=== PATIENT | female | born 1945 | race Caucasian/White ===

== ENCOUNTER 2016-04-20 19:06 | Observation (INO) ==
[2016-04-20] MEDS ORDERED: methylPREDNISolone 125 MG/2 ML VIAL IVP ONE (19:19)
[2016-04-20] MEDS ORDERED: 0.9 % Sodium Chloride 1,000 ML IVC ONE (19:19)
[2016-04-20] MEDS ORDERED: Ipratropium/Albuterol Neb 3 ML IH ONE (19:19)
--- NOTE | 2016-04-20 19:34 | Emergency Department Note ---
Disposition Clinical Impression: Acute exacerbation of chronic obstructive airways disease, Hypoxia, Dyspnea Disposition: Admitted As Inpatient Condition: Fair Referrals: William Abdul MD [Primary Care Provider] - Forms: ED Satisfaction Letter Time of Disposition: 20:46 SOB HPI - General Chief Complaint: ED Shortness of Breath/Dyspnea Stated Complaint: cough, SANCHEZ, fatigue Time Seen by Provider: 04/20/16 19:13 Source: patient, family, EMS Mode of arrival: EMS Limitations: no limitations Nursing Notes Reviewed: Yes Vital Signs Reviewed: Yes - History of Present Illness Pt Subjective Complaint: shortness of breath Onset (ago): day(s) (Several days) Context: other (Started having some cough that is productive of yellow sputum and felt worsening shortness of breath that is limiting her activities of daily living.) Severity: severe (Can walk 15 feet without having to stop and sit down.) Consistency/Duration: constant, gradually worsening Improves with: nothing Worsens with: exertion Known history of: COPD, congestive heart failure, diabetes, recurrent pneumonia Associated symptoms: Reports: cough, wheezing, sputum production, other ( Complained of chills and sweats). Denies: fever Treatment prior to arrival: oxygen (She used her home oxygen), bronchodilator ( Was given one aerosol on route by squad) Cough present: Yes Cough Description: Productive Cough Frequency: Intermittent Sputum production: Yes Sputum Amount: Moderate Sputum Color: Yellow - Related Data Home oxygen amount: 2 liters Home Medications Medication Instructions Recorded Confirmed Ergocalciferol (VITAMIN D2) 50,000 unit PO SA 10/15/15 04/20/16 [Vitamin D2 (50,000 UNIT)] Oxycodone HCl/Acetaminophen 1 tab PO Q6H PRN 10/15/15 04/20/16 [Percocet 10-325 mg Tablet] Oxygen 2 - 2.5 l NS AD 10/15/15 04/20/16 Sitagliptin Phosphate [Januvia] 50 mg PO DAILY 10/15/15 04/20/16 Insulin Glargine [Lantus] 45 unit SQ BID 11/04/15 04/20/16 Metoprolol Tartrate [Metoprolol 50 mg PO BID 11/04/15 04/20/16 Tartrate] Lisinopril [Zestril] 5 mg PO DAILY 04/20/16 04/20/16 Allergies Allergy/AdvReac Type Severity Reaction Status Date / Time No Known Allergies Allergy Verified 10/15/15 16:13 All systems ED: reviewed and negative except as stated. Constitutional: Reports: chills. Denies: fever ENT ED: Reports: congestion. Denies: ear pain, throat pain Cardiovascular: Reports: dyspnea on exertion. Denies: chest pain, palpitations Respiratory: Reports: cough, dyspnea, wheezes Gastrointestinal: Denies: abdominal pain, nausea, vomiting Musculoskeletal: Denies: back pain Integumentary: Denies: rash Endocrine: Reports: fatigue Past Medical History - Past Medical History Attestation: Yes The following information was validated with the patient. Source: patient, old records reviewed, obtained from family, nursing notes reviewed Medical history: Reports: arthritis, CHF, COPD, diabetes, GERD, hyperlipidemia, hypertension, osteoporosis, renal disease, other Surgical history: Reports: other Psychiatric history: Reports: anxiety DIRECTOR [employer] [facility] [facility] history: Reports: no [employer] history - Social History Smoking Status: Current every day smoker Smokeless Tobacco Status: No Alcohol use: Reports: none Drug use: Reports: none Physical Exam - General Limitations: no limitations General appearance: alert - Head Head exam: atraumatic, normocephalic - Eye Eye exam: Present: normal appearance, PERRL, EOMI - ENT ENT exam: normal exam, normal oropharynx, mucous membranes dry, normal external ear exam - Neck Neck exam: Present: normal inspection, full ROM. Absent: meningismus - Chest Chest inspection: Present: normal inspection, symmetric chest wall rise. Absent : tenderness - Respiratory Respiratory exam: Present: wheezes (Diffuse bilaterally). Absent: respiratory distress - Cardiovascular Cardiovascular exam: Present: regular rate, normal rhythm, normal heart sounds - Abdominal Exam Abdominal exam: Present: soft, Non-Tender - Extremities Exam Extremities exam: Present: full ROM, pedal edema (Mild, chronic) - Neurological Exam Neurological exam: Present: alert, oriented X3 - Psychiatric Psychiatric exam: Present: normal affect, normal mood - Skin Skin exam: Present: warm, dry. Absent: rash Course Course Narrative: Patient presents with shortness of breath that is limiting her ability to function at home. She is coughing with production of thick yellow sputum. She is wheezing all over the lungs on auscultation. Given her complaint of chills and sweats, it sounds more like an infectious issue. I ordered breathing treatments for her. We will look at the chest x-ray to assess for pneumonia as well as other issues like CHF. It seems most likely this patient will need to be admitted to the hospital. Final disposition will be based on diagnostic results and reevaluation. - Reevaluation(s) Reevaluation #1: Lab workup is unremarkable except for low potassium, which was supplemented, and elevated blood glucose, which is consistent with her diabetes. Chest x-ray was clear. There is no indication of congestive heart failure. We do not see pneumonia on the chest x-ray. However the patient is coughing up thick yellow sputum. She has got diffuse wheezing all over. She is required no oxygen than she normally uses at home in order to keep her sats up above 90. I think this is bronchitis aggravating COPD and causing an oxygen requirement. She needs to be admitted to the hospital because her symptoms are severe enough that she cannot walk 10 feet without having to stop to sit down and take a breath. I will contact the hospitalist and arrange admission. Time: 20:44 - Consultations Consultation #1: , hospitalist - I discussed the case with the hospitalist and he has accepted the patient for admission. Time: 20:44 Vital Signs Temperature 98.8 F 04/20/16 19:11 Pulse Rate 93 04/20/16 19:11 Respiratory Rate 18 04/20/16 19:11 Blood Pressure 193/109 04/20/16 19:11 O2 Sat by Pulse Oximetry 93 L 04/20/16 19:11 Temperature 98.8 F 04/20/16 19:11 Pulse Rate 120 04/20/16 20:35 Respiratory Rate 20 04/20/16 20:35 Blood Pressure 141/94 04/20/16 20:35 O2 Sat by Pulse Oximetry 91 L 04/20/16 20:35 Oxygen Delivery Oxygen Delivery Nasal Cannula Shortness of Breath/Dyspnea - Medical Records Medical records reviewed: Yes I reviewed the patient's medical records. - Lab Data Lab results reviewed: Yes I reviewed the patient's lab results. Result diagrams: 04/20/16 19:30 04/20/16 19:30 Lab Results 04/20/16 04/20/16 04/20/16 Range/Units 19:30 19:30 19:30 WBC 5.5 (4.3-11.1) K/mcL RBC 4.61 (3.82-4.97) M/mcL Hgb 13.2 (11.5-15.4) g/dL Hct 40.9 (35.3-44.9) % MCV 88.7 (83.0-100.0) fL MCH 28.6 (28.0-33.3) pg MCHC 32.3 (31.6-35.5) g/dL RDW 14.5 (11.5-14.5) % Plt Count 184 (140-400) K/mcL MPV 9.6 (9.4-12.4) fL Immature Gran % 0.9 (0-4) % Seg Neutrophils % 53.7 % Lymphocytes % 30.0 % Monocytes % 14.8 % Eosinophils % 0.2 % Basophils % 0.4 % Neutrophils # 2.9 (1.6-8.9) K/mcL Lymphocytes # 1.6 (0.6-4.6) K/mcL Monocytes # 0.8 (0.0-1.3) K/mcL Eosinophils # 0.0 (0.0-0.6) K/mcL Basophils # 0.0 (0.0-0.2) K/mcL Sodium 139 (136-145) mEq/L Potassium 2.7 L (3.5-4.5) mEq/L Chloride 88 L (98-109) mEq/L Carbon Dioxide 42 H* (19-29) mEq/L BUN 9 (7-20) mg/dL Creatinine 0.97 (0.57-1.11) mg/dL Est GFR ( Amer) > 60 (> 60) Est GFR (Non-Af Amer) 56 L (> 60) BUN/Creatinine Ratio 9 (6-26) Glucose 319 H (70-99) mg/dL Calculated Osmolality 299 (280-300) Lactic Acid 1.4 (0.5-2.2) mmol/L Calcium 8.8 (8.6-10.8) mg/dL Troponin I (0-0.03) ng/mL B-Natriuretic Peptide (0-100) pg/mL 04/20/16 04/20/16 Range/Units 19:30 19:30 WBC (4.3-11.1) K/mcL RBC (3.82-4.97) M/mcL Hgb (11.5-15.4) g/dL Hct (35.3-44.9) % MCV (83.0-100.0) fL MCH (28.0-33.3) pg MCHC (31.6-35.5) g/dL RDW (11.5-14.5) % Plt Count (140-400) K/mcL MPV (9.4-12.4) fL Immature Gran % (0-4) % Seg Neutrophils % % Lymphocytes % % Monocytes % % Eosinophils % % Basophils % % Neutrophils # (1.6-8.9) K/mcL Lymphocytes # (0.6-4.6) K/mcL Monocytes # (0.0-1.3) K/mcL Eosinophils # (0.0-0.6) K/mcL Basophils # (0.0-0.2) K/mcL Sodium (136-145) mEq/L Potassium (3.5-4.5) mEq/L Chloride (98-109) mEq/L Carbon Dioxide (19-29) mEq/L BUN (7-20) mg/dL Creatinine (0.57-1.11) mg/dL Est GFR ( Amer) (> 60) Est GFR (Non-Af Amer) (> 60) BUN/Creatinine Ratio (6-26) Glucose (70-99) mg/dL Calculated Osmolality (280-300) Lactic Acid (0.5-2.2) mmol/L Calcium (8.6-10.8) mg/dL Troponin I 0.01 (0-0.03) ng/mL B-Natriuretic Peptide 69 (0-100) pg/mL - Radiology Data Radiology results reviewed: Yes I reviewed the patient's radiology results. - EKG Data EKG attestation: Yes I reviewed and interpreted this EKG. EKG shows normal: Reports: sinus rhythm, axis, intervals, ST-T waves Rate: Reports: normal Voltage: Reports: decreased voltage throughout Interpretation: Reports: no acute changes
[2016-04-20 19:41] LABS: Basophils % 0.4 %; Eosinophils % 0.2 %; Hematocrit 40.9 % (35.3-44.9); Hemoglobin 13.2 g/dL (11.5-15.4); Immature Granulocytes % 0.9 % (0-4); Lymphocytes # 1.6 K/mcL (0.6-4.6); Mean Corpuscular HGB Conc 32.3 g/dL (31.6-35.5); Mean Corpuscular Hemoglobin 28.6 pg (28.0-33.3); Mean Corpuscular Volume 88.7 fL (83.0-100.0); Mean Platelet Volume 9.6 fL (9.4-12.4); Monocytes # 0.8 K/mcL (0.0-1.3); Monocytes % 14.8 %; Neutrophils # 2.9 K/mcL (1.6-8.9); Platelet Count 184 K/mcL (140-400); Red Blood Count 4.61 M/mcL (3.82-4.97); Red Cell Distribution Width 14.5 % (11.5-14.5); Segmented Neutrophils % 53.7 %
[2016-04-20 19:54] LABS: BUN/Creatinine Ratio 9 (6-26); Blood Urea Nitrogen 9 mg/dL (7-20); Calcium 8.8 mg/dL (8.6-10.8); Chloride 88 mEq/L (98-109); Glucose 319 mg/dL (70-99); Osmolality,Calculated 299 (280-300); Potassium 2.7 mEq/L (3.5-4.5); Sodium 139 mEq/L (136-145); eGFR For African Americans > 60 (> 60); eGFR For Non-African Americans 56 (> 60)
[2016-04-20 19:56] LABS: Carbon Dioxide 42 mEq/L (19-29)
[2016-04-20] MEDS ORDERED: Acetaminophen 325 MG TABLET PO PRN (22:18)
[2016-04-20] MEDS ORDERED: Albuterol 2.5 MG/3 ML NEBULIZER IH PRN (22:18)
[2016-04-20] MEDS ORDERED: Ondansetron 4 MG/2 ML VIAL IVP PRN (22:18)
[2016-04-20] MEDS ORDERED: Naloxone 0.4 MG/ML INJ IVP PRN (22:18)
[2016-04-20] MEDS ORDERED: *HR* OxyCODONE/APAP 10/325 TABLET PO PRN (22:21)
[2016-04-20] MEDS ORDERED: *HR* Dextrose 50 % in Water (Syg) 50 ML SYRINGE IVP PRN (22:22)
[2016-04-20] MEDS ORDERED: Dextrose Gel 15 GM PO PRN ×2 (22:22)
[2016-04-20] MEDS ORDERED: D5% in Water 1,000 ML IV PRN (22:22)
--- NOTE | 2016-04-20 22:27 | Internal Med History&Physical ---
Date of Encounter: 04/20/16 Time of Encounter: 21:20 Internal Medicine - H&P: HPI Chief complaint: SOB, FEELS SICK, COUGHING Admitted From: Emergency Dept Plans for Post Hospital Care: Home History of present illness: Ms. Ramsey is a 71 year old female WITH MEDICAL HISTORY SIGNIFICANT FOR COPD ( oxygen-dependent), presents with a couple of days history of a productive cough , lethargy, loss of appetite, progressive shortness of breath. She has felt so weak. Her grandson reports the patient has has much more wheezing, refusing her meals the past 2-3 days. She reports chest pain, at rest. She she has had no documented she, she has had bouts of diaphoresis. She reports nausea, but has not vomitted. No change in bowel habit. No rash, no change in chronic leg fulless, no PND or orthopnea, no hemoptysis. no sick contact, no recent travel. She continue to smoke. She is up-to-date with influenza and pneumococcal vaccination. She was admitted with respiratory failure in May 2015, requiring intubation and ventilator-support in the ICU. sHE RECEIEVED MULTIPLE ROUNDS of Duoneb in the ED, now requiring 3L of oxygen to keep SPO2>92%. Medical history: Reports: arthritis, CHF, COPD, DM2 (insulin-dependent), GERD, hyperlipidemia, hypertension, osteoporosis Surgical history: Reports: Right shoulder surgery Psychiatric history: Reports: anxiety EDITORIAL ASSISTANT history: Reports: no EDITORIAL ASSISTANT history Smoking Status: Current every day smoker, 0.5ppd Alcohol use: Reports: none Drug use: Reports: none Family History: father: HTN, CAD, COPD, MOTHER: COPD, HTN, daughter: COPD ROS: A 10-point ROS was performed. Positives and relevant negatives are detailed , system-symptom not mentioned assumed negative unless otherwise stated. See HPI. Vital Signs Temperature 98.8 F 04/20/16 19:11 Pulse Rate 93 04/20/16 19:11 Respiratory Rate 18 04/20/16 19:11 Blood Pressure 193/109 04/20/16 19:11 O2 Sat by Pulse Oximetry 93 L 04/20/16 19:11 Temperature 98.8 F 04/20/16 19:11 Pulse Rate 120 04/20/16 20:35 Respiratory Rate 20 04/20/16 20:35 Blood Pressure 141/94 04/20/16 20:35 O2 Sat by Pulse Oximetry 91 L 04/20/16 20:35 Not in distress, ill but not toxic looking. lethargic++. Morbidly obese. She is able to speak in complete sentences Not pale, anicteric, afebrile, cyanotic lips. Moist mucosa. HEENT: No JVD, no cervical lymphadenopathy, tracchea is central. Chest : Very diminished, scattered expiratory wheezing. Bibasilar fine crackles. chest pain reproduced by cough, deep breathing and palpation. Heart: RRR, HS1/2, no m/r/g. Abdomen: soft, non-tender, no guarding, no rebound. : No flank tenderness, no CVA tenderness, no suprapubic tenderness. LOAN COUNSELOR: aaox 3. no gross focal neurological deficits Skin:No active skin lesion. Extremities: Non-pitting pedal edema, chronic stasis dermatitis, normal pedal pulses, no calf tenderness. Lab Results 04/20/16 04/20/16 04/20/16 Range/Units 19:30 19:30 19:30 WBC 5.5 (4.3-11.1) K/mcL RBC 4.61 (3.82-4.97) M/mcL Hgb 13.2 (11.5-15.4) g/dL Hct 40.9 (35.3-44.9) % MCV 88.7 (83.0-100.0) fL MCH 28.6 (28.0-33.3) pg MCHC 32.3 (31.6-35.5) g/dL RDW 14.5 (11.5-14.5) % Plt Count 184 (140-400) K/mcL MPV 9.6 (9.4-12.4) fL Immature Gran % 0.9 (0-4) % Seg Neutrophils % 53.7 % Lymphocytes % 30.0 % Monocytes % 14.8 % Eosinophils % 0.2 % Basophils % 0.4 % Neutrophils # 2.9 (1.6-8.9) K/mcL Lymphocytes # 1.6 (0.6-4.6) K/mcL Monocytes # 0.8 (0.0-1.3) K/mcL Eosinophils # 0.0 (0.0-0.6) K/mcL Basophils # 0.0 (0.0-0.2) K/mcL Sodium 139 (136-145) mEq/L Potassium 2.7 L (3.5-4.5) mEq/L Chloride 88 L (98-109) mEq/L Carbon Dioxide 42 H* (19-29) mEq/L BUN 9 (7-20) mg/dL Creatinine 0.97 (0.57-1.11) mg/dL Est GFR ( Amer) > 60 (> 60) Est GFR (Non-Af Amer) 56 L (> 60) BUN/Creatinine Ratio 9 (6-26) Glucose 319 H (70-99) mg/dL Calculated Osmolality 299 (280-300) Lactic Acid 1.4 (0.5-2.2) mmol/L Calcium 8.8 (8.6-10.8) mg/dL Troponin I (0-0.03) ng/mL B-Natriuretic Peptide (0-100) pg/mL 04/20/16 04/20/16 Range/Units 19:30 19:30 WBC (4.3-11.1) K/mcL RBC (3.82-4.97) M/mcL Hgb (11.5-15.4) g/dL Hct (35.3-44.9) % MCV (83.0-100.0) fL MCH (28.0-33.3) pg MCHC (31.6-35.5) g/dL RDW (11.5-14.5) % Plt Count (140-400) K/mcL MPV (9.4-12.4) fL Immature Gran % (0-4) % Seg Neutrophils % % Lymphocytes % % Monocytes % % Eosinophils % % Basophils % % Neutrophils # (1.6-8.9) K/mcL Lymphocytes # (0.6-4.6) K/mcL Monocytes # (0.0-1.3) K/mcL Eosinophils # (0.0-0.6) K/mcL Basophils # (0.0-0.2) K/mcL Sodium (136-145) mEq/L Potassium (3.5-4.5) mEq/L Chloride (98-109) mEq/L Carbon Dioxide (19-29) mEq/L BUN (7-20) mg/dL Creatinine (0.57-1.11) mg/dL Est GFR ( Amer) (> 60) Est GFR (Non-Af Amer) (> 60) BUN/Creatinine Ratio (6-26) Glucose (70-99) mg/dL Calculated Osmolality (280-300) Lactic Acid (0.5-2.2) mmol/L Calcium (8.6-10.8) mg/dL Troponin I 0.01 (0-0.03) ng/mL B-Natriuretic Peptide 69 (0-100) pg/mL EKG: NSR, normal axis, normal intervals, no ST-T anomalies CXR: bibasilar atelectasis, no infiltrates, back-ground COPD. IMP COPD exacerbation Viral upper respiratory tract infection. evaluate for influenza. Chronic morbidities COPD HTN Diastolic CHF HLD GERD Osteoporosis Morbid obesity PLAN Admit to observation Rapid influenza/strep group A Solumedrol 40mg IVP Q12H Duonebs QID Albuterol nebs Q4H PRN Levaquin 500mg po QD Continue other medications of chronic morbidities Lovenox for DVT prophylaxis Protonix 40mg po QD FOR gi PROPHYLAXIS I discussed my assessment with the patient, her grandson/daughter at bedside, they verbalized understanding and are agreeable to admission. She is admitted due to high risk from progressive SOB, lethargy, and high risk for acute on chronic respiratory failure. Past Med Surg Social Fam HX - Past Medical History Medical history: arthritis, CHF, COPD, diabetes, GERD, hyperlipidemia, hypertension, osteoporosis, renal disease, other Psychiatric history: anxiety - Past Surgical History Surgical History: other - Social History Smoking Status: Current every day smoker Smokeless Tobacco Status: No Alcohol use: none Drug use: none - Family History Mother Hx Family Cardiac Disorders: Yes (heart attack, HTN) Hx Family Endocrine Disorder: Yes (diabetes) Internal Medicine - H&P: Meds Ergocalciferol (VITAMIN D2) [Vitamin D2 (50,000 UNIT)] 50,000 unit PO SA [History] Oxycodone HCl/Acetaminophen [Percocet 10-325 mg Tablet] 1 tab PO Q6H PRN [History] Oxygen 2 - 2.5 l NS AD 10/15/15 [History] Sitagliptin Phosphate [Januvia] 50 mg PO DAILY 10/15/15 [History] Insulin Glargine [Lantus] 45 unit SQ BID 11/04/15 [History] Metoprolol Tartrate [Metoprolol Tartrate] 50 mg PO BID 11/04/15 [History] Lisinopril [Zestril] 5 mg PO DAILY 04/20/16 [History] Allergies No Known Allergies Allergy (Verified 10/15/15 16:13) All Systems PM: A 10-system review of systems was performed and is negative for pertinent findings except as documented above in the HPI. - Constitutional Vitals: Temp Pulse Resp BP Pulse Ox 98.8 F 120 20 125/68 91 L 04/20/16 19:11 04/20/16 20:35 04/20/16 21:33 04/20/16 21:33 04/20/16 20:35 Internal Med - H&P Results - Labs CBC & Chem 7: 04/20/16 19:30 04/20/16 19:30
[2016-04-20] MEDS ORDERED: NON-FORMULARY MEDICATION 1 EACH EACH (Insulin Glargine [Lantus] 45 UNIT) SQ SCH (22:30)
[2016-04-20] MEDS: Ipratropium/Albuterol Neb 3 ML IH SCH (23:08)
[2016-04-21] MEDS: Insulin DETEMIR 100 UNIT/ML X5UNITS SQ SCH ×2 (01:06→08:41)
[2016-04-21] MEDS: Ipratropium/Albuterol Neb 3 ML IH SCH ×2 (05:13→11:39)
[2016-04-21] MEDS ORDERED: MethylPREDNISolone 40 MG/ML VIAL IVP SCH (06:00)
[2016-04-21] MEDS ORDERED: *HR* Enoxaparin 40 MG/0.4 ML SYRINGE SQ SCH (06:00)
[2016-04-21] MEDS: Insulin LISPRO 300 UNITS/3 ML VIAL SQ SCH ×2 (08:40→11:57)
[2016-04-21] MEDS ORDERED: JANUVIA 50 MG PO SCH (09:00)
[2016-04-21] MEDS ORDERED: levoFLOXacin 500 MG TABLET PO SCH (09:00)
[2016-04-21] MEDS ORDERED: Nystatin Cream 15 GM TUBE TP SCH (09:00)
[2016-04-21] MEDS ORDERED: Potassium Chloride 40 MEQ, Lidocaine 1% 2 ML in D5% in Water 500 ML IVPB SCH (09:45)
[2016-04-21] MEDS ORDERED: Dextrose Gel 15 GM PO PRN ×2 (09:46)
[2016-04-21] MEDS ORDERED: *HR* Dextrose 50 % in Water (Syg) 50 ML SYRINGE IVP PRN (09:46)
[2016-04-21] MEDS ORDERED: D5% in Water 1,000 ML IV PRN (09:46)
[2016-04-21] MEDS ORDERED: Insulin LISPRO 300 UNITS/3 ML VIAL SQ SCH ×3 (11:30→21:00)
[2016-04-21 11:48] VITALS: BP 155/80
--- NOTE | 2016-04-21 12:01 | Electrocardiograph Report ---
[place] [address] Test Date: 2016-04-20 Pat Name: Elysia Ramsey Department: 104 Room: 3A43 Gender: F Director Airport: : 1945 Requested By: Willy Young Order Number: [id number] Reading MD: Myra Bruce Measurements Intervals [place] Rate: 94 P: 68 MS: 182 QRS: 25 QRSD: 94 T: 46 QT: 293 QTc: 345 Interpretive Statements SINUS RHYTHM LOW QRS VOLTAGE IN PRECORDIAL LEADS Electronically Signed On 04-21-2016 11:59:54 EST by Myra Bruce
--- NOTE | 2016-04-21 12:13 | Electrocardiograph Report ---
[address] [place] [address] Test Date: 2016-04-21 Pat Name: Elysia Ramsey Department: 115 Room: 3A43 Gender: F Manager Visual: : 1945 Requested By: Maame Argueta Order Number: [id number] Reading MD: Myra Bruce Measurements Intervals [place] Rate: 107 P: 70 MD: 187 QRS: 41 QRSD: 91 T: 51 QT: 337 QTc: 400 Interpretive Statements SINUS TACHYCARDIA POSSIBLE ANTERIOR MYOCARDIAL INFARCTION, OF INDETERMINATE AGE Electronically Signed On 04-21-2016 12:12:22 EST by Myra Bruce
--- NOTE | 2016-04-21 14:05 | Discharge Summary ---
Date of Encounter: 04/21/16 Time of Encounter: 14:01 - Discharge Diagnosis (1) Flu Priority: Primary Status: Acute (2) Acute exacerbation of chronic obstructive airways disease Priority: Primary Status: Acute (3) UTI (urinary tract infection), uncomplicated Priority: Primary Status: Acute - Discharge Medications Prescriptions: Levofloxacin [Levaquin] 500 mg PO DAILY #4 tablet Oseltamivir [Tamiflu] 75 mg PO BID 4 Days Potassium Chloride Elixir [Potassium Chloride] 40 meq PO DAILY 3 Days PredniSONE 10 mg PO DAILY #21 tablet Home Medications: Ergocalciferol (VITAMIN D2) [Vitamin D2 (50,000 UNIT)] 50,000 unit PO SA [History] Oxycodone HCl/Acetaminophen [Percocet 10-325 mg Tablet] 1 tab PO Q6H PRN [History] Oxygen 2 - 2.5 l NS AD 10/15/15 [History] Sitagliptin Phosphate [Januvia] 50 mg PO DAILY 10/15/15 [History] Insulin Glargine [Lantus] 45 unit SQ BID 11/04/15 [History] Metoprolol Tartrate 50 mg PO BID 11/04/15 [History] Lisinopril [Zestril] 5 mg PO DAILY 04/20/16 [History] Levofloxacin [Levaquin] 500 mg PO DAILY #4 tablet 04/21/16 [Rx] Oseltamivir [Tamiflu] 75 mg PO BID 4 Days 04/21/16 [Rx] Potassium Chloride Elixir [Potassium Chloride] 40 meq PO DAILY 3 Days 04/21/16 [ Rx] PredniSONE 10 mg PO DAILY #21 tablet 04/21/16 [Rx] Allergies/Adverse Reactions: Allergies No Known Allergies Allergy (Verified 10/15/15 16:13) Procedures/tests Complete & Pending: Procedures Performed prior 72 hours Category Date Time Status ECG 12 lead ECG [ECG] Routine Y 04/21/16 05:01 Completed Date of admission: 04/20/16 21:02 Primary care physician: William Abdul MD Consults: 04/20/16 22:56 Consult to Nutrition [CONS] Stat Comment: Consulting Provider: NUTRITION Reason for Dietary Consult: MST Score 04/21/16 11:54 Consult to Python Web Developer [CONS] Routine Reason for SW Consult: discharge needs Discharging clinician: Maame Recio date of discharge: 04/21/16 - Patient Status Disposition: Home, Self-Care Condition: Fair Functional capacity at discharge: independent ambulation Overall status at discharge: patient is back to baseline - Discharge Instructions Instructions: Influenza (DC), Chronic Obstructive Pulmonary Disease (DC), Dyspnea (GEN), Hypoxia (GEN) Follow Up With: William Abdul MD [Primary Care Provider] - 05/01/16 9:45 am - Diet and Activity Activity: resume usual activities as tolerated Diet: advance to your usual diet Interval History: Ms. Ramsey is a 71 year old female WITH MEDICAL HISTORY SIGNIFICANT FOR COPD ( oxygen-dependent), presents with a couple of days history of a productive cough , lethargy, loss of appetite, progressive shortness of breath. She has felt so weak. Her grandson reports the patient has has much more wheezing, refusing her meals the past 2-3 days. She reports chest pain, at rest. She she has had no documented she, she has had bouts of diaphoresis. She reports nausea, but has not vomitted. No change in bowel habit. No rash, no change in chronic leg fulless, no PND or orthopnea, no hemoptysis. no sick contact, no recent travel. She continue to smoke. She is up-to-date with influenza and pneumococcal vaccination. She was admitted with respiratory failure in May 2015, requiring intubation and ventilator-support in the ICU. sHE RECEIEVED MULTIPLE ROUNDS of Duoneb in the ED, now requiring 3L of oxygen to keep SPO2>92%. work up at ED showed influenza positive, and hypokalemia. cxr showed no signs of pneumonia. she was started on tamiflu and was given IV potassium she was seen today, she reports that she feels better and ready to go home she did not want to wait for repeat chem. she is bieng dc today in stable condition. Hospital course: Ms. Ramsey is a 71 year old female Time spent discussing smoking cessation with patient: more than 10 minutes - Time Spent with Patient Total time spent providing and/or coordinating discharge services: Greater than 30 minutes - Constitutional Vitals: Temp Pulse Resp BP Pulse Ox 98.5 F 75 18 155/80 97 04/21/16 11:33 04/21/16 11:33 04/21/16 11:33 04/21/16 11:33 04/21/16 11:33 General appearance: Present: A&O X 3, morbidly obese Exam: Not in distress, Morbidly obese. She is able to speak in complete sentences Not pale, anicteric, afebrile, cyanotic lips. Moist mucosa. HEENT: No JVD, no cervical lymphadenopathy, tracchea is central. Chest : b/l decreased breath sounds, no wheezing. Heart: RRR, HS1/2, no m/r/g. Abdomen: soft, non-tender, no guarding, no rebound. : No flank tenderness, no CVA tenderness, no suprapubic tenderness. SOLUTION STRATEGIST: aaox 3. no gross focal neurological deficits Skin:No active skin lesion. Extremities: Non-pitting pedal edema, chronic stasis dermatitis, normal pedal pulses, no calf tenderness.
== END 2016-04-21 14:30 | disposition home or self-care (01) ==
LOC: 3ANU 19:06 → EMEROO 19:06 → 3ANU 22:19
PROVIDERS: ADMIT Internal Medicine Endocrinology, Diabetes & Metabolism; ATTEND Internal Medicine Endocrinology, Diabetes & Metabolism

== ENCOUNTER 2018-06-05 13:11 | Inpatient (IN) ==
[2018-06-05] MEDS ORDERED: *HR* Dextrose 50 % in Water (Syg) 50 ML SYRINGE ONE ×2 (13:37→15:23)
--- NOTE | 2018-06-05 13:45 | Emergency Department Note ---
Disposition Clinical Impression: Hypoglycemia, Hyponatremia Altered mental status Qualifiers: Altered mental status type: unspecified Qualified Code(s): R41.82 - Altered mental status, unspecified Disposition: Admitted As Inpatient Time of Disposition: 01:30 Altered Mental Status HPI - General Chief Complaint: ED Altered Mental Status Stated Complaint: weakness Time Seen by Provider: 06/05/18 13:40 Source: EMS Mode of arrival: EMS Limitations: no limitations, altered mental status Nursing Notes Reviewed: Yes Vital Signs Reviewed: Yes - History of Present Illness HPI Narrative: Patient 73-year-old female presenting to [facility] ED via EMS for unknown history of lethargy/altered mental status. Per nursing report patient was brought in by EMS after calling his received for lethargy. Patient was found to be hypoglycemic at 26 in the field and was given an amp of D50. Nursing staff reports the patient was alert and oriented upon presentation to the ED but then again decompensated with altered mental status and fingerstick glucose at 56. A second amp of D50 was ordered at that time. Upon initial evaluation patient is alert to person only, she is unsure of her past medical history cellulitis she is a diabetic but is unsure of what medication she takes. Patient states she does not know why she is at the hospital only stating that she "feels very bad." Patient appears with warm, clammy skin, scattered rhonchi to lung auscultation states she is having abdominal pain with nausea and diffuse tenderness to palpation. Labs and chest x-ray ordered we will reassess. MD complaint: altered mental status Onset (ago): unknown Pain Severity: unable Consistency of Symptoms: waxing and waning Context: diabetes Associated symptoms: Reports: nausea/vomiting Treatments prior to arrival: glucose, IV fluid, oxygen - Related Data Home Medications Medication Instructions Recorded Confirmed Citalopram Hydrobromide 20 mg PO DAILY 06/05/18 06/05/18 [Citalopram HBr] Dulaglutide [Trulicity] 0.75 mg SQ SA 06/05/18 06/05/18 Ergocalciferol (VITAMIN D2) 50,000 unit PO FR 06/05/18 06/05/18 [Vitamin D2] Insulin Glargine,Hum.rec.anlog 62 unit SQ DAILY 06/05/18 06/05/18 [Lantus Solostar] Metoprolol Tartrate 50 mg PO DAILY 06/05/18 06/05/18 OxyCODONE/APAP 10/325 [Percocet 1 tab PO Q6H PRN 06/05/18 06/05/18 10/325 MG] Potassium Chloride [K-Tab ER] 10 meq PO DAILY 06/05/18 06/05/18 RX: Albuterol Sulfate [Albuterol 2 puff IH Q6H PRN 06/05/18 06/05/18 Inhaler] RX: Donepezil [Aricept] 5 mg PO HS 06/05/18 06/05/18 RX: Lisinopril [Zestril] 5 mg PO DAILY 06/05/18 06/05/18 Sitagliptin Phosphate [Januvia] 50 mg PO DAILY 06/05/18 06/05/18 Tiotropium [Spiriva] 18 mcg IH DAILY 06/05/18 06/05/18 levoFLOXacin [Levofloxacin] 500 mg PO DAILY 06/05/18 06/05/18 Allergies Allergy/AdvReac Type Severity Reaction Status Date / Time No Known Allergies Allergy Verified 06/05/18 16:19 Review of Systems: As Per HPI Limitations: ROS unobtainable due to patients medical condition Past Medical History - Past Medical History Source: old records reviewed, nursing notes reviewed Medical history: Reports: arthritis, CHF, COPD, diabetes, GERD, hyperlipidemia, hypertension, osteoporosis, renal disease, other Surgical history: Reports: other Psychiatric history: Reports: anxiety 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 Absent: scleral icterus, conjunctival injection - Neck Neck exam: Present: normal inspection, trachea midline. Absent: meningismus, thyromegaly - Chest Chest inspection: Present: normal inspection, symmetric chest wall rise - Respiratory Respiratory exam: Present: other (Scattered rhonchi diffusely). Absent: wheezes , stridor, accessory muscle use, prolonged expiratory phase - Cardiovascular Cardiovascular exam: Present: regular rate, normal rhythm, normal heart sounds, +S1, +S2. Absent: systolic murmur, diastolic murmur, JVD, +S3, +S4 - Abdominal Exam Abdominal exam: Present: soft, tenderness, normal bowel sounds. Absent: distent ion, guarding, rebound, rigidity, organomegaly Abdominal tenderness: Present: diffuse - Skin Skin exam: Present: warm, intact, normal color, diaphoresis, pallor. Absent: cyanosis, erythema, mottled Course Course Narrative: CBC, BMP, hepatic panel, lipase, insulin, C-peptide Chest x-ray - Reevaluation(s) Reevaluation #1: Patient's daughter since patient lives at home alone has past medical history of diabetes on insulin as well as an oral hypoglycemic medication. Daughter states that it would not be possible for patient to have taken too much of her home medication. Past medical history of dementia Patient is visibly improved after D50 administration Patient still unsure of why she came to hospital. Chest x-ray shows right lower quadrant opacity which is stated to be likely atelectasis, however with recent history of what cough as well as sputum production we will treat empirically for pneumonia. Time: 14:46 Vital Signs Temperature 98.9 F 06/05/18 13:15 Pulse Rate 60 06/05/18 13:15 Respiratory Rate 18 06/05/18 13:15 Blood Pressure 121/62 06/05/18 13:15 O2 Sat by Pulse Oximetry 90 06/05/18 13:15 Temperature 97.5 F L 06/06/18 00:25 Pulse Rate 71 06/06/18 00:25 Respiratory Rate 19 06/06/18 00:25 Blood Pressure 119/90 06/06/18 00:25 O2 Sat by Pulse Oximetry 98 06/06/18 00:25 Oxygen Delivery Oxygen Delivery Room Air Altered Mental Status - MDM Narrative Medical decision making narrative: Patient required third dose of D50 due to hypoglycemia She is currently back to baseline and tolerating by mouth intake Potassium replacement due to hypokalemia Empiric treatment with azithromycin and ceftriaxone for likely pneumonia given clinical symptoms along with imaging results Patient admitted to hospitalist medicine service for further evaluation and management. Dr. Philippe is accepting - Lab Data Lab results reviewed: Yes I reviewed the patient's lab results. Result diagrams: 06/05/18 13:53 06/05/18 13:53 Lab Results 06/05/18 06/05/18 06/05/18 Range/Units 13:34 13:53 13:53 WBC 11.4 H (4.3-11.1) K/mcL RBC 4.29 (3.82-4.97) M/mcL Hgb 12.7 (11.5-15.4) g/dL Hct 40.7 (35.3-44.9) % MCV 94.9 (83.0-100.0) fL MCH 29.6 (28.0-33.3) pg MCHC 31.2 L (31.6-35.5) g/dL RDW 15.2 H (11.5-14.5) % Plt Count 191 (140-400) K/mcL MPV 10.1 (9.4-12.4) fL Immature Gran % 0.7 (0-4) % Seg Neutrophils % 80.3 % Lymphocytes % 10.5 % Monocytes % 7.9 % Eosinophils % 0.5 % Basophils % 0.1 % Neutrophils # 9.1 H (1.6-8.9) K/mcL Lymphocytes # 1.2 (0.6-4.6) K/mcL Monocytes # 0.9 (0.0-1.3) K/mcL Eosinophils # 0.1 (0.0-0.6) K/mcL Basophils # 0.0 (0.0-0.2) K/mcL Sodium 140 (136-145) mEq/L Potassium 2.5 L* (3.5-5.1) mEq/L Chloride 97 L (98-107) mEq/L Carbon Dioxide 36 H (23-29) mEq/L BUN 12 (8-23) mg/dL Creatinine 0.94 (0.60-1.20) mg/dL Est GFR ( Amer) > 60 (> 60) Est GFR (Non-Af Amer) 58 L (> 60) BUN/Creatinine Ratio 13 (6-26) Glucose 113 H (70-105) mg/dL POC Glucose 56 L (70-99) mg/dL Calculated Osmolality 291 (280-300) Calcium 8.5 L (8.6-10.3) mg/dL Total Bilirubin 0.5 (0.3-1.0) mg/dL Direct Bilirubin 0.1 (0.0-0.2) mg/dL Indirect Bilirubin 0.4 (0.0-1.2) mg/dL AST 8 L (13-39) Units/L ALT 4 L (7-52) Units/L Alkaline Phosphatase 79 (34-104) Units/L Serum Total Protein 5.4 L (6.4-8.9) g/dL Albumin 2.7 L (3.5-5.7) g/dL Globulin 2.7 (2.4-3.5) g/dL Albumin/Globulin Ratio 1.0 L (1.1-2.2) Lipase 6 L (11-82) Units/L 06/05/18 06/05/18 06/05/18 Range/Units 15:19 15:20 17:18 WBC (4.3-11.1) K/mcL RBC (3.82-4.97) M/mcL Hgb (11.5-15.4) g/dL Hct (35.3-44.9) % MCV (83.0-100.0) fL MCH (28.0-33.3) pg MCHC (31.6-35.5) g/dL RDW (11.5-14.5) % Plt Count (140-400) K/mcL MPV (9.4-12.4) fL Immature Gran % (0-4) % Seg Neutrophils % % Lymphocytes % % Monocytes % % Eosinophils % % Basophils % % Neutrophils # (1.6-8.9) K/mcL Lymphocytes # (0.6-4.6) K/mcL Monocytes # (0.0-1.3) K/mcL Eosinophils # (0.0-0.6) K/mcL Basophils # (0.0-0.2) K/mcL Sodium (136-145) mEq/L Potassium (3.5-5.1) mEq/L Chloride (98-107) mEq/L Carbon Dioxide (23-29) mEq/L BUN (8-23) mg/dL Creatinine (0.60-1.20) mg/dL Est GFR ( Amer) (> 60) Est GFR (Non-Af Amer) (> 60) BUN/Creatinine Ratio (6-26) Glucose (70-105) mg/dL POC Glucose 45 L* 48 L* 94 (70-99) mg/dL Calculated Osmolality (280-300) Calcium (8.6-10.3) mg/dL Total Bilirubin (0.3-1.0) mg/dL Direct Bilirubin (0.0-0.2) mg/dL Indirect Bilirubin (0.0-1.2) mg/dL AST (13-39) Units/L ALT (7-52) Units/L Alkaline Phosphatase (34-104) Units/L Serum Total Protein (6.4-8.9) g/dL Albumin (3.5-5.7) g/dL Globulin (2.4-3.5) g/dL Albumin/Globulin Ratio (1.1-2.2) Lipase (11-82) Units/L - Radiology Data Radiology results reviewed: Yes I reviewed the patient's radiology results. Chest X-Ray 06/05/18 13:40 IMPRESSION: Mild right basilar opacity, likely atelectasis. No convincing evidence of pneumonia. D/ / 06/05/2018 14:32:08 Kevin Dinh MD / nika Interpreting Provider: Kevin Dinh MD - EKG Data EKG attestation: Yes I reviewed and interpreted this EKG. EKG results narrative: Patient EKG shows sinus rhythm with a ventricular rate of 62 bpm, VT interval of 180 ms, QR anabaptist of 103 ms, QT/QTc interval 421/4-8 ms respectively. There are no significant ST segment elevations, depressions, pathologic Q waves, abnormal T-wave inversions, or any other signs of acute ischemic change. This EKG performed today is generally consistent with prior EKG performed on 12/05/2017. TPA Checklist - LKW: 3-4.5 hrs Add. Warnings/Precautions Patient/family understanding: The patient/family members have been counseled and understood the risk, benefit, and alternatives of treatment. Attestation Statement - Attestation Attestation: I, Willy Nielsen, examined this patient and my medical decision-making was reviewed with the ELEMENT BURNER/PA/Advanced Practice Nurse/Resident Physician. I agree with the documented findings, disposition and treatment plan as described except to the extent set forth below. 73-year-old female presents emergency Department with concerns of weakness and lethargy. EMS arrived on scene to find patient had a basic blood sugar of 26. She was given an amp of D50 and she is now awake alert when she arrived to the emergency department. She soon dropped again down to hypoglycemic levels and had return of symptoms. Patient has a history of dementia so is a poor histo jacky regarding her case and presentation, family is present which who helps with the information for this note. Patient improved after additional dextrose in the emergency department. She was then given by mouth intake which she tolerated well and then improved. Patient administers all of her own medications, she takes multiple medications for diabetes. Chest x-ray shows a possible pneumonia. She started antibiotics emergency department and will be admitted to the hospitalist for further care and evaluation.
[2018-06-05 14:30] LABS: Basophils % 0.1 %; Eosinophils # 0.1 K/mcL (0.0-0.6); Eosinophils % 0.5 %; Hematocrit 40.7 % (35.3-44.9); Hemoglobin 12.7 g/dL (11.5-15.4); Immature Granulocytes % 0.7 % (0-4); Lymphocytes # 1.2 K/mcL (0.6-4.6); Lymphocytes % 10.5 %; Mean Corpuscular HGB Conc 31.2 g/dL (31.6-35.5); Mean Corpuscular Hemoglobin 29.6 pg (28.0-33.3); Mean Corpuscular Volume 94.9 fL (83.0-100.0); Mean Platelet Volume 10.1 fL (9.4-12.4); Monocytes # 0.9 K/mcL (0.0-1.3); Monocytes % 7.9 %; Neutrophils # 9.1 K/mcL (1.6-8.9); Platelet Count 191 K/mcL (140-400); Red Blood Count 4.29 M/mcL (3.82-4.97); Red Cell Distribution Width 15.2 % (11.5-14.5); Segmented Neutrophils % 80.3 %
[2018-06-05 15:18] LABS: Alanine Aminotransferase 4 Units/L (7-52); Albumin 2.7 g/dL (3.5-5.7); Alkaline Phosphatase 79 Units/L (34-104); Aspartate Amino Transferase 8 Units/L (13-39); BUN/Creatinine Ratio 13 (6-26); Bilirubin,Direct 0.1 mg/dL (0.0-0.2); Bilirubin,Indirect 0.4 mg/dL (0.0-1.2); Bilirubin,Total 0.5 mg/dL (0.3-1.0); Blood Urea Nitrogen 12 mg/dL (8-23); Calcium 8.5 mg/dL (8.6-10.3); Carbon Dioxide 36 mEq/L (23-29); Chloride 97 mEq/L (98-107); Globulin 2.7 g/dL (2.4-3.5); Glucose 113 mg/dL (70-105); Lipase 6 Units/L (11-82); Osmolality,Calculated 291 (280-300); Potassium 2.5 mEq/L (3.5-5.1); Sodium 140 mEq/L (136-145); Total Protein 5.4 g/dL (6.4-8.9); eGFR For Non-African Americans 58 (> 60)
[2018-06-05] MEDS ORDERED: 0.9 % Sodium Chloride 1,000 ML IVC ONE (15:22)
[2018-06-05] MEDS ORDERED: *HR* Dextrose 50 % in Water (Syg) 50 ML SYRINGE IVP ONE (15:22)
[2018-06-05] MEDS ORDERED: Azithromycin 500 MG in D5% in Water 250 ML IVPB STA (15:23)
[2018-06-05] MEDS ORDERED: cefTRIAXone 1,000 MG in 0.9 % Sodium Chloride Mini Bag 100 ML IVPB ONE (15:23)
[2018-06-05] MEDS ORDERED: Acetaminophen 325 MG TABLET PO PRN (16:43)
[2018-06-05] MEDS ORDERED: Naloxone 0.4 MG/ML INJ IVP PRN (16:43)
[2018-06-05] MEDS ORDERED: Potassium Chloride 40 MEQ, Lidocaine 1% 2 ML in D5% in Water 500 ML IVPB ONE (16:47)
[2018-06-05] MEDS ORDERED: D5% in Water 1,000 ML IVC PRN (16:49)
[2018-06-05] MEDS ORDERED: Dextrose Gel 15 GM/37.5 ML TUBE PO PRN ×2 (16:49)
[2018-06-05] MEDS ORDERED: *HR* Dextrose 50 % in Water (Syg) 50 ML SYRINGE IVP PRN (16:49)
[2018-06-05] MEDS ORDERED: *HR* OxyCODONE/APAP 10/325 TABLET PO PRN (16:54)
--- NOTE | 2018-06-05 17:02 | Internal Med History&Physical ---
Date of Encounter: 06/05/18 Time of Encounter: 16:00 Internal Medicine - H&P: HPI Chief complaint: Altered mental status Admitted From: Home Plans for Post Hospital Care: Home History of present illness: Ms. Ramsey is a 73 year old female sent to ER by EMS for altered mental status. Past medical history is significant for dementia, diabetes, CHF, COPD, hypertension. Patient is demented, history obtained from patient's granddaughter Zoya at the bedside and ER documentation. Patient has diabetes on insulin. Patient has dementia but lives alone. This morning, patient's daughter was with her and patient is fine. However, patient's daughter went to the grocery store and came back 45 minutes later and was found patient is nonresponsive, altered mental status, cannot recognize her daughter. EMS was called, patient was found sugar low to 26, D50 was given and the patient was sent to emergency room. In the ER, glucose low to 53, another D50 was given. Patient was found hypoglycemia again in the emergency room and had the third D50. Patient's mental status back to her baseline. When I saw her in the ER, patient is pleasant, denies any pain, nausea, vomiting, abdominal pain, diarrhea, or urination symptoms. Patient has no fever. Per patient's granddaughter, patient has cold for about 3-4 weeks, an d saw doctor yesterday and was prescribed antibiotics. Patient has mild cough. Patient was admitted for further management. Past Med Surg Social Fam HX - Past Medical History Medical history: arthritis, CHF, COPD, diabetes, GERD, hyperlipidemia, hypertension, osteoporosis, renal disease, other Additional medical history: narcolepsy, IBS Psychiatric history: anxiety - Past Surgical History Surgical History: other Additional surgical history: right total shoulder replacement 2009 - Social History Smoking Status: Current every day smoker Smokeless Tobacco Status: No Alcohol use: none Drug use: none - Family History Mother Adopted: No Family Member Ethnicity: Non- Living Status: Hx Family Cardiac Disorders: Yes (heart attack, HTN) Hx Family Respiratory Disorders: Yes Hx Family Cancer: No Hx Family GI Disorders: No Hx Family Endocrine Disorder: Yes (diabetes) Hx Family Neuromuscular Disorders: No Hx Family Neurologic Disorders: No Hx Family HEENT Disorders: No Hx Family Autoimmune Disorders: No Internal Medicine - H&P: Meds Albuterol Sulfate [Albuterol Inhaler] 2 puff IH Q6H PRN 06/05/18 [History] Citalopram Hydrobromide [Citalopram HBr] 20 mg PO DAILY 06/05/18 [History] Donepezil [Aricept] 5 mg PO HS 06/05/18 [History] Dulaglutide [Trulicity] 0.75 mg SQ SA 06/05/18 [History] Ergocalciferol (VITAMIN D2) [Vitamin D2] 50,000 unit PO FR 06/05/18 [History] Insulin Glargine,Hum.rec.anlog [Lantus Solostar] 62 unit SQ DAILY 06/05/18 [History] Lisinopril [Zestril] 5 mg PO DAILY 06/05/18 [History] Metoprolol Tartrate 50 mg PO DAILY 06/05/18 [History] OxyCODONE/APAP 10/325 [Percocet 10/325 MG] 1 tab PO Q6H PRN 06/05/18 [History] Potassium Chloride [K-Tab ER] 10 meq PO DAILY 06/05/18 [History] Sitagliptin Phosphate [Januvia] 50 mg PO DAILY 06/05/18 [History] Tiotropium [Spiriva] 18 mcg IH DAILY 06/05/18 [History] levoFLOXacin [Levofloxacin] 500 mg PO DAILY 06/05/18 [History] Allergy/AdvReac Type Severity Reaction Status Date / Time No Known Allergies Allergy Verified 06/05/18 16:19 All Systems PM: A 10-system review of systems was performed and is negative for pertinent findings except as documented above in the HPI. - Constitutional Vitals: Temp Pulse Resp BP Pulse Ox 98.9 F 60 18 121/62 90 06/05/18 13:15 06/05/18 13:15 06/05/18 13:15 06/05/18 13:15 06/05/18 13:15 Exam: Pt is AAO x 1, demented, pleasant, in NAD HEENT: NC/AT, PERRL Neck: Supple, no JVD, no LAD Lungs: Coarse breath sounds bilaterally, scattered rhonchi on right lung base. Heart: S1S2, RRR Abd: Soft, nontender, BS present Ext: ROM wnl, mild bilateral pedal edema Neuro: No focal deficit Internal Med - H&P Results - Labs CBC & Chem 7: 06/05/18 13:53 06/05/18 13:53 Labs: Short CBC 06/05/18 Range/Units 13:53 WBC 11.4 H (4.3-11.1) K/mcL Hgb 12.7 (11.5-15.4) g/dL Hct 40.7 (35.3-44.9) % Plt Count 191 (140-400) K/mcL Neutrophils # 9.1 H (1.6-8.9) K/mcL BMP 06/05/18 13:53 Sodium 140 Potassium 2.5 L* Chloride 97 L Carbon Dioxide 36 H BUN 12 Creatinine 0.94 Glucose 113 H Calcium 8.5 L Liver Function 06/05/18 Range/Units 13:53 Total Bilirubin 0.5 (0.3-1.0) mg/dL Direct Bilirubin 0.1 (0.0-0.2) mg/dL AST 8 L (13-39) Units/L ALT 4 L (7-52) Units/L Alkaline Phosphatase 79 (34-104) Units/L Albumin 2.7 L (3.5-5.7) g/dL - Impressions ITS Impressions Chest X-Ray 06/05/18 13:40 IMPRESSION: Mild right basilar opacity, likely atelectasis. No convincing evidence of pneumonia. D/ / 06/05/2018 14:32:08 Kevin Dinh MD / nika Interpreting Provider: Kevin Dinh MD - Assessment and Plan (1) Hypoglycemia Current Visit: Yes Status: Acute Assessment and plan: Patient present with altered mental status with hypoglycemia low to 26, mental status back to baseline after D50. Consider hypoglycemia. Patient is on insulin and patient is sick recently, hypoglycemia likely caused by insulin overdose. - Place patient on hypoglycemia protocol - Check glucose every 4 hours - Hold insulin overnight - Place patient on D5 iv at 75 ml/hr - Closely monitor patient with telemetry and pulse oximetry (2) Acute metabolic encephalopathy Current Visit: Yes Status: Acute Assessment and plan: Likely due to hypoglycemia. Patient also has signs of pneumonia. Mental status has improved to baseline now. (3) Hypokalemia Current Visit: Yes Status: Acute Assessment and plan: Potassium 2.5. Likely due to insulin overdose. 40 mEq potassium chloride given by ER. Will give another 40 mEq po plus [address] patient on continuous cardiac monitoring. (4) Dementia Current Visit: Yes Status: Acute Assessment and plan: Patient is only oriented to place. Continue home medications. Qualifiers: Dementia type: Alzheimer's disease Alzheimer's disease onset: early-onset Dementia behavioral disturbance: without behavioral disturbance Qualified Code(s): G30.0 - Alzheimer's disease with early onset; F02.80 - Dementia in other diseases classified elsewhere without behavioral disturbance (5) Hypertension Current Visit: Yes Status: Acute Assessment and plan: Continue home medication metoprolol and lisinopril Qualifiers: Hypertension type: essential hypertension Qualified Code(s): I10 - Essential (primary) hypertension (6) DVT prophylaxis Current Visit: No Status: Acute Assessment and plan: Heparin SC (7) Morbid obesity Current Visit: No Status: Acute Assessment and plan: Need lifestyle modification as outpatient (8) Diabetes Current Visit: No Status: Acute Assessment and plan: Patient has hypoglycemia at this point. Will closely monitor glucose level and consider restart insulin when hypoglycemia resolved. 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 Continue home medications Qualifiers: COPD type: chronic bronchitis Chronic bronchitis type: mucopurulent Qualified Code(s): J41.1 - Mucopurulent chronic bronchitis (10) Pneumonia Current Visit: No Status: Acute Assessment and plan: Patient has a cough. Has mild leukocytosis. Chest x-ray suspect pneumonia. - We will place patient on azithromycin and Rocephin - Respiratory viral panel - Legionella and Strep Pneumo Ags. Qualifiers: Pneumonia type: due to unspecified organism Laterality: bilateral Lung location: unspecified part of lung Qualified Code(s): J18.9 - Pneumonia, unspecified organism (11) Tobacco abuse Current Visit: Yes Status: Acute Assessment and plan: Patient is a current smoker. Smoking cessation education. Will place nicotine patch if needed. - Time Spent With Patient Total time spent is greater than 50% in coordination of care (as documented) at patient's floor/unit and/or counseling patient: 40 minutes Greater than 35 minutes
[2018-06-05 21:14] LABS: Adenovirus Not Detected (Not Detect); Bordetella Pertussis Not Detected (Not Detect); Chlamydophila pneumoniae Not Detected (Not Detect); Coronavirus 229E Not Detected (Not Detect); Coronavirus HKU1 Not Detected (Not Detect); Coronavirus NL63 Not Detected (Not Detect); Coronavirus OC43 Not Detected (Not Detect); Human Metapneumovirus Not Detected (Not Detect); Human Rhinovirus/Enterovirus Not Detected (Not Detect); Influenza A Subtype 2009 H1 Not Detected (Not Detect); Influenza A Untypeable Not Detected (Not Detect); Influenza B Not Detected (Not Detect); Mycoplasma pneumoniae Not Detected (Not Detect); Parainfluenza Virus 1 Not Detected (Not Detect); Parainfluenza Virus 2 Not Detected (Not Detect); Parainfluenza Virus 3 Not Detected (Not Detect); Parainfluenza Virus 4 Not Detected (Not Detect); Respiratory Syncytial Virus Not Detected (Not Detect)
[2018-06-05] MEDS: *HR* Heparin 5,000 UNIT/ML VIAL SQ SCH (21:14)
[2018-06-05] MEDS: D5% in Water 1,000 ML IVC SCH (21:14)
[2018-06-06 06:26] LABS: Basophils % 0.3 %; Eosinophils # 0.1 K/mcL (0.0-0.6); Eosinophils % 0.6 %; Hematocrit 42.7 % (35.3-44.9); Hemoglobin 12.9 g/dL (11.5-15.4); Immature Granulocytes % 0.4 % (0-4); Lymphocytes # 1.6 K/mcL (0.6-4.6); Lymphocytes % 15.7 %; Mean Corpuscular HGB Conc 30.2 g/dL (31.6-35.5); Mean Corpuscular Hemoglobin 29.2 pg (28.0-33.3); Mean Corpuscular Volume 96.6 fL (83.0-100.0); Mean Platelet Volume 10.2 fL (9.4-12.4); Monocytes # 0.7 K/mcL (0.0-1.3); Monocytes % 7.3 %; Neutrophils # 7.5 K/mcL (1.6-8.9); Platelet Count 197 K/mcL (140-400); Red Blood Count 4.42 M/mcL (3.82-4.97); Red Cell Distribution Width 15.1 % (11.5-14.5); Segmented Neutrophils % 75.7 %
[2018-06-06] MEDS: *HR* Heparin 5,000 UNIT/ML VIAL SQ SCH ×2 (06:38→21:25)
[2018-06-06 06:57] LABS: BUN/Creatinine Ratio 11 (6-26); Blood Urea Nitrogen 10 mg/dL (8-23); Calcium 8.5 mg/dL (8.6-10.3); Carbon Dioxide 39 mEq/L (23-29); Chloride 98 mEq/L (98-107); Glucose 69 mg/dL (70-105); Magnesium 1.6 mg/dL (1.6-2.6); Osmolality,Calculated 285 (280-300); Potassium 3.2 mEq/L (3.5-5.1); Sodium 139 mEq/L (136-145); eGFR For Non-African Americans > 60 (> 60)
[2018-06-06] MEDS: Tiotropium 18 MCG inhalation IH SCH (09:55)
--- NOTE | 2018-06-06 13:15 | Internal Med Progress Note ---
Hospitalist Progress Note - Encounter Date of Encounter: 06/06/18 Time of Encounter: 09:00 - Subjective Interval History: Patient has mild cough. Improved. Mental status stable. No fever. Pleasant. - Exam Vitals: Temp Pulse Resp BP Pulse Ox 97.9 F 72 20 103/54 96 06/06/18 11:05 06/06/18 11:05 06/06/18 11:05 06/06/18 11:05 06/06/18 11:05 Exam: Pt is AAO x 1, demented, pleasant, in NAD HEENT: NC/AT, PERRL Neck: Supple, no JVD, no LAD Lungs: Coarse breath sounds bilaterally, scattered rhonchi on right lung base. Heart: S1S2, RRR Abd: Soft, nontender, BS present Ext: ROM wnl, mild bilateral pedal edema Neuro: No focal deficit - Assessment and Plan (1) Hypoglycemia Current Visit: Yes Status: Acute Assessment and Plan: Patient present with altered mental status with hypoglycemia low to 26, mental status back to baseline after D50. Consider hypoglycemia. Patient is on insulin and patient is sick recently, hypoglycemia likely caused by insulin overdose. - Place patient on hypoglycemia protocol - Check glucose every 4 hours - Hold insulin now - Place patient on D5 iv at 75 ml/hr - Closely monitor patient with telemetry and pulse oximetry - Glu level remains at lower side but no significant hypoglycemia. (2) Acute metabolic encephalopathy Current Visit: Yes Status: Acute Assessment and Plan: Likely due to hypoglycemia. Patient also has signs of pneumonia. Mental status has improved to baseline now. (3) Hypokalemia Current Visit: Yes Status: Acute Assessment and Plan: Potassium 3.2 today. Mg 1.6. Give another 40 mEq by mouth potassium. (4) Dementia Current Visit: Yes Status: Acute Assessment and Plan: Patient is only oriented to place. Continue home medications. PTOT evaluation (5) Hypertension Current Visit: Yes Status: Acute Assessment and Plan: Continue home medication metoprolol and lisinopril (6) DVT prophylaxis Current Visit: No Status: Acute Assessment and Plan: Heparin SC (7) Morbid obesity Current Visit: No Status: Acute Assessment and Plan: Need lifestyle modification as outpatient (8) Diabetes Current Visit: No Status: Acute Assessment and Plan: Patient has hypoglycemia at this point. Will closely monitor glucose level and consider restart insulin when hypoglycemia resolved. (9) COPD (chronic obstructive pulmonary disease) Current Visit: No Status: Chronic Assessment and Plan: No wheezing. Continue home medications (10) Pneumonia Current Visit: No Status: Acute Assessment and Plan: Patient has cough. Has mild leukocytosis. Chest x-ray suspect pneumonia. - We will place patient on azithromycin and Rocephin - Respiratory viral panel negative - Legionella and Strep Pneumo Ags pending. (11) Tobacco abuse Current Visit: Yes Status: Acute Assessment and Plan: Patient is a current smoker. Smoking cessation education. Will place nicotine patch if needed. - Time Spent with Patient Total time spent is greater than 50% in coordination of care (as documented) at patient's floor/unit and/or counseling patient: 30 minutes 25 - 35 minutes Plan of Care Discussed with: nurse Internal Medicine: Result - Labs CBC & Chem 7: 06/06/18 05:40 06/06/18 05:40 Labs: Short CBC 06/05/18 06/06/18 Range/Units 13:53 05:40 WBC 11.4 H 9.9 (4.3-11.1) K/mcL Hgb 12.7 12.9 (11.5-15.4) g/dL Hct 40.7 42.7 (35.3-44.9) % Plt Count 191 197 (140-400) K/mcL Neutrophils # 9.1 H 7.5 (1.6-8.9) K/mcL BMP 06/05/18 06/06/18 13:53 05:40 Sodium 140 139 Potassium 2.5 L* 3.2 L D Chloride 97 L 98 Carbon Dioxide 36 H 39 H BUN 12 10 Creatinine 0.94 0.89 Glucose 113 H 69 L Calcium 8.5 L 8.5 L Liver Function 06/05/18 Range/Units 13:53 Total Bilirubin 0.5 (0.3-1.0) mg/dL Direct Bilirubin 0.1 (0.0-0.2) mg/dL AST 8 L (13-39) Units/L ALT 4 L (7-52) Units/L Alkaline Phosphatase 79 (34-104) Units/L Albumin 2.7 L (3.5-5.7) g/dL - Impressions Impressions Chest X-Ray 06/05/18 13:40 IMPRESSION: Mild right basilar opacity, likely atelectasis. No convincing evidence of pneumonia. D/ / 06/05/2018 14:32:08 Kevin Dinh MD / nika Interpreting Provider: Kevin Dinh MD Consult Discharge Plan - Plan Referrals: NONE,PCP [Primary Care Provider] - (4) Dementia Qualifiers: Dementia type: Alzheimer's disease Alzheimer's disease onset: early-onset Dementia behavioral disturbance: without behavioral disturbance Qualified Code(s): G30.0 - Alzheimer's disease with early onset; F02.80 - Dementia in other diseases classified elsewhere without behavioral disturbance (5) Hypertension Qualifiers: Hypertension type: essential hypertension Qualified Code(s): I10 - Essential (primary) hypertension (8) Diabetes Qualifiers: Diabetes mellitus type: type 2 Diabetes mellitus emt intermediate insulin use: with retirement use Diabetes mellitus complication status: without complication Qualified Code(s): E11.9 - Type 2 diabetes mellitus without complications; Z79.4 - [facility] (current) use of insulin (9) COPD (chronic obstructive pulmonary disease) Qualifiers: COPD type: chronic bronchitis Chronic bronchitis type: mucopurulent Qualified Code(s): J41.1 - Mucopurulent chronic bronchitis (10) Pneumonia Qualifiers: Pneumonia type: due to unspecified organism Laterality: bilateral Lung location: unspecified part of lung Qualified Code(s): J18.9 - Pneumonia, unspecified organism
[2018-06-06] MEDS ORDERED: cefTRIAXone 1,000 MG in 0.9 % Sodium Chloride Mini Bag 100 ML IVPB ONE (16:50)
[2018-06-06] MEDS: D5% in Water 1,000 ML IVC SCH (18:48)
[2018-06-06] MEDS: Azithromycin 250 MG TABLET PO SCH (18:49)
[2018-06-07] MEDS: *HR* Heparin 5,000 UNIT/ML VIAL SQ SCH ×2 (05:34→16:32)
[2018-06-07 06:36] LABS: Basophils % 0.3 %; Eosinophils # 0.1 K/mcL (0.0-0.6); Immature Granulocytes % 0.3 % (0-4); Lymphocytes # 2.8 K/mcL (0.6-4.6); Lymphocytes % 40.1 %; Mean Corpuscular HGB Conc 30.8 g/dL (31.6-35.5); Mean Corpuscular Hemoglobin 29.7 pg (28.0-33.3); Mean Corpuscular Volume 96.5 fL (83.0-100.0); Mean Platelet Volume 10.3 fL (9.4-12.4); Monocytes # 0.6 K/mcL (0.0-1.3); Monocytes % 8.9 %; Neutrophils # 3.5 K/mcL (1.6-8.9); Platelet Count 179 K/mcL (140-400); Red Blood Count 4.04 M/mcL (3.82-4.97); Red Cell Distribution Width 15.4 % (11.5-14.5); Segmented Neutrophils % 49.4 %
[2018-06-07 06:55] LABS: Calcium 8.4 mg/dL (8.6-10.3); Potassium 3.6 mEq/L (3.5-5.1)
[2018-06-07] MEDS: Tiotropium 18 MCG inhalation IH SCH (07:23)
[2018-06-07] MEDS: cefTRIAXone 1,000 MG in Water for inj. (sterile) 20 ML 10 ML IVP SCH (10:20)
[2018-06-07] MEDS: Insulin LISPRO 300 UNITS/3 ML VIAL SQ SCH ×2 (12:58→16:28)
--- NOTE | 2018-06-07 15:33 | Internal Med Progress Note ---
Hospitalist Progress Note - Encounter Date of Encounter: 06/07/18 Time of Encounter: 09:00 - Subjective Interval History: Patient still has mild cough with whitish sputum. No fever. Pleasant. No further hypoglycemia episode. - Exam Vitals: Temp Pulse Resp BP Pulse Ox 98.1 F 59 16 95/47 96 06/07/18 11:42 06/07/18 11:42 06/07/18 11:42 06/07/18 11:42 06/07/18 11:42 Exam: Pt is AAO x 1, demented, pleasant, in NAD HEENT: NC/AT, PERRL Neck: Supple, no JVD, no LAD Lungs: Coarse breath sounds bilaterally, scattered rhonchi on b/L. Heart: S1S2, RRR Abd: Soft, nontender, BS present Ext: ROM wnl, mild bilateral pedal edema Neuro: No focal deficit - Assessment and Plan (1) Hypoglycemia Current Visit: Yes Status: Acute Assessment and Plan: Patient present with altered mental status with hypoglycemia low to 26, mental status back to baseline after D50. Consider hypoglycemia. Patient is on insulin and patient is sick recently, hypoglycemia likely caused by insulin overdose. - Place patient on hypoglycemia protocol - Hypoglycemia has improved. Continue monitor glucose before meals at bedtime - Place patient on low-dose sliding scale insulin with meals only - Continue diabetic diet - Closely monitor patient with telemetry and pulse oximetry (2) Acute metabolic encephalopathy Current Visit: Yes Status: Acute Assessment and Plan: Likely due to hypoglycemia. Patient also has signs of pneumonia. Mental status has improved to baseline now. (3) Hypokalemia Current Visit: Yes Status: Acute Assessment and Plan: Potassium 3.6 today. Continue close monitoring (4) Dementia Current Visit: Yes Status: Acute Assessment and Plan: Patient is only oriented to place. Continue home medications. PTOT evaluation recommend ECF discharge (5) Hypertension Current Visit: Yes Status: Acute Assessment and Plan: Continue home medication metoprolol and lisinopril (6) DVT prophylaxis Current Visit: No Status: Acute Assessment and Plan: Heparin SC (7) Morbid obesity Current Visit: No Status: Acute Assessment and Plan: Need lifestyle modification as outpatient (8) Diabetes Current Visit: No Status: Acute Assessment and Plan: Patient has hypoglycemia at this point. Will closely monitor glucose level and restart insulin sliding scale at a low dose with meals only (9) COPD (chronic obstructive pulmonary disease) Current Visit: No Status: Chronic Assessment and Plan: No wheezing. Continue home medications (10) Pneumonia Current Visit: No Status: Acute Assessment and Plan: Patient has cough. Has mild leukocytosis. Chest x-ray suspect pneumonia. - We will place patient on azithromycin and Rocephin - Respiratory viral panel negative - Cough syrup. - WBC trended down to normal now (11) Tobacco abuse Current Visit: Yes Status: Acute Assessment and Plan: Patient is a current smoker. Smoking cessation education. Will place nicotine patch if needed. - Time Spent with Patient Total time spent is greater than 50% in coordination of care (as documented) at patient's floor/unit and/or counseling patient: 30 minutes 25 - 35 minutes Plan of Care Discussed with: patient Internal Medicine: Result - Labs CBC & Chem 7: 06/07/18 06:14 06/07/18 06:14 Labs: Short CBC 06/07/18 Range/Units 06:14 WBC 7.1 (4.3-11.1) K/mcL Hgb 12.0 (11.5-15.4) g/dL Hct 39.0 (35.3-44.9) % Plt Count 179 (140-400) K/mcL Neutrophils # 3.5 (1.6-8.9) K/mcL BMP 06/07/18 06:14 Sodium 138 Potassium 3.6 Chloride 98 Carbon Dioxide 36 H BUN 9 Creatinine 1.16 Glucose 115 H Calcium 8.4 L Consult Discharge Plan - Plan Referrals: NONE,PCP [Primary Care Provider] - (4) Dementia Qualifiers: Dementia type: Alzheimer's disease Alzheimer's disease onset: early-onset Dementia behavioral disturbance: without behavioral disturbance Qualified Code(s): G30.0 - Alzheimer's disease with early onset; F02.80 - Dementia in other diseases classified elsewhere without behavioral disturbance (5) Hypertension Qualifiers: Hypertension type: essential hypertension Qualified Code(s): I10 - Essential (primary) hypertension (8) Diabetes Qualifiers: Diabetes mellitus type: type 2 Diabetes mellitus skilled nursing insulin use: with longwall foreman use Diabetes mellitus complication status: without complication Qualified Code(s): E11.9 - Type 2 diabetes mellitus without complications; 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
[2018-06-07] MEDS: Azithromycin 250 MG TABLET PO SCH (16:27)
[2018-06-07] MEDS: GuaiFENesin Liq 200 MG/10 ML UDC PO SCH (16:27)
[2018-06-08] MEDS: GuaiFENesin Liq 200 MG/10 ML UDC PO SCH ×5 (00:23→23:48)
[2018-06-08] MEDS: *HR* Heparin 5,000 UNIT/ML VIAL SQ SCH ×2 (05:52→17:35)
[2018-06-08 06:35] LABS: Basophils % 0.1 %; Eosinophils # 0.1 K/mcL (0.0-0.6); Eosinophils % 1.2 %; Hematocrit 37.9 % (35.3-44.9); Hemoglobin 11.9 g/dL (11.5-15.4); Immature Granulocytes % 0.3 % (0-4); Lymphocytes # 2.1 K/mcL (0.6-4.6); Mean Corpuscular HGB Conc 31.4 g/dL (31.6-35.5); Mean Corpuscular Hemoglobin 29.8 pg (28.0-33.3); Mean Corpuscular Volume 94.8 fL (83.0-100.0); Monocytes # 0.6 K/mcL (0.0-1.3); Monocytes % 8.7 %; Neutrophils # 4.1 K/mcL (1.6-8.9); Platelet Count 162 K/mcL (140-400); Red Cell Distribution Width 15.3 % (11.5-14.5); Segmented Neutrophils % 59.7 %
[2018-06-08 06:56] LABS: Calcium 8.6 mg/dL (8.6-10.3); Potassium 3.5 mEq/L (3.5-5.1)
[2018-06-08] MEDS: Insulin LISPRO 300 UNITS/3 ML VIAL SQ SCH ×3 (08:04→16:34)
[2018-06-08] MEDS: cefTRIAXone 1,000 MG in Water for inj. (sterile) 20 ML 10 ML IVP SCH (09:43)
[2018-06-08] MEDS: Tiotropium 18 MCG inhalation IH SCH (10:48)
--- NOTE | 2018-06-08 12:02 | Internal Med Progress Note ---
Hospitalist Progress Note - Encounter Date of Encounter: 06/08/18 Time of Encounter: 09:00 - Subjective Interval History: Patient is awake alert. Still demented, oriented 1. No fever. Mild cough. - Exam Vitals: Temp Pulse Resp BP Pulse Ox 98.2 F 96 14 144/85 96 06/08/18 07:27 06/08/18 07:27 06/08/18 10:48 06/08/18 07:27 06/08/18 10:48 Exam: Pt is AAO x 1, demented, pleasant, in NAD HEENT: NC/AT, PERRL Neck: Supple, no JVD, no LAD Lungs: Coarse breath sounds bilaterally, no wheezing or rhonchi Heart: S1S2, RRR Abd: Soft, nontender, BS present Ext: ROM wnl, mild bilateral pedal edema Neuro: No focal deficit - Assessment and Plan (1) Hypoglycemia Current Visit: Yes Status: Acute Assessment and Plan: Patient present with altered mental status with hypoglycemia low to 26, mental status back to baseline after D50. Consider hypoglycemia. Patient is on insulin and patient is sick recently, hypoglycemia likely caused by insulin overdose. - Place patient on hypoglycemia protocol - Hypoglycemia has improved. Continue monitor glucose before meals at bedtime - Place patient on low-dose sliding scale insulin with meals only - Continue diabetic diet (2) Acute metabolic encephalopathy Current Visit: Yes Status: Acute Assessment and Plan: Likely due to hypoglycemia. Patient also has signs of pneumonia. Mental status has improved to baseline now. (3) Hypokalemia Current Visit: Yes Status: Acute Assessment and Plan: Resolved. Potassium 3.5 today. Continue close monitoring (4) Dementia Current Visit: Yes Status: Acute Assessment and Plan: Patient is only oriented to place. Continue home medications. PTOT evaluation recommend ECF discharge (5) Hypertension Current Visit: Yes Status: Acute Assessment and Plan: Continue home medication metoprolol, hold lisinopril b/o worsening renal function. (6) DVT prophylaxis Current Visit: No Status: Acute Assessment and Plan: Heparin SC (7) Morbid obesity Current Visit: No Status: Acute Assessment and Plan: Need lifestyle modification as outpatient (8) Diabetes Current Visit: No Status: Acute Assessment and Plan: Patient has hypoglycemia at this point. Will closely monitor glucose level and restart insulin sliding scale at a low dose with meals only (9) COPD (chronic obstructive pulmonary disease) Current Visit: No Status: Chronic Assessment and Plan: No wheezing. Continue home medications (10) Pneumonia Current Visit: No Status: Acute Assessment and Plan: Patient has cough. Has mild leukocytosis. Chest x-ray suspect pneumonia. - We will place patient on azithromycin and Rocephin - Respiratory viral panel negative - Cough syrup. - WBC trended down to normal now (11) Tobacco abuse Current Visit: Yes Status: Acute Assessment and Plan: Patient is a current smoker. Smoking cessation education. Will place nicotine patch if needed. (12) Mzpab-gi-ziqqwki kidney injury Current Visit: No Status: Resolved Assessment and Plan: Patient has slightly worsening renal function. Patient has good by mouth intake. We will continue closely monitor renal function. Hold lisinopril at this point. Avoid nephrotoxic medications. Encourage by mouth hydration. - Time Spent with Patient Total time spent is greater than 50% in coordination of care (as documented) at patient's floor/unit and/or counseling patient: 30 minutes 25 - 35 minutes Plan of Care Discussed with: nurse Internal Medicine: Result - Labs CBC & Chem 7: 06/08/18 06:23 06/08/18 06:23 Labs: Short CBC 06/08/18 Range/Units 06:23 WBC 6.9 (4.3-11.1) K/mcL Hgb 11.9 (11.5-15.4) g/dL Hct 37.9 (35.3-44.9) % Plt Count 162 (140-400) K/mcL Neutrophils # 4.1 (1.6-8.9) K/mcL BMP 06/08/18 06:23 Sodium 139 Potassium 3.5 Chloride 98 Carbon Dioxide 38 H BUN 10 Creatinine 1.32 H Glucose 111 H Calcium 8.6 Consult Discharge Plan - Plan Referrals: NONE,PCP [Primary Care Provider] - (4) Dementia Qualifiers: Dementia type: Alzheimer's disease Alzheimer's disease onset: early-onset Dementia behavioral disturbance: without behavioral disturbance Qualified Code(s): G30.0 - Alzheimer's disease with early onset; F02.80 - Dementia in other diseases classified elsewhere without behavioral disturbance (5) Hypertension Qualifiers: Hypertension type: essential hypertension Qualified Code(s): I10 - Essential (primary) hypertension (8) Diabetes Qualifiers: Diabetes mellitus type: type 2 Diabetes mellitus terminal carman insulin use: with detention use Diabetes mellitus complication status: without complication Qualified Code(s): E11.9 - Type 2 diabetes mellitus without complications; Z79.4 - [facility] (current) use of insulin (9) COPD (chronic obstructive pulmonary disease) Qualifiers: COPD type: chronic bronchitis Chronic bronchitis type: mucopurulent Qualified Code(s): J41.1 - Mucopurulent chronic bronchitis (10) Pneumonia Qualifiers: Pneumonia type: due to unspecified organism Laterality: bilateral Lung location: unspecified part of lung Qualified Code(s): J18.9 - Pneumonia, unspecified organism (12) [id number] kidney injury Qualifiers: Acute renal failure type: with other specified pathological lesion Chronic kidney disease stage: stage 2 (mild) Qualified Code(s): N17.8 - Other acute kidney failure; N18.2 - Chronic kidney disease, stage 2 (mild)
[2018-06-08] MEDS: Azithromycin 250 MG TABLET PO SCH (16:33)
[2018-06-08] MEDS: D5% in Water 1,000 ML IVC SCH (18:59)
[2018-06-09] MEDS ORDERED: Loperamide 1 MG/5 ML UDC PO PRN (00:21)
[2018-06-09 01:17] LABS: Basophils % 0.2 %; Eosinophils # 0.1 K/mcL (0.0-0.6); Eosinophils % 1.4 %; Hematocrit 38.2 % (35.3-44.9); Hemoglobin 11.9 g/dL (11.5-15.4); Immature Granulocytes % 0.6 % (0-4); Lymphocytes # 1.9 K/mcL (0.6-4.6); Mean Corpuscular HGB Conc 31.2 g/dL (31.6-35.5); Mean Corpuscular Hemoglobin 29.3 pg (28.0-33.3); Mean Corpuscular Volume 94.1 fL (83.0-100.0); Mean Platelet Volume 10.7 fL (9.4-12.4); Monocytes # 0.5 K/mcL (0.0-1.3); Monocytes % 8.2 %; Neutrophils # 3.9 K/mcL (1.6-8.9); Platelet Count 167 K/mcL (140-400); Red Blood Count 4.06 M/mcL (3.82-4.97); Segmented Neutrophils % 60.6 %
[2018-06-09 01:34] LABS: BUN/Creatinine Ratio 8 (6-26); Blood Urea Nitrogen 9 mg/dL (8-23); Calcium 8.8 mg/dL (8.6-10.3); Carbon Dioxide 34 mEq/L (23-29); Chloride 99 mEq/L (98-107); Glucose 105 mg/dL (70-105); Osmolality,Calculated 287 (280-300); Potassium 3.4 mEq/L (3.5-5.1); Sodium 139 mEq/L (136-145); eGFR For Non-African Americans 51 (> 60)
[2018-06-09] MEDS: *HR* Heparin 5,000 UNIT/ML VIAL SQ SCH ×2 (05:09→17:29)
[2018-06-09] MEDS: GuaiFENesin Liq 200 MG/10 ML UDC PO SCH ×3 (05:09→17:28)
[2018-06-09] MEDS: cefTRIAXone 1,000 MG in Water for inj. (sterile) 20 ML 10 ML IVP SCH (08:02)
[2018-06-09] MEDS: Insulin LISPRO 300 UNITS/3 ML VIAL SQ SCH ×3 (08:03→17:30)
[2018-06-09] MEDS: Tiotropium 18 MCG inhalation IH SCH (10:51)
--- NOTE | 2018-06-09 12:05 | Internal Med Progress Note ---
Hospitalist Progress Note - Encounter Date of Encounter: 06/09/18 Time of Encounter: 09:00 - Subjective Interval History: Patient is in no acute distress. Mild cough. No fever, no shortness of breath. Pleasant although demented. Vital signs stable - Exam Vitals: Temp Pulse Resp BP Pulse Ox 97.9 F 70 16 165/75 92 06/09/18 07:59 06/09/18 07:59 06/09/18 10:52 06/09/18 07:59 06/09/18 10:52 Exam: Pt is AAO x 1, demented, pleasant, in NAD HEENT: NC/AT, PERRL Neck: Supple, no JVD, no LAD Lungs: CTA bilaterally Heart: S1S2, RRR Abd: Soft, nontender, BS present Ext: ROM wnl, mild bilateral pedal edema Neuro: No focal deficit - Assessment and Plan (1) Hypoglycemia Current Visit: Yes Status: Acute Assessment and Plan: Patient present with altered mental status with hypoglycemia low to 26, mental status back to baseline after D50. Consider hypoglycemia. Patient is on insulin and patient is sick recently, hypoglycemia likely caused by insulin ov erdose. - Place patient on hypoglycemia protocol - Hypoglycemia has improved. Continue monitor glucose before meals at bedtime - Place patient on low-dose sliding scale insulin with meals only - Continue diabetic diet, patient has good appetite and good intake (2) Acute metabolic encephalopathy Current Visit: Yes Status: Acute Assessment and Plan: Likely due to hypoglycemia. Patient also has signs of pneumonia. Mental status has improved to baseline now. (3) Hypokalemia Current Visit: Yes Status: Acute Assessment and Plan: Improved. Potassium 3.4 today. Will give another 40 mEq KCl. Continue close monitoring (4) Dementia Current Visit: Yes Status: Acute Assessment and Plan: Patient is only oriented to place. Continue home medications. PTOT evaluation recommend ECF discharge, social work is working on it. (5) Hypertension Current Visit: Yes Status: Acute Assessment and Plan: Continue home medication metoprolol, hold lisinopril b/o worsening renal function. (6) DVT prophylaxis Current Visit: No Status: Acute Assessment and Plan: Heparin SC (7) Morbid obesity Current Visit: No Status: Acute Assessment and Plan: Need lifestyle modification as outpatient (8) Diabetes Current Visit: No Status: Acute Assessment and Plan: Patient has hypoglycemia on admission. Will closely monitor glucose level and restart insulin sliding scale at a low dose with meals only - Glucose is well controlled at this point (9) COPD (chronic obstructive pulmonary disease) Current Visit: No Status: Chronic Assessment and Plan: No wheezing. Continue home medications (10) Pneumonia Current Visit: No Status: Acute Assessment and Plan: Patient has cough. Has mild leukocytosis on admission, resolved now. Chest x- ray suspect pneumonia. - We will place patient on azithromycin and Rocephin, antibiotic day 5 today, can switch to by mouth to finish a 7 day course on discharge. - Respiratory viral panel negative - Cough syrup. - WBC trended down to normal now (11) Tobacco abuse Current Visit: Yes Status: Acute Assessment and Plan: Patient is a current smoker. Smoking cessation education. Will place nicotine patch if needed. (12) Hxhmg-oy-idouxwb kidney injury Current Visit: No Status: Resolved Assessment and Plan: Patient has slightly worsening renal function yesterday. Patient has good by mouth intake. - Renal function improved to normal now. (13) Pressure ulcer Current Visit: Yes Status: Acute Assessment and Plan: buttocks and upper posterior thighs ulcer presented on admission. Wound care consult on case. - Continue turn patient every 2 hours per protocol, continue wound care - Time Spent with Patient Total time spent is greater than 50% in coordination of care (as documented) at patient's floor/unit and/or counseling patient: 30 minutes 25 - 35 minutes Plan of Care Discussed with: nurse Internal Medicine: Result - Labs CBC & Chem 7: 06/09/18 00:45 06/09/18 00:45 Labs: Short CBC 06/09/18 Range/Units 00:45 WBC 6.4 (4.3-11.1) K/mcL Hgb 11.9 (11.5-15.4) g/dL Hct 38.2 (35.3-44.9) % Plt Count 167 (140-400) K/mcL Neutrophils # 3.9 (1.6-8.9) K/mcL BMP 06/09/18 00:45 Sodium 139 Potassium 3.4 L Chloride 99 Carbon Dioxide 34 H BUN 9 Creatinine 1.06 Glucose 105 Calcium 8.8 - Impressions Impressions Chest X-Ray 06/05/18 13:40 IMPRESSION: Mild right basilar opacity, likely atelectasis. No convincing evidence of pneumonia. D/ / 06/05/2018 14:32:08 Kevin Dinh MD / nika Interpreting Provider: Kevin Dinh MD Consult Discharge Plan - Plan Referrals: NONE,PCP [Primary Care Provider] - (4) Dementia Qualifiers: Dementia type: Alzheimer's disease Alzheimer's disease onset: early-onset Dementia behavioral disturbance: without behavioral disturbance Qualified Code(s): G30.0 - Alzheimer's disease with early onset; F02.80 - Dementia in other diseases classified elsewhere without behavioral disturbance (5) Hypertension Qualifiers: Hypertension type: essential hypertension Qualified Code(s): I10 - Essential (primary) hypertension (8) Diabetes Qualifiers: Diabetes mellitus type: type 2 Diabetes mellitus 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 block 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 insulin use: with detention use Diabetes mellitus complication status: without complication Qualified Code(s): E11.9 - Type 2 diabetes mellitus without complications; 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 (9) COPD (chronic obstructive pulmonary disease) Qualifiers: COPD type: chronic bronchitis Chronic bronchitis type: mucopurulent Qu alified Code(s): J41.1 - Mucopurulent chronic bronchitis (10) Pneumonia Qualifiers: Pneumonia type: due to unspecified organism Laterality: bilateral Lung location: unspecified part of lung Qualified Code(s): J18.9 - Pneumonia, unspecified organism (12) Yazqw-kv-lssurfd kidney injury Qualifiers: Acute renal failure type: with other specified pathological lesion Chronic kidney disease stage: stage 2 (mild) Qualified Code(s): N17.8 - Other acute kidney failure; N18.2 - Chronic kidney disease, stage 2 (mild) (13) Pressure ulcer Qualifiers: Pressure injury location: buttock Pressure injury stage: stage 2 Laterality: unspecified laterality Qualified Code(s): L89.302 - Pressure ulcer of unspecified buttock, stage 2
[2018-06-09] MEDS: Azithromycin 250 MG TABLET PO SCH (17:29)
[2018-06-10] MEDS: GuaiFENesin Liq 200 MG/10 ML UDC PO SCH ×5 (01:35→23:52)
[2018-06-10 06:05] LABS: Basophils % 0.4 %; Eosinophils # 0.1 K/mcL (0.0-0.6); Eosinophils % 1.9 %; Hematocrit 37.5 % (35.3-44.9); Hemoglobin 11.8 g/dL (11.5-15.4); Immature Granulocytes % 0.4 % (0-4); Lymphocytes # 2.5 K/mcL (0.6-4.6); Mean Corpuscular HGB Conc 31.5 g/dL (31.6-35.5); Mean Corpuscular Hemoglobin 29.4 pg (28.0-33.3); Mean Corpuscular Volume 93.3 fL (83.0-100.0); Monocytes # 0.5 K/mcL (0.0-1.3); Monocytes % 8.8 %; Neutrophils # 2.6 K/mcL (1.6-8.9); Platelet Count 154 K/mcL (140-400); Red Blood Count 4.02 M/mcL (3.82-4.97); Red Cell Distribution Width 15.2 % (11.5-14.5); Segmented Neutrophils % 44.5 %
[2018-06-10] MEDS: *HR* Heparin 5,000 UNIT/ML VIAL SQ SCH ×2 (06:20→17:19)
[2018-06-10 06:26] LABS: BUN/Creatinine Ratio 8 (6-26); Blood Urea Nitrogen 8 mg/dL (8-23); Calcium 8.7 mg/dL (8.6-10.3); Carbon Dioxide 34 mEq/L (23-29); Chloride 99 mEq/L (98-107); Glucose 106 mg/dL (70-105); Osmolality,Calculated 287 (280-300); Potassium 3.6 mEq/L (3.5-5.1); Sodium 139 mEq/L (136-145); eGFR For Non-African Americans 54 (> 60)
[2018-06-10] MEDS: Insulin LISPRO 300 UNITS/3 ML VIAL SQ SCH ×3 (07:44→16:51)
[2018-06-10] MEDS: Lactobacillus 1 EACH CAP.SPRINK PO SCH (08:59)
[2018-06-10] MEDS: cefTRIAXone 1,000 MG in Water for inj. (sterile) 20 ML 10 ML IVP SCH (08:59)
[2018-06-10] MEDS: Tiotropium 18 MCG inhalation IH SCH (09:00)
--- NOTE | 2018-06-10 15:30 | Internal Med Progress Note ---
Hospitalist Progress Note - Encounter Date of Encounter: 06/10/18 Time of Encounter: 09:00 - Subjective Interval History: Patient has mild cough. No shortness of breath. No fever. Still weak need several people to help for standup or move chair. Glucose level stable. - Exam Vitals: Temp Pulse Resp BP Pulse Ox 97.9 F 64 17 145/73 97 06/10/18 12:01 06/10/18 12:01 06/10/18 12:01 06/10/18 12:01 06/10/18 12:01 Exam: Pt is AAO x 1, demented, pleasant, in NAD, morbid obesity HEENT: NC/AT, PERRL Neck: Supple, no JVD, no LAD Lungs: CTA bilaterally Heart: S1S2, RRR Abd: Soft, nontender, BS present Ext: ROM wnl, mild bilateral pedal edema Neuro: No focal deficit - Assessment and Plan (1) Hypoglycemia Current Visit: Yes Status: Acute Assessment and Plan: Patient present with altered mental status with hypoglycemia low to 26, mental status back to baseline after D50. Consider hypoglycemia. Patient is on insulin and patient is sick recently, hypoglycemia likely caused by insulin overdose. - Place patient on hypoglycemia protocol - Hypoglycemia has improved. Continue monitor glucose before meals at bedtime - Place patient on low-dose sliding scale insulin with meals only - Continue diabetic diet, patient has good appetite and good intake (2) Acute metabolic encephalopathy Current Visit: Yes Status: Acute Assessment and Plan: Likely due to hypoglycemia. Patient also has signs of pneumonia. Mental status has improved to baseline now. (3) Hypokalemia Current Visit: Yes Status: Acute Assessment and Plan: Improved. Potassium 3.6 today. Continue close monitoring (4) Dementia Current Visit: Yes Status: Acute Assessment and Plan: Patient is only oriented to place. Continue home medications. PTOT evaluation recommend ECF discharge, social work is working on it. (5) Hypertension Current Visit: Yes Status: Acute Assessment and Plan: Continue home medication metoprolol, hold lisinopril b/o worsening renal function. (6) DVT prophylaxis Current Visit: No Status: Acute Assessment and Plan: Heparin SC (7) Morbid obesity Current Visit: No Status: Acute Assessment and Plan: Need lifestyle modification as outpatient (8) Diabetes Current Visit: No Status: Acute Assessment and Plan: Patient has hypoglycemia on admission. Will closely monitor glucose level and restart insulin sliding scale at a low dose with meals only - Glucose is well controlled at this point (9) COPD (chronic obstructive pulmonary disease) Current Visit: No Status: Chronic Assessment and Plan: No wheezing. Continue home medications (10) Pneumonia Current Visit: No Status: Acute Assessment and Plan: Patient has cough. Has mild leukocytosis on admission, resolved now. Chest x- ray suspect pneumonia. - We will place patient on azithromycin and Rocephin, antibiotic day 6 today, can switch to by mouth to finish a 7 day course on discharge. - Respiratory viral panel negative - Cough syrup. - WBC trended down to normal now (11) Tobacco abuse Current Visit: Yes Status: Acute Assessment and Plan: Patient is a current smoker. Smoking cessation education. Will place nicotine patch if needed. (12) Pressure ulcer Current Visit: Yes Status: Acute Assessment and Plan: buttocks and upper posterior thighs ulcer presented on admission. Wound care consult on case. - Continue turn patient every 2 hours per protocol, continue wound care - Time Spent with Patient Total time spent is greater than 50% in coordination of care (as documented) at patient's floor/unit and/or counseling patient: 30 minutes 25 - 35 minutes Plan of Care Discussed with: nurse Internal Medicine: Result - Labs CBC & Chem 7: 06/10/18 05:25 06/10/18 05:25 Labs: Short CBC 06/10/18 Range/Units 05:25 WBC 5.7 (4.3-11.1) K/mcL Hgb 11.8 (11.5-15.4) g/dL Hct 37.5 (35.3-44.9) % Plt Count 154 (140-400) K/mcL Neutrophils # 2.6 (1.6-8.9) K/mcL BMP 06/10/18 05:25 Sodium 139 Potassium 3.6 Chloride 99 Carbon Dioxide 34 H BUN 8 Creatinine 1.01 Glucose 106 H Calcium 8.7 Consult Discharge Plan - Plan Referrals: NONE,PCP [Primary Care Provider] - (4) Dementia Qualifiers: Dementia type: Alzheimer's disease Alzheimer's disease onset: early-onset Dementia behavioral disturbance: without behavioral disturbance Qualified Code(s): G30.0 - Alzheimer's disease with early onset; F02.80 - Dementia in other diseases classified elsewhere without behavioral disturbance (5) Hypertension Qualifiers: Hypertension type: essential hypertension Qualified Code(s): I10 - Essential (primary) hypertension (8) Diabetes Qualifiers: Diabetes mellitus type: type 2 Diabetes mellitus intermediate card tender insulin use: with intermediate card tender use Diabetes mellitus complication status: without complication Qualified Code(s): E11.9 - Type 2 diabetes mellitus without complications; Z79.4 - intermediate card tender (current) use of insulin (9) COPD (chronic obstructive pulmonary disease) Qualifiers: COPD type: chronic bronchitis Chronic bronchitis type: mucopurulent Qualified Code(s): J41.1 - Mucopurulent chronic bronchitis (10) Pneumonia Qualifiers: Pneumonia type: due to unspecified organism Laterality: bilateral Lung location: unspecified part of lung Qualified Code(s): J18.9 - Pneumonia, unspecified organism (12) Pressure ulcer Qualifiers: Pressure injury location: buttock Pressure injury stage: stage 2 Laterality: unspecified laterality Qualified Code(s): L89.302 - Pressure ulcer of unspecified buttock, stage 2
[2018-06-10] MEDS: Azithromycin 250 MG TABLET PO SCH (17:19)
[2018-06-11] MEDS: GuaiFENesin Liq 200 MG/10 ML UDC PO SCH ×3 (05:41→18:21)
[2018-06-11] MEDS: *HR* Heparin 5,000 UNIT/ML VIAL SQ SCH ×2 (05:41→18:21)
[2018-06-11 05:48] LABS: Basophils % 0.4 %; Eosinophils # 0.1 K/mcL (0.0-0.6); Eosinophils % 1.8 %; Hematocrit 38.2 % (35.3-44.9); Hemoglobin 11.8 g/dL (11.5-15.4); Immature Granulocytes % 0.4 % (0-4); Lymphocytes # 2.1 K/mcL (0.6-4.6); Lymphocytes % 36.8 %; Mean Corpuscular HGB Conc 30.9 g/dL (31.6-35.5); Mean Corpuscular Hemoglobin 29.5 pg (28.0-33.3); Mean Corpuscular Volume 95.5 fL (83.0-100.0); Mean Platelet Volume 11.4 fL (9.4-12.4); Monocytes # 0.5 K/mcL (0.0-1.3); Monocytes % 9.6 %; Neutrophils # 2.9 K/mcL (1.6-8.9); Platelet Count 160 K/mcL (140-400)
[2018-06-11 06:02] LABS: BUN/Creatinine Ratio 7 (6-26); Blood Urea Nitrogen 7 mg/dL (8-23); Calcium 8.6 mg/dL (8.6-10.3); Carbon Dioxide 35 mEq/L (23-29); Chloride 101 mEq/L (98-107); Glucose 149 mg/dL (70-105); Osmolality,Calculated 295 (280-300); Potassium 3.5 mEq/L (3.5-5.1); Sodium 142 mEq/L (136-145); eGFR For Non-African Americans 54 (> 60)
[2018-06-11] MEDS: Tiotropium 18 MCG inhalation IH SCH (07:39)
[2018-06-11] MEDS: cefTRIAXone 1,000 MG in Water for inj. (sterile) 20 ML 10 ML IVP SCH (09:19)
[2018-06-11] MEDS: Lactobacillus 1 EACH CAP.SPRINK PO SCH (09:21)
[2018-06-11] MEDS: Insulin LISPRO 300 UNITS/3 ML VIAL SQ SCH ×3 (09:21→17:12)
--- NOTE | 2018-06-11 15:11 | Internal Med Progress Note ---
Hospitalist Progress Note - Encounter Date of Encounter: 06/11/18 Time of Encounter: 09:00 - Subjective Interval History: Patient has no acute respiratory distress. Denies cough, fever, shortness of breath. Still need many people to help for physical therapy. Waiting for rehabilitation discharge. - Exam Vitals: Temp Pulse Resp BP Pulse Ox 97.3 F L 67 16 126/55 94 06/11/18 11:11 06/11/18 11:11 06/11/18 07:39 06/11/18 11:11 06/11/18 11:11 Exam: Pt is AAO x 1, demented, pleasant, in NAD, morbid obesity HEENT: NC/AT, PERRL Neck: Supple, no JVD, no LAD Lungs: CTA bilaterally Heart: S1S2, RRR Abd: Soft, nontender, BS present Ext: ROM wnl, mild bilateral pedal edema Neuro: No focal deficit - Assessment and Plan (1) Hypoglycemia Current Visit: Yes Status: Acute Assessment and Plan: Patient present with altered mental status with hypoglycemia low to 26, mental status back to baseline after D50. Consider hypoglycemia. Patient is on insulin and patient is sick recently, hypoglycemia likely caused by insulin overdose. - Place patient on hypoglycemia protocol - Hypoglycemia has improved. Continue monitor glucose before meals at bedtime - Place patient on low-dose sliding scale insulin with meals only - Continue diabetic diet, patient has good appetite and good intake (2) Acute metabolic encephalopathy Current Visit: Yes Status: Acute Assessment and Plan: Likely due to hypoglycemia. Patient also has signs of pneumonia. Mental status has improved to baseline now. (3) Hypokalemia Current Visit: Yes Status: Acute Assessment and Plan: Improved. Potassium 3.5 today. Continue close monitoring (4) Dementia Current Visit: Yes Status: Acute Assessment and Plan: Patient is only oriented to place. Continue home medications. PTOT evaluation recommend ECF discharge, social work is working on it. (5) Hypertension Current Visit: Yes Status: Acute Assessment and Plan: Continue home medication metoprolol, hold lisinopril b/o worsening renal function. BP is stable now on metoprolol only. (6) DVT prophylaxis Current Visit: No Status: Acute Assessment and Plan: Heparin SC (7) Morbid obesity Current Visit: No Status: Acute Assessment and Plan: Need lifestyle modification as outpatient (8) Diabetes Current Visit: No Status: Acute Assessment and Plan: Patient has hypoglycemia on admission. Will closely monitor glucose level and restart insulin sliding scale at a low dose with meals only - Glucose is well controlled at this point (9) COPD (chronic obstructive pulmonary disease) Current Visit: No Status: Chronic Assessment and Plan: No wheezing. Continue home medications (10) Pneumonia Current Visit: No Status: Acute Assessment and Plan: Patient has cough. Has mild leukocytosis on admission, resolved now. Chest x- ray suspect pneumonia. - We will place patient on azithromycin and Rocephin, antibiotic day 7 today, will DC antibiotic after today's dose. - Respiratory viral panel negative - Cough syrup. - WBC trended down to normal now (11) Tobacco abuse Current Visit: Yes Status: Acute Assessment and Plan: Patient is a current smoker. Smoking cessation education. Will place nicotine patch if needed. (12) Pressure ulcer Current Visit: Yes Status: Acute Assessment and Plan: buttocks and upper posterior thighs ulcer presented on admission. Wound care consult on case. - Continue turn patient every 2 hours per protocol, continue wound care - Time Spent with Patient Total time spent is greater than 50% in coordination of care (as documented) at patient's floor/unit and/or counseling patient: 30 minutes 25 - 35 minutes Plan of Care Discussed with: patient Internal Medicine: Result - Labs CBC & Chem 7: 06/11/18 03:00 06/11/18 03:00 Labs: Short CBC 06/11/18 Range/Units 03:00 WBC 5.6 (4.3-11.1) K/mcL Hgb 11.8 (11.5-15.4) g/dL Hct 38.2 (35.3-44.9) % Plt Count 160 (140-400) K/mcL Neutrophils # 2.9 (1.6-8.9) K/mcL BMP 06/11/18 03:00 Sodium 142 Potassium 3.5 Chloride 101 Carbon Dioxide 35 H BUN 7 L Creatinine 1.01 Glucose 149 H Calcium 8.6 Consult Discharge Plan - Plan Referrals: NONE,PCP [Primary Care Provider] - (4) Dementia Qualifiers: Dementia type: Alzheimer's disease Alzheimer's disease onset: early-onset Dementia behavioral disturbance: without behavioral disturbance Qualified Code(s): G30.0 - Alzheimer's disease with early onset; F02.80 - Dementia in other diseases classified elsewhere without behavioral disturbance (5) Hypertension Qualifiers: Hypertension type: essential hypertension Qualified Code(s): I10 - Essential (primary) hypertension (8) Diabetes Qualifiers: Diabetes mellitus type: type 2 Diabetes mellitus intermediate designer insulin use: with intermediate designer use Diabetes mellitus complication status: without complication Qualified Code(s): E11.9 - Type 2 diabetes mellitus without complications; Z79.4 - intermediate designer (current) use of insulin (9) COPD (chronic obstructive pulmonary disease) Qualifiers: COPD type: chronic bronchitis Chronic bronchitis type: mucopurulent Qualified Code(s): J41.1 - Mucopurulent chronic bronchitis (10) Pneumonia Qualifiers: Pneumonia type: due to unspecified organism Laterality: bilateral Lung location: unspecified part of lung Qualified Code(s): J18.9 - Pneumonia, unspecified organism (12) Pressure ulcer Qualifiers: Pressure injury location: buttock Pressure injury stage: stage 2 Laterality: unspecified laterality Qualified Code(s): L89.302 - Pressure ulcer of unspecified buttock, stage 2
[2018-06-12] MEDS: GuaiFENesin Liq 200 MG/10 ML UDC PO SCH ×3 (00:21→14:15)
[2018-06-12] MEDS: *HR* Heparin 5,000 UNIT/ML VIAL SQ SCH (05:01)
[2018-06-12 07:26] VITALS: BP 152/91
[2018-06-12] MEDS: Tiotropium 18 MCG inhalation IH SCH (07:33)
[2018-06-12 07:52] LABS: Basophils % 0.4 %; Eosinophils # 0.1 K/mcL (0.0-0.6); Eosinophils % 2.6 %; Hematocrit 39.3 % (35.3-44.9); Hemoglobin 12.2 g/dL (11.5-15.4); Immature Granulocytes % 0.2 % (0-4); Lymphocytes # 2.1 K/mcL (0.6-4.6); Lymphocytes % 39.7 %; Mean Corpuscular Hemoglobin 29.6 pg (28.0-33.3); Mean Corpuscular Volume 95.4 fL (83.0-100.0); Mean Platelet Volume 10.8 fL (9.4-12.4); Monocytes # 0.5 K/mcL (0.0-1.3); Monocytes % 10.2 %; Neutrophils # 2.5 K/mcL (1.6-8.9); Platelet Count 176 K/mcL (140-400); Red Blood Count 4.12 M/mcL (3.82-4.97); Red Cell Distribution Width 15.1 % (11.5-14.5); Segmented Neutrophils % 46.9 %
[2018-06-12] MEDS: Insulin LISPRO 300 UNITS/3 ML VIAL SQ SCH ×2 (08:04→14:15)
[2018-06-12] MEDS: Lactobacillus 1 EACH CAP.SPRINK PO SCH (08:05)
[2018-06-12 08:24] LABS: BUN/Creatinine Ratio 7 (6-26); Blood Urea Nitrogen 7 mg/dL (8-23); Calcium 8.6 mg/dL (8.6-10.3); Carbon Dioxide 37 mEq/L (23-29); Chloride 101 mEq/L (98-107); Glucose 117 mg/dL (70-105); Osmolality,Calculated 293 (280-300); Potassium 3.3 mEq/L (3.5-5.1); Sodium 142 mEq/L (136-145); eGFR For Non-African Americans 54 (> 60)
--- NOTE | 2018-06-12 10:54 | Discharge Summary ---
- NOTES TO OUTPATIENT PROVIDER Notes to Outpatient Provider: 1. Patient presented to ER for hypoglycemia. Her insulin is changed to low-dose sliding scale at meal time only now. Her long- acting insulin is discontinued. Please closely monitor glucose level and adjust medication as needed. Date of Encounter: 06/12/18 Time of Encounter: 09:00 - Discharge Diagnosis (1) Hypoglycemia Priority: Primary Status: Acute (2) Acute metabolic encephalopathy Priority: Primary Status: Acute (3) Hypokalemia Priority: Primary Status: Acute (4) Dementia Priority: Secondary Status: Acute Qualifiers: Dementia type: Alzheimer's disease Alzheimer's disease onset: early-onset Dementia behavioral disturbance: without behavioral disturbance Qualified Code(s): G30.0 - Alzheimer's disease with early onset; F02.80 - Dementia in other diseases classified elsewhere without behavioral disturbance (5) Hypertension Priority: Secondary Status: Acute Qualifiers: Hypertension type: essential hypertension Qualified Code(s): I10 - Essential (primary) hypertension (6) DVT prophylaxis Priority: Secondary Status: Acute (7) Morbid obesity Priority: Secondary Status: Acute (8) Diabetes Priority: Secondary Status: Acute Qualifiers: Diabetes mellitus type: type 2 Diabetes mellitus intermediate accountant insulin use: wi th penitent[facility] use Diabetes mellitus complication status: without complication Qualified Code(s): E11.9 - Type 2 diabetes mellitus without complications; Z79.4 - extermination inspector (current) use of insulin (9) COPD (chronic obstructive pulmonary disease) Priority: Secondary Status: Chronic Qualifiers: COPD type: chronic bronchitis Chronic bronchitis type: mucopurulent Qualified Code(s): J41.1 - Mucopurulent chronic bronchitis (10) Pneumonia Priority: Primary Status: Acute Qualifiers: Pneumonia type: due to unspecified organism Laterality: bilateral Lung location: unspecified part of lung Qualified Code(s): J18.9 - Pneumonia, unspecified organism (11) Tobacco abuse Priority: Secondary Status: Acute (12) Pressure ulcer Priority: Secondary Status: Acute Qualifiers: Pressure injury location: buttock Pressure injury stage: stage 2 Laterality: unspecified laterality Qualified Code(s): L89.302 - Pressure ulcer of unspecified buttock, stage 2 Hospital course: Ms. Ramsey is a 73 year old female sent to ER for altered mental status. Patient was a found hypoglycemia with glucose level at 26. Patient was given D50 and her mental status back to baseline. Patient was also found pneumonia and was treated as community-acquired pneumonia with azithromycin and Rocephin. Patient has finished a 7 day treatment course. WBC getting down to normal. No fever. No cough. Lungs are clear. Patient uses 2 L nasal cannula oxygen, which is at her baseline. Patient has dementia, morbid obesity, limited capacity of activity. PTOT recommend ECF discharge. Patient was accepted by ECF today. Will DC patient to ECF. I have seen and examined the patient today. Patient is awake alert, denies cough or shortness of breath. Pleasant. Vitals are stable. SPO2 97% on 2 L nasal cannula oxygen. Patient will DC to ECF today. - Time Spent with Patient Total time spent providing and/or coordinating discharge services: - Discharge Medications Prescriptions: New Insulin LISPRO [HumaLOG] See Protocol SQ TIDAC vial Lactobacillus [Culturelle] 2 each PO DAILY cap.sprink Continue Albuterol Sulfate [Albuterol Inhaler] 2 puff IH Q6H PRN PRN Reason: Shortness Of Breath Citalopram Hydrobromide [Citalopram HBr] 20 mg PO DAILY Donepezil [Aricept] 5 mg PO HS Dulaglutide [Trulicity] 0.75 mg SQ SA Ergocalciferol (VITAMIN D2) [Vitamin D2] 50,000 unit PO FR Lisinopril [Zestril] 5 mg PO DAILY Metoprolol Tartrate 50 mg PO DAILY Sitagliptin Phosphate [Januvia] 50 mg PO DAILY Tiotropium [Spiriva] 18 mcg IH DAILY Potassium Chloride [K-Tab ER] 10 meq PO DAILY OxyCODONE/APAP 10/325 [Percocet 10/325 MG] 1 tab PO Q6H PRN 2 Days #8 tablet PRN Reason: Pain Discontinued Insulin Glargine,Hum.rec.anlog [Lantus Solostar] 62 unit SQ DAILY levoFLOXacin [Levofloxacin] 500 mg PO DAILY Home Medications: Albuterol Sulfate [Albuterol Inhaler] 2 puff IH Q6H PRN 06/05/18 [History] Citalopram Hydrobromide [Citalopram HBr] 20 mg PO DAILY 06/05/18 [History] Donepezil [Aricept] 5 mg PO HS 06/05/18 [History] Dulaglutide [Trulicity] 0.75 mg SQ SA 06/05/18 [History] Ergocalciferol (VITAMIN D2) [Vitamin D2] 50,000 unit PO FR 06/05/18 [History] Lisinopril [Zestril] 5 mg PO DAILY 06/05/18 [History] Metoprolol Tartrate 50 mg PO DAILY 06/05/18 [History] Potassium Chloride [K-Tab ER] 10 meq PO DAILY 06/05/18 [History] Sitagliptin Phosphate [Januvia] 50 mg PO DAILY 06/05/18 [History] Tiotropium [Spiriva] 18 mcg IH DAILY 06/05/18 [History] Insulin LISPRO [HumaLOG] See Protocol SQ TIDAC vial 06/12/18 [Rx] Lactobacillus [Culturelle] 2 each PO DAILY cap.sprink 06/12/18 [Rx] OxyCODONE/APAP 10/325 [Percocet 10/325 MG] 1 tab PO Q6H PRN 2 Days #8 tablet 06/12/18 [Rx] Allergies/Adverse Reactions: Allergy/AdvReac Type Severity Reaction Status Date / Time No Known Allergies Allergy Verified 06/05/18 16:19 Date of admission: 06/09/18 14:35 Primary care physician: PCP NONE Consults: 06/06/18 10:09 Consult to Occupational Therapy [CONS] Routine Comment: Evaluate, develop and implement POC Reason for Consult: weakness Does patient have active BEDREST order?: No Is patient medically & hemodynamically stable?: Yes Consult to Physical Therapy [CONS] Routine Comment: Evaluate, develop and implement POC Reason for Consult: Weakness Does patient have active BEDREST order?: No Is patient medically & hemodynamically stable?: Yes 06/06/18 14:48 Consult to Wound Care [CONS] Routine Reason for Consult: deep tissue injuries to buttocks and posterior thighs Time Notified: 14:51 Call Completed: No Discharging clinician: Jennifer Rogers Anticipated date of discharge: 06/12/18 - Constitutional Vitals: Temp Pulse Resp BP Pulse Ox 97.8 F 78 16 152/91 97 06/12/18 07:19 06/12/18 07:19 06/12/18 07:33 06/12/18 07:19 04/24/19 08:07 Exam: Pt is AAO x 1, demented, pleasant, in NAD, morbid obesity HEENT: NC/AT, PERRL Neck: Supple, no JVD, no LAD Lungs: CTA bilaterally Heart: S1S2, RRR Abd: Soft, nontender, BS present Ext: ROM wnl, mild bilateral pedal edema Neuro: No focal deficit - Patient Status Disposition: Transfer SNF Condition: Fair Functional capacity at discharge: uses cane/walker Overall status at discharge: patient is progressing back to baseline - Discharge Instructions Follow Up With: NONE,PCP [Primary Care Provider] - - Diet and Activity Activity: as per physical therapy Diet: diabetic diet
--- NOTE | 2018-06-12 11:10 | Physician Discharge Referral ---
ExtendedCare Referral Info Transfer To: F Provider in Charge after Transfer: PCP, Other - Diagnosis (1) Hypoglycemia Status: Acute (2) Acute metabolic encephalopathy Status: Acute (3) Hypokalemia Status: Acute (4) Dementia Status: Acute (5) Hypertension Status: Acute (6) DVT prophylaxis Status: Acute (7) Morbid obesity Status: Acute (8) Diabetes Status: Acute (9) COPD (chronic obstructive pulmonary disease) Status: Chronic (10) Pneumonia Status: Acute (11) Tobacco abuse Status: Acute (12) Pressure ulcer Status: Acute - Transfer Medications Prescriptions: OxyCODONE/APAP 10/325 [Percocet 10/325 MG] 1 tab PO Q6H PRN 2 Days #8 tablet PRN Reason: Pain Home Medications: Albuterol Sulfate [Albuterol Inhaler] 2 puff IH Q6H PRN 06/05/18 [History] Citalopram Hydrobromide [Citalopram HBr] 20 mg PO DAILY 06/05/18 [History] Donepezil [Aricept] 5 mg PO HS 06/05/18 [History] Dulaglutide [Trulicity] 0.75 mg SQ SA 06/05/18 [History] Ergocalciferol (VITAMIN D2) [Vitamin D2] 50,000 unit PO FR 06/05/18 [History] Lisinopril [Zestril] 5 mg PO DAILY 06/05/18 [History] Metoprolol Tartrate 50 mg PO DAILY 06/05/18 [History] Potassium Chloride [K-Tab ER] 10 meq PO DAILY 06/05/18 [History] Sitagliptin Phosphate [Januvia] 50 mg PO DAILY 06/05/18 [History] Tiotropium [Spiriva] 18 mcg IH DAILY 06/05/18 [History] Insulin LISPRO [HumaLOG] See Protocol SQ TIDAC vial 06/12/18 [Rx] Lactobacillus [Culturelle] 2 each PO DAILY cap.sprink 06/12/18 [Rx] OxyCODONE/APAP 10/325 [Percocet 10/325 MG] 1 tab PO Q6H PRN 2 Days #8 tablet 06/12/18 [Rx] Allergies/Adverse Reactions: Allergy/AdvReac Type Severity Reaction Status Date / Time No Known Allergies Allergy Verified 06/05/18 16:19 - Respiratory Orders Oxygen / L per min (2-3) Smoking Cessation: Smoking cessation has been advised. For more information, call the [place] Tobacco Quit Line at 9-640-BOAP-NOW. - Advance Directives Code Status: Full Code - Rehabiliation Orders Rehab Orders: Evaluation for Physical Therapy, Evaluation for Occupational Therapy - Diet Orders No Concentrated Sweets CERTIFICATION: I certify that the transfer of the above named patient to an Extended Care Facility is necessary for the continuing treatment of the diagnosis listed. The above information is true and accurate reflection of patient's current condition. Confidential - Redisclosure prohibited without a patient's written consent.
--- NOTE | 2018-06-13 19:03 | Electrocardiograph Report ---
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
== END 2018-06-12 16:21 | DRG 637 ==
LOC: EMEROOARM 13:11 → 2NENU 13:11
PROVIDERS: ADMIT Internal Medicine; ATTEND Internal Medicine

== ENCOUNTER 2018-06-16 23:20 | Observation (INO) ==
--- NOTE | 2018-06-16 23:46 | Emergency Department Note ---
Disposition Clinical Impression: Low oxygen saturation Pulmonary edema Qualifiers: Chronicity: acute Qualified Code(s): J81.0 - Acute pulmonary edema Disposition: Admitted As Inpatient Condition: Fair General Adult HPI - General Stated complaint: diabetic issues Time Seen by Provider: 06/16/18 23:32 Nursing Notes Reviewed: Yes Vital Signs Reviewed: Yes - History of Present Illness HPI Narrative: 73-year-old female with history of Alzheimer's, COPD, diabetes who presents emergency department due to low blood sugar. Apparently the patients glucose typically runs in the 300s but recently has been in the 100s. She was actually recently discharged from an [facility] rehabilitation for pneumonia and was taken home by her daughter 2 days ago. Since then the daughter notes that she has been increasingly more short of breath and her glucose has been labile. She has had increase in swelling in her legs as well. She is currently on Lasix and per the daughter has a history of CHF which has not been evaluated for proximally 2 years. Patient denies any chest pain, nausea, vomiting, diarrhea, dysuria, hematuria, back pain. - Related Data Home Medications Medication Instructions Recorded Confirmed Albuterol Sulfate [Albuterol 2 puff IH Q6H PRN 06/05/18 06/17/18 Inhaler] Citalopram Hydrobromide 20 mg PO DAILY 06/05/18 06/17/18 [Citalopram HBr] Donepezil [Aricept] 5 mg PO HS 06/05/18 06/17/18 Dulaglutide [Trulicity] 0.75 mg SQ SA 06/05/18 06/17/18 Ergocalciferol (VITAMIN D2) 50,000 unit PO FR 06/05/18 06/17/18 [Vitamin D2] Lisinopril [Zestril] 5 mg PO DAILY 06/05/18 06/17/18 Metoprolol Tartrate 50 mg PO BID 06/05/18 06/17/18 Potassium Chloride [K-Tab ER] 10 meq PO DAILY 06/05/18 06/17/18 Sitagliptin Phosphate [Januvia] 50 mg PO DAILY 06/05/18 06/17/18 Tiotropium [Spiriva] 1 puff IH DAILY 06/05/18 06/17/18 Insulin Glargine,Hum.rec.anlog 45 units SQ BID 06/17/18 06/17/18 [Lantus Solostar] OxyCODONE/APAP 10/325 [Percocet 1 tab PO Q6H PRN 06/17/18 06/17/18 10/325 MG] Previous Rx's Medication Instructions Recorded Insulin LISPRO [HumaLOG] See Protocol SQ TIDAC vial 06/12/18 Allergies Allergy/AdvReac Type Severity Reaction Status Date / Time No Known Allergies Allergy Verified 06/16/18 23:50 Review of Systems: ROS per history of present illness, all other systems reviewed and negative or normal. All systems ED: reviewed and negative except as stated. 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 No apparent distress. Follow commands. Appears stated age. Neck: No JVD. Trachea midline. Neck supple. Eyes: PERRL. No scleral icterus. HENT: Normocephalic and atraumatic. Moist mucus membranes. Cardiovascular: Regular rate and rhythm. Normal S1 and S2. No murmurs appreciated. Extremities well perfused with 2+ distal pulses bilaterally. 1+ edema bilaterally Pulmonary: Coarse breath sounds diffusely. Not in respiratory distress. Speaks in full sentences. Abdomen: Soft, nondistended, and tontender. No bruits or masses. No guarding. Neuro: Alert and oriented x2, unsure of month or year. No slurred speech. No focal deficits noted. Skin: No rashes noted on visualized skin. Musculoskeletal: No bony abnormalities visualized. Moves all extremities. Psych: Normal mood. Pleasant. Makes appropriate eye contact. Course Vital Signs Temperature 98.6 F 06/16/18 23:52 Pulse Rate 69 06/16/18 23:52 Respiratory Rate 17 06/16/18 23:52 Blood Pressure 189/77 06/16/18 23:52 O2 Sat by Pulse Oximetry 99 06/16/18 23:52 Temperature 98.6 F 06/16/18 23:52 Pulse Rate 69 06/17/18 01:36 Respiratory Rate 17 06/17/18 01:36 Blood Pressure 159/62 06/17/18 01:36 O2 Sat by Pulse Oximetry 99 06/17/18 01:36 Oxygen Delivery Oxygen Delivery Nasal Cannula Medical Decision Making - [facility] Narrative Medical decision making narrative: 73-year-old female who presents the emergency department for evaluation for hypoglycemia. The patient upon arrival has glucose in the 100s. She does have hypoxia, now requiring 3 L via nasal cannula. She is not on baseline oxygen at home. Otherwise her vital signs are stable, afebrile and normotensive. We did obtain CBC, BMP, troponin, EKG, chest x-ray and urinalysis. The patient does have coarse and wet lung sounds on auscultation. She does have peripheral edema which patients daughter states is above her baseline. She has no significant leukocytosis, or electrolyte abnormality. Chest x-ray shows evidence of pulmonary vascular congestion. Given her signs and symptoms of CHF she was given 20 mg IV Lasix. At this point do not believe she has recurrence of her pneumonia therefore did not place her on IV antibiotics. Discussed case with on-call hospitalist Dr. Morrison who agrees with plan for admission and accepts the patient to the inpatient service. BNP added per request. Patient agrees with and understands course of treatment plan including plan for admission. All questions answered. - Medical Records Medical records reviewed: Yes I reviewed the patient's medical records. - Lab Data Lab results reviewed: Yes I reviewed the patient's lab results. Result diagrams: 06/17/18 00:09 06/17/18 01:08 Lab Results 06/17/18 06/17/18 06/17/18 Range/Units 00:09 00:09 01:08 WBC 8.6 D (4.3-11.1) K/mcL RBC 4.50 (3.82-4.97) M/mcL Hgb 13.1 (11.5-15.4) g/dL Hct 42.4 (35.3-44.9) % MCV 94.2 (83.0-100.0) fL MCH 29.1 (28.0-33.3) pg MCHC 30.9 L (31.6-35.5) g/dL RDW 15.4 H (11.5-14.5) % Plt Count 211 (140-400) K/mcL MPV 10.9 (9.4-12.4) fL Immature Gran % 0.3 (0-4) % Seg Neutrophils % 62.3 % Lymphocytes % 27.6 % Monocytes % 8.3 % Eosinophils % 1.3 % Basophils % 0.2 % Neutrophils # 5.4 (1.6-8.9) K/mcL Lymphocytes # 2.4 (0.6-4.6) K/mcL Monocytes # 0.7 (0.0-1.3) K/mcL Eosinophils # 0.1 (0.0-0.6) K/mcL Basophils # 0.0 (0.0-0.2) K/mcL Sodium 141 (136-145) mEq/L Potassium 3.5 (3.5-5.1) mEq/L Chloride 102 (98-107) mEq/L Carbon Dioxide 34 H (23-29) mEq/L BUN 11 (8-23) mg/dL Creatinine 1.01 (0.60-1.20) mg/dL Est GFR ( Amer) > 60 (> 60) Est GFR (Non-Af Amer) 54 L (> 60) BUN/Creatinine Ratio 11 (6-26) Glucose 110 H (70-105) mg/dL Calculated Osmolality 292 (280-300) Calcium 9.2 (8.6-10.3) mg/dL Magnesium 1.7 (1.6-2.6) mg/dL Troponin I < 0.03 (< 0.04) ng/mL Specimen Rejected Hemolyzed - Radiology Data Radiology results reviewed: Yes I reviewed the patient's radiology results. Chest X-Ray 06/16/18 23:42 IMPRESSION: 1. Opacity in the right costophrenic angle is indeterminate but could be related to overlying soft tissue fold. Repeat exam is recommended to see if this finding region resolves with different positioning. 2. Mild pulmonary vascular congestion. D/ / Mandeep Gregory MD / Mandeep Gregory MD Interpreting Provider: Mandeep Gregory MD - EKG Data EKG #1 EKG attestation: Yes I reviewed and interpreted this EKG. EKG results narrative: Normal sinus rhythm rate of 77. Normal axis. Normal intervals. No ischemic changes. Attestation Statement - Attestation Attestation: I have seen this patient with the resident physician, I have personally evalua amrquis this patient. I had reviewed the chart and document dictation by the resident physician and aM in agreement with the information documented by the resident physician. Please see documentation by the resident physician for complete chart including past medical history, family medical history, review of systems, current history and physical and laboratory and imaging studies. I was present for all procedures, provided direct supervision for all procedures, was present for the entirety of all procedures and provided direct guidance during the procedures. Please see documentation by the resident physician for any procedures performed.
[2018-06-17 00:26] LABS: Basophils % 0.2 %; Eosinophils # 0.1 K/mcL (0.0-0.6); Eosinophils % 1.3 %; Hematocrit 42.4 % (35.3-44.9); Hemoglobin 13.1 g/dL (11.5-15.4); Immature Granulocytes % 0.3 % (0-4); Lymphocytes # 2.4 K/mcL (0.6-4.6); Lymphocytes % 27.6 %; Mean Corpuscular HGB Conc 30.9 g/dL (31.6-35.5); Mean Corpuscular Hemoglobin 29.1 pg (28.0-33.3); Mean Corpuscular Volume 94.2 fL (83.0-100.0); Mean Platelet Volume 10.9 fL (9.4-12.4); Monocytes # 0.7 K/mcL (0.0-1.3); Monocytes % 8.3 %; Neutrophils # 5.4 K/mcL (1.6-8.9); Platelet Count 211 K/mcL (140-400); Red Cell Distribution Width 15.4 % (11.5-14.5); Segmented Neutrophils % 62.3 %
--- NOTE | 2018-06-17 01:11 | Emergency Department Note ---
Disposition Clinical Impression: Pulmonary edema, Low oxygen saturation Disposition: Admitted As Inpatient Condition: Fair Referrals: NONE,PCP [Primary Care Provider] - General Adult HPI - General Chief complaint: ED General Medical Stated complaint: diabetic issues Time Seen by Provider: 06/16/18 23:32 Source: patient, EMS Limitations: no limitations - History of Present Illness Pain Scale: 0 - Related Data Home Medications Medication Instructions Recorded Confirmed Albuterol Sulfate [Albuterol 2 puff IH Q6H PRN 06/05/18 06/05/18 Inhaler] Citalopram Hydrobromide 20 mg PO DAILY 06/05/18 06/05/18 [Citalopram HBr] Donepezil [Aricept] 5 mg PO HS 06/05/18 06/05/18 Dulaglutide [Trulicity] 0.75 mg SQ SA 06/05/18 06/05/18 Ergocalciferol (VITAMIN D2) 50,000 unit PO FR 06/05/18 06/05/18 [Vitamin D2] Lisinopril [Zestril] 5 mg PO DAILY 06/05/18 06/05/18 Metoprolol Tartrate 50 mg PO DAILY 06/05/18 06/05/18 Potassium Chloride [K-Tab ER] 10 meq PO DAILY 06/05/18 06/05/18 Sitagliptin Phosphate [Januvia] 50 mg PO DAILY 06/05/18 06/05/18 Tiotropium [Spiriva] 18 mcg IH DAILY 06/05/18 06/05/18 Previous Rx's Medication Instructions Recorded Insulin LISPRO [HumaLOG] See Protocol SQ TIDAC vial 06/12/18 Lactobacillus [Culturelle] 2 each PO DAILY cap.sprink 06/12/18 Allergies Allergy/AdvReac Type Severity Reaction Status Date / Time No Known Allergies Allergy Verified 06/16/18 23:50 Past Medical History - Past Medical History Medical history: Reports: arthritis, CHF, COPD, dementia, diabetes, GERD, hyperlipidemia, hypertension, osteoporosis, renal disease, other Surgical history: Reports: other Psychiatric history: Reports: anxiety 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 - Social History Smoking Status: Current every day smoker Smokeless Tobacco Status: No Alcohol use: Reports: none Drug use: Reports: none Physical Exam - General Limitations: no limitations General appearance: alert Course Vital Signs Temperature 98.6 F 06/16/18 23:52 Pulse Rate 69 06/16/18 23:52 Respiratory Rate 17 06/16/18 23:52 Blood Pressure 189/77 06/16/18 23:52 O2 Sat by Pulse Oximetry 99 06/16/18 23:52 Temperature 98.6 F 06/16/18 23:52 Pulse Rate 69 06/17/18 00:44 Respiratory Rate 17 06/17/18 00:44 Blood Pressure 169/66 06/17/18 00:44 O2 Sat by Pulse Oximetry 100 06/17/18 00:44 Oxygen Delivery Oxygen Delivery Room Air Medical Decision Making - Lab Data Result diagrams: 06/17/18 00:09 Lab Results 06/17/18 06/17/18 Range/Units 00:09 00:09 WBC 8.6 D (4.3-11.1) K/mcL RBC 4.50 (3.82-4.97) M/mcL Hgb 13.1 (11.5-15.4) g/dL Hct 42.4 (35.3-44.9) % MCV 94.2 (83.0-100.0) fL MCH 29.1 (28.0-33.3) pg MCHC 30.9 L (31.6-35.5) g/dL RDW 15.4 H (11.5-14.5) % Plt Count 211 (140-400) K/mcL MPV 10.9 (9.4-12.4) fL Immature Gran % 0.3 (0-4) % Seg Neutrophils % 62.3 % Lymphocytes % 27.6 % Monocytes % 8.3 % Eosinophils % 1.3 % Basophils % 0.2 % Neutrophils # 5.4 (1.6-8.9) K/mcL Lymphocytes # 2.4 (0.6-4.6) K/mcL Monocytes # 0.7 (0.0-1.3) K/mcL Eosinophils # 0.1 (0.0-0.6) K/mcL Basophils # 0.0 (0.0-0.2) K/mcL Specimen Rejected Hemolyzed Attestation Statement - Attestation Attestation: I have seen this patient with the resident physician, I have personally evaluated this patient. I had reviewed the chart and document dictation by the resident physician and aM in agreement with the information documented by the resident physician. Please see documentation by the resident physician for complete chart including past medical history, family medical history, review of systems, current history and physical and laboratory and imaging studies. I was present for all procedures, provided direct supervision for all procedures, was present for the entirety of all procedures and provided direct guidance during the procedures. Please see documentation by the resident physician for any procedures performed. Patient presented to the emergency department with chief complaint of generalized weakness concerns for low blood sugar, possible shortness of breath. Patient was recently admitted to the hospital for concerns of pneumonia apparently admitted to a rehabilitation and then checked out of the rehabilitation by her daughter with worsening symptoms tonight of reported low blood sugar, however her blood sugar was in the 90s when the paramedics got there but the family reported that her blood sugars usually in the 300s and that they are pretty sure she gets symptomatic from this. Patient does endorse that she felt just generally weak. Patient had diffuse coarse breath sounds with some crackles in her lungs. Oxygen saturation was 80% on room air placed on 3 L with improvement. Blood sugar was 125, she had no evidence of altered mental status. Workup revealed evidence on chest x-ray of some mild pulmonary edema, last echo cardiogram was 3 years ago with a normal ejection fraction at that time. Basic laboratory studies were ordered. Patient will require admission to the hospital for further evaluation and management of new pulmonary edema with mild decreased oxygen level. We will review all laboratory studies as well. EKG was a sinus rhythm, no evidence of acute ischemia or acute change from prior EKG as interpreted by myself.
[2018-06-17 01:39] LABS: BUN/Creatinine Ratio 11 (6-26); Blood Urea Nitrogen 11 mg/dL (8-23); Calcium 9.2 mg/dL (8.6-10.3); Carbon Dioxide 34 mEq/L (23-29); Chloride 102 mEq/L (98-107); Glucose 110 mg/dL (70-105); Magnesium 1.7 mg/dL (1.6-2.6); Osmolality,Calculated 292 (280-300); Potassium 3.5 mEq/L (3.5-5.1); Sodium 141 mEq/L (136-145); eGFR For Non-African Americans 54 (> 60)
[2018-06-17 01:40] LABS: Troponin I < 0.03 ng/mL (< 0.04)
[2018-06-17] MEDS ORDERED: Furosemide 20 MG/2 ML VIAL IVP ONE (01:51)
[2018-06-17] MEDS ORDERED: *HR* Dextrose 50 % in Water (Syg) 50 ML SYRINGE IVP PRN (03:07)
[2018-06-17] MEDS ORDERED: Dextrose Gel 15 GM/37.5 ML TUBE PO PRN ×2 (03:07)
[2018-06-17] MEDS ORDERED: Acetaminophen 325 MG TABLET PO PRN (03:22)
--- NOTE | 2018-06-17 03:48 | Internal Med History&Physical ---
Date of Encounter: 06/17/18 Time of Encounter: 03:47 Internal Medicine - H&P: HPI Chief complaint: sob Admitted From: Home Plans for Post Hospital Care: Home History of present illness: Elysia Ramsey is an 73 year old morbidly woman with dementia, hypertension, diabetes and active smoker with chronic respiratory failure in the setting of COPD and obesity hypoventilation syndrome with cor pulmonale who was brought to the emergency department reportedly for low blood sugar in the 100s however this was within normal limits. It was noted that she was short of breath coupled with increasing leg swelling. As per the daughter she has a history of CHF but has not been evaluated in about 2 years for this. There were no other symptoms reported such as chest pain, nausea, abdominal pain, fever, chills. X=ray showed pulmonary vascular congestion. Lab work was grossly within normal limits. She was given 20mg furosemide and is admitted for observation. Vitals: Reviewed General: Elderly woman, NAD Skin: Warm, dry HEENT: Moist mucous membranes. No conjunctivae pallor. Neck: Short and thick. Chest: Diminished thoracic expansion. Reduced breath sounds. Clear to auscultation. Heart: Normal S1 & S2; rhythmic. No rubs or murmurs. Abdomen: Distended, soft and non-tender to palpation. No peritoneal reaction. Extremities: No clubbing, cyanosis. 3+ pitting edema. No calf tenderness. Normal distal pulses. Neurological: Awake, alert and oriented to person, place and time. No focal deficits. Psych: Affect appropriate. Assessment/Plan 1. Acute on chronic respiratory failure: Secondary to pulmonary edema possibly in the setting of heart failure and non-adherence to therapy as the patient tells me she does not take any medications at home. Will check a BNP and obtain a screening echo in the morning. Continue with furosemide 40mg IVP BID for now. Monitor on telemetry. 2. Diabetes: A1C 6.6% and glycemic values are within adequacy. Will place on sliding scale. 3. Hypertension: Uncontrolled. Will resume lisinopril and metoprolol. 4. COPD: Remains an active smoker which is unfortunate and 5 minutes were spent counseling her on this habit with resources provided. Will continue daily tiotropium and prn nebulizer therapy. Past Med Surg Social Fam HX - Past Medical History Medical history: arthritis, CHF, COPD, dementia, diabetes, GERD, hyperlipidemia, hypertension, osteoporosis, renal disease, other Additional medical history: narcolepsy, IBS Psychiatric history: anxiety - Past Surgical History Surgical History: other Additional surgical history: right total shoulder replacement 2009 - Social History Smoking Status: Current every day smoker Smokeless Tobacco Status: No Alcohol use: none Drug use: none - Family History Mother Adopted: No Family Member Ethnicity: Non- Living Status: Hx Family Cardiac Disorders: Yes (heart attack, HTN) Hx Family Respiratory Disorders: Yes Hx Family Cancer: No Hx Family GI Disorders: No Hx Family Endocrine Disorder: Yes (diabetes) Hx Family Neuromuscular Disorders: No Hx Family Neurologic Disorders: No Hx Family HEENT Disorders: No Hx Family Autoimmune Disorders: No Internal Medicine - H&P: Meds Albuterol Sulfate [Albuterol Inhaler] 2 puff IH Q6H PRN 06/05/18 [History] Citalopram Hydrobromide [Citalopram HBr] 20 mg PO DAILY 06/05/18 [History] Donepezil [Aricept] 5 mg PO HS 06/05/18 [History] Dulaglutide [Trulicity] 0.75 mg SQ SA 06/05/18 [History] Ergocalciferol (VITAMIN D2) [Vitamin D2] 50,000 unit PO FR 06/05/18 [History] Lisinopril [Zestril] 5 mg PO DAILY 06/05/18 [History] Metoprolol Tartrate 50 mg PO DAILY 06/05/18 [History] Potassium Chloride [K-Tab ER] 10 meq PO DAILY 06/05/18 [History] Sitagliptin Phosphate [Januvia] 50 mg PO DAILY 06/05/18 [History] Tiotropium [Spiriva] 18 mcg IH DAILY 06/05/18 [History] Insulin LISPRO [HumaLOG] See Protocol SQ TIDAC vial 06/12/18 [Rx] Lactobacillus [Culturelle] 2 each PO DAILY cap.sprink 06/12/18 [Rx] Allergy/AdvReac Type Severity Reaction Status Date / Time No Known Allergies Allergy Verified 06/16/18 23:50 All Systems PM: A 10-system review of systems was performed and is negative for pertinent findings except as documented above in the HPI. - Constitutional Vitals: Temp Pulse Resp BP Pulse Ox 98.6 F 75 20 158/70 96 06/16/18 23:52 04/29/19 03:33 06/17/18 03:33 06/17/18 03:33 06/17/18 03:33 Exam: . Internal Med - H&P Results - Labs CBC & Chem 7: 06/17/18 00:09 06/17/18 01:08 Labs: Short CBC 06/17/18 Range/Units 00:09 WBC 8.6 D (4.3-11.1) K/mcL Hgb 13.1 (11.5-15.4) g/dL Hct 42.4 (35.3-44.9) % Plt Count 211 (140-400) K/mcL Neutrophils # 5.4 (1.6-8.9) K/mcL BMP 06/17/18 01:08 Sodium 141 Potassium 3.5 Chloride 102 Carbon Dioxide 34 H BUN 11 Creatinine 1.01 Glucose 110 H Calcium 9.2 Cardiac Enzymes 06/17/18 Range/Units 01:08 Troponin I < 0.03 (< 0.04) ng/mL - Impressions ITS Impressions Chest X-Ray 06/16/18 23:42 IMPRESSION: 1. Opacity in the right costophrenic angle is indeterminate but could be related to overlying soft tissue fold. Repeat exam is recommended to see if this finding region resolves with different positioning. 2. Mild pulmonary vascular congestion. D/ / Mandeep Gregory MD / Mandeep Gregory MD Interpreting Provider: Mandeep Gregory MD - Time Spent With Patient Total time spent is greater than 50% in coordination of care (as documented) at patient's floor/unit and/or counseling patient: Greater than 35 minutes
[2018-06-17] MEDS ORDERED: Ipratropium/Albuterol Neb 3 ML IH PRN (04:00)
[2018-06-17] MEDS: *HR* Heparin 5,000 UNIT/ML VIAL SQ SCH ×3 (05:39→20:53)
[2018-06-17 05:45] LABS: Bilirubin,Urine Negative (Negative); Blood,Urine Negative (Negative); Clarity,Urine Clear (Clear); Color,Urine Yellow (Yellow); Glucose,Urine (UA) Normal (Normal); Ketones,Urine Negative (Negative); Leukocyte Esterase,Urine Negative (Negative); Nitrite,Urine Negative (Negative); Protein,Urine Negative (Neg-Trace); Specific Gravity,Urine 1.011 (1.010-1.025); Urobilinogen,Urine Normal (Normal)
[2018-06-17] MEDS: Insulin LISPRO 300 UNITS/3 ML VIAL SQ SCH ×3 (08:34→17:00)
[2018-06-17] MEDS: Furosemide 40 MG/4 ML VIAL IVP SCH ×2 (08:36→20:53)
--- NOTE | 2018-06-17 08:40 | Internal Med Progress Note ---
<Mihir Awan - Last Filed: 06/17/18 11:48> Hospitalist Progress Note - Encounter Date of Encounter: 06/17/18 Time of Encounter: 08:37 - Subjective Interval History: Elysia Ramsey is an 73 year old morbidly woman with dementia, hypertension, diabetes and active smoker with chronic respiratory failure in the setting of C OPD and obesity hypoventilation syndrome with cor pulmonale who was brought to the emergency department reportedly for low blood sugar in the 100s however this was within normal limits. It was noted that she was short of breath coupled with increasing leg swelling. As per the daughter she has a history of CHF but has not been evaluated in about 2 years for this. There were no other symptoms reported such as chest pain, nausea, abdominal pain, fever, chills. X=ray showed pulmonary vascular congestion. Lab work was grossly within normal limits. She was given 20mg furosemide and is admitted for observation. Today, patient has not received her BP medications and BP > 190/70. She denies any headaches, blurry vision, chest pain. Does admit to SOB, which occurs often at home. She uses 3L O2 at home. She admits that the only medication she takes at home is for diabetes, no BP meds. Denies any abdominal pain, recent f/c/n/v. SOB at home occurs at rest. - Exam Vitals: Temp Pulse Resp BP Pulse Ox 97.6 F 83 18 198/73 93 06/17/18 08:26 06/17/18 08:26 06/17/18 08:26 06/17/18 08:26 06/17/18 08:26 Exam: Vitals: Reviewed General: Elderly woman, NAD Skin: Warm, dry HEENT: Moist mucous membranes. No conjunctivae pallor. Neck: Short and thick. Chest: Diminished thoracic expansion. Reduced breath sounds. Clear to auscultation. Heart: Normal S1 & S2; rhythmic. No rubs or murmurs. Abdomen: Distended, soft and non-tender to palpation. No peritoneal reaction. Extremities: No clubbing, cyanosis. 3+ pitting edema. No calf tenderness. Normal distal pulses. Neurological: Awake, alert and oriented to person, place and time. No focal deficits. Psych: Affect appropriate. - Assessment and Plan (1) Acute respiratory failure Current Visit: Yes Status: Acute Assessment and Plan: acute respiratory failure without hypoxia. Patient is on 3L home oxygen. History of COPD and active smoker. respiratory failure in the setting of fluid overload. Last echo was 3 years ago and unremarkable. EKG without acute changes, BNP and troponins unremarkable CBC, BMP, mg, UA all unremarkable VSS on 2L NC. Patient is on 3L at home Will obtain repeat echocardiogram to rule out CHF exacerbation Continue with lasix 40mg IVD BID Strict I/Os, daily weights Continue with Duoneb and Spiriva, BP control DDx includes PE, DVT. Patient +erythema and swelling, warmth at left calf. Pending LE ultrasound (2) Venous insufficiency of both lower extremities Current Visit: No Status: Chronic Assessment and Plan: cardiac markers, BNP unremarkable. No recent trauma or surgery, no prior DVT, no genetic blood disorder CXR without signs of PE or free air. We will obtain LE ultrasound to rule out DVT PT/INR in the morning. Elevate extremity Continue with IV lasix. (3) DM (diabetes mellitus), type 2 Current Visit: No Status: Acute Assessment and Plan: A1c 6.6 Continue SSI risk strat (4) COPD (chronic obstructive pulmonary disease) Current Visit: No Status: Chronic Assessment and Plan: Chronic and appears stable. Continue with RT/bronchodilators and O2 as needed with goal SPO2 > 90% Advised on smoking cessation (5) Morbid obesity with BMI of 50.0-59.9, adult Current Visit: No Status: Chronic Assessment and Plan: Advised lifestyle modifications including diet changes, exercise. (6) CKD (chronic kidney disease) stage 3, GFR 30-59 ml/min Current Visit: No Status: Chronic (7) Pleural effusion Current Visit: No Status: Acute Assessment and Plan: Continue lasix. Treat as above. (8) Tobacco use Current Visit: No Status: Acute Assessment and Plan: Advised smoking cessation. Risks reviewed. Will consider nicotine patches. (9) Hypertension Current Visit: No Status: Chronic Assessment and Plan: Pending home medication verification. Patient had episode of hypertension this AM that stabilized after administration of home meds. Continue with currently management. DVT Prophylaxis: SuqQ hep - Time Spent with Patient Total time spent is greater than 50% in coordination of care (as documented) at patient's floor/unit and/or counseling patient: Greater than 35 minutes Plan of Care Discussed with: patient Internal Medicine: Result - Labs CBC & Chem 7: 04/29/19 00:09 06/17/18 01:08 Labs: Short CBC 06/17/18 Range/Units 00:09 WBC 8.6 D (4.3-11.1) K/mcL Hgb 13.1 (11.5-15.4) g/dL Hct 42.4 (35.3-44.9) % Plt Count 211 (140-400) K/mcL Neutrophils # 5.4 (1.6-8.9) K/mcL BMP 06/17/18 01:08 Sodium 141 Potassium 3.5 Chloride 102 Carbon Dioxide 34 H BUN 11 Creatinine 1.01 Glucose 110 H Calcium 9.2 Cardiac Enzymes 06/17/18 Range/Units 01:08 Troponin I < 0.03 (< 0.04) ng/mL Urine 06/17/18 Range/Units 05:00 Urine Color Yellow (Yellow) Urine Clarity Clear (Clear) Urine pH 6.0 (5.0-8.0) pH Units Ur Specific [place] 1.011 (1.010-1.025) Urine Protein Negative (Neg-Trace) mg/dL Urine Glucose (UA) Normal (Normal) mg/dL - Impressions Impressions Chest X-Ray 06/16/18 23:42 IMPRESSION: 1. Opacity in the right costophrenic angle is indeterminate but could be related to overlying soft tissue fold. Repeat exam is recommended to see if this finding region resolves with different positioning. 2. Mild pulmonary vascular congestion. D/ / Mandeep Gregory MD / Mandeep Gregory MD Interpreting Provider: Mandeep Gregory MD Consult Discharge Plan - Plan Referrals: NONE,PCP [Primary Care Provider] - <Zia Peña - Last Filed: 06/17/18 14:43> Hospitalist Progress Note - Encounter Date of Encounter: 06/17/18 - Exam Vitals: Temp Pulse Resp BP Pulse Ox 97.6 F 83 18 123/57 93 06/17/18 08:26 06/17/18 08:26 06/17/18 08:26 06/17/18 10:00 04/29/19 08:26 - Time Spent with Patient Total time spent is greater than 50% in coordination of care (as documented) at patient's floor/unit and/or counseling patient: Internal Medicine: Result - Labs CBC & Chem 7: 06/17/18 00:09 06/17/18 01:08 Labs: Short CBC 06/17/18 Range/Units 00:09 WBC 8.6 D (4.3-11.1) K/mcL Hgb 13.1 (11.5-15.4) g/dL Hct 42.4 (35.3-44.9) % Plt Count 211 (140-400) K/mcL Neutrophils # 5.4 (1.6-8.9) K/mcL BMP 06/17/18 01:08 Sodium 141 Potassium 3.5 Chloride 102 Carbon Dioxide 34 H BUN 11 Creatinine 1.01 Glucose 110 H Calcium 9.2 Cardiac Enzymes 06/17/18 Range/Units 01:08 Troponin I < 0.03 (< 0.04) ng/mL Urine 06/17/18 Range/Units 05:00 Urine Color Yellow (Yellow) Urine Clarity Clear (Clear) Urine pH 6.0 (5.0-8.0) pH Units Ur Specific [place] 1.011 (1.010-1.025) Urine Protein Negative (Neg-Trace) mg/dL Urine Glucose (UA) Normal (Normal) mg/dL - Impressions Impressions Chest X-Ray 06/16/18 23:42 IMPRESSION: 1. Opacity in the right costophrenic angle is indeterminate but could be related to overlying soft tissue fold. Repeat exam is recommended to see if this finding region resolves with different positioning. 2. Mild pulmonary vascular congestion. D/ / Mandeep Gregory MD / Mandeep Gregory MD Interpreting Provider: Mandeep Gregory MD - Attending Attestation I examined this patient and my medical decision-making was reviewed with the Resident Physician Dr. Awan. I agree with the documented findings, disposition and treatment plan as described except to the extent set forth below. Ms. Ramsey is an 73 year old morbidly woman with dementia, hypertension, diabetes and active smoker with chronic respiratory failure in the setting of COPD and obesity, hypoventilation syndrome with cor pulmonale, and diastolic CHF pt was brought to the emergency department reportedly for low blood sugar in the 100s and shortnrss of breath as well as worsening swelling in the b/l legs. She denied any CP. Her CXR showed pulmonary vascular congestion. She was admitted in the hospital and started her on IV diuresis with Lasix. Patient states he is feeling better today. She would like to go home. Gen: A, A< O x3 Chest: Diminished BS B/l, no crackles, no rales Heart; S1S2+ RRR No murmurs Ext: 2+ pedal edema, no calf tenderness a/p 1. Acute diastolic CHF exacerbation cont IV Lasix will f/u on 2 D Echo 2. ?/ hypoglycemia 3. 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
[2018-06-17] MEDS: Tiotropium 18 MCG inhalation IH SCH (10:35)
[2018-06-17] MEDS ORDERED: Perflutren Lipid Microsphere 1.3 ML in 0.9 % Sodium Chloride 8.7 ML IVP ONE (11:08)
[2018-06-17] MEDS ORDERED: Insulin LISPRO 300 UNITS/3 ML VIAL SQ SCH (21:00)
[2018-06-17] MEDS ORDERED: *HR* OxyCODONE/APAP 10/325 TABLET PO PRN (21:17)
[2018-06-18] MEDS: *HR* Heparin 5,000 UNIT/ML VIAL SQ SCH ×2 (05:12→14:25)
[2018-06-18 05:29] LABS: INR 1.1; Prothrombin Time 12.4 Seconds (9.4-12.1)
[2018-06-18 05:40] LABS: Chol/HDL Ratio 3.3 (0-4.9)
[2018-06-18 07:41] VITALS: BP 141/64
[2018-06-18] MEDS: Insulin LISPRO 300 UNITS/3 ML VIAL SQ SCH ×2 (08:10→11:53)
[2018-06-18] MEDS: Tiotropium 18 MCG inhalation IH SCH (08:22)
--- NOTE | 2018-06-18 09:28 | Discharge Summary ---
<Mihir Awan - Last Filed: 06/18/18 14:22> - NOTES TO OUTPATIENT PROVIDER Notes to Outpatient Provider: Patient now on 2L O2 and on lasix 40mg BID Date of Encounter: 06/18/18 Time of Encounter: 09:30 - Discharge Diagnosis (1) Acute respiratory failure Priority: Primary Status: Acute (2) DM (diabetes mellitus), type 2 Priority: Secondary Status: Acute Qualifiers: Diabetes mellitus [facility] insulin use: with [facility] use Diabetes mellitus complication status: with neurologic complications Diabetes mellitus complication detail: with unspecified neuropathy Qualified Code(s): E11.40 - Type 2 diabetes mellitus with diabetic neuropathy, unspecified; Z79.4 - terminal clerk (current) use of insulin (3) COPD (chronic obstructive pulmonary disease) Priority: Secondary Status: Chronic Qualifiers: COPD type: chronic bronchitis Chronic bronchitis type: mucopurulent Qualified Code(s): J41.1 - Mucopurulent chronic bronchitis (4) Morbid obesity with BMI of 50.0-59.9, adult Priority: Secondary Status: Chronic (5) CKD (chronic kidney disease) stage 3, GFR 30-59 ml/min Priority: Secondary Status: Chronic (6) Pleural effusion Priority: Secondary Status: Acute (7) Tobacco use Priority: Secondary Status: Acute (8) Hypertension Priority: Secondary Status: Chronic Qualifiers: Hypertension type: essential hypertension Qualified Code(s): I10 - Essential (primary) hypertension Hospital course: Ms. Ramsey is an 73 year old woman with dementia, hypertension, diabetes and active smoker with chronic respiratory failure in the setting of COPD and obesity, hypoventilation syndrome with cor pulmonale, and diastolic CHF who was brought to the emergency department reportedly for low blood sugar in the 100s and shortness of breath as well as worsening swelling in the b/l legs. She denied any CP. Her CXR showed pulmonary vascular congestion. She was admitted in the hospital for COPD exacerbation and started her on IV diuresis with Lasix. Echo demonstrated mild left ventricular diastolic dysfunction. Her symptoms have improved and she is returning to her baseline. She did have left lower extremity swelling and warmth. Unilateral lower extremity venous duplex exam completed. Negative DVT/SVT on vessels visualized on left LE. For her CHF exacerbation, patient is to continue home lasix and follow up with PCP. For her diabetes, her A1c 6.6, glucose levels controlled while at hospital. She denied any headaches, blurry vision, numbness and tingling. Kidney function has also been at her baseline. She is to resume her home insulin regimen and follow up with PCP. Patient expresses understanding. Discharge discussed with: patient, family - Time Spent with Patient Total time spent providing and/or coordinating discharge services: Time spent: Greater than 30 minutes - Discharge Medications Prescriptions: New Furosemide [Lasix] 20 mg PO BID #60 tablet Continued Citalopram Hydrobromide [Citalopram HBr] 20 mg PO DAILY Donepezil [Aricept] 5 mg PO DAILY Dulaglutide [Trulicity] 0.75 mg SQ QWEEK Ergocalciferol (VITAMIN D2) [Vitamin D2] 50,000 unit PO FR Lisinopril [Zestril] 5 mg PO DAILY Metoprolol Tartrate 50 mg PO QAM Sitagliptin Phosphate [Januvia] 50 mg PO DAILY Tiotropium [Spiriva] 18 mcg IH DAILY PRN PRN Reason: Shortness Of Breath Potassium Chloride [K-Tab ER] 10 meq PO DAILY Insulin LISPRO [HumaLOG] See Protocol SQ TIDAC vial OxyCODONE/APAP 10/325 [Percocet 10/325 MG] 1 tab PO Q6H PRN PRN Reason: Pain Insulin Glargine,Hum.rec.anlog [Lantus Solostar] 62 units SQ QAM No Action Albuterol Sulfate [Albuterol Inhaler] 2 puff IH Q6H PRN PRN Reason: Shortness Of Breath Memantine HCl 5 mg PO DAILY Budesonide/Formoterol 160/4.5 [Symbicort 160/4.5] 2 puff IH BID Home Medications: Citalopram Hydrobromide [Citalopram HBr] 20 mg PO DAILY 06/05/18 [History] Donepezil [Aricept] 5 mg PO DAILY 06/05/18 [History] Dulaglutide [Trulicity] 0.75 mg SQ QWEEK 06/05/18 [History] Ergocalciferol (VITAMIN D2) [Vitamin D2] 50,000 unit PO FR 06/05/18 [History] Lisinopril [Zestril] 5 mg PO DAILY 06/05/18 [History] Metoprolol Tartrate 50 mg PO QAM 06/05/18 [History] Potassium Chloride [K-Tab ER] 10 meq PO DAILY 06/05/18 [History] Sitagliptin Phosphate [Januvia] 50 mg PO DAILY 06/05/18 [History] Tiotropium [Spiriva] 18 mcg IH DAILY PRN 06/05/18 [History] Insulin LISPRO [HumaLOG] See Protocol SQ TIDAC vial 06/12/18 [Rx] Insulin Glargine,Hum.rec.anlog [Lantus Solostar] 62 units SQ QAM 06/17/18 [History] OxyCODONE/APAP 10/325 [Percocet 10/325 MG] 1 tab PO Q6H PRN 06/17/18 [History] Albuterol Sulfate [Albuterol Inhaler] 2 puff IH Q6H PRN 06/18/18 [History] Budesonide/Formoterol 160/4.5 [Symbicort 160/4.5] 2 puff IH BID 06/18/18 [History] Furosemide [Lasix] 20 mg PO BID #60 tablet 06/18/18 [Rx] Memantine HCl 5 mg PO DAILY 06/18/18 [History] Allergies/Adverse Reactions: Allergy/AdvReac Type Severity Reaction Status Date / Time No Known Allergies Allergy Verified 06/18/18 11:25 Date of admission: 06/17/18 02:56 Primary care physician: PCP NONE Consults: 06/17/18 08:26 Consult to Occupational Therapy [CONS] Routine Comment: Evaluate, develop and implement POC Reason for Consult: weakness Does patient have active BEDREST order?: No Is patient medically & hemodynamically stable?: Yes Consult to Physical Therapy [CONS] Routine Comment: Evaluate, develop and implement POC Reason for Consult: weakness Does patient have active BEDREST order?: No Is patient medically & hemodynamically stable?: Yes 06/17/18 08:29 Consult to Nurse Navigator [CONS] Routine Comment: CHF 06/17/18 15:38 Consult to Second Chef [CONS] Routine Reason for SW Consult: D/C PLANNING Discharging clinician: Mihir Awan Anticipated date of discharge: 06/18/18 - Constitutional Vitals: Temp Pulse Resp BP Pulse Ox 97.9 F 61 16 141/64 96 06/18/18 07:34 06/18/18 07:34 06/18/18 08:22 06/18/18 08:22 06/18/18 08:22 General appearance: Present: A&O X 3 Exam: Vitals: Reviewed General: Elderly woman, NAD Skin: Warm, dry HEENT: Moist mucous membranes. No conjunctivae pallor. Neck: Short and thick. Chest: Diminished thoracic expansion. Reduced breath sounds. Clear to auscultation. Heart: Normal S1 & S2; rhythmic. No rubs or murmurs. Abdomen: Distended, soft and non-tender to palpation. No peritoneal reaction. Extremities: No clubbing, cyanosis. 2+ pitting edema. No calf tenderness. Normal distal pulses. Neurological: Awake, alert and oriented to person, place and time. No focal deficits. Psych: Affect appropriate. - Patient Status Disposition: Home, Self-Care Condition: Fair Functional capacity at discharge: independent ambulation Overall status at discharge: patient is progressing back to baseline - Discharge Instructions Follow Up With: NONE,PCP [Primary Care Provider] - Additional Instructions: Continue with your home lasix and follow up with your PCP. Return to ED if symptoms worsen. - Diet and Activity Activity: resume usual activities as tolerated Diet: advance to your usual diet <Zia Peña - Last Filed: 06/18/18 15:56> Date of Encounter: 06/18/18 Hospital course: Ms. Ramsey is a 73 year old female - Time Spent with Patient Total time spent providing and/or coordinating discharge services: Date of admission: 06/17/18 02:56 Primary care physician: PCP NONE Consults: 06/17/18 08:26 Consult to Occupational Therapy [CONS] Routine Comment: Evaluate, develop and implement POC Reason for Consult: weakness Does patient have active BEDREST order?: No Is patient medically & hemodynamically stable?: Yes Consult to Physical Therapy [CONS] Routine Comment: Evaluate, develop and implement POC Reason for Consult: weakness Does patient have active BEDREST order?: No Is patient medically & hemodynamically stable?: Yes 06/17/18 08:29 Consult to Nurse Navigator [CONS] Routine Comment: CHF 06/17/18 15:38 Consult to Second Chef [CONS] Routine Reason for SW Consult: D/C PLANNING - Constitutional Vitals: Temp Pulse Resp BP Pulse Ox 97.9 F 61 16 141/64 96 06/18/18 07:34 06/18/18 07:34 06/18/18 08:22 06/18/18 08:22 06/18/18 08:22 - Attending Attestation I examined this patient and my medical decision-making was reviewed with the Resident Physician Dr. Awan. I agree with the documented findings, disposition and treatment plan as described except to the extent set forth below. Ms. Ramsey is an 73 year old morbidly woman with dementia, hypertension, diabetes and active smoker with chronic respiratory failure in the setting of COPD and obesity, hypoventilation syndrome with cor pulmonale, and diastolic CHF pt was brought to the emergency department reportedly for low blood sugar in the 100s and shortnrss of breath as well as worsening swelling in the b/l legs. She denied any CP. Her CXR showed pulmonary vascular congestion. She was admitted in the hospital and started her on IV diuresis with Lasix. Patient states she is feeling much better today. No events over night. She would like to go home. Gen: A, A, O x3.. Pleasantly demented Chest: Diminished BS B/l, no crackles, no rales Heart; S1S2+ RRR No murmurs Ext: 2+ pedal edema, no calf tenderness a/p 1. Acute diastolic CHF exacerbation switched to PO Lasix will f/u on 2 D Echo 2. ?? hypoglycemia 3. DM2 HbA1C - 6.6 low grade ISS 4. Physical deconditioning Talked to pt's daughter about short rehab at [facility]. Will d/c her to ECF in stable condition today
[2018-06-18] MEDS: Furosemide 40 MG/4 ML VIAL IVP SCH (09:53)
[2018-06-18] MEDS ORDERED: Furosemide 40 MG TABLET PO SCH (10:00)
--- NOTE | 2018-06-18 15:21 | Physician Discharge Referral ---
ExtendedCare Referral Info Transfer To: [facility] Institutional Level of Care: Skilled - Diagnosis (1) Acute respiratory failure Priority: Primary Status: Acute (2) DM (diabetes mellitus), type 2 Priority: Secondary Status: Acute (3) COPD (chronic obstructive pulmonary disease) Priority: Secondary Status: Chronic (4) Morbid obesity with BMI of 50.0-59.9, adult Priority: Secondary Status: Chronic (5) CKD (chronic kidney disease) stage 3, GFR 30-59 ml/min Priority: Secondary Status: Chronic (6) Pleural effusion Priority: Secondary Status: Acute (7) Tobacco use Priority: Secondary Status: Acute (8) Hypertension Priority: Secondary Status: Chronic Prognosis: Fair Aware of Diagnosis: Patient Aware of Prognosis: Patient - Transfer Medications Prescriptions: Furosemide [Lasix] 20 mg PO BID #60 tablet Home Medications: Citalopram Hydrobromide [Citalopram HBr] 20 mg PO DAILY 06/05/18 [History] Donepezil [Aricept] 5 mg PO DAILY 06/05/18 [History] Dulaglutide [Trulicity] 0.75 mg SQ QWEEK 06/05/18 [History] Ergocalciferol (VITAMIN D2) [Vitamin D2] 50,000 unit PO FR 06/05/18 [History] Lisinopril [Zestril] 5 mg PO DAILY 06/05/18 [History] Metoprolol Tartrate 50 mg PO QAM 06/05/18 [History] Potassium Chloride [K-Tab ER] 10 meq PO DAILY 06/05/18 [History] Sitagliptin Phosphate [Januvia] 50 mg PO DAILY 06/05/18 [History] Tiotropium [Spiriva] 18 mcg IH DAILY PRN 06/05/18 [History] Insulin LISPRO [HumaLOG] See Protocol SQ TIDAC vial 06/12/18 [Rx] Insulin Glargine,Hum.rec.anlog [Lantus Solostar] 62 units SQ QAM 06/17/18 [History] OxyCODONE/APAP 10/325 [Percocet 10/325 MG] 1 tab PO Q6H PRN 06/17/18 [History] Albuterol Sulfate [Albuterol Inhaler] 2 puff IH Q6H PRN 06/18/18 [History] Budesonide/Formoterol 160/4.5 [Symbicort 160/4.5] 2 puff IH BID 06/18/18 [History] Furosemide [Lasix] 20 mg PO BID #60 tablet 06/18/18 [Rx] Memantine HCl 5 mg PO DAILY 06/18/18 [History] Allergies/Adverse Reactions: Allergy/AdvReac Type Severity Reaction Status Date / Time No Known Allergies Allergy Verified 06/18/18 11:25 - Respiratory Orders Smoking Cessation: Smoking cessation has been advised. For more information, call the [place] Tobacco Quit Line at 8-740-JTUONOW. CERTIFICATION: I certify that the transfer of the above named patient to an Extended Care Facility is necessary for the continuing treatment of the diagnosis listed. The above information is true and accurate reflection of patient's current condition. Confidential - Redisclosure prohibited without a patient's written consent.
--- NOTE | 2018-06-18 15:21 | Electrocardiograph Report ---
[place] [id number] Test Date: 2018-06-16 Pat Name: Elysia Ramsey Department: EXAM1 Room: 3B23 Gender: F Supervisor Histology: : 1945 Requested By: Meka Bender Order Number: [id number] Reading MD: Mick Krishnan Measurements Intervals [place] Rate: 77 P: 78 [place]: 181 QRS: 55 QRSD: 95 T: 63 QT: 414 QTc: 469 Interpretive Statements Sinus rhythm Electronically Signed On 06-18-2018 15:19:18 EDT by Mick Krishnan
== END 2018-06-18 18:47 | disposition home or self-care (01) ==
LOC: EMEROOARM 23:20 → 3BNU 23:20
PROVIDERS: ADMIT Internal Medicine; ATTEND Internal Medicine

== ENCOUNTER 2018-06-23 23:04 | Observation (INO) ==
--- NOTE | 2018-06-23 23:20 | Emergency Department Note ---
Disposition Clinical Impression: THOMPSON (acute kidney injury) Disposition: Still a Patient Condition: Good Referrals: William Abdul MD [Primary Care Provider] - Forms: ED Satisfaction Letter General Adult HPI - General Chief complaint: ED Shortness of Breath/Dyspnea Stated complaint: SANCHEZ Time Seen by Provider: 06/23/18 23:20 Source: patient, EMS Limitations: no limitations Nursing Notes Reviewed: Yes Vital Signs Reviewed: Yes - History of Present Illness HPI Narrative: 73 year old female presents emergency Department with concern from her family that she may be developing pneumonia. She was in her from the nursing facility that she was staying. Patient was reported to ambulate and have oxygen saturations 70%. Patient on oxygen via nasal cannula at baseline. Patient denies any shortness of breath, cough, fever, nausea, vomiting, abdominal pain, dysuria, urinary , urgency, increasing lower extremity edema. Patient denying chest pain at this time. Pain Scale: 0 - Related Data Home Medications Medication Instructions Recorded Confirmed Citalopram Hydrobromide 20 mg PO DAILY 06/05/18 06/18/18 [Citalopram HBr] Donepezil [Aricept] 5 mg PO DAILY 06/05/18 06/18/18 Dulaglutide [Trulicity] 0.75 mg SQ QWEEK 06/05/18 06/18/18 Ergocalciferol (VITAMIN D2) 50,000 unit PO FR 06/05/18 06/18/18 [Vitamin D2] Lisinopril [Zestril] 5 mg PO DAILY 06/05/18 06/18/18 Metoprolol Tartrate 50 mg PO QAM 06/05/18 06/18/18 Potassium Chloride [K-Tab ER] 10 meq PO DAILY 06/05/18 06/18/18 Sitagliptin Phosphate [Januvia] 50 mg PO DAILY 06/05/18 06/18/18 Tiotropium [Spiriva] 18 mcg IH DAILY PRN 06/05/18 06/18/18 Insulin Glargine,Hum.rec.anlog 62 units SQ QAM 06/17/18 06/18/18 [Lantus Solostar] OxyCODONE/APAP 10/325 [Percocet 1 tab PO Q6H PRN 06/17/18 06/18/18 10/325 MG] Albuterol Sulfate [Albuterol 2 puff IH Q6H PRN 06/18/18 06/18/18 Inhaler] Budesonide/Formoterol 160/4.5 2 puff IH BID 06/18/18 06/18/18 [Symbicort 160/4.5] Memantine HCl 5 mg PO DAILY 06/18/18 06/18/18 Previous Rx's Medication Instructions Recorded Insulin LISPRO [HumaLOG] See Protocol SQ TIDAC vial 06/12/18 Furosemide [Lasix] 20 mg PO BID #60 tablet 06/18/18 Allergies Allergy/AdvReac Type Severity Reaction Status Date / Time No Known Allergies Allergy Verified 06/18/18 11:25 All systems ED: reviewed and negative except as stated. Review of Systems: As Per HPI Constitutional: Denies: fever Cardiovascular: Denies: chest pain Respiratory: Denies: cough, dyspnea Gastrointestinal: Denies: abdominal pain, nausea, vomiting Genitourinary: Denies: urgency, dysuria, frequency Past Medical History - Past Medical History Medical history: Reports: arthritis, CHF, COPD, dementia, diabetes, GERD, hyperlipidemia, hypertension, osteoporosis, renal disease, other Surgical history: Reports: other Psychiatric history: Reports: anxiety CERAMIC CAPACITOR PROCESSOR history: Reports: no CERAMIC CAPACITOR PROCESSOR history - Social History Smoking Status: Current every day smoker Smokeless Tobacco Status: No Alcohol use: Reports: none Drug use: Reports: none Physical Exam - General Limitations: no limitations General appearance: alert - Head Head exam: normocephalic - Eye Eye exam: Present: EOMI - ENT ENT exam: mucous membranes moist - Neck Neck exam: Present: trachea midline - Chest Chest inspection: Present: symmetric chest wall rise - Respiratory Respiratory exam: Present: normal lung sounds bilaterally. Absent: respiratory distress, accessory muscle use - Cardiovascular Cardiovascular exam: Present: regular rate, normal rhythm, normal heart sounds - Abdominal Exam Abdominal exam: Present: soft, Non-Tender. Absent: distention, guarding, rebound, rigidity - Extremities Exam Extremities exam: Present: pedal edema (1+ bilaterally) - Back Exam Back exam: Present: full ROM - Neurological Exam Neurological exam: Present: alert, oriented X3 - Psychiatric Psychiatric exam: Present: normal affect, normal mood Course Vital Signs Temperature 98.5 F 06/23/18 23:18 Pulse Rate 76 06/23/18 23:18 Respiratory Rate 20 06/23/18 23:18 Blood Pressure 134/59 06/23/18 23:18 O2 Sat by Pulse Oximetry 97 06/23/18 23:18 Temperature 98.5 F 06/23/18 23:18 Pulse Rate 77 06/23/18 23:54 Respiratory Rate 18 06/24/18 01:03 Blood Pressure 134/57 06/23/18 23:54 O2 Sat by Pulse Oximetry 96 06/24/18 01:03 Oxygen Delivery Oxygen Delivery Nasal Cannula Medical Decision Making - [facility] Narrative Medical decision making narrative: 73-year-old female presents emergency department with concern for hypoxia upon ambulation a concern for family that she may have pneumonia. Patient hemodynamically stable and not in any acute distress. On oxygen at baseline nasal cannula. Asymptomatic at this time. ECG does not reveal any ischemic ST changes. Patient has acute kidney injury. Patient managed for possible COPD exacerbation with steroids and albuterol. No antimicrobials given at this time as is no evidence of pneumonia on chest x-ray. We have placed a Maxwell catheter as patient is incontinent with wounds Chest X-Ray 06/23/18 23:24 IMPRESSION: No acute cardiopulmonary disease. D/ / Maria Antonia Tovar MD / Maria Antonia Tovar MD Interpreting Provider: Maria Antonia Tovar MD . Urinalysis pending at time of sign out and of shift waiting for admission to hospitalist. Patient stable not in any distress at that time. - Lab Data Result diagrams: 06/23/18 23:48 06/23/18 23:48 Lab Results 06/23/18 06/23/18 06/23/18 Range/Units 23:48 23:48 23:48 WBC 6.9 (4.3-11.1) K/mcL RBC 4.40 (3.82-4.97) M/mcL Hgb 13.0 (11.5-15.4) g/dL Hct 41.9 (35.3-44.9) % MCV 95.2 (83.0-100.0) fL MCH 29.5 (28.0-33.3) pg MCHC 31.0 L (31.6-35.5) g/dL RDW 15.3 H (11.5-14.5) % Plt Count 207 (140-400) K/mcL MPV 10.9 (9.4-12.4) fL Immature Gran % 0.1 (0-4) % Seg Neutrophils % 49.0 % Lymphocytes % 38.2 % Monocytes % 10.8 % Eosinophils % 1.6 % Basophils % 0.3 % Neutrophils # 3.4 (1.6-8.9) K/mcL Lymphocytes # 2.7 (0.6-4.6) K/mcL Monocytes # 0.8 (0.0-1.3) K/mcL Eosinophils # 0.1 (0.0-0.6) K/mcL Basophils # 0.0 (0.0-0.2) K/mcL Sodium 138 (136-145) mEq/L Potassium 4.0 (3.5-5.1) mEq/L Chloride 94 L (98-107) mEq/L Carbon Dioxide 39 H (23-29) mEq/L BUN 24 H (8-23) mg/dL Creatinine 2.16 H (0.60-1.20) mg/dL Est GFR ( Amer) 27 L (> 60) Est GFR (Non-Af Amer) 22 L (> 60) BUN/Creatinine Ratio 11 (6-26) Glucose 117 H (70-105) mg/dL Calculated Osmolality 291 (280-300) Lactic Acid 0.9 (0.5-2.2) mmol/L Calcium 9.0 (8.6-10.3) mg/dL Troponin I < 0.03 (< 0.04) ng/mL B-Natriuretic Peptide (Less than 100) pg/mL 06/23/18 Range/Units 23:48 WBC (4.3-11.1) K/mcL RBC (3.82-4.97) M/mcL Hgb (11.5-15.4) g/dL Hct (35.3-44.9) % MCV (83.0-100.0) fL MCH (28.0-33.3) pg MCHC (31.6-35.5) g/dL RDW (11.5-14.5) % Plt Count (140-400) K/mcL MPV (9.4-12.4) fL Immature Gran % (0-4) % Seg Neutrophils % % Lymphocytes % % Monocytes % % Eosinophils % % Basophils % % Neutrophils # (1.6-8.9) K/mcL Lymphocytes # (0.6-4.6) K/mcL Monocytes # (0.0-1.3) K/mcL Eosinophils # (0.0-0.6) K/mcL Basophils # (0.0-0.2) K/mcL Sodium (136-145) mEq/L Potassium (3.5-5.1) mEq/L Chloride (98-107) mEq/L Carbon Dioxide (23-29) mEq/L BUN (8-23) mg/dL Creatinine (0.60-1.20) mg/dL Est GFR ( Amer) (> 60) Est GFR (Non-Af Amer) (> 60) BUN/Creatinine Ratio (6-26) Glucose (70-105) mg/dL Calculated Osmolality (280-300) Lactic Acid (0.5-2.2) mmol/L Calcium (8.6-10.3) mg/dL Troponin I (< 0.04) ng/mL B-Natriuretic Peptide 29 (Less than 100) pg/mL - EKG Data EKG #1 EKG attestation: Yes I reviewed and interpreted this EKG. EKG results narrative: 23:31 Heart rate 68 bpm, [place] interval 169 ms, QRS duration 86 months seconds, QT 389 ms, normal axis. Sinus rhythm with no ischemic ST changes. Compared to send obtained on June 16, 2018.
[2018-06-24 00:19] LABS: Basophils % 0.3 %; Eosinophils # 0.1 K/mcL (0.0-0.6); Eosinophils % 1.6 %; Hematocrit 41.9 % (35.3-44.9); Immature Granulocytes % 0.1 % (0-4); Lymphocytes # 2.7 K/mcL (0.6-4.6); Lymphocytes % 38.2 %; Mean Corpuscular Hemoglobin 29.5 pg (28.0-33.3); Mean Corpuscular Volume 95.2 fL (83.0-100.0); Mean Platelet Volume 10.9 fL (9.4-12.4); Monocytes # 0.8 K/mcL (0.0-1.3); Monocytes % 10.8 %; Neutrophils # 3.4 K/mcL (1.6-8.9); Platelet Count 207 K/mcL (140-400); Red Cell Distribution Width 15.3 % (11.5-14.5)
[2018-06-24 00:22] LABS: BUN/Creatinine Ratio 11 (6-26); Blood Urea Nitrogen 24 mg/dL (8-23); Carbon Dioxide 39 mEq/L (23-29); Chloride 94 mEq/L (98-107); Glucose 117 mg/dL (70-105); Osmolality,Calculated 291 (280-300); Sodium 138 mEq/L (136-145); eGFR For Non-African Americans 22 (> 60)
[2018-06-24 00:24] LABS: Troponin I < 0.03 ng/mL (< 0.04)
[2018-06-24] MEDS ORDERED: 0.9 % Sodium Chloride 1,000 ML IVC ONE (00:28)
[2018-06-24] MEDS ORDERED: predniSONE 20 MG TABLET PO ONE (00:30)
[2018-06-24] MEDS ORDERED: Ipratropium/Albuterol Neb 3 ML IH ONE (00:31)
--- NOTE | 2018-06-24 00:50 | Emergency Department Note ---
Disposition Clinical Impression: THOMPSON (acute kidney injury), COPD with exacerbation Disposition: Admitted As Inpatient Condition: Good Referrals: William Abdul MD [Primary Care Provider] - Forms: ED Satisfaction Letter Time of Disposition: 01:14 General Adult HPI - General Chief complaint: ED Shortness of Breath/Dyspnea Stated complaint: SANCHEZ Time Seen by Provider: 06/23/18 23:20 Source: patient, EMS Limitations: no limitations - History of Present Illness Pain Scale: 0 - Related Data Home Medications Medication Instructions Recorded Confirmed Citalopram Hydrobromide 20 mg PO DAILY 06/05/18 06/18/18 [Citalopram HBr] Donepezil [Aricept] 5 mg PO DAILY 06/05/18 06/18/18 Dulaglutide [Trulicity] 0.75 mg SQ QWEEK 06/05/18 06/18/18 Ergocalciferol (VITAMIN D2) 50,000 unit PO FR 06/05/18 06/18/18 [Vitamin D2] Lisinopril [Zestril] 5 mg PO DAILY 06/05/18 06/18/18 Metoprolol Tartrate 50 mg PO QAM 06/05/18 06/18/18 Potassium Chloride [K-Tab ER] 10 meq PO DAILY 06/05/18 06/18/18 Sitagliptin Phosphate [Januvia] 50 mg PO DAILY 06/05/18 06/18/18 Tiotropium [Spiriva] 18 mcg IH DAILY PRN 06/05/18 06/18/18 Insulin Glargine,Hum.rec.anlog 62 units SQ QAM 06/17/18 06/18/18 [Lantus Solostar] OxyCODONE/APAP 10/325 [Percocet 1 tab PO Q6H PRN 06/17/18 06/18/18 10/325 MG] Albuterol Sulfate [Albuterol 2 puff IH Q6H PRN 06/18/18 06/18/18 Inhaler] Budesonide/Formoterol 160/4.5 2 puff IH BID 06/18/18 06/18/18 [Symbicort 160/4.5] Memantine HCl 5 mg PO DAILY 06/18/18 06/18/18 Previous Rx's Medication Instructions Recorded Insulin LISPRO [HumaLOG] See Protocol SQ TIDAC vial 06/12/18 Furosemide [Lasix] 20 mg PO BID #60 tablet 06/18/18 Allergies Allergy/AdvReac Type Severity Reaction Status Date / Time No Known Allergies Allergy Verified 06/18/18 11:25 Constitutional: Denies: fever Cardiovascular: Denies: chest pain Respiratory: Denies: cough, dyspnea Gastrointestinal: Denies: abdominal pain, nausea, vomiting Genitourinary: Denies: urgency, dysuria, frequency Past Medical History - Past Medical History Medical history: Reports: arthritis, CHF, COPD, dementia, diabetes, GERD, hyperlipidemia, hypertension, osteoporosis, renal disease, other Surgical history: Reports: other Psychiatric history: Reports: anxiety PATIENT ACCOUNT LIAISON history: Reports: no PATIENT ACCOUNT LIAISON history - Social History Smoking Status: Current every day smoker Smokeless Tobacco Status: No Alcohol use: Reports: none Drug use: Reports: none Physical Exam - General Limitations: no limitations General appearance: alert Course Vital Signs Temperature 98.5 F 06/23/18 23:18 Pulse Rate 76 06/23/18 23:18 Respiratory Rate 20 06/23/18 23:18 Blood Pressure 134/59 06/23/18 23:18 O2 Sat by Pulse Oximetry 97 06/23/18 23:18 Temperature 98.5 F 06/23/18 23:18 Pulse Rate 77 06/23/18 23:54 Respiratory Rate 22 06/23/18 23:54 Blood Pressure 134/57 06/23/18 23:54 O2 Sat by Pulse Oximetry 99 06/23/18 23:54 Oxygen Delivery Oxygen Delivery Nasal Cannula Medical Decision Making - Lab Data Result diagrams: 06/23/18 23:48 06/23/18 23:48 Lab Results 06/23/18 06/23/18 06/23/18 Range/Units 23:48 23:48 23:48 WBC 6.9 (4.3-11.1) K/mcL RBC 4.40 (3.82-4.97) M/mcL Hgb 13.0 (11.5-15.4) g/dL Hct 41.9 (35.3-44.9) % MCV 95.2 (83.0-100.0) fL MCH 29.5 (28.0-33.3) pg MCHC 31.0 L (31.6-35.5) g/dL RDW 15.3 H (11.5-14.5) % Plt Count 207 (140-400) K/mcL MPV 10.9 (9.4-12.4) fL Immature Gran % 0.1 (0-4) % Seg Neutrophils % 49.0 % Lymphocytes % 38.2 % Monocytes % 10.8 % Eosinophils % 1.6 % Basophils % 0.3 % Neutrophils # 3.4 (1.6-8.9) K/mcL Lymphocytes # 2.7 (0.6-4.6) K/mcL Monocytes # 0.8 (0.0-1.3) K/mcL Eosinophils # 0.1 (0.0-0.6) K/mcL Basophils # 0.0 (0.0-0.2) K/mcL Sodium 138 (136-145) mEq/L Potassium 4.0 (3.5-5.1) mEq/L Chloride 94 L (98-107) mEq/L Carbon Dioxide 39 H (23-29) mEq/L BUN 24 H (8-23) mg/dL Creatinine 2.16 H (0.60-1.20) mg/dL Est GFR ( Amer) 27 L (> 60) Est GFR (Non-Af Amer) 22 L (> 60) BUN/Creatinine Ratio 11 (6-26) Glucose 117 H (70-105) mg/dL Calculated Osmolality 291 (280-300) Lactic Acid 0.9 (0.5-2.2) mmol/L Calcium 9.0 (8.6-10.3) mg/dL Troponin I < 0.03 (< 0.04) ng/mL B-Natriuretic Peptide (Less than 100) pg/mL 06/23/18 Range/Units 23:48 WBC (4.3-11.1) K/mcL RBC (3.82-4.97) M/mcL Hgb (11.5-15.4) g/dL Hct (35.3-44.9) % MCV (83.0-100.0) fL MCH (28.0-33.3) pg MCHC (31.6-35.5) g/dL RDW (11.5-14.5) % Plt Count (140-400) K/mcL MPV (9.4-12.4) fL Immature Gran % (0-4) % Seg Neutrophils % % Lymphocytes % % Monocytes % % Eosinophils % % Basophils % % Neutrophils # (1.6-8.9) K/mcL Lymphocytes # (0.6-4.6) K/mcL Monocytes # (0.0-1.3) K/mcL Eosinophils # (0.0-0.6) K/mcL Basophils # (0.0-0.2) K/mcL Sodium (136-145) mEq/L Potassium (3.5-5.1) mEq/L Chloride (98-107) mEq/L Carbon Dioxide (23-29) mEq/L BUN (8-23) mg/dL Creatinine (0.60-1.20) mg/dL Est GFR ( Amer) (> 60) Est GFR (Non-Af Amer) (> 60) BUN/Creatinine Ratio (6-26) Glucose (70-105) mg/dL Calculated Osmolality (280-300) Lactic Acid (0.5-2.2) mmol/L Calcium (8.6-10.3) mg/dL Troponin I (< 0.04) ng/mL B-Natriuretic Peptide 29 (Less than 100) pg/mL Attestation Statement - Attestation Attestation: I examined this patient and my medical decision-making was reviewed with the Resident Physician. I agree with the documented findings, disposition and treatment plan as described except to the extent set forth below. Patient presents to the ED with concern for pneumonia. Sent from [facility]. Family requested transport. Patient has been coughing. Productive, the patient does not know what color. Patient was hypoxic with ambulation at [facility]. Patient is in no distress satting well here. Lungs diminished but clear. Plan. Cardiac workup with chest x-ray. No pneumonia. Patient does have an acute kidney injury. She is treated for COPD exacerbation. Still awaiting the hospitalist call back. Signed out to shift boss pending admission. Chest X-Ray 06/23/18 23:24 IMPRESSION: No acute cardiopulmonary disease. D/ / Maria Antonia Tovar MD / Maria Antonia Tovar MD Interpreting Provider: Maria Antonia Tovar MD
[2018-06-24] MEDS ORDERED: Lidocaine Viscous Oral Soln 15 ML SOLUTION MM STA (01:02)
[2018-06-24 02:07] LABS: Bilirubin,Urine Negative (Negative); Blood,Urine Large (Negative); Color,Urine Yellow (Yellow); Glucose,Urine (UA) Normal (Normal); Ketones,Urine Negative (Negative); Nitrite,Urine Negative (Negative); PH,Urine 5.5 pH Units (5.0-8.0); Protein,Urine Negative (Neg-Trace); Specific Gravity,Urine 1.011 (1.010-1.025); Urobilinogen,Urine Normal (Normal)
[2018-06-24 02:08] LABS: Leukocyte Esterase,Urine Negative (Negative)
[2018-06-24 02:09] LABS: Hyaline Casts,Urine None Seen per lpf (None-Few); Squamous Epithelial Cell,Urine Many per lpf (None-Few); WBC,Urine 0-3 per hpf (0-3)
[2018-06-24 02:12] LABS: Clarity,Urine Slightly Hazy (Clear)
[2018-06-24 02:21] LABS: Bacteria,Urine Moderate per hpf (None-Few)
--- NOTE | 2018-06-24 09:44 | Electrocardiograph Report ---
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
[2018-06-24] MEDS ORDERED: Albuterol 2.5 MG/3 ML NEBULIZER IH PRN (09:57)
[2018-06-24] MEDS ORDERED: Acetaminophen 325 MG TABLET PO PRN (09:58)
[2018-06-24] MEDS ORDERED: Ringers Solution, Lactated 1,000 ML IVC SCH (10:00)
--- NOTE | 2018-06-24 11:17 | Internal Med History&Physical ---
Date of Encounter: 06/24/18 Time of Encounter: 09:45 Internal Medicine - H&P: HPI Chief complaint: Shortness of breath, nausea ,diarrhea Admitted From: Emergency Dept Plans for Post Hospital Care: Home History of present illness: Ms. Ramsey is a 73 year old female patient with a history of COPD, dementia, hypertension, diabetes presented to the ER with complaints of shortness of breath. She resides at the nursing facility. She was apparently noted to have low oxygen saturations at 70%. She was therefore brought to the ER. She presently does not recollect any of this but does note that she was short of breath and also had some nausea and diarrhea. She denies any fevers or chills. No chest pain. No abdominal pain. She had just been discharged from the hospital one week back after being hospitalized for COPD, acute respiratory failure. She was also started on Lasix at that time due to suspected CHF exa cerbation. Patient had been discharged home on 20 mg of Lasix twice daily. Patient has noted increased cough with whitish sputum. She does have chronic cough with clear sputum. Past Med Surg Social Fam HX - Past Medical History Source: old records reviewed Medical history: arthritis, CHF, COPD, dementia, diabetes, GERD, hyperlipidemia, hypertension, osteoporosis, renal disease, other Additional medical history: narcolepsy, IBS Psychiatric history: anxiety - Past Surgical History Surgical History: other Additional surgical history: right total shoulder replacement 2009 - Social History Smoking Status: Current every day smoker Smokeless Tobacco Status: No Alcohol use: none Drug use: none - Family History Mother Adopted: No Family Member Ethnicity: Non- Living Status: Hx Family Cardiac Disorders: Yes (heart attack, HTN) Hx Family Respiratory Disorders: Yes Hx Family Cancer: No Hx Family GI Disorders: No Hx Family Endocrine Disorder: Yes (diabetes) Hx Family Neuromuscular Disorders: No Hx Family Neurologic Disorders: No Hx Family HEENT Disorders: No Hx Family Autoimmune Disorders: No Internal Medicine - H&P: Meds Citalopram Hydrobromide [Citalopram HBr] 20 mg PO DAILY 06/05/18 [History] Donepezil [Aricept] 5 mg PO DAILY 06/05/18 [History] Dulaglutide [Trulicity] 0.75 mg SQ QWEEK 06/05/18 [History] Ergocalciferol (VITAMIN D2) [Vitamin D2] 50,000 unit PO FR 06/05/18 [History] Lisinopril [Zestril] 5 mg PO DAILY 06/05/18 [History] Metoprolol Tartrate 50 mg PO QAM 06/05/18 [History] Potassium Chloride [K-Tab ER] 10 meq PO DAILY 06/05/18 [History] Sitagliptin Phosphate [Januvia] 50 mg PO DAILY 06/05/18 [History] Tiotropium [Spiriva] 18 mcg IH DAILY PRN 06/05/18 [History] Insulin LISPRO [HumaLOG] See Protocol SQ TIDAC vial 06/12/18 [Rx] Insulin Glargine,Hum.rec.anlog [Lantus Solostar] 62 units SQ QAM 06/17/18 [History] OxyCODONE/APAP 10/325 [Percocet 10/325 MG] 1 tab PO Q6H PRN 06/17/18 [History] Albuterol Sulfate [Albuterol Inhaler] 2 puff IH Q6H PRN 06/18/18 [History] Budesonide/Formoterol 160/4.5 [Symbicort 160/4.5] 2 puff IH BID 06/18/18 [History] Furosemide [Lasix] 20 mg PO BID #60 tablet 06/18/18 [Rx] Memantine HCl 5 mg PO DAILY 06/18/18 [History] Acetaminophen [Non-Aspirin] 650 mg PO Q6HR PRN 06/24/18 [History] Ondansetron HCl [Zofran] 4 mg PO Q8HR PRN 06/24/18 [History] Allergy/AdvReac Type Severity Reaction Status Date / Time No Known Allergies Allergy Verified 06/18/18 11:25 All Systems PM: A 10-system review of systems was performed and is negative for pertinent findings except as documented above in the HPI. - Constitutional Constitutional: lethargy, malaise, no chills, no fever(s), no night sweats - EENT Eyes: no change in vision, no discharge, no pain, no photophobia Ears: no ear discharge, no ear pain, no tinnitus Nose, mouth and throat: no dysphagia, no nasal discharge, no neck pain, no sore throat - Cardiovascular Cardiovascular ROS IM: no chest pain, no diaphoresis, no dyspnea, no lightheadedness, no palpitations, no syncope - Respiratory Respiratory: cough, dyspnea, excessive phlegm production, change in phlegm color, no wheezing - Gastrointestinal Gastrointestinal: diarrhea, nausea, no abdominal pain, no hematemesis, no hematochezia, no melena, no vomiting - Genitourinary Genitourinary: no change in urinary stream, no dysuria, no flank pain, no hematuria - Musculoskeletal Musculoskeletal ROS IM: no numbness, no tingling - Integumentary Integumentary IM: no rash, no unusual bruising - Neurological Neurological ROS: no confusion, no convulsions, no focal weakness, no numbness, no tingling, no tremor(s) - Hematologic/Lymphatic Hematologic/Lymphatic: no easy bruising - Constitutional Vitals: Temp Pulse Resp BP Pulse Ox 98.5 F 94 16 126/73 93 06/24/18 07:41 06/24/18 07:41 06/24/18 07:41 06/24/18 07:41 06/24/18 07:41 General appearance: Present: cooperative, A&O X 3, pleasant, answers questions appropriately Exam: General: Patient is alert, mild distress, morbidly obese, oriented x 3 Head: atraumatic, normocephalic, ENT: Mucous membranes moist Eye: normal appearance, PERRL, no scleral icterus, no conjunctival injection Neck: normal inspection, trachea midline, full ROM, no carotid bruits Chest: normal inspection, symmetric chest rise Respiratory: Mild bilateral end expiratory wheezing, decreased breath sounds at both bases Cardiovascular: Regular rate and rhythm. s1 and s2 normal No clicks, rubs, gallops, or murmurs. Bilateral lower extremity edema/lymphedema Abdomen: Abdomen is soft, nontender. Bowel sounds are present Musculoskeletal: Spontaneously moving all extremities Skin: warm, dry, intact. Neuro: Alert oriented x 3 normal cranial nerves, no focal deficits Psych: Patient's affect is normal Internal Med - H&P Results - Labs CBC & Chem 7: 06/23/18 23:48 06/23/18 23:48 Labs: Short CBC 06/23/18 Range/Units 23:48 WBC 6.9 (4.3-11.1) K/mcL Hgb 13.0 (11.5-15.4) g/dL Hct 41.9 (35.3-44.9) % Plt Count 207 (140-400) K/mcL Neutrophils # 3.4 (1.6-8.9) K/mcL BMP 06/23/18 23:48 Sodium 138 Potassium 4.0 Chloride 94 L Carbon Dioxide 39 H BUN 24 H Creatinine 2.16 H Glucose 117 H Calcium 9.0 Cardiac Enzymes 06/23/18 Range/Units 23:48 Troponin I < 0.03 (< 0.04) ng/mL Urine 06/24/18 Range/Units 02:01 Urine Color Yellow (Yellow) Urine Clarity Slightly Hazy (Clear) Urine pH 5.5 (5.0-8.0) pH Units Ur Specific [place] 1.011 (1.010-1.025) Urine Protein Negative (Neg-Trace) mg/dL Urine Glucose (UA) Normal (Normal) mg/dL - Impressions ITS Impressions Chest X-Ray 06/23/18 23:24 IMPRESSION: No acute cardiopulmonary disease. D/ / Maria Antonia Tovar MD / Maria Antonia Tovar MD Interpreting Provider: Maria Antonia Tovar MD - Assessment and Plan (1) Acute on chronic respiratory failure with hypoxemia Current Visit: Yes Status: Acute Assessment and plan: Reported oxygen sats of 70% per ED record. Continue O2 supplementation. Patient is on 3 L nasal cannula. Treat underlying COPD. Continue prednisone, bronchodilators. Will also place patient on azithromycin. (2) Acute exacerbation of chronic obstructive airways disease Current Visit: Yes Status: Acute Assessment and plan: Acute worsening of COPD. Recently discharged from the hospital for same symptoms. Likely chronic end-stage COPD. Continue O2 supplementation. Bronchodilators, steroids and azithromycin. (3) Morbid obesity with BMI of 60.0-69.9, adult Current Visit: Yes Status: Acute (4) Acute worsening of stage 3 chronic kidney disease Current Visit: Yes Status: Acute Assessment and plan: Creatinine 2.16 today. GFR 22. Likely due to recent Lasix use. Will hold Lasix. Gentle IV hydration. Recheck renal function in morning. Monitor input and output. (5) DM (diabetes mellitus), type 2 Current Visit: Yes Status: Chronic Assessment and plan: Will place patient on diabetic diet. Check blood sugars closely. Expect rise in glucose levels with steroid use. 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
[2018-06-24] MEDS: Ipratropium/Albuterol Neb 3 ML IH SCH ×4 (11:28→23:41)
[2018-06-24] MEDS ORDERED: D5% in Water 1,000 ML IVC PRN (12:00)
[2018-06-24] MEDS ORDERED: *HR* Dextrose 50 % in Water (Syg) 50 ML SYRINGE IVP PRN (12:00)
[2018-06-24] MEDS ORDERED: Dextrose Gel 15 GM/37.5 ML TUBE PO PRN ×2 (12:00)
[2018-06-24] MEDS ORDERED: Ondansetron ODT 4 MG TAB.RAPDIS PO PRN (12:01)
[2018-06-24] MEDS: *HR* OxyCODONE/APAP 10/325 TABLET PO PRN (13:55)
[2018-06-24] MEDS ORDERED: Azithromycin 500 MG in D5% in Water 250 ML IVPB SCH (14:00)
[2018-06-24] MEDS: Insulin LISPRO 300 UNITS/3 ML VIAL SQ SCH ×2 (17:39→21:24)
[2018-06-24] MEDS ORDERED: *HR* Heparin 5,000 UNIT/ML VIAL SQ SCH (18:00)
[2018-06-24] MEDS: Budesonide/Formoterol 160/4.5 1 PUFF INH IH SCH (20:32)
[2018-06-25] MEDS: Ipratropium/Albuterol Neb 3 ML IH SCH ×6 (04:02→23:43)
[2018-06-25] MEDS: *HR* Heparin 5,000 UNIT/ML VIAL SQ SCH ×3 (05:14→21:25)
[2018-06-25 06:21] LABS: Basophils % 0.4 %; Eosinophils % 0.1 %; Hematocrit 41.3 % (35.3-44.9); Hemoglobin 12.5 g/dL (11.5-15.4); Immature Granulocytes % 0.3 % (0-4); Lymphocytes # 2.2 K/mcL (0.6-4.6); Lymphocytes % 29.1 %; Mean Corpuscular HGB Conc 30.3 g/dL (31.6-35.5); Mean Corpuscular Hemoglobin 29.3 pg (28.0-33.3); Mean Corpuscular Volume 96.7 fL (83.0-100.0); Mean Platelet Volume 10.8 fL (9.4-12.4); Monocytes # 0.6 K/mcL (0.0-1.3); Monocytes % 8.2 %; Neutrophils # 4.7 K/mcL (1.6-8.9); Platelet Count 187 K/mcL (140-400); Red Blood Count 4.27 M/mcL (3.82-4.97); Red Cell Distribution Width 15.6 % (11.5-14.5); Segmented Neutrophils % 61.9 %
[2018-06-25 06:41] LABS: Calcium 9.2 mg/dL (8.6-10.3); Potassium 3.7 mEq/L (3.5-5.1)
[2018-06-25] MEDS: Budesonide/Formoterol 160/4.5 1 PUFF INH IH SCH ×2 (07:48→19:43)
[2018-06-25] MEDS: *HR* OxyCODONE/APAP 10/325 TABLET PO PRN (08:32)
[2018-06-25] MEDS: predniSONE 20 MG TABLET PO SCH (08:32)
[2018-06-25] MEDS: Insulin LISPRO 300 UNITS/3 ML VIAL SQ SCH ×4 (08:33→21:25)
[2018-06-25] MEDS: Azithromycin 250 MG TABLET PO SCH (15:13)
--- NOTE | 2018-06-25 17:22 | Internal Med Progress Note ---
<Goldy Barrett - Last Filed: 06/25/18 18:02> Hospitalist Progress Note - Encounter Date of Encounter: 06/25/18 Time of Encounter: 09:00 - Exam Vitals: Temp Pulse Resp BP Pulse Ox 98.2 F 84 18 124/68 97 06/25/18 15:59 06/25/18 15:59 06/25/18 16:08 06/25/18 15:59 06/25/18 16:08 - Assessment and Plan (1) Acute on chronic respiratory failure with hypoxemia Current Visit: Yes Status: Acute (2) Acute exacerbation of chronic obstructive airways disease Current Visit: Yes Status: Acute (3) Morbid obesity with BMI of 60.0-69.9, adult Current Visit: Yes Status: Acute (4) Acute worsening of stage 3 chronic kidney disease Current Visit: Yes Status: Acute (5) DM (diabetes mellitus), type 2 Current Visit: Yes Status: Chronic (6) Hypertension Current Visit: Yes Status: Chronic - Time Spent with Patient Total time spent is greater than 50% in coordination of care (as documented) at patient's floor/unit and/or counseling patient: Internal Medicine: Result - Labs CBC & Chem 7: 06/25/18 05:51 06/25/18 05:51 Labs: Short CBC 06/25/18 Range/Units 05:51 WBC 7.5 (4.3-11.1) K/mcL Hgb 12.5 (11.5-15.4) g/dL Hct 41.3 (35.3-44.9) % Plt Count 187 (140-400) K/mcL Neutrophils # 4.7 (1.6-8.9) K/mcL BMP 06/25/18 05:51 Sodium 142 Potassium 3.7 Chloride 97 L Carbon Dioxide 38 H BUN 26 H Creatinine 1.81 H Glucose 192 H Calcium 9.2 Consult Discharge Plan - Plan Referrals: William Abdul MD [Primary Care Provider] - (Appointment has been requested.) - Attending Attestation I saw evaluated and examined this patient and my medical decision-making was reviewed with the Resident Physician, Maggi Goff. I agree with the documented findings, disposition and treatment plan as described except to any changes set forth below. We independently had [id number] contact with the patient. Patient feels much better today. She denies any chest pain or palpitations. Shortness of breath has improved. She states that she is well enough to go home today. Denies any fevers or chills. No nausea or vomiting. Tolerating diet. General: Patient is alert, no acute distress, oriented x 3 ENT: Mucous membranes moist Respiratory: Decreased breath sounds at both bases Cardiovascular: Regular rate and rhythm. s1 and s2 normal No clicks, rubs, gallops, or murmurs. Trace pedal edema Abdomen: Abdomen is soft, nontender. Bowel sounds are present Musculoskeletal: Spontaneously moving all extremities Skin: warm, dry, intact. Neuro: Alert oriented x 3 normal cranial nerves, no focal deficits Acute on chronic respiratory failure with hypoxemia: Improving. Patient currently on her baseline 3 L O2 supplementation. Unclear if patient has home oxygen. If not, she will need qualification prior to discharge. Acute exacerbation of COPD: Improving. Continue bronchodilators, steroids and complete 5 day course of azithromycin. Acute worsening of stage III chronic kidney disease: Creatinine improving. Continue to hold Lasix. Stop IV hydration given her history of pedal edema. Diabetes mellitus type 2: Monitor blood sugars. Elevated this morning. We will add long-acting insulin. Essential hypertension: Blood pressure is well controlled at this time. DVT prophylaxis with subcutaneous heparin <Maggi Monroy - Last Filed: 06/25/18 22:38> Hospitalist Progress Note - Encounter Date of Encounter: 06/25/18 - Subjective Interval History: Patient seen and examined. She feels like her breathing is improved. Still has a mild non productive cough. Denies chest pain. Eager to go home this morning. No overnight events. - Exam Vitals: Temp Pulse Resp BP Pulse Ox 98.2 F 84 18 124/68 97 06/25/18 15:59 06/25/18 15:59 06/25/18 16:08 06/25/18 15:59 06/25/18 16:08 Exam: General: vital signs noted, no acute distress, non-toxic appearance, AAO x3 Head: normocephalic, atraumatic Eyes: EOMI, PERRL, sclera anicteric ENT: moist mucous membranes Neck: supple, trachea midline Cardio: RRR; no murmurs, gallops, rubs; + S1/S2; 1+ edema Chest: symmetric chest rise Pulm: CTAB, no wheezes/rhonchi/rales, no respiratory distress, Abd: soft, nontender, nondistended, normal bowel sounds, no rebound/rigidity/guarding Neuro: no focal deficits, speech deficit, facial droop, pronator drift; moves all extremities spontaneously; mentating well Ext: 1+ edema in legs. MSK: no visible deformities, no joint swelling Psych: normal mood and affect, cooperative, answers questions appropriately, doesnt appear anxious or agitated Skin: warm, dry, intact; no rash, vesicles, mottling, pallor - Assessment and Plan (1) Acute on chronic respiratory failure with hypoxemia Current Visit: Yes Status: Acute Assessment and Plan: - Secondary to COPD exacerbation - Home O2 of 2.5L, currently requiring 3 L - Clinically reports improvement - No WBC elevation, afebrile. - CXR in ED with no acute process Plan - Continue prednisone 40 mg - Continue bronchodilators, azithromycin - Day 2 of treatment - Continue home O2 (2) COPD with exacerbation Current Visit: Yes Status: Acute Assessment and Plan: as above (3) Acute on chronic kidney failure Current Visit: Yes Status: Acute Assessment and Plan: - BUN/Cr of 24/2.16 on presentation. - Cr improved to 1.81 today - Baseline of around 1.0, stage III - Etiology possibly due to recent lasix use in the setting of recent CHF exacerbation - Will hold lasix, received gentle fluids yesterday - Will monitor fluid status and trend labs. - renally dose. (4) DM (diabetes mellitus), type 2 Current Visit: Yes Status: Chronic Assessment and Plan: - Mildly elevated today, ranging from 150-250 - Possibly due to steroid use - On SSI, home basal insulin, ADA diet - Continue to monitor and adjust if necessary (5) Morbid obesity with BMI of 50.0-59.9, adult Current Visit: No Status: Chronic (6) Hypertension Current Visit: Yes Status: Chronic Assessment and Plan: well controlled (7) Tobacco abuse Current Visit: Yes Status: Chronic Assessment and Plan: advised cessation DVT Prophylaxis: heparin - Time Spent with Patient Total time spent is greater than 50% in coordination of care (as documented) at patient's floor/unit and/or counseling patient: Internal Medicine: Result - Labs CBC & Chem 7: 06/25/18 05:51 06/25/18 05:51 Labs: Short CBC 06/25/18 Range/Units 05:51 WBC 7.5 (4.3-11.1) K/mcL Hgb 12.5 (11.5-15.4) g/dL Hct 41.3 (35.3-44.9) % Plt Count 187 (140-400) K/mcL Neutrophils # 4.7 (1.6-8.9) K/mcL BMP 06/25/18 05:51 Sodium 142 Potassium 3.7 Chloride 97 L Carbon Dioxide 38 H BUN 26 H Creatinine 1.81 H Glucose 192 H Calcium 9.2 <Goldy Barrett - Last Filed: 06/25/18 18:02> (5) DM (diabetes mellitus), type 2 Qualifiers: Diabetes mellitus chcf insulin use: with extermination supervisor use Diabetes mellitus complication status: with neurologic complications Diabetes mellitus complication detail: with unspecified neuropathy Qualified Code(s): E11.40 - Type 2 diabetes mellitus with diabetic neuropathy, unspecified; Z79.4 - extermination inspector (current) use of insulin (6) Hypertension Qualifiers: Hypertension type: essential hypertension Qualified Code(s): I10 - Essential (primary) hypertension <Maggi Monroy - Last Filed: 06/25/18 22:38> (3) Acute on chronic kidney failure Qualifiers: Acute renal failure type: unspecified Chronic kidney disease stage: stage 3 (moderate) Qualified Code(s): N17.9 - Acute kidney failure, unspecified; N18.3 - Chronic kidney disease, stage 3 (moderate) (4) DM (diabetes mellitus), type 2 Qualifiers: Diabetes mellitus chcf insulin use: with chcf use Diabetes mellitus complication status: with neurologic complications Diabetes mellitus complication detail: with unspecified neuropathy Qualified Code(s): E11.40 - Type 2 diabetes mellitus with diabetic neuropathy, unspecified; Z79.4 - extermination inspector (current) use of insulin (6) Hypertension Qualifiers: Hypertension type: essential hypertension Qualified Code(s): I10 - Essential (primary) hypertension
[2018-06-25] MEDS ORDERED: Insulin DETEMIR 100 UNIT/ML X5UNITS SQ SCH (21:00)
[2018-06-26] MEDS: *HR* OxyCODONE/APAP 10/325 TABLET PO PRN (03:47)
[2018-06-26] MEDS: Ipratropium/Albuterol Neb 3 ML IH SCH ×4 (03:53→15:37)
[2018-06-26 04:25] LABS: Calcium 9.9 mg/dL (8.6-10.3); Potassium 4.4 mEq/L (3.5-5.1)
[2018-06-26] MEDS: *HR* Heparin 5,000 UNIT/ML VIAL SQ SCH ×2 (05:40→12:49)
[2018-06-26] MEDS: Budesonide/Formoterol 160/4.5 1 PUFF INH IH SCH (07:17)
[2018-06-26] MEDS: predniSONE 20 MG TABLET PO SCH (07:43)
[2018-06-26] MEDS: Insulin LISPRO 300 UNITS/3 ML VIAL SQ SCH ×2 (07:44→12:49)
[2018-06-26 08:13] VITALS: BP 160/70
[2018-06-26] MEDS: Azithromycin 250 MG TABLET PO SCH (12:49)
--- NOTE | 2018-06-26 15:23 | Discharge Summary ---
<Mateusz Valerio - Last Filed: 06/26/18 17:39> Date of Encounter: 06/26/18 - Discharge Diagnosis (1) Acute worsening of stage 3 chronic kidney disease Priority: Secondary Status: Chronic (2) DM (diabetes mellitus), type 2 Priority: Secondary Status: Chronic Qualifiers: Diabetes mellitus long term care phlebotomist insulin use: with mcfp use Diabetes mellitus complication status: with neurologic complications Diabetes mellitus complication detail: with polyneuropathy Qualified Code(s): E11.42 - Type 2 diabetes mellitus with diabetic polyneuropathy; Z79.4 - FDC (current) use of insulin (3) Acute exacerbation of chronic obstructive airways disease Priority: Secondary Status: Acute (4) Hypertension Priority: Secondary Status: Chronic Qualifiers: Hypertension type: essential hypertension Qualified Code(s): I10 - Essential (primary) hypertension (5) Acute on chronic respiratory failure with hypoxemia Priority: Primary Status: Acute (6) Morbid obesity with BMI of 60.0-69.9, adult Priority: Secondary Status: Chronic (7) Tobacco use Priority: Secondary Status: Chronic Hospital course: Ms. Ramsey is a 73 year old female - Time Spent with Patient Total time spent providing and/or coordinating discharge services: 37min - Discharge Medications Prescriptions: New predniSONE [PredniSONE] 40 mg PO DAILY 3 Days #6 tablet Azithromycin [Zithromax] 500 mg PO Q24H 2 Days #2 tablet Continued Citalopram Hydrobromide [Citalopram HBr] 20 mg PO DAILY Donepezil [Aricept] 5 mg PO DAILY Dulaglutide [Trulicity] 0.75 mg SQ TH Ergocalciferol (VITAMIN D2) [Vitamin D2] 50,000 unit PO FR Lisinopril [Zestril] 5 mg PO DAILY Metoprolol Tartrate 50 mg PO QAM Sitagliptin Phosphate [Januvia] 50 mg PO DAILY Tiotropium [Spiriva] 1 puff IH DAILY PRN PRN Reason: Shortness Of Breath Potassium Chloride [K-Tab ER] 10 meq PO DAILY Insulin LISPRO [HumaLOG] See Protocol SQ TIDAC vial OxyCODONE/APAP 10/325 [Percocet 10/325 MG] 1 tab PO Q6H PRN PRN Reason: Pain Insulin Glargine,Hum.rec.anlog [Lantus Solostar] 62 units SQ QAM Furosemide [Lasix] 20 mg PO BID #60 tablet Acetaminophen [Non-Aspirin] 650 mg PO Q4HR PRN PRN Reason: PAIN/FEVER Ondansetron HCl [Zofran] 4 mg PO Q8HR PRN PRN Reason: Nausea Home Medications: Citalopram Hydrobromide [Citalopram HBr] 20 mg PO DAILY 06/05/18 [History] Donepezil [Aricept] 5 mg PO DAILY 06/05/18 [History] Dulaglutide [Trulicity] 0.75 mg SQ TH 06/05/18 [History] Ergocalciferol (VITAMIN D2) [Vitamin D2] 50,000 unit PO FR 06/05/18 [History] Lisinopril [Zestril] 5 mg PO DAILY 06/05/18 [History] Metoprolol Tartrate 50 mg PO QAM 06/05/18 [History] Potassium Chloride [K-Tab ER] 10 meq PO DAILY 06/05/18 [History] Sitagliptin Phosphate [Januvia] 50 mg PO DAILY 06/05/18 [History] Tiotropium [Spiriva] 1 puff IH DAILY PRN 06/05/18 [History] Insulin LISPRO [HumaLOG] See Protocol SQ TIDAC vial 06/12/18 [Rx] Insulin Glargine,Hum.rec.anlog [Lantus Solostar] 62 units SQ QAM 06/17/18 [History] OxyCODONE/APAP 10/325 [Percocet 10/325 MG] 1 tab PO Q6H PRN 06/17/18 [History] Furosemide [Lasix] 20 mg PO BID #60 tablet 06/18/18 [Rx] Acetaminophen [Non-Aspirin] 650 mg PO Q4HR PRN 06/24/18 [History] Ondansetron HCl [Zofran] 4 mg PO Q8HR PRN 06/24/18 [History] Azithromycin [Zithromax] 500 mg PO Q24H 2 Days #2 tablet 06/26/18 [Rx] predniSONE [PredniSONE] 40 mg PO DAILY 3 Days #6 tablet 06/26/18 [Rx] Allergies/Adverse Reactions: Allergy/AdvReac Type Severity Reaction Status Date / Time No Known Allergies Allergy Verified 06/18/18 11:25 Date of admission: 06/24/18 02:06 Primary care physician: William Abdul MD Consults: 06/24/18 04:49 Consult to Forest Management Professor [CONS] Routine Reason for SW Consult: Patient currently at [facility] for rehab 06/24/18 08:15 Consult to Nurse Navigator [CONS] Routine Comment: COPD, CHF - Constitutional Vitals: Temp Pulse Resp BP Pulse Ox 97.7 F 90 18 160/70 86 06/26/18 08:11 06/26/18 08:11 06/26/18 15:39 06/26/18 08:11 06/26/18 15:39 - Patient Status Disposition: Home, Self-Care Condition: Good - Discharge Instructions Follow Up With: William Abdul MD [Primary Care Provider] - 07/02/18 1:15 pm () - Attending Attestation I examined this patient and my medical decision-making was reviewed with the Resident Physician on 06/26/18. I agree with the documented findings, disposition and treatment plan as described except to the extent set forth below. Ms Ramsey has been admitted for acute on chronic resp failure due to COPD exac. She is now at baseline. She is afebrile and it has been recommended to go to SNF. Her daughter is going to take her home at this time. She has bipap at home. Exam Alert Comfortable Mucus membranes dry Heart not tachy No wheeze now Abd soft Some edema Plan D/C home today Pt very high risk for readmission but at this point is medically at baseline. Daughter does not want her to go to SNF. Will have [facility]. <Maggi Monroy - Last Filed: 06/27/18 00:22> Date of Encounter: 06/26/18 Time of Encounter: 09:45 - Discharge Diagnosis (1) Acute on chronic respiratory failure with hypoxemia Priority: Primary Status: Acute (2) COPD with exacerbation Priority: Secondary Status: Resolved (3) Acute on chronic kidney failure Status: Resolved Qualifiers: Acute renal failure type: unspecified Chronic kidney disease stage: stage 3 (moderate) Qualified Code(s): N17.9 - Acute kidney failure, unspecified; N18.3 - Chronic kidney disease, stage 3 (moderate) (4) DM (diabetes mellitus), type 2 Priority: Secondary Status: Chronic Qualifiers: Diabetes mellitus long term care phlebotomist insulin use: with long term care phlebotomist use Diabetes mellitus complication status: with neurologic complications Diabetes mellitus complication detail: with polyneuropathy Qualified Code(s): E11.42 - Type 2 diabetes mellitus with diabetic polyneuropathy; Z79.4 - FDC (current) use of insulin (5) Morbid obesity with BMI of 50.0-59.9, adult Priority: Secondary Status: Chronic (6) Hypertension Priority: Secondary Status: Chronic Qualifiers: Hypertension type: essential hypertension Qualified Code(s): I10 - Essential (primary) hypertension (7) Tobacco abuse Priority: Secondary Status: Chronic Hospital course: Ms. Ramsey is a 73 year old female who presented to the ED for shortness of breath. Nursing facility she resides in had noted SpO2 was in 70's and she was transferred to ED. Of note, she was discharged from the hospital about 1 week earlier and had been treated for acute respiratory failure due to COPD and was given lasix 20 mg daily for suspected CHF exacerbation. On arrival to ED, she was afebrile and vital signs were stable. CXR was negative for acute cardiopulmonary process. BNP was not elevated and troponin was WNL. She was diagnosed with an THOMPSON based on initial SCr 2.16, which was above her baseline. Over the course of her hospitalization her SCr trended down to 1.6. Bicarb level elevated around 40, thought to be result of CO2 retention in COPD. Her COPD exacerbation was treated with oral steroids and azithromycin. Patient has home oxygen as well as BiPAP. She was discharged with prednisone 40 mg to complete a total course of 5 days and also discharged with azithromycin to complete a total course of 5 days. Social work/case management working to set patient up with [facility] services for assistance at home. Discharge discussed with: patient, family, case management Time spent discussing smoking cessation with patient: 3 to 10 minutes - Time Spent with Patient Total time spent providing and/or coordinating discharge services: Time spent: Less than 30 minutes Date of admission: 06/24/18 02:06 Primary care physician: William Abdul MD Consults: 06/24/18 04:49 Consult to Forest Management Professor [CONS] Routine Reason for SW Consult: Patient currently at [facility] for rehab 06/24/18 08:15 Consult to Nurse Navigator [CONS] Routine Comment: COPD, CHF Discharging clinician: Maggi Monroy Anticipated date of discharge: 06/26/18 - Constitutional Vitals: Temp Pulse Resp BP Pulse Ox 97.7 F 90 18 160/70 96 06/26/18 08:11 06/26/18 08:11 06/26/18 11:03 06/26/18 08:11 06/26/18 11:03 Exam: General: vital signs noted, no acute distress, non-toxic appearance Head: normocephalic, atraumatic Eyes: EOMI, PERRL, sclera anicteric ENT: moist mucous membranes Neck: supple, trachea midline Cardio: RRR; no murmurs, gallops, rubs; + S1/S2; 1+ edema Chest: symmetric chest rise Pulm: CTAB, no wheezes/rhonchi/rales, no respiratory distress Abd: soft, nontender, nondistended, normal bowel sounds, obese Neuro: no focal deficits, CN II-XII grossly normal, moves all extremities spon taneously, answers questions appropriately, AAO x3 Ext: 1+ edema in legs. MSK: no visible deformities, no joint swelling Psych: normal mood and affect, cooperative, doesnt appear anxious or agitated Skin: warm, dry, intact - Patient Status Overall status at discharge: patient is progressing back to baseline - Diet and Activity Activity: increase activity as tolerated Diet: diabetic diet, low fat, low cholesterol, low salt diet
== END 2018-06-26 16:29 | disposition home or self-care (01) ==
LOC: 3BNU 23:04 → EMEROOARM 23:04 → SUATTDRO 06-24 02:06 → 3BNU 06-24 03:00
PROVIDERS: ADMIT Family Medicine; ATTEND Internal Medicine

== ENCOUNTER 2018-07-11 00:40 | Inpatient (IN) ==
[2018-07-11] MEDS ORDERED: 0.9 % Sodium Chloride 500 ML IVC ONE (00:49)
--- NOTE | 2018-07-11 01:09 | Emergency Department Note ---
Disposition Clinical Impression: Weakness COPD (chronic obstructive pulmonary disease) Qualifiers: COPD type: unspecified COPD Qualified Code(s): J44.9 - Chronic obstructive pulmonary disease, unspecified Disposition: Admitted As Inpatient Condition: Fair Time of Disposition: 03:26 General Adult HPI - General Chief complaint: ED Fall Stated complaint: weakness Time Seen by Provider: 07/11/18 00:48 Source: patient, EMS Mode of arrival: EMS Limitations: no limitations Nursing Notes Reviewed: Yes Vital Signs Reviewed: Yes - History of Present Illness HPI Narrative: 73 old female presents to the emergency department for weakness. She said she did fall. She is unsure how she fell says she has felt weak. Said she was walking in her living room with her walker and fell to the ground. Said she is unable to get up and so she called EMS. Says she was on ground for approximately one hour. She said she did not hit her head did not lose consciousness. She said that she is having some left knee pain that she always has knee pain bilaterally but seems to be worse after the fall she has been unable to bear weight since this occurred. EMS tried to get her up but they said they are unable to she was too weak. She is not a fevers cough congestion. She does have COPD is on oxygen 3 L at all times. Patient's I made chest pain and shortness of breath or headache or weakness. Says he is in no noticeable neurological deficits either. Patient was has no other complaints at this time Pain Scale: 7 - Related Data Home Medications Medication Instructions Recorded Confirmed Citalopram Hydrobromide 20 mg PO DAILY 06/05/18 06/24/18 [Citalopram HBr] Donepezil [Aricept] 5 mg PO DAILY 06/05/18 06/24/18 Dulaglutide [Trulicity] 0.75 mg SQ TH 06/05/18 06/24/18 Ergocalciferol (VITAMIN D2) 50,000 unit PO FR 06/05/18 06/24/18 [Vitamin D2] Lisinopril [Zestril] 5 mg PO DAILY 06/05/18 06/24/18 Metoprolol Tartrate 50 mg PO QAM 06/05/18 06/24/18 Potassium Chloride [K-Tab ER] 10 meq PO DAILY 06/05/18 06/24/18 Sitagliptin Phosphate [Januvia] 50 mg PO DAILY 06/05/18 06/24/18 Tiotropium [Spiriva] 1 puff IH DAILY PRN 06/05/18 06/24/18 Insulin Glargine,Hum.rec.anlog 62 units SQ QAM 06/17/18 06/24/18 [Lantus Solostar] OxyCODONE/APAP 10/325 [Percocet 1 tab PO Q6H PRN 06/17/18 06/24/18 10/325 MG] Acetaminophen [Non-Aspirin] 650 mg PO Q4HR PRN 06/24/18 06/24/18 Ondansetron HCl [Zofran] 4 mg PO Q8HR PRN 06/24/18 06/24/18 Previous Rx's Medication Instructions Recorded Insulin LISPRO [HumaLOG] See Protocol SQ TIDAC vial 06/12/18 Furosemide [Lasix] 20 mg PO BID #60 tablet 06/18/18 Allergies Allergy/AdvReac Type Severity Reaction Status Date / Time No Known Allergies Allergy Verified 06/18/18 11:25 All systems ED: reviewed and negative except as stated. Review of Systems: As Per [facility] Past Medical History - Past Medical History Attestation: Yes The following information was validated with the patient. Source: patient Medical history: Reports: arthritis, CHF, COPD, dementia, diabetes, GERD, hyperlipidemia, hypertension, osteoporosis, renal disease, other Surgical history: Reports: other Psychiatric history: Reports: anxiety FANCY PACKER history: Reports: no FANCY PACKER history - Social History Smoking Status: Current every day smoker Smokeless Tobacco Status: No Alcohol use: Reports: none Drug use: Reports: none Physical Exam - General Limitations: no limitations General appearance: alert, in no apparent distress - Head Head exam: atraumatic, normocephalic, normal inspection - Eye Eye exam: Present: normal appearance - ENT ENT exam: normal exam, normal oropharynx, mucous membranes moist - Neck Neck exam: Present: normal inspection, full ROM, trachea midline - Chest Chest inspection: Present: normal inspection, symmetric chest wall rise - Respiratory Respiratory exam: Present: normal lung sounds bilaterally, wheezes (Bilaterally at baseline). Absent: respiratory distress, stridor, accessory muscle use - Cardiovascular Cardiovascular exam: Present: regular rate, normal rhythm, normal heart sounds - Abdominal Exam Abdominal exam: Present: soft, Non-Tender, normal bowel sounds. Absent: tenderness, distention, guarding, rebound, rigidity - Extremities Exam Extremities exam: Present: normal inspection, full ROM. Absent: tenderness, pedal edema - Expanded Lower Extremity Exam Hip/Pelvis exam: Present: normal inspection, full ROM, pelvis stable. Absent: tenderness Knee exam: Present: normal inspection, full ROM. Absent: tenderness, swelling Lower leg exam: Present: normal inspection, full ROM Ankle exam: Present: normal inspection, full ROM Foot/toe exam: Present: normal inspection, full ROM Neurovascular/Tendon exam: Present: normal capillary refill. Absent: pulse deficit, motor deficit, sensory deficit, tendon deficit - Back Exam Back exam: Present: normal inspection, full ROM. Absent: tenderness, CVA tenderness (R), CVA tenderness (L) - Neurological Exam Neurological exam: Present: alert, oriented X3 - Skin Skin exam: Present: warm, dry, intact, normal color Course Course Narrative: We have basic labs including CBC BMP CK troponin as well as urinalysis EKG chest x-ray will see left knee x-ray. We will give patient 500 mL of IV fluid. Patient okay with this plan. Disposition pending results. Vital Signs Temperature 98.1 F 07/11/18 00:44 Pulse Rate 90 07/11/18 00:44 Respiratory Rate 20 07/11/18 00:44 Blood Pressure 91/62 07/11/18 00:44 O2 Sat by Pulse Oximetry 98 07/11/18 00:44 Temperature 98.1 F 07/11/18 00:44 Pulse Rate 79 07/11/18 03:20 Respiratory Rate 22 07/11/18 03:20 Blood Pressure 127/62 07/11/18 03:20 O2 Sat by Pulse Oximetry 97 07/11/18 03:20 Oxygen Delivery Oxygen Delivery Nasal Cannula Medical Decision Making - [facility] Narrative Medical decision making narrative: 73-year-old female presented to the emergency department with weakness. She had a leukocytosis with a left shift but there is no real signs of infection and resolve his been no fevers chest x-ray showed no pneumonia BMP had no findings troponin was normal EKG had no acute findings as well. Urinalysis that was done but via straight catheter also showed no infection. We did attempt to get the patient up and walk. When she got up with a walker she nearly fell backwards without help from us. She was unable to get out of bed on her own. Due to this I felt she was too weak and was unable to send her home. I spoke with the hosp italist Dr. George who agreed to admit the patient to their service. Patient is admitted in stable condition. Chest X-Ray 07/11/18 00:50 IMPRESSION: No acute cardiopulmonary disease. D/ / Judd Ramírez MD / Judd Ramírez MD Interpreting Provider: Judd Ramírez MD Knee X-Ray 07/11/18 00:50 IMPRESSION: The lucency in the patella is probably artifactual given the lack of joint effusion. No definite acute fracture. D/ / Brown Horvath MD / Brown Horvath MD Interpreting Provider: Brown Horvath MD - Medical Records Medical records reviewed: Yes I reviewed the patient's medical records. - Lab Data Lab results reviewed: Yes I reviewed the patient's lab results. Result diagrams: 07/11/18 01:07 07/11/18 01:07 Lab Results 07/11/18 07/11/18 07/11/18 Range/Units 01:07 01:07 01:08 WBC 14.3 H (4.3-11.1) K/mcL RBC 4.72 (3.82-4.97) M/mcL Hgb 14.1 (11.5-15.4) g/dL Hct 43.4 (35.3-44.9) % MCV 91.9 (83.0-100.0) fL MCH 29.9 (28.0-33.3) pg MCHC 32.5 (31.6-35.5) g/dL RDW 14.6 H (11.5-14.5) % Plt Count 218 (140-400) K/mcL MPV 11.0 (9.4-12.4) fL Immature Gran % 0.6 (0-4) % Seg Neutrophils % 78.8 % Lymphocytes % 13.9 % Monocytes % 5.9 % Eosinophils % 0.5 % Basophils % 0.3 % Neutrophils # 11.3 H (1.6-8.9) K/mcL Lymphocytes # 2.0 (0.6-4.6) K/mcL Monocytes # 0.8 (0.0-1.3) K/mcL Eosinophils # 0.1 (0.0-0.6) K/mcL Basophils # 0.0 (0.0-0.2) K/mcL Sodium 137 (136-145) mEq/L Potassium 3.7 (3.5-5.1) mEq/L Chloride 102 (98-107) mEq/L Carbon Dioxide 28 (23-29) mEq/L BUN 13 (8-23) mg/dL Creatinine 1.04 (0.60-1.20) mg/dL Est GFR ( Amer) > 60 (> 60) Est GFR (Non-Af Amer) 52 L (> 60) BUN/Creatinine Ratio 13 (6-26) Glucose 206 H (70-105) mg/dL Calculated Osmolality 290 (280-300) Calcium 9.3 (8.6-10.3) mg/dL Magnesium 1.5 L (1.6-2.6) mg/dL Creatine Kinase 26 L (30-223) Units/L Troponin I < 0.03 (< 0.04) ng/mL Urine Color Yellow (Yellow) Urine Clarity Clear (Clear) Urine pH 5.5 (5.0-8.0) pH Units Ur Specific [place] 1.011 (1.010-1.025) Urine Protein Trace (Neg-Trace) mg/dL Urine Glucose (UA) Normal (Normal) mg/dL Urine Ketones Negative (Negative) mg/dL Urine Blood Small H (Negative) Urine Nitrite Negative (Negative) Urine Bilirubin Negative (Negative) Urine Urobilinogen Normal (Normal) mg/dL Ur Leukocyte Esterase Negative (Negative) Urine Microscopic RBC 5-15 H (0-3) per hpf Urine Microscopic WBC 0-3 (0-3) per hpf Ur Squamous Epith Cells Many H (None-Few) per lpf Urine Bacteria None Seen (None-Few) per hpf Hyaline Casts Moderate H (None-Few) per lpf Ur Culture Indicated? NO (NO) - Radiology Data Radiology results reviewed: Yes I reviewed the patient's radiology results. - EKG Data EKG #1 EKG attestation: Yes I reviewed and interpreted this EKG. EKG results narrative: EKG done at 00 54 review myself and attending shows sinus rhythm at a rate of 87, RI interval 180, QRS 98, QTC 437. There is no acute ST changes no acute T- wave changes no other signs of ischemia. No signs of hypertrophy, heart strain, heart block. No WPW/Brugada/HOCM. No changes based on old EKG done 06/23/18
[2018-07-11 01:17] LABS: Basophils % 0.3 %; Eosinophils # 0.1 K/mcL (0.0-0.6); Eosinophils % 0.5 %; Hematocrit 43.4 % (35.3-44.9); Hemoglobin 14.1 g/dL (11.5-15.4); Immature Granulocytes % 0.6 % (0-4); Lymphocytes % 13.9 %; Mean Corpuscular HGB Conc 32.5 g/dL (31.6-35.5); Mean Corpuscular Hemoglobin 29.9 pg (28.0-33.3); Mean Corpuscular Volume 91.9 fL (83.0-100.0); Monocytes # 0.8 K/mcL (0.0-1.3); Monocytes % 5.9 %; Neutrophils # 11.3 K/mcL (1.6-8.9); Platelet Count 218 K/mcL (140-400); Red Blood Count 4.72 M/mcL (3.82-4.97); Red Cell Distribution Width 14.6 % (11.5-14.5); Segmented Neutrophils % 78.8 %
[2018-07-11 01:27] LABS: Bilirubin,Urine Negative (Negative); Blood,Urine Small (Negative); Clarity,Urine Clear (Clear); Color,Urine Yellow (Yellow); Glucose,Urine (UA) Normal (Normal); Ketones,Urine Negative (Negative); Leukocyte Esterase,Urine Negative (Negative); Nitrite,Urine Negative (Negative); PH,Urine 5.5 pH Units (5.0-8.0); Protein,Urine Trace mg/dL (Neg-Trace); Specific Gravity,Urine 1.011 (1.010-1.025); Urobilinogen,Urine Normal (Normal)
[2018-07-11 01:28] LABS: Bacteria,Urine None Seen per hpf (None-Few); Hyaline Casts,Urine Moderate per lpf (None-Few); Squamous Epithelial Cell,Urine Many per lpf (None-Few); WBC,Urine 0-3 per hpf (0-3)
[2018-07-11 01:43] LABS: BUN/Creatinine Ratio 13 (6-26); Blood Urea Nitrogen 13 mg/dL (8-23); Calcium 9.3 mg/dL (8.6-10.3); Carbon Dioxide 28 mEq/L (23-29); Chloride 102 mEq/L (98-107); Creatine Kinase 26 Units/L (30-223); Glucose 206 mg/dL (70-105); Magnesium 1.5 mg/dL (1.6-2.6); Osmolality,Calculated 290 (280-300); Potassium 3.7 mEq/L (3.5-5.1); Sodium 137 mEq/L (136-145); Troponin I < 0.03 ng/mL (< 0.04); eGFR For Non-African Americans 52 (> 60)
--- NOTE | 2018-07-11 02:05 | Emergency Department Note ---
Disposition Clinical Impression: Weakness COPD (chronic obstructive pulmonary disease) Qualifiers: COPD type: unspecified COPD Qualified Code(s): J44.9 - Chronic obstructive pulmonary disease, unspecified Disposition: Admitted As Inpatient Condition: Fair Time of Disposition: 03:26 General Adult HPI - General Chief complaint: ED Fall Stated complaint: weakness Time Seen by Provider: 07/11/18 00:48 Source: patient, EMS Mode of arrival: EMS Limitations: no limitations Nursing Notes Reviewed: Yes Vital Signs Reviewed: Yes - History of Present Illness Pain Scale: 7 - Related Data Home Medications Medication Instructions Recorded Confirmed Citalopram Hydrobromide 20 mg PO DAILY 06/05/18 06/24/18 [Citalopram HBr] Donepezil [Aricept] 5 mg PO DAILY 06/05/18 06/24/18 Dulaglutide [Trulicity] 0.75 mg SQ TH 06/05/18 06/24/18 Ergocalciferol (VITAMIN D2) 50,000 unit PO FR 06/05/18 06/24/18 [Vitamin D2] Lisinopril [Zestril] 5 mg PO DAILY 06/05/18 06/24/18 Metoprolol Tartrate 50 mg PO QAM 06/05/18 06/24/18 Potassium Chloride [K-Tab ER] 10 meq PO DAILY 06/05/18 06/24/18 Sitagliptin Phosphate [Januvia] 50 mg PO DAILY 06/05/18 06/24/18 Tiotropium [Spiriva] 1 puff IH DAILY PRN 06/05/18 06/24/18 Insulin Glargine,Hum.rec.anlog 62 units SQ QAM 06/17/18 06/24/18 [Lantus Solostar] OxyCODONE/APAP 10/325 [Percocet 1 tab PO Q6H PRN 06/17/18 06/24/18 10/325 MG] Acetaminophen [Non-Aspirin] 650 mg PO Q4HR PRN 06/24/18 06/24/18 Ondansetron HCl [Zofran] 4 mg PO Q8HR PRN 06/24/18 06/24/18 Previous Rx's Medication Instructions Recorded Insulin LISPRO [HumaLOG] See Protocol SQ TIDAC vial 06/12/18 Furosemide [Lasix] 20 mg PO BID #60 tablet 06/18/18 Allergies Allergy/AdvReac Type Severity Reaction Status Date / Time No Known Allergies Allergy Verified 06/18/18 11:25 Past Medical History - Past Medical History Medical history: Reports: arthritis, CHF, COPD, dementia, diabetes, GERD, hyperlipidemia, hypertension, osteoporosis, renal disease, other Surgical history: Reports: other Psychiatric history: Reports: anxiety ADULT EDUCATION MANAGER history: Reports: no ADULT EDUCATION MANAGER history - Social History Smoking Status: Current every day smoker Smokeless Tobacco Status: No Alcohol use: Reports: none Drug use: Reports: none Physical Exam - General Limitations: no limitations General appearance: alert, in no apparent distress Course Vital Signs Temperature 98.1 F 07/11/18 00:44 Pulse Rate 90 07/11/18 00:44 Respiratory Rate 20 07/11/18 00:44 Blood Pressure 91/62 07/11/18 00:44 O2 Sat by Pulse Oximetry 98 07/11/18 00:44 Temperature 98.1 F 07/11/18 00:44 Pulse Rate 79 07/11/18 03:20 Respiratory Rate 22 07/11/18 03:20 Blood Pressure 127/62 07/11/18 03:20 O2 Sat by Pulse Oximetry 97 07/11/18 03:20 Oxygen Delivery Oxygen Delivery Nasal Cannula Medical Decision Making - Medical Records Medical records reviewed: Yes I reviewed the patient's medical records. - Lab Data Lab results reviewed: Yes I reviewed the patient's lab results. Result diagrams: 07/11/18 01:07 07/11/18 01:07 Lab Results 07/11/18 07/11/18 07/11/18 Range/Units 01:07 01:07 01:08 WBC 14.3 H (4.3-11.1) K/mcL RBC 4.72 (3.82-4.97) M/mcL Hgb 14.1 (11.5-15.4) g/dL Hct 43.4 (35.3-44.9) % MCV 91.9 (83.0-100.0) fL MCH 29.9 (28.0-33.3) pg MCHC 32.5 (31.6-35.5) g/dL RDW 14.6 H (11.5-14.5) % Plt Count 218 (140-400) K/mcL MPV 11.0 (9.4-12.4) fL Immature Gran % 0.6 (0-4) % Seg Neutrophils % 78.8 % Lymphocytes % 13.9 % Monocytes % 5.9 % Eosinophils % 0.5 % Basophils % 0.3 % Neutrophils # 11.3 H (1.6-8.9) K/mcL Lymphocytes # 2.0 (0.6-4.6) K/mcL Monocytes # 0.8 (0.0-1.3) K/mcL Eosinophils # 0.1 (0.0-0.6) K/mcL Basophils # 0.0 (0.0-0.2) K/mcL Sodium 137 (136-145) mEq/L Potassium 3.7 (3.5-5.1) mEq/L Chloride 102 (98-107) mEq/L Carbon Dioxide 28 (23-29) mEq/L BUN 13 (8-23) mg/dL Creatinine 1.04 (0.60-1.20) mg/dL Est GFR ( Amer) > 60 (> 60) Est GFR (Non-Af Amer) 52 L (> 60) BUN/Creatinine Ratio 13 (6-26) Glucose 206 H (70-105) mg/dL Calculated Osmolality 290 (280-300) Calcium 9.3 (8.6-10.3) mg/dL Magnesium 1.5 L (1.6-2.6) mg/dL Creatine Kinase 26 L (30-223) Units/L Troponin I < 0.03 (< 0.04) ng/mL Urine Color Yellow (Yellow) Urine Clarity Clear (Clear) Urine pH 5.5 (5.0-8.0) pH Units Ur Specific [place] 1.011 (1.010-1.025) Urine Protein Trace (Neg-Trace) mg/dL Urine Glucose (UA) Normal (Normal) mg/dL Urine Ketones Negative (Negative) mg/dL Urine Blood Small H (Negative) Urine Nitrite Negative (Negative) Urine Bilirubin Negative (Negative) Urine Urobilinogen Normal (Normal) mg/dL Ur Leukocyte Esterase Negative (Negative) Urine Microscopic RBC 5-15 H (0-3) per hpf Urine Microscopic WBC 0-3 (0-3) per hpf Ur Squamous Epith Cells Many H (None-Few) per lpf Urine Bacteria None Seen (None-Few) per hpf Hyaline Casts Moderate H (None-Few) per lpf Ur Culture Indicated? NO (NO) - Radiology Data Radiology results reviewed: Yes I reviewed the patient's radiology results. Chest X-Ray 07/11/18 00:50 IMPRESSION: No acute cardiopulmonary disease. D/ / Judd Ramírez MD / Judd Ramírez MD Interpreting Provider: Judd Ramírez MD Knee X-Ray 07/11/18 00:50 IMPRESSION: The lucency in the patella is probably artifactual given the lack of joint effusion. No definite acute fracture. D/ / Brown Horvath MD / Brown Horvath MD Interpreting Provider: Brown Horvath MD - EKG Data EKG #1 EKG attestation: Yes I reviewed and interpreted this EKG. EKG results narrative: EKG shows a normal sinus rhythm with ventricular rate of 87. Possible old anterior infarct. No acute ST segment elevation or depression. No arrhythmia or ectopy. Attestation Statement - Attestation Attestation: I, Cosme Burgos MD, personally evaluated this patient and discussed their management with the resident physician. I reviewed the resident's note and agree with the documented findings, medical decision making, and plan of care. I reviewed the residents documentation and agree with the residents assessment and plan of care. I have personally had face to face time with the patient. I personally supervised and was present for the griffin/critical portions of the following procedures completed by the resident: EKG interpretation. 73-year-old female presents to the emergency department by EMS with a complaint of a fall at home secondary to generalized weakness. EMS reported that patient slid out of her chair into the floor and could not get up. Patient denies this and states that she was walking with her walker when she became weak and fell to the floor. She was unable to get up out of the floor and was on the floor for about one hour before she called EMS. She denies any injury from the fall. She did not hit her head. No loss of consciousness. She did not get dizzy or pass out. She denies any chest pain or palpitations. No shortness of breath. She complains of pain all over but primarily in both knees. This is not from the fall and she states that her knees hurt all the time but seemed to be worse than usual tonight. The pain is worse in the left knee. On examination patient is a well-developed obese elderly female in no acute distress. She is alert and oriented 3. There is no cyanosis or diaphoresis. Neck is supple and nontender. No midline cervical tenderness. Chest is nontender to palpation. Breath sounds are clear and equal bilaterally. Heart regular rate and rhythm. Abdomen soft and nontender with normal bowel sounds. Some mild tenderness to palpation of knees bilaterally. No gross focal neurological deficits. EKG shows a normal sinus rhythm with ventricular rate of 87. Possible old anterior infarct. No acute ST segment elevation or depression. No arrhythmia or ectopy. Labs reviewed. Chest x-ray negative. X-ray of the left knee shows no definite fracture. Patient requesting to go home. We will try to ambulate her in the emergency dep artment see if she is able to ambulate using a walker as she normally uses a walker at home. Patient was able to take a few steps with her walker once she was up however she was unable to get up from the stretcher to the walker without assistance and did nearly fall and staff reports that she would have fallen if they had not been there to hold onto her. She also then was unable to get back from standing onto the stretcher without assistance. As she lives at home alone we do not feel comfortable sending her home without assistance as she is really unable to get around and care for herself. Also if she did fall on the floor she would be unable to get up. The hospitalist, Dr. Pretty, was consulted and accepted admission of the patient.
[2018-07-11] MEDS ORDERED: Naloxone 0.4 MG/ML INJ IVP PRN (05:42)
--- NOTE | 2018-07-11 05:49 | Internal Med History&Physical ---
Date of Encounter: 07/11/18 Time of Encounter: 05:45 Internal Medicine - H&P: HPI Chief complaint: Weakness History of present illness: Ms. Ramsey is a 73 year old female with a past medical history of COPD, dementia, hypertension, diabetes presented to the ER with complaints of weakness after a mechanical fall at home. Per ED report, patient was at home ambulating with her walker when she became weak and collapsed to the floor. However, the history I obtained from the patient was somewhat different. Patient states that she was sitting at her table. She went to get up and reached for her walker when she fell. Patient states that once she falls and is on the floor she is unable to get herself up. Patient is a morbidly obese. Patient was on the floor for about an hour. She was eventually able to reach her phone and called EMS. She denies any injury or head trauma. Further denies any loss of consciousness. When asked the patient if she was feeling weaker than usual, she stated she was not. No reports of fever, chills, nausea, vomiting, chest pain, shortness of breath, abdominal pain or diarrhea. In the ED patient was about to be discharged, however, when they attempted to ambulate her with her walker she again nearly fell and was considered unsafe to go home. Patient currently lives at home alone. Reports that her daughter lives next door and is the one who takes care of her. On arrival vitals are stable. Laboratory workup for a neut rophilic leukocytosis of 14.3. Magnesium was mildly low at 1.5. Patient was recently admitted earlier in June for COPD exacerbation. At the time of discharged, patient was deemed high risk for readmission. Recommendation for short-term nursing facility was offered, however, patient's daughter refused and wanted to take her home. There is also documentation that case management was working to set up patient with passport services for assistance at home. However, patient denies any services involving home health aide. My assessment patient is otherwise stable. Patient appears to have underlying dementia and did not recall any of her medications stating that she does not take any medicat ions. Past Med Surg Social Fam HX - Past Medical History Medical history: arthritis, CHF, COPD, dementia, diabetes, GERD, hyperlipidemia, hypertension, osteoporosis, renal disease, other Additional medical history: narcolepsy, IBS Psychiatric history: anxiety - Past Surgical History Surgical History: other Additional surgical history: right total shoulder replacement 2010 - Social History Smoking Status: Current every day smoker Smokeless Tobacco Status: No Alcohol use: none Drug use: none - Family History Mother Adopted: No Family Member Ethnicity: Non- Living Status: Hx Family Cardiac Disorders: Yes (heart attack, HTN) Hx Family Respiratory Disorders: Yes Hx Family Cancer: No Hx Family GI Disorders: No Hx Family Endocrine Disorder: Yes (diabetes) Hx Family Neuromuscular Disorders: No Hx Family Neurologic Disorders: No Hx Family HEENT Disorders: No Hx Family Autoimmune Disorders: No Internal Medicine - H&P: Meds Citalopram Hydrobromide [Citalopram HBr] 20 mg PO DAILY 06/05/18 [History] Donepezil [Aricept] 5 mg PO DAILY 06/05/18 [History] Dulaglutide [Trulicity] 0.75 mg SQ TH 06/05/18 [History] Ergocalciferol (VITAMIN D2) [Vitamin D2] 50,000 unit PO FR 06/05/18 [History] Lisinopril [Zestril] 5 mg PO DAILY 06/05/18 [History] Metoprolol Tartrate 50 mg PO QAM 06/05/18 [History] Potassium Chloride [K-Tab ER] 10 meq PO DAILY 06/05/18 [History] Sitagliptin Phosphate [Januvia] 50 mg PO DAILY 06/05/18 [History] Tiotropium [Spiriva] 1 puff IH DAILY PRN 06/05/18 [History] Insulin LISPRO [HumaLOG] See Protocol SQ TIDAC vial 06/12/18 [Rx] Insulin Glargine,Hum.rec.anlog [Lantus Solostar] 62 units SQ QAM 06/17/18 [History] OxyCODONE/APAP 10/325 [Percocet 10/325 MG] 1 tab PO Q6H PRN 06/17/18 [History] Furosemide [Lasix] 20 mg PO BID #60 tablet 06/18/18 [Rx] Acetaminophen [Non-Aspirin] 650 mg PO Q4HR PRN 06/24/18 [History] Ondansetron HCl [Zofran] 4 mg PO Q8HR PRN 06/24/18 [History] Allergy/AdvReac Type Severity Reaction Status Date / Time No Known Allergies Allergy Verified 06/18/18 11:25 All Systems PM: A 10-system review of systems was performed and is negative for pertinent findings except as documented above in the HPI. - Constitutional Constitutional: no chills, no fever(s), no night sweats - EENT Eyes: no change in vision, no discharge, no pain, no photophobia Ears: no ear discharge, no ear pain, no tinnitus Nose, mouth and throat: no dysphagia, no nasal discharge, no neck pain, no sore throat - Cardiovascular Cardiovascular ROS IM: no chest pain, no diaphoresis, no dyspnea, no lightheadedness, no palpitations, no syncope - Respiratory Respiratory: no cough, no dyspnea, no wheezing, no excessive phlegm production - Gastrointestinal Gastrointestinal: no abdominal pain, no diarrhea, no hematemesis, no hematochezia, no melena, no nausea, no vomiting - Genitourinary Genitourinary: no change in urinary stream, no dysuria, no flank pain, no hematuria - Musculoskeletal Musculoskeletal ROS IM: no numbness, no tingling - Integumentary Integumentary IM: no rash, no unusual bruising - Neurological Neurological ROS: no confusion, no convulsions, no focal weakness, no numbness, no tingling, no tremor(s) - Hematologic/Lymphatic Hematologic/Lymphatic: no easy bruising - Constitutional Vitals: Temp Pulse Resp BP Pulse Ox 98.2 F 80 17 145/74 96 07/11/18 03:46 07/11/18 03:46 07/11/18 03:46 07/11/18 03:46 07/11/18 03:46 Exam: General: Alert and oriented times Skin:Normal color, no rash, no lesions. HEENT:EOM, pupils equal, round and reactive. Cardiovascular:Normal S1 & S2, no rubs, murmurs or gallops. No JVD. Pulse regular. Lungs:Normal breath sounds, no wheezes or crackles. Abdomen:Soft, non-tender, no rigidity. Extremities:No deformity, no edema or tenderness, no joint swelling or clubbing. Neurological:Normal cognition and motor skills. Pulses:Carotid and radial pulses normal +2. Rest of the physical exam is non contributory Internal Med - H&P Results - Labs CBC & Chem 7: 07/11/18 01:07 07/11/18 01:07 Labs: Short CBC 05/23/19 Range/Units 01:07 WBC 14.3 H (4.3-11.1) K/mcL Hgb 14.1 (11.5-15.4) g/dL Hct 43.4 (35.3-44.9) % Plt Count 218 (140-400) K/mcL Neutrophils # 11.3 H (1.6-8.9) K/mcL BMP 07/11/18 01:07 Sodium 137 Potassium 3.7 Chloride 102 Carbon Dioxide 28 BUN 13 Creatinine 1.04 Glucose 206 H Calcium 9.3 Cardiac Enzymes 07/11/18 Range/Units 01:07 Troponin I < 0.03 (< 0.04) ng/mL Urine 07/11/18 Range/Units 01:08 Urine Color Yellow (Yellow) Urine Clarity Clear (Clear) Urine pH 5.5 (5.0-8.0) pH Units Ur Specific [place] 1.011 (1.010-1.025) Urine Protein Trace (Neg-Trace) mg/dL Urine Glucose (UA) Normal (Normal) mg/dL - Impressions ITS Impressions Chest X-Ray 07/11/18 00:50 IMPRESSION: No acute cardiopulmonary disease. D/ / Judd Ramírez MD / Judd Ramírez MD Interpreting Provider: Judd Ramírez MD Knee X-Ray 07/11/18 00:50 IMPRESSION: The lucency in the patella is probably artifactual given the lack of joint effusion. No definite acute fracture. D/ / Brown Horvath MD / Brown Horvath MD Interpreting Provider: Brown Horvath MD - Assessment and Plan (1) Neutrophilic leukocytosis Current Visit: Yes Status: Acute Assessment and plan: Patient found to have a neutrophilic leukocytosis in the setting of mechanical fall after being on the floor for an hour. No clinical history to suggest an infection. Remainder of labs including UA unremarkable; chest x-ray also unremarkable. Suspect likely reactive in the setting of mechanical fall. Patient received fluids. We will reassess white count and monitor for any signs of emerging infection otherwise. (2) Weakness Current Visit: Yes Status: Acute Assessment and plan: Patient admitted for mechanical fall presumably due to weakness. However patient denies being weak. Patient was to be discharged but found to be unstable and nearly falling after ambulation with her walker in the ED. No evidence of any toxic, metabolic or infectious etiology. Suspect likely secondary to deconditioning and morbid obesity. Patient currently lives at home alone. During prior admission discussion of transferring patient to a fpc facility had taken place, however, patient refused. She denies any home health aide services. At this time I am unsure of what services are in place but the issue of placement may need to be readdressed. We will consult physical therapy and social work job titles. (3) Fall Current Visit: Yes Status: Acute Assessment and plan: Fall likely mechanical in the setting of reported weakness. No evidence of fracture. We will obtain PT consult. Patient does admit that when she is on the ground neither with the aid of her daughter can get her up and typically has to call the squad. Patient will likely need some sort of life alert device at the minimum. Qualifiers: Encounter type: initial encounter Qualified Code(s): W19.XXXA - Unspecified fall, initial encounter (4) COPD (chronic obstructive pulmonary disease) Current Visit: Yes Status: Chronic Assessment and plan: History of COPD. No evidence of acute exacerbation. Resume home inhalers. 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 Monitor. (7) Hypomagnesemia Current Visit: No Status: Acute Assessment and plan: Magnesium 1.5. We will replete. (8) DVT prophylaxis Current Visit: Yes Status: Acute Assessment and plan: Subcutaneous heparin - Summary of Assessment and Plan Summary of Assessment and Plan: Type 2 diabetes. Continue with sliding scale insulin and blood glucose checks. - Time Spent With Patient Total time spent is greater than 50% in coordination of care (as documented) at patient's floor/unit and/or counseling patient:
[2018-07-11] MEDS ORDERED: Dextrose Gel 15 GM/37.5 ML TUBE PO PRN ×2 (05:57)
[2018-07-11] MEDS ORDERED: *HR* Dextrose 50 % in Water (Syg) 50 ML SYRINGE IVP PRN (05:57)
[2018-07-11] MEDS ORDERED: D5% in Water 1,000 ML IVC PRN (05:57)
[2018-07-11] MEDS: Insulin LISPRO 300 UNITS/3 ML VIAL SQ SCH ×3 (08:34→16:34)
[2018-07-11] MEDS: *HR* Heparin 5,000 UNIT/ML VIAL SQ SCH ×3 (08:35→21:06)
--- NOTE | 2018-07-11 09:35 | Electrocardiograph Report ---
[place] [id number] Test Date: 2018-07-11 Pat Name: Elysia Ramsey Department: [id number] Room: 3A46 Gender: F Tax Services Intern: : 1945 Requested By: Suhas Underwood Order Number: [id number] Reading MD: Cata Lance Measurements Intervals [place] Rate: 87 P: 81 SC: 180 QRS: 55 QRSD: 98 T: 73 QT: 363 QTc: 437 Interpretive Statements Sinus rhythm Anterior infarct, old Artifact Electronically Signed On 07-11-2018 9:34:19 EDT by Cata Lance
[2018-07-11 10:06] LABS: Hematocrit 40.9 % (35.3-44.9); Hemoglobin 12.9 g/dL (11.5-15.4); Mean Corpuscular HGB Conc 31.5 g/dL (31.6-35.5); Mean Corpuscular Volume 95.1 fL (83.0-100.0); Mean Platelet Volume 10.9 fL (9.4-12.4); Platelet Count 202 K/mcL (140-400); Red Cell Distribution Width 14.8 % (11.5-14.5)
--- NOTE | 2018-07-11 12:33 | Internal Med Progress Note ---
Hospitalist Progress Note - Encounter Date of Encounter: 07/11/18 Time of Encounter: 10:30 - Subjective Interval History: H&P reviewed. Patient with history of COPD, dementia, morbid obesity, diabetes, CKD, was admitted after an episode of fall. Of note, she was recently hospitalized for COPD exacerbation, deconditioning, and was recommended to be transferred to [facility] which patient declined. Workup so far was largely negative except for mild leukocytosis which is also spontaneously improving without antibiotics. Patient today has no specific complaints including chest pain, cough, shortness of breath, generalized weakness, nausea/vomiting, or fever. - Exam Vitals: Temp Pulse Resp BP Pulse Ox 98.0 F 67 17 118/58 97 07/11/18 06:23 07/11/18 09:57 07/11/18 06:23 07/11/18 09:57 07/11/18 08:40 Exam: General: Alert and oriented to self and place, not in acute distress. Cardiovascular:Normal S1 & S2, No JVD. Pulse regular. Lungs: clear to auscultation, no wheezes/rales Abdomen:Soft, non-tender, no rigidity. Extremities:No deformity or swelling Neurological: Non-focal - Assessment and Plan (1) Fall Current Visit: Yes Status: Acute Assessment and Plan: Fall likely mechanical in the setting of recent hospitalization and deconditioning. No evidence of fracture. Check orthostatic vitals PT/OT, will discussed with SW for placement options (2) Neutrophilic leukocytosis Current Visit: Yes Status: Resolved Assessment and Plan: Patient found to have a neutrophilic leukocytosis in the setting of mechanical fall after being on the floor for an hour. No clinical history to suggest an infection. Remainder of labs including UA unremarkable; chest x-ray also unremarkable. Suspect likely reactive in the setting of mechanical fall. White blood cell count improving spontaneously, continue to monitor off antibiotics (3) Hypomagnesemia Current Visit: Yes Status: Resolved Assessment and Plan: Normalized after repletion (4) DM (diabetes mellitus), type 2 Current Visit: No Status: Chronic Assessment and Plan: low dose sliding scale (5) COPD (chronic obstructive pulmonary disease) Current Visit: Yes Status: Chronic Assessment and Plan: Not in exacerbation, resume home inhalers once reconciled PRN duoneb (6) CKD (chronic kidney disease) stage 3, GFR 30-59 ml/min Current Visit: No Status: Chronic Assessment and Plan: Creatinine at her baseline Avoid nephrotoxins (7) DVT prophylaxis Current Visit: Yes Status: Acute Assessment and Plan: Subcutaneous heparin - Time Spent with Patient Total time spent is greater than 50% in coordination of care (as documented) at patient's floor/unit and/or counseling patient: 25 - 35 minutes Plan of Care Discussed with: patient (Discussed with RN and during case management round regarding disposition plan) Internal Medicine: Result - Labs CBC & Chem 7: 07/11/18 09:25 07/11/18 01:07 Labs: Short CBC 07/11/18 07/11/18 Range/Units 01:07 09:25 WBC 14.3 H 11.2 H (4.3-11.1) K/mcL Hgb 14.1 12.9 (11.5-15.4) g/dL Hct 43.4 40.9 (35.3-44.9) % Plt Count 218 202 (140-400) K/mcL Neutrophils # 11.3 H (1.6-8.9) K/mcL BMP 07/11/18 01:07 Sodium 137 Potassium 3.7 Chloride 102 Carbon Dioxide 28 BUN 13 Creatinine 1.04 Glucose 206 H Calcium 9.3 Cardiac Enzymes 07/11/18 Range/Units 01:07 Troponin I < 0.03 (< 0.04) ng/mL Urine 07/11/18 Range/Units 01:08 Urine Color Yellow (Yellow) Urine Clarity Clear (Clear) Urine pH 5.5 (5.0-8.0) pH Units Ur Specific [place] 1.011 (1.010-1.025) Urine Protein Trace (Neg-Trace) mg/dL Urine Glucose (UA) Normal (Normal) mg/dL - Impressions Impressions Chest X-Ray 07/11/18 00:50 IMPRESSION: No acute cardiopulmonary disease. D/ / Judd Ramírez MD / Judd Ramírez MD Interpreting Provider: Judd Ramírez MD Knee X-Ray 07/11/18 00:50 IMPRESSION: The lucency in the patella is probably artifactual given the lack of joint effusion. No definite acute fracture. D/ / Brown Horvath MD / Brown Horvath MD Interpreting Provider: Brown Horvath MD Consult Discharge Plan - Plan Referrals: William Abdul MD [Primary Care Provider] - (1) Fall Qualifiers: Encounter type: initial encounter Qualified Code(s): W19.XXXA - Unspecified fall, initial encounter (4) DM (diabetes mellitus), type 2 Qualifiers: Diabetes mellitus chcf insulin use: with terminal operations manager use Diabetes mellitus complication status: with neurologic complications Diabetes mellitus complication detail: with polyneuropathy Qualified Code(s): E11.42 - Type 2 diabetes mellitus with diabetic polyneuropathy; Z79.4 - intermodal truck driver (current) use of insulin (5) COPD (chronic obstructive pulmonary disease) Qualifiers: COPD type: unspecified COPD Qualified Code(s): J44.9 - Chronic obstructive pulmonary disease, unspecified
[2018-07-11] MEDS ORDERED: Ipratropium/Albuterol Neb 3 ML IH PRN (12:35)
[2018-07-11] MEDS ORDERED: Acetaminophen 325 MG TABLET PO PRN (19:12)
[2018-07-12] MEDS: *HR* Heparin 5,000 UNIT/ML VIAL SQ SCH ×3 (05:04→20:28)
[2018-07-12] MEDS: Insulin LISPRO 300 UNITS/3 ML VIAL SQ SCH ×3 (08:20→17:33)
--- NOTE | 2018-07-12 17:12 | Internal Med Progress Note ---
Hospitalist Progress Note - Encounter Date of Encounter: 07/12/18 Time of Encounter: 15:00 - Subjective Interval History: No acute events overnight. Wants to be discharged home if possible and agreeable with her daughter. Denies any focal weakness/numbness, chest pain, shortness of breath, or worsening leg swelling. - Exam Vitals: Temp Pulse Resp BP Pulse Ox 97.4 F L 68 16 103/62 99 07/12/18 16:45 07/12/18 16:45 07/12/18 16:45 07/12/18 16:45 07/12/18 16:45 Exam: General: Alert and oriented to self and place, not in acute distress. Cardiovascular:Normal S1 & S2, No JVD. Pulse regular. Lungs: clear to auscultation, no wheezes/rales Abdomen:Soft, non-tender, no rigidity. Extremities:No deformity or swelling Neurological: Non-focal - Assessment and Plan (1) Fall Current Visit: Yes Status: Acute Assessment and Plan: Fall likely mechanical in the setting of recent hospitalization and deconditioning. No evidence of fracture. orthostatics -ve PT/OT rec for SNF as she requires 24/7 care and remains high risk for fall, currently working with SW and family members regarding placement (2) Neutrophilic leukocytosis Current Visit: Yes Status: Resolved Assessment and Plan: Patient found to have a neutrophilic leukocytosis in the setting of mechanical fall after being on the floor for an hour. No clinical history to suggest an infection. Remainder of labs including UA unremarkable; chest x-ray also unremarkable. Suspect likely reactive in the setting of mechanical fall. White blood cell count improving spontaneously, continue to monitor off antibiotics (3) Hypomagnesemia Current Visit: Yes Status: Resolved Assessment and Plan: Normalized after repletion (4) DM (diabetes mellitus), type 2 Current Visit: No Status: Chronic Assessment and Plan: low dose sliding scale (5) COPD (chronic obstructive pulmonary disease) Current Visit: Yes Status: Chronic Assessment and Plan: Not in exacerbation, PRN duoneb (6) CKD (chronic kidney disease) stage 3, GFR 30-59 ml/min Current Visit: No Status: Chronic Assessment and Plan: Creatinine at her baseline Avoid nephrotoxins (7) DVT prophylaxis Current Visit: Yes Status: Acute Assessment and Plan: Subcutaneous heparin - Time Spent with Patient Total time spent is greater than 50% in coordination of care (as documented) at patient's floor/unit and/or counseling patient: 25 - 35 minutes Plan of Care Discussed with: patient (discussed with RN and SW in great detail regarding safe disposition plan) Internal Medicine: Result - Labs CBC & Chem 7: 07/11/18 09:25 07/11/18 01:07 Consult Discharge Plan - Plan Referrals: William Abdul MD [Primary Care Provider] - (1) Fall Qualifiers: Encounter type: initial encounter Qualified Code(s): W19.XXXA - Unspecified fall, initial encounter (4) DM (diabetes mellitus), type 2 Qualifiers: Diabetes mellitus correction insulin use: with correction use Diabetes mellitus complication status: with neurologic complications Diabetes mellitus complication detail: with polyneuropathy Qualified Code(s): E11.42 - Type 2 diabetes mellitus with diabetic polyneuropathy; Z79.4 - beach expert (current) use of insulin (5) COPD (chronic obstructive pulmonary disease) Qualifiers: COPD type: unspecified COPD Qualified Code(s): J44.9 - Chronic obstructive pulmonary disease, unspecified
[2018-07-12] MEDS: *HR* OxyCODONE/APAP 10/325 TABLET PO PRN (20:28)
[2018-07-13] MEDS: *HR* Heparin 5,000 UNIT/ML VIAL SQ SCH ×3 (05:28→20:42)
[2018-07-13 07:31] LABS: Hematocrit 40.9 % (35.3-44.9); Hemoglobin 12.5 g/dL (11.5-15.4); Mean Corpuscular HGB Conc 30.6 g/dL (31.6-35.5); Mean Corpuscular Hemoglobin 29.6 pg (28.0-33.3); Mean Corpuscular Volume 96.7 fL (83.0-100.0); Mean Platelet Volume 10.4 fL (9.4-12.4); Platelet Count 185 K/mcL (140-400); Red Blood Count 4.23 M/mcL (3.82-4.97); Red Cell Distribution Width 15.1 % (11.5-14.5)
[2018-07-13 07:42] LABS: Calcium 9.1 mg/dL (8.6-10.3); Potassium 4.4 mEq/L (3.5-5.1)
[2018-07-13] MEDS: Insulin LISPRO 300 UNITS/3 ML VIAL SQ SCH ×3 (08:37→18:02)
--- NOTE | 2018-07-13 11:41 | Internal Med Progress Note ---
Hospitalist Progress Note - Encounter Date of Encounter: 07/13/18 Time of Encounter: 10:15 - Subjective Interval History: No acute events overnight. After discussing with social services analyst and patient's daughters, it was decided that she will need ECF placement which may eventually be long-term. Patient has no specific complaints today. - Exam Vitals: Temp Pulse Resp BP Pulse Ox 98.1 F 57 15 100/56 98 07/13/18 09:57 07/13/18 09:57 07/13/18 09:57 07/13/18 09:57 07/13/18 09:57 Exam: General: Alert and oriented to self and place, not in acute distress. Cardiovascular:Normal S1 & S2, No JVD. Pulse regular. Lungs: clear to auscultation, no wheezes/rales Abdomen:Soft, non-tender, no rigidity. Extremities:No deformity or swelling Neurological: Non-focal - Assessment and Plan (1) Fall Current Visit: Yes Status: Acute Assessment and Plan: Fall likely mechanical in the setting of recent hospitalization and deconditioning. No evidence of fracture. orthostatics -ve PT/OT rec for SNF as she requires 24/7 care and remains high risk for fall, waiting on ECF confirmation (2) Neutrophilic leukocytosis Current Visit: Yes Status: Resolved Assessment and Plan: Patient found to have a neutrophilic leukocytosis in the setting of mechanical fall after being on the floor for an hour. No clinical history to suggest an infection. Remainder of labs including UA unremarkable; chest x-ray also unremarkable. Suspect likely reactive in the setting of mechanical fall. White blood cell count normalized spontaneously, continue to monitor off antibiotics (3) Hypomagnesemia Current Visit: Yes Status: Resolved Assessment and Plan: Normalized after repletion (4) DM (diabetes mellitus), type 2 Current Visit: No Status: Chronic Assessment and Plan: low dose sliding scale (5) COPD (chronic obstructive pulmonary disease) Current Visit: Yes Status: Chronic Assessment and Plan: Not in exacerbation, PRN duoneb (6) CKD (chronic kidney disease) stage 3, GFR 30-59 ml/min Current Visit: No Status: Chronic Assessment and Plan: Creatinine at her baseline Avoid nephrotoxins (7) DVT prophylaxis Current Visit: Yes Status: Acute Assessment and Plan: Subcutaneous heparin - Time Spent with Patient Total time spent is greater than 50% in coordination of care (as documented) at patient's floor/unit and/or counseling patient: less than 15 minutes Plan of Care Discussed with: patient (Discussed with RN) Internal Medicine: Result - Labs CBC & Chem 7: 07/13/18 07:00 07/13/18 07:00 Labs: Short CBC 07/13/18 Range/Units 07:00 WBC 7.6 (4.3-11.1) K/mcL Hgb 12.5 (11.5-15.4) g/dL Hct 40.9 (35.3-44.9) % Plt Count 185 (140-400) K/mcL BMP 07/13/18 07:00 Sodium 140 Potassium 4.4 Chloride 105 Carbon Dioxide 31 H BUN 15 Creatinine 1.21 H Glucose 143 H Calcium 9.1 Consult Discharge Plan - Plan Referrals: William Abdul MD [Primary Care Provider] - (1) Fall Qualifiers: Encounter type: initial encounter Qualified Code(s): W19.XXXA - Unspecified fall, initial encounter (4) DM (diabetes mellitus), type 2 Qualifiers: Diabetes mellitus correction insulin use: with correction use Diabetes mellitus complication status: with neurologic complications Diabetes mellitus complication detail: with polyneuropathy Qualified Code(s): E11.42 - Type 2 diabetes mellitus with diabetic polyneuropathy; Z79.4 - intermediate card tender (current) use of insulin (5) COPD (chronic obstructive pulmonary disease) Qualifiers: COPD type: unspecified COPD Qualified Code(s): J44.9 - Chronic obstructive pulmonary disease, unspecified
[2018-07-13] MEDS: *HR* OxyCODONE/APAP 10/325 TABLET PO PRN (20:45)
[2018-07-14] MEDS: *HR* Heparin 5,000 UNIT/ML VIAL SQ SCH ×3 (05:36→21:07)
[2018-07-14] MEDS: Insulin LISPRO 300 UNITS/3 ML VIAL SQ SCH ×3 (08:00→17:15)
--- NOTE | 2018-07-14 14:08 | Internal Med Progress Note ---
Hospitalist Progress Note - Encounter Date of Encounter: 07/14/18 Time of Encounter: 12:00 - Subjective Interval History: No acute events overnight. Pt is upset that none of her daughters can take her home while waiting to be placed in group home. No focal complaints including chest pain, SOB, or abdominal pain - Exam Vitals: Temp Pulse Resp BP Pulse Ox 98.1 F 62 15 107/57 91 07/14/18 10:03 07/14/18 10:03 07/14/18 10:03 07/14/18 10:03 07/14/18 10:03 Exam: General: Alert and oriented to self and place, not in acute distress. Cardiovascular:Normal S1 & S2, No JVD. Pulse regular. Lungs: clear to auscultation, no wheezes/rales Abdomen:Soft, non-tender, no rigidity. Extremities:No deformity or swelling Neurological: Non-focal - Assessment and Plan (1) Fall Current Visit: Yes Status: Acute Assessment and Plan: Fall likely mechanical in the setting of recent hospitalization and deconditioning. No evidence of fracture. orthostatics -ve PT/OT rec for SNF as she requires 24/7 care and remains high risk for fall, waiting on ECF confirmation (2) Neutrophilic leukocytosis Current Visit: Yes Status: Resolved Assessment and Plan: Patient found to have a neutrophilic leukocytosis in the setting of mechanical fall after being on the floor for an hour. No clinical history to suggest an infection. Remainder of labs including UA unremarkable; chest x-ray also unremarkable. Suspect likely reactive in the setting of mechanical fall. White blood cell count normalized spontaneously, continue to monitor off antibiotics (3) Hypomagnesemia Current Visit: Yes Status: Resolved Assessment and Plan: Normalized after repletion (4) DM (diabetes mellitus), type 2 Current Visit: No Status: Chronic Assessment and Plan: low dose sliding scale (5) COPD (chronic obstructive pulmonary disease) Current Visit: Yes Status: Chronic Assessment and Plan: Not in exacerbation, PRN duoneb (6) CKD (chronic kidney disease) stage 3, GFR 30-59 ml/min Current Visit: No Status: Chronic Assessment and Plan: Creatinine at her baseline Avoid nephrotoxins (7) DVT prophylaxis Current Visit: Yes Status: Acute Assessment and Plan: Subcutaneous heparin - Time Spent with Patient Total time spent is greater than 50% in coordination of care (as documented) at patient's floor/unit and/or counseling patient: less than 15 minutes Plan of Care Discussed with: nurse Internal Medicine: Result - Labs CBC & Chem 7: 07/13/18 07:00 07/13/18 07:00 Consult Discharge Plan - Plan Referrals: William Abdul MD [Primary Care Provider] - (1) Fall Qualifiers: Encounter type: initial encounter Qualified Code(s): W19.XXXA - Unspecified fall, initial encounter (4) DM (diabetes mellitus), type 2 Qualifiers: Diabetes mellitus exterminator insulin use: with exterminator use Diabetes mellitus complication status: with neurologic complications Diabetes mellitus c omplication detail: with polyneuropathy Qualified Code(s): E11.42 - Type 2 diabetes mellitus with diabetic polyneuropathy; Z79.4 - intermediate manager (current) use of insulin (5) COPD (chronic obstructive pulmonary disease) Qualifiers: COPD type: unspecified COPD Qualified Code(s): J44.9 - Chronic obstructive pulmonary disease, unspecified
[2018-07-14] MEDS: *HR* OxyCODONE/APAP 10/325 TABLET PO PRN (21:07)
[2018-07-15] MEDS: *HR* OxyCODONE/APAP 10/325 TABLET PO PRN (04:58)
[2018-07-15] MEDS: *HR* Heparin 5,000 UNIT/ML VIAL SQ SCH ×3 (05:00→21:15)
[2018-07-15 05:01] LABS: Calcium 8.9 mg/dL (8.6-10.3); Potassium 4.4 mEq/L (3.5-5.1)
[2018-07-15] MEDS: Insulin LISPRO 300 UNITS/3 ML VIAL SQ SCH ×3 (07:54→17:07)
--- NOTE | 2018-07-15 10:48 | Internal Med Progress Note ---
Hospitalist Progress Note - Encounter Date of Encounter: 07/15/18 Time of Encounter: 09:15 - Subjective Interval History: No acute events overnight. COntinues to ask the provider when she can be released home. No chest pain or SOB - Exam Vitals: Temp Pulse Resp BP Pulse Ox 98.2 F 55 19 102/61 98 07/15/18 09:55 07/15/18 09:55 07/15/18 09:55 07/15/18 09:55 07/15/18 09:55 Exam: General: Alert and oriented to self and place, not in acute distress. Cardiovascular:Normal S1 & S2, No JVD. Pulse regular. Lungs: clear to auscultation, no wheezes/rales Abdomen:Soft, non-tender, no rigidity. Extremities:No deformity or swelling Neurological: Non-focal - Assessment and Plan (1) Fall Current Visit: Yes Status: Acute Assessment and Plan: Fall likely mechanical in the setting of recent hospitalization and deconditioning. No evidence of fracture. orthostatics -ve PT/OT rec for SNF as she requires 24/7 care and remains high risk for fall, waiting on ECF confirmation (2) Neutrophilic leukocytosis Current Visit: Yes Status: Resolved Assessment and Plan: Patient found to have a neutrophilic leukocytosis in the setting of mechanical fall after being on the floor for an hour. No clinical history to suggest an infection. Remainder of labs including UA unremarkable; chest x-ray also unremarkable. Suspect likely reactive in the setting of mechanical fall. White blood cell count normalized spontaneously, continue to monitor off antibiotics (3) DM (diabetes mellitus), type 2 Current Visit: No Status: Chronic Assessment and Plan: low dose sliding scale (4) Hypomagnesemia Current Visit: Yes Status: Resolved Assessment and Plan: Normalized after repletion (5) COPD (chronic obstructive pulmonary disease) Current Visit: Yes Status: Chronic Assessment and Plan: Not in exacerbation, PRN duoneb (6) CKD (chronic kidney disease) stage 3, GFR 30-59 ml/min Current Visit: No Status: Chronic Assessment and Plan: Creatinine at her baseline Avoid nephrotoxins (7) DVT prophylaxis Current Visit: Yes Status: Acute Assessment and Plan: Subcutaneous heparin - Time Spent with Patient Total time spent is greater than 50% in coordination of care (as documented) at patient's floor/unit and/or counseling patient: less than 15 minutes Plan of Care Discussed with: nurse Internal Medicine: Result - Labs CBC & Chem 7: 07/13/18 07:00 07/15/18 04:26 Labs: BMP 07/15/18 04:26 Sodium 136 Potassium 4.4 Chloride 105 Carbon Dioxide 29 BUN 15 Creatinine 1.13 Glucose 141 H Calcium 8.9 Consult Discharge Plan - Plan Referrals: William Abdul MD [Primary Care Provider] - (1) Fall Qualifiers: Encounter type: initial encounter Qualified Code(s): W19.XXXA - Unspecified fall, initial encounter (3) DM (diabetes mellitus), type 2 Qualifiers: Diabetes mellitus intermediate school teacher insulin use: with intermediate school teacher use Diabetes mellitus complication status: with neurologic complications Diabetes mellitus complication detail: with polyneuropathy Qualified Code(s): E11.42 - Type 2 diabetes mellitus with diabetic polyneuropathy; Z79.4 - long term care administrator (current) use of insulin (5) COPD (chronic obstructive pulmonary disease) Qualifiers: COPD type: unspecified COPD Qualified Code(s): J44.9 - Chronic obstructive pulmonary disease, unspecified
[2018-07-16] MEDS: *HR* Heparin 5,000 UNIT/ML VIAL SQ SCH ×2 (05:22→14:14)
[2018-07-16] MEDS: Insulin LISPRO 300 UNITS/3 ML VIAL SQ SCH ×2 (07:28→13:02)
--- NOTE | 2018-07-16 10:43 | Discharge Summary ---
- NOTES TO OUTPATIENT PROVIDER Notes to Outpatient Provider: Follow-up with PCP Date of Encounter: 07/16/18 Time of Encounter: 08:30 - Discharge Diagnosis (1) Fall Priority: Primary Status: Acute Qualifiers: Encounter type: initial encounter Qualified Code(s): W19.XXXA - Unspecified fall, initial encounter (2) Neutrophilic leukocytosis Priority: Secondary Status: Resolved (3) DM (diabetes mellitus), type 2 Priority: Secondary Status: Chronic Qualifiers: Diabetes mellitus fdc insulin use: with fdc use Diabetes mellitus complication status: with neurologic complications Diabetes mellitus complication detail: with polyneuropathy Qualified Code(s): E11.42 - Type 2 diabetes mellitus with diabetic polyneuropathy; Z79.4 - long term (current) use of insulin (4) Hypomagnesemia Priority: Secondary Status: Resolved (5) COPD (chronic obstructive pulmonary disease) Priority: Secondary Status: Chronic Qualifiers: COPD type: unspecified COPD Qualified Code(s): J44.9 - Chronic obstructive pulmonary disease, unspecified (6) CKD (chronic kidney disease) stage 3, GFR 30-59 ml/min Priority: Secondary Status: Chronic (7) DVT prophylaxis Priority: Secondary Status: Acute Hospital course: Ms. Ramsey is a 73 year old female with history of COPD, dementia, morbid obesity, diabetes, CKD, who was admitted after an episode of fall. Of note, she was recently hospitalized for COPD exacerbation, deconditioning, and was recommended to be transferred to ECF which patient declined. She was again deemed unsafe to return to the prior setting as she requires 24/7 care and remains high risk for fall. Therefore, she stayed in the hospital waiting on ECF confirmation which was completed on 07/16 and will be discharged in stable condition. No source of infection was identified, initial leukocytosis resolved without antibiotics. Discharge discussed with: patient, nurse, social work, case management - Time Spent with Patient Total time spent providing and/or coordinating discharge services: 33 mins - Discharge Medications Prescriptions: Continued Citalopram Hydrobromide [Citalopram HBr] 20 mg PO DAILY Donepezil [Aricept] 5 mg PO HS Dulaglutide [Trulicity] 0.75 mg SQ TH Ergocalciferol (VITAMIN D2) [Vitamin D2] 50,000 unit PO SA Lisinopril [Zestril] 5 mg PO DAILY Metoprolol Tartrate 50 mg PO QAM Sitagliptin Phosphate [Januvia] 50 mg PO DAILY Tiotropium [Spiriva] 1 puff IH DAILY PRN PRN Reason: Shortness Of Breath Potassium Chloride [K-Tab ER] 10 meq PO BID OxyCODONE/APAP 10/325 [Percocet 10/325 MG] 1 tab PO Q6H PRN PRN Reason: Pain Insulin Glargine,Hum.rec.anlog [Lantus Solostar] 62 units SQ QAM Acetaminophen [Non-Aspirin] 650 mg PO Q4HR PRN PRN Reason: PAIN/FEVER Furosemide [Lasix] 20 mg PO Q48H Albuterol Sulfate [Proair Hfa] 2 puff PO Q4H PRN PRN Reason: Shortness Of Breath Memantine HCl 5 mg PO DAILY Home Medications: Citalopram Hydrobromide [Citalopram HBr] 20 mg PO DAILY 06/05/18 [History] Donepezil [Aricept] 5 mg PO HS 06/05/18 [History] Dulaglutide [Trulicity] 0.75 mg SQ TH 06/05/18 [History] Ergocalciferol (VITAMIN D2) [Vitamin D2] 50,000 unit PO SA 06/05/18 [History] Lisinopril [Zestril] 5 mg PO DAILY 06/05/18 [History] Metoprolol Tartrate 50 mg PO QAM 06/05/18 [History] Potassium Chloride [K-Tab ER] 10 meq PO BID 06/05/18 [History] Sitagliptin Phosphate [Januvia] 50 mg PO DAILY 06/05/18 [History] Tiotropium [Spiriva] 1 puff IH DAILY PRN 06/05/18 [History] Insulin Glargine,Hum.rec.anlog [Lantus Solostar] 62 units SQ QAM 06/17/18 [History] OxyCODONE/APAP 10/325 [Percocet 10/325 MG] 1 tab PO Q6H PRN 06/17/18 [History] Acetaminophen [Non-Aspirin] 650 mg PO Q4HR PRN 06/24/18 [History] Albuterol Sulfate [Proair Hfa] 2 puff PO Q4H PRN 07/11/18 [History] Furosemide [Lasix] 20 mg PO Q48H 07/11/18 [History] Memantine HCl 5 mg PO DAILY 07/11/18 [History] Allergies/Adverse Reactions: Allergy/AdvReac Type Severity Reaction Status Date / Time No Known Allergies Allergy Verified 07/11/18 15:14 Date of admission: 07/12/18 17:09 Primary care physician: William Abdul MD Consults: 07/11/18 04:09 Consult to Ear Flap Binder [CONS] Routine Reason for SW Consult: Possible need for community services. 07/11/18 05:44 Consult to Physical Therapy [CONS] Routine Comment: Evaluate, develop and implement POC Reason for Consult: weakness resulting in fall. No evidence of underlying infectious etiology. Does patient have active BEDREST order?: Yes Is patient medically & hemodynamically stable?: Yes 07/11/18 09:28 Consult to Occupational Therapy [CONS] Routine Comment: Evaluate, develop and implement POC Reason for Consult: weakness, falls Does patient have active BEDREST order?: No Is patient medically & hemodynamically stable?: Yes Patient assessed for mobility or mobilized this visit?: No - Constitutional Vitals: Temp Pulse Resp BP Pulse Ox 98 F 64 18 150/68 95 07/16/18 07:03 07/16/18 07:03 07/16/18 07:03 07/16/18 07:03 07/16/18 08:17 Exam: General: Alert and oriented to self and place, not in acute distress. Cardiovascular:Normal S1 & S2, No JVD. Pulse regular. Lungs: clear to auscultation, no wheezes/rales Abdomen:Soft, non-tender, no rigidity. Extremities:No deformity or swelling Neurological: Non-focal - Patient Status Disposition: Transfer SNF Condition: Fair Overall status at discharge: patient is progressing back to baseline - Discharge Instructions Instructions: Fall Prevention (DC), Chronic Obstructive Pulmonary Disease (DC) Follow Up With: William Abdul MD [Primary Care Provider] - - Diet and Activity Activity: resume usual activities as tolerated Diet: diabetic diet
--- NOTE | 2018-07-16 10:46 | Physician Discharge Referral ---
ExtendedCare Referral Info Institutional Level of Care: Skilled - Diagnosis (1) Fall Priority: Primary Status: Acute (2) Neutrophilic leukocytosis Priority: Secondary Status: Resolved (3) DM (diabetes mellitus), type 2 Priority: Secondary Status: Chronic (4) Hypomagnesemia Priority: Secondary Status: Resolved (5) COPD (chronic obstructive pulmonary disease) Priority: Secondary Status: Chronic (6) CKD (chronic kidney disease) stage 3, GFR 30-59 ml/min Priority: Secondary Status: Chronic (7) DVT prophylaxis Priority: Secondary Status: Acute - Transfer Medications Home Medications: Citalopram Hydrobromide [Citalopram HBr] 20 mg PO DAILY 06/05/18 [History] Donepezil [Aricept] 5 mg PO HS 06/05/18 [History] Dulaglutide [Trulicity] 0.75 mg SQ TH 06/05/18 [History] Ergocalciferol (VITAMIN D2) [Vitamin D2] 50,000 unit PO SA 06/05/18 [History] Lisinopril [Zestril] 5 mg PO DAILY 06/05/18 [History] Metoprolol Tartrate 50 mg PO QAM 06/05/18 [History] Potassium Chloride [K-Tab ER] 10 meq PO BID 06/05/18 [History] Sitagliptin Phosphate [Januvia] 50 mg PO DAILY 06/05/18 [History] Tiotropium [Spiriva] 1 puff IH DAILY PRN 06/05/18 [History] Insulin Glargine,Hum.rec.anlog [Lantus Solostar] 62 units SQ QAM 06/17/18 [History] OxyCODONE/APAP 10/325 [Percocet 10/325 MG] 1 tab PO Q6H PRN 06/17/18 [History] Acetaminophen [Non-Aspirin] 650 mg PO Q4HR PRN 06/24/18 [History] Albuterol Sulfate [Proair Hfa] 2 puff PO Q4H PRN 07/11/18 [History] Furosemide [Lasix] 20 mg PO Q48H 07/11/18 [History] Memantine HCl 5 mg PO DAILY 07/11/18 [History] Allergies/Adverse Reactions: Allergy/AdvReac Type Severity Reaction Status Date / Time No Known Allergies Allergy Verified 07/11/18 15:14 - Respiratory Orders Oxygen / L per min (3L continuous) Smoking Cessation: Smoking cessation has been advised. For more information, call the [place] Tobacco Quit Line at 4-850-EOMT-NOW. - Rehabiliation Orders Rehab Orders: Evaluation for Physical Therapy, Evaluation for Occupational Therapy CERTIFICATION: I certify that the transfer of the above named patient to an Extended Care Facility is necessary for the continuing treatment of the diagnosis listed. The above information is true and accurate reflection of patient's current condition. Confidential - Redisclosure prohibited without a patient's written consent.
[2018-07-16 13:09] VITALS: BP 118/69
== END 2018-07-16 14:26 | DRG 948 ==
LOC: 3ANU 00:40 → EMEROOARM 00:40 → SUATTDRO 03:19 → 3ANU 03:55
PROVIDERS: ADMIT Internal Medicine; ATTEND Internal Medicine

== ENCOUNTER 2018-08-08 14:54 | Inpatient (IN) ==
[2018-08-08] MEDS ORDERED: *HR* OxyCODONE Immed Rel 5 MG TABLET PO ONE (16:11)
[2018-08-08] MEDS ORDERED: 0.9 % Sodium Chloride 1,000 ML IVC ONE (16:19)
[2018-08-08] MEDS ORDERED: *HR* FentaNYL (PF) 100 MCG/2 ML VIAL EP ONE (16:22)
[2018-08-08 16:23] LABS: Bilirubin,Urine Negative (Negative); Blood,Urine Negative (Negative); Clarity,Urine Clear (Clear); Color,Urine Yellow (Yellow); Glucose,Urine (UA) Normal (Normal); Ketones,Urine Negative (Negative); Leukocyte Esterase,Urine Negative (Negative); Nitrite,Urine Negative (Negative); Protein,Urine Negative (Neg-Trace); Specific Gravity,Urine 1.019 (1.010-1.025); Urobilinogen,Urine Normal (Normal)
--- NOTE | 2018-08-08 16:28 | Emergency Department Note ---
Disposition Clinical Impression: Abscess of sacrum, THOMPSON (acute kidney injury) Disposition: Admitted As Inpatient Condition: Fair Time of Disposition: 18:30 General Adult HPI - General Chief complaint: ED General Medical Stated complaint: Sore on butt Time Seen by Provider: 08/08/18 14:57 Source: patient, EMS Limitations: no limitations - History of Present Illness HPI Narrative: Ms. Ramsey is a 73-year-old female presented to the ED complaining of buttocks p ain she is unsure of how long it has been going on for she is a poor historian. Most of the history is obtained from her daughter at bedside. She reports that for the past 3 days she has just been feeling unwell complaining of bilateral buttock pain. She believes that she has a wound but has not had it evaluated. Her daughter reports that she is normally mobile and does not stay in bed all day. She is also had poor appetite for the past a few days. Daughter also reports frequent urination. Patient and daughter deny diarrhea, emesis, chest pain, shortness of breath, fever, chills. Pain Scale: 8 - Related Data Home Medications Medication Instructions Recorded Confirmed Citalopram Hydrobromide 20 mg PO DAILY 06/05/18 08/08/18 [Citalopram HBr] Donepezil [Aricept] 5 mg PO DAILY 06/05/18 08/08/18 Ergocalciferol (VITAMIN D2) 50,000 unit PO WE 06/05/18 08/08/18 [Vitamin D2] Lisinopril [Zestril] 5 mg PO DAILY 06/05/18 08/08/18 Metoprolol Tartrate 50 mg PO DAILY 06/05/18 08/08/18 Potassium Chloride [K-Tab ER] 10 meq PO DAILY 06/05/18 08/08/18 Sitagliptin Phosphate [Januvia] 50 mg PO DAILY 06/05/18 08/08/18 OxyCODONE/APAP 10/325 [Percocet 1 tab PO Q6H PRN 06/17/18 08/08/18 10/325 MG] Furosemide [Lasix] 20 mg PO Q48H 07/11/18 08/08/18 Memantine HCl 5 mg PO DAILY 07/11/18 08/08/18 Allergies Allergy/AdvReac Type Severity Reaction Status Date / Time No Known Allergies Allergy Verified 08/08/18 19:05 Review of Systems: Some of the history is obtained from her daughter at bedside Constitutional: Denies: fever, chills, weakness Eyes: Denies: eye pain, vision change ENT ED: Denies: ear pain, congestion, dysphagia Cardiovascular: Denies: chest pain, palpitations Respiratory: Denies: cough, dyspnea, wheezes Gastrointestinal: Reports: nausea. Denies: abdominal pain, vomiting Genitourinary: Reports: urgency, dysuria, frequency. Denies: hematuria Musculoskeletal: Denies: back pain Integumentary: Reports: other (Wound on sacrum) Neurological: Denies: headache, weakness, paresthesias Endocrine: Reports: fatigue Past Medical History - Past Medical History Medical history: Reports: arthritis, CHF, COPD, dementia, diabetes, GERD, hyperlipidemia, hypertension, osteoporosis, renal disease, other Surgical history: Reports: other Psychiatric history: Reports: anxiety COACH CLEANER history: Reports: no COACH CLEANER history - Social History Smoking Status: Current every day smoker Smokeless Tobacco Status: No Alcohol use: Reports: none Drug use: Reports: none Physical Exam - General Limitations: no limitations General appearance: alert, in no apparent distress - Head Head exam: atraumatic, normocephalic - Eye Eye exam: Present: normal appearance, EOMI. Absent: scleral icterus, conjunctival injection - ENT ENT exam: normal exam, normal oropharynx, mucous membranes dry - Neck Neck exam: Present: normal inspection, full ROM - Chest Chest inspection: Present: normal inspection, symmetric chest wall rise - Cardiovascular Cardiovascular exam: Present: regular rate, normal rhythm, +S1, +S2 - Abdominal Exam Abdominal exam: Present: soft, Non-Tender. Absent: guarding, rigidity - Extremities Exam Extremities exam: Present: normal inspection. Absent: calf tenderness - Back Exam Back exam: Present: normal inspection - Neurological Exam Neurological exam: Present: alert - Psychiatric Psychiatric exam: Present: agitated - Skin Skin exam: Present: warm, erythema, other (3 cm open sacral decubitus ulcer appears to be stage III). Absent: intact Course Vital Signs Temperature 98.7 F 08/08/18 14:59 Pulse Rate 101 08/08/18 14:59 Respiratory Rate 20 08/08/18 14:59 Blood Pressure 164/62 08/08/18 14:59 O2 Sat by Pulse Oximetry 100 08/08/18 14:59 Temperature 98.6 F 08/08/18 20:50 Pulse Rate 78 08/08/18 20:50 Respiratory Rate 17 08/08/18 20:50 Blood Pressure 142/79 08/08/18 20:50 O2 Sat by Pulse Oximetry 97 08/08/18 20:50 Oxygen Delivery Oxygen Delivery Nasal Cannula Medical Decision Making - MDM Narrative Medical decision making narrative: In the 73-year-old female presents to the ED by her family reporting that she has been complaining of sacral pain. There is a stage III decubitus ulcer. There reports the pain has been ongoing for the past 3 days. She is normally mobile but has been fatigued lately. CT of pelvis shows concern for abscess in the right gluteal area. Her blood cultures were not drawn. Lactic acid was within normal limits. Received IV vancomycin and Zosyn. She has been admitted inpatient for further management. - Medical Records Medical records reviewed: Yes I reviewed the patient's medical records. - Lab Data Lab results reviewed: Yes I reviewed the patient's lab results. Result diagrams: 08/08/18 16:16 08/08/18 16:16 Lab Results 08/08/18 08/08/18 08/08/18 Range/Units 16:06 16:16 16:16 WBC 8.4 (4.3-11.1) K/mcL RBC 3.97 (3.82-4.97) M/mcL Hgb 11.8 (11.5-15.4) g/dL Hct 36.6 (35.3-44.9) % MCV 92.2 (83.0-100.0) fL MCH 29.7 (28.0-33.3) pg MCHC 32.2 (31.6-35.5) g/dL RDW 14.6 H (11.5-14.5) % Plt Count 202 (140-400) K/mcL MPV 10.4 (9.4-12.4) fL Immature Gran % 0.5 (0-4) % Seg Neutrophils % 67.1 % Lymphocytes % 21.4 % Monocytes % 9.7 % Eosinophils % 1.1 % Basophils % 0.2 % Neutrophils # 5.6 (1.6-8.9) K/mcL Lymphocytes # 1.8 (0.6-4.6) K/mcL Monocytes # 0.8 (0.0-1.3) K/mcL Eosinophils # 0.1 (0.0-0.6) K/mcL Basophils # 0.0 (0.0-0.2) K/mcL VBG pH (7.32-7.42) pH Units VBG pCO2 (41-51) mmHg VBG pO2 (25-50) mmHg VBG HCO3 (21-27) mEq/L Sodium 134 L (136-145) mEq/L Potassium 4.2 (3.5-5.1) mEq/L Chloride 99 (98-107) mEq/L Carbon Dioxide 30 H (23-29) mEq/L BUN 25 H (8-23) mg/dL Creatinine 1.41 H (0.60-1.20) mg/dL Est GFR ( Amer) 44 L (> 60) Est GFR (Non-Af Amer) 36 L (> 60) BUN/Creatinine Ratio 18 (6-26) Glucose 148 H (70-105) mg/dL Calculated Osmolality 285 (280-300) Lactic Acid (0.5-2.2) mmol/L Calcium 9.5 (8.6-10.3) mg/dL Total Bilirubin 0.4 (0.3-1.0) mg/dL AST 10 L (13-39) Units/L ALT 7 (7-52) Units/L Alkaline Phosphatase 59 (34-104) Units/L Serum Total Protein 6.2 L (6.4-8.9) g/dL Albumin 3.3 L (3.5-5.7) g/dL Globulin 2.9 (2.4-3.5) g/dL Albumin/Globulin Ratio 1.1 (1.1-2.2) Urine Color Yellow (Yellow) Urine Clarity Clear (Clear) Urine pH 5.0 (5.0-8.0) pH Units Ur Specific [place] 1.019 (1.010-1.025) Urine Protein Negative (Neg-Trace) mg/dL Urine Glucose (UA) Normal (Normal) mg/dL Urine Ketones Negative (Negative) mg/dL Urine Blood Negative (Negative) Urine Nitrite Negative (Negative) Urine Bilirubin Negative (Negative) Urine Urobilinogen Normal (Normal) mg/dL Ur Leukocyte Esterase Negative (Negative) Ur Culture Indicated? NO (NO) 08/08/18 08/08/18 Range/Units 16:16 16:31 WBC (4.3-11.1) K/mcL RBC (3.82-4.97) M/mcL Hgb (11.5-15.4) g/dL Hct (35.3-44.9) % MCV (83.0-100.0) fL MCH (28.0-33.3) pg MCHC (31.6-35.5) g/dL RDW (11.5-14.5) % Plt Count (140-400) K/mcL MPV (9.4-12.4) fL Immature Gran % (0-4) % Seg Neutrophils % % Lymphocytes % % Monocytes % % Eosinophils % % Basophils % % Neutrophils # (1.6-8.9) K/mcL Lymphocytes # (0.6-4.6) K/mcL Monocytes # (0.0-1.3) K/mcL Eosinophils # (0.0-0.6) K/mcL Basophils # (0.0-0.2) K/mcL VBG pH 7.36 (7.32-7.42) pH Units VBG pCO2 50 (41-51) mmHg VBG pO2 115 H (25-50) mmHg VBG HCO3 28 H (21-27) mEq/L Sodium (136-145) mEq/L Potassium (3.5-5.1) mEq/L Chloride (98-107) mEq/L Carbon Dioxide (23-29) mEq/L BUN (8-23) mg/dL Creatinine (0.60-1.20) mg/dL Est GFR ( Amer) (> 60) Est GFR (Non-Af Amer) (> 60) BUN/Creatinine Ratio (6-26) Glucose (70-105) mg/dL Calculated Osmolality (280-300) Lactic Acid 0.9 (0.5-2.2) mmol/L Calcium (8.6-10.3) mg/dL Total Bilirubin (0.3-1.0) mg/dL AST (13-39) Units/L ALT (7-52) Units/L Alkaline Phosphatase (34-104) Units/L Serum Total Protein (6.4-8.9) g/dL Albumin (3.5-5.7) g/dL Globulin (2.4-3.5) g/dL Albumin/Globulin Ratio (1.1-2.2) Urine Color (Yellow) Urine Clarity (Clear) Urine pH (5.0-8.0) pH Units Ur Specific [place] (1.010-1.025) Urine Protein (Neg-Trace) mg/dL Urine Glucose (UA) (Normal) mg/dL Urine Ketones (Negative) mg/dL Urine Blood (Negative) Urine Nitrite (Negative) Urine Bilirubin (Negative) Urine Urobilinogen (Normal) mg/dL Ur Leukocyte Esterase (Negative) Ur Culture Indicated? (NO) - Radiology Data Radiology results reviewed: Yes I reviewed the patient's radiology results.
[2018-08-08] MEDS ORDERED: Isovue-370 500 ML BOTTLE IVP ONE (16:30)
[2018-08-08] MEDS ORDERED: *HR* FentaNYL (PF) 100 MCG/2 ML VIAL IVP ONE (16:31)
[2018-08-08 16:32] LABS: Basophils % 0.2 %; Eosinophils # 0.1 K/mcL (0.0-0.6); Eosinophils % 1.1 %; Hematocrit 36.6 % (35.3-44.9); Hemoglobin 11.8 g/dL (11.5-15.4); Immature Granulocytes % 0.5 % (0-4); Lymphocytes # 1.8 K/mcL (0.6-4.6); Lymphocytes % 21.4 %; Mean Corpuscular HGB Conc 32.2 g/dL (31.6-35.5); Mean Corpuscular Hemoglobin 29.7 pg (28.0-33.3); Mean Corpuscular Volume 92.2 fL (83.0-100.0); Mean Platelet Volume 10.4 fL (9.4-12.4); Monocytes # 0.8 K/mcL (0.0-1.3); Monocytes % 9.7 %; Neutrophils # 5.6 K/mcL (1.6-8.9); Platelet Count 202 K/mcL (140-400); Red Blood Count 3.97 M/mcL (3.82-4.97); Red Cell Distribution Width 14.6 % (11.5-14.5); Segmented Neutrophils % 67.1 %; White Blood Count 8.4 K/mcL (4.3-11.1)
[2018-08-08 16:36] LABS: VBG HCO3 28 mEq/L (21-27); VBG PCO2 50 mmHg (41-51); VBG PH 7.36 pH Units (7.32-7.42); VBG PO2 115 mmHg (25-50)
[2018-08-08 16:55] LABS: Albumin 3.3 g/dL (3.5-5.7); Albumin/Globulin Ratio 1.1 (1.1-2.2); Bilirubin,Total 0.4 mg/dL (0.3-1.0); Calcium 9.5 mg/dL (8.6-10.3); Globulin 2.9 g/dL (2.4-3.5); Potassium 4.2 mEq/L (3.5-5.1); Total Protein 6.2 g/dL (6.4-8.9)
[2018-08-08] MEDS ORDERED: Piperacillin/Tazobactam 3.375 GM in 0.9 % Sodium Chloride Mini Bag 100 ML IVPB ONE (17:00)
[2018-08-08] MEDS ORDERED: Vancomycin 1,750 MG in 0.9 % Sodium Chloride 250 ML IVPB SCH ×2 (17:00→19:00)
--- NOTE | 2018-08-08 17:50 | Internal Med History&Physical ---
Date of Encounter: 08/08/18 Time of Encounter: 18:22 Internal Medicine - H&P: HPI History of present illness: Ms. Ramsey is a 73 year old female with history of morbid obesity, CKD, HFpEF, COPD, dementia, DM, HTN presented to ED with daughters for malaise and fatigue for 3 days along with buttock pain. Daughter states that patient is usually mobile but recently has not been. She is having poor appetite and chills. No fevers, cough, sputum, dysuria, chest pain, shortness of breath. She was recently admitted to hospital for COPD exacerbation and another admission for a fall and deconditioning. In the ED a CT pelvis was done that showed fluid collection in medial left gluteal fold concerning for abscess, cellulitis on medial right gluteal fold. HR was 101 but no other SIRS criteria met. Urinalysis was negative. Blood cultures obtained and she was given 1 L IV fluids, Fentanyl, Vanc/Zosyn. Past Med Surg Social Fam HX - Past Medical History Medical history: arthritis, CHF, COPD, dementia, diabetes, GERD, hyperlipidemia, hypertension, osteoporosis, renal disease, other Additional medical history: narcolepsy, IBS Psychiatric history: anxiety - Past Surgical History Surgical History: other Additional surgical history: right total shoulder replacement 2009 - Social History Smoking Status: Current every day smoker Smokeless Tobacco Status: No Alcohol use: none Drug use: none - Family History Mother Adopted: No Family Member Ethnicity: Non- Living Status: Hx Family Cardiac Disorders: Yes (heart attack, HTN) Hx Family Respiratory Disorders: Yes Hx Family Cancer: No Hx Family GI Disorders: No Hx Family Endocrine Disorder: Yes (diabetes) Hx Family Neuromuscular Disorders: No Hx Family Neurologic Disorders: No Hx Family HEENT Disorders: No Hx Family Autoimmune Disorders: No Internal Medicine - H&P: Meds Citalopram Hydrobromide [Citalopram HBr] 20 mg PO DAILY 06/05/18 [History] Donepezil [Aricept] 5 mg PO HS 06/05/18 [History] Dulaglutide [Trulicity] 0.75 mg SQ TH 06/05/18 [History] Ergocalciferol (VITAMIN D2) [Vitamin D2] 50,000 unit PO QWEEK 06/05/18 [History] Lisinopril [Zestril] 5 mg PO DAILY 06/05/18 [History] Metoprolol Tartrate 50 mg PO BID 06/05/18 [History] Potassium Chloride [K-Tab ER] 20 meq PO DAILY 06/05/18 [History] Sitagliptin Phosphate [Januvia] 50 mg PO DAILY 06/05/18 [History] Tiotropium [Spiriva] 1 puff IH DAILY PRN 06/05/18 [History] Insulin Glargine,Hum.rec.anlog [Lantus Solostar] 45 units SQ BID 06/17/18 [History] OxyCODONE/APAP 10/325 [Percocet 10/325 MG] 1 tab PO Q6H PRN 06/17/18 [History] Acetaminophen [Non-Aspirin] 650 mg PO Q4HR PRN 06/24/18 [History] Albuterol Sulfate [Proair Hfa] 2 puff PO Q4H PRN 07/11/18 [History] Furosemide [Lasix] 20 mg PO Q48H 07/11/18 [History] Memantine HCl 5 mg PO DAILY 07/11/18 [History] Allergy/AdvReac Type Severity Reaction Status Date / Time No Known Allergies Allergy Verified 07/11/18 15:14 All Systems PM: A 10-system review of systems was performed and is negative for pertinent findings except as documented above in the HPI. - Constitutional Constitutional: chills, malaise, weakness, no excessive sweating, no fatigue - EENT Eyes: no change in vision Nose, mouth and throat: no dysphagia, no nasal discharge, no neck pain, no sore throat - Cardiovascular Cardiovascular ROS IM: no chest pain, no diaphoresis, no dyspnea, no lightheadedness, no palpitations, no syncope - Respiratory Respiratory: no cough, no dyspnea, no wheezing, no excessive phlegm production - Gastrointestinal Gastrointestinal: no abdominal pain, no diarrhea, no hematemesis, no hematochezia, no melena, no nausea, no vomiting - Genitourinary Genitourinary: no change in urinary stream, no dysuria, no flank pain, no hematuria - Musculoskeletal Musculoskeletal ROS IM: no numbness, no tingling - Integumentary Integumentary IM: no rash, no unusual bruising - Neurological Neurological ROS: no confusion, no convulsions, no focal weakness, no numbness, no tingling, no tremor(s) - Constitutional Vitals: Temp Pulse Resp BP Pulse Ox 98.7 F 84 16 128/92 97 08/08/18 14:59 08/08/18 17:28 08/08/18 17:28 08/08/18 17:28 08/08/18 17:28 General appearance: Present: A&O X 2, morbidly obese, no acute distress Exam: . - Head Head exam: Present: atraumatic, normocephalic - Eye Eye exam: Present: PERRL, conjuntiva pink, sclera anicteric Pupils: Present: PERRL - Neck Neck exam general surgery: Present: supple, trachea midline. Absent: lym phadenopathy - Respiratory Respiratory exam: Present: CTAB. Absent: accessory muscle use, rales, rhonchi, wheezes - Cardiovascular Cardiovascular exam: Present: RRR, +S1, +S2. Absent: diastolic murmur, gallop, rubs, systolic murmur - GI/Abdominal GI/Abdominal exam: Present: normal bowel sounds, soft, no peritoneal signs. Absent: distended, tenderness - Extremities Exam Extremities exam: Present: warm, radial pulses palpable and symmetrical. Absent: calf tenderness, cyanotic, pedal edema - Neurological Exam Neurological exam: Present: CN II-XII intact, oriented X3, no focal deficits. Absent: pronater drift, facial droop, speech deficit - Skin Skin exam: Present: dry, intact Additional comments: 2x3 cm ulceration on right buttock/sacral region with purulent drainage noted with surrounding erythema. Internal Med - H&P Results - Labs CBC & Chem 7: 08/08/18 16:16 08/08/18 16:16 Labs: Short CBC 08/08/18 Range/Units 16:16 WBC 8.4 (4.3-11.1) K/mcL Hgb 11.8 (11.5-15.4) g/dL Hct 36.6 (35.3-44.9) % Plt Count 202 (140-400) K/mcL Neutrophils # 5.6 (1.6-8.9) K/mcL BMP 08/08/18 16:16 Sodium 134 L Potassium 4.2 Chloride 99 Carbon Dioxide 30 H BUN 25 H Creatinine 1.41 H Glucose 148 H Calcium 9.5 Liver Function 08/08/18 Range/Units 16:16 Total Bilirubin 0.4 (0.3-1.0) mg/dL AST 10 L (13-39) Units/L ALT 7 (7-52) Units/L Alkaline Phosphatase 59 (34-104) Units/L Albumin 3.3 L (3.5-5.7) g/dL Urine 08/08/18 Range/Units 16:06 Urine Color Yellow (Yellow) Urine Clarity Clear (Clear) Urine pH 5.0 (5.0-8.0) pH Units Ur Specific [place] 1.019 (1.010-1.025) Urine Protein Negative (Neg-Trace) mg/dL Urine Glucose (UA) Normal (Normal) mg/dL - ABG Interpretation ABG results: 08/08/18 16:31 VBG pH 7.36 VBG pCO2 50 VBG pO2 115 H VBG HCO3 28 H - Impressions ITS Impressions Pelvis CT 08/08/18 16:30 IMPRESSION: 1. There is a fluid collection along the medial left gluteal fold, concerning for an abscess measuring 4.4 x 1.5 cm (series 5, image 148). 2. Cellulitis along the medial right gluteal fold (series 5, image 97). No abscess in this region. 3. No evidence of osteomyelitis. 4. Right ovarian cyst, unchanged dating back to 10/16/2015, favoring a benign etiology. Annual follow-up is recommended. 5. Atherosclerotic disease. 6. Colonic diverticulosis. D/ / 08/08/2018 17:36:36 Pritesh Salazar MD / [facility] [place] Interpreting Provider: Pritesh Salazar MD - Assessment and Plan (1) Abscess of sacrum Current Visit: Yes Status: Acute Assessment and plan: 1 SIRS criteria met for tachycardia. - Surgery consulted, recommendations appreciated - Continue Vanc/Zosyn - Follow-up wound cultures - Follow-up blood cultures - MRSA swab - NPO at midnight. (2) Acute on chronic kidney failure Current Visit: No Status: Resolved Assessment and plan: GFR stage III known history. Creatinine 1.4, baseline is around 1.2. Not far from baseline. She does have poor PO intake recently. Will recheck tomorrow. Qualifiers: Acute renal failure type: unspecified Chronic kidney disease stage: stage 3 (moderate) Qualified Code(s): N17.9 - Acute kidney failure, unspecified; N18.3 - Chronic kidney disease, stage 3 (moderate) (3) Pressure ulcer Current Visit: No Status: Acute Assessment and plan: See above. Qualifiers: Pressure injury location: buttock Pressure injury stage: stage 2 Laterality: unspecified laterality Qualified Code(s): L89.302 - Pressure ulcer of unspecified buttock, stage 2 (4) Weakness Current Visit: No Status: Acute Assessment and plan: PT/OT when patient more stable. (5) CKD (chronic kidney disease) stage 3, GFR 30-59 ml/min Current Visit: No Status: Chronic (6) COPD (chronic obstructive pulmonary disease) Current Visit: No Status: Chronic Assessment and plan: No acute exacerbation. Qualifiers: COPD type: unspecified COPD Qualified Code(s): J44.9 - Chronic obstructive pulmonary disease, unspecified (7) DM (diabetes mellitus), type 2 Current Visit: No Status: Chronic Assessment and plan: ISS. 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 Qualifiers: Dementia type: Alzheimer's disease Alzheimer's disease onset: early-onset Dementia behavioral disturbance: without behavioral disturbance Qualified Code(s): G30.0 - Alzheimer's disease with early onset; F02.80 - Dementia in other diseases classified elsewhere without behavioral disturbance (9) Hypertension Current Visit: No Status: Chronic Qualifiers: Hypertension type: essential hypertension Qualified Code(s): I10 - Essential (primary) hypertension (10) Morbid obesity with BMI of 50.0-59.9, adult Current Visit: No Status: Chronic (11) Venous insufficiency of both lower extremities Current Visit: No Status: Chronic (12) DVT prophylaxis Current Visit: No Status: Acute Assessment and plan: Heparin sq - Time Spent With Patient Total time spent is greater than 50% in coordination of care (as documented) at patient's floor/unit and/or counseling patient:
--- NOTE | 2018-08-08 18:03 | Emergency Department Note ---
Disposition Clinical Impression: Abscess of sacrum, THOMPSON (acute kidney injury) Disposition: Admitted As Inpatient Condition: Fair Referrals: William Abdul MD [Primary Care Provider] - Forms: ED Satisfaction Letter, Work/School Release Time of Disposition: 18:03 General Adult HPI - General Chief complaint: ED General Medical Stated complaint: Sore on butt Time Seen by Provider: 08/08/18 14:57 Source: patient, EMS Limitations: no limitations - History of Present Illness Pain Scale: 8 - Related Data Home Medications Medication Instructions Recorded Confirmed Citalopram Hydrobromide 20 mg PO DAILY 06/05/18 07/11/18 [Citalopram HBr] Donepezil [Aricept] 5 mg PO HS 06/05/18 07/11/18 Dulaglutide [Trulicity] 0.75 mg SQ TH 06/05/18 07/11/18 Ergocalciferol (VITAMIN D2) 50,000 unit PO QWEEK 06/05/18 07/11/18 [Vitamin D2] Lisinopril [Zestril] 5 mg PO DAILY 06/05/18 07/11/18 Metoprolol Tartrate 50 mg PO BID 06/05/18 07/11/18 Potassium Chloride [K-Tab ER] 20 meq PO DAILY 06/05/18 07/11/18 Sitagliptin Phosphate [Januvia] 50 mg PO DAILY 06/05/18 07/11/18 Tiotropium [Spiriva] 1 puff IH DAILY PRN 06/05/18 07/11/18 Insulin Glargine,Hum.rec.anlog 45 units SQ BID 06/17/18 07/11/18 [Lantus Solostar] OxyCODONE/APAP 10/325 [Percocet 1 tab PO Q6H PRN 06/17/18 08/08/18 10/325 MG] Acetaminophen [Non-Aspirin] 650 mg PO Q4HR PRN 06/24/18 07/11/18 Albuterol Sulfate [Proair Hfa] 2 puff PO Q4H PRN 07/11/18 08/08/18 Furosemide [Lasix] 20 mg PO Q48H 07/11/18 07/11/18 Memantine HCl 5 mg PO DAILY 07/11/18 07/11/18 Allergies Allergy/AdvReac Type Severity Reaction Status Date / Time No Known Allergies Allergy Verified 07/11/18 15:14 Constitutional: Denies: fever, chills, weakness Eyes: Denies: eye pain, vision change ENT ED: Denies: ear pain, congestion, dysphagia Cardiovascular: Denies: chest pain, palpitations Respiratory: Denies: cough, dyspnea, wheezes Gastrointestinal: Reports: nausea. Denies: abdominal pain, vomiting Genitourinary: Reports: urgency, dysuria, frequency. Denies: hematuria Musculoskeletal: Denies: back pain Integumentary: Reports: other (Wound on sacrum) Neurological: Denies: headache, weakness, paresthesias Endocrine: Reports: fatigue Past Medical History - Past Medical History Medical history: Reports: arthritis, CHF, COPD, dementia, diabetes, GERD, hyperlipidemia, hypertension, osteoporosis, renal disease, other Surgical history: Reports: other Psychiatric history: Reports: anxiety COMMUNITY OUTREACH ADVOCATE history: Reports: no COMMUNITY OUTREACH ADVOCATE history - Social History Smoking Status: Current every day smoker Smokeless Tobacco Status: No Alcohol use: Reports: none Drug use: Reports: none Physical Exam - General Limitations: no limitations General appearance: alert, in no apparent distress Course Vital Signs Temperature 98.7 F 08/08/18 14:59 Pulse Rate 101 08/08/18 14:59 Respiratory Rate 20 08/08/18 14:59 Blood Pressure 164/62 08/08/18 14:59 O2 Sat by Pulse Oximetry 100 08/08/18 14:59 Temperature 98.7 F 08/08/18 14:59 Pulse Rate 84 08/08/18 17:28 Respiratory Rate 16 08/08/18 17:28 Blood Pressure 128/92 08/08/18 17:28 O2 Sat by Pulse Oximetry 97 08/08/18 17:28 Oxygen Delivery Oxygen Delivery Nasal Cannula Medical Decision Making - Lab Data Result diagrams: 08/08/18 16:16 08/08/18 16:16 Lab Results 08/08/18 08/08/18 08/08/18 Range/Units 16:06 16:16 16:16 WBC 8.4 (4.3-11.1) K/mcL RBC 3.97 (3.82-4.97) M/mcL Hgb 11.8 (11.5-15.4) g/dL Hct 36.6 (35.3-44.9) % MCV 92.2 (83.0-100.0) fL MCH 29.7 (28.0-33.3) pg MCHC 32.2 (31.6-35.5) g/dL RDW 14.6 H (11.5-14.5) % Plt Count 202 (140-400) K/mcL MPV 10.4 (9.4-12.4) fL Immature Gran % 0.5 (0-4) % Seg Neutrophils % 67.1 % Lymphocytes % 21.4 % Monocytes % 9.7 % Eosinophils % 1.1 % Basophils % 0.2 % Neutrophils # 5.6 (1.6-8.9) K/mcL Lymphocytes # 1.8 (0.6-4.6) K/mcL Monocytes # 0.8 (0.0-1.3) K/mcL Eosinophils # 0.1 (0.0-0.6) K/mcL Basophils # 0.0 (0.0-0.2) K/mcL VBG pH (7.32-7.42) pH Units VBG pCO2 (41-51) mmHg VBG pO2 (25-50) mmHg VBG HCO3 (21-27) mEq/L Sodium 134 L (136-145) mEq/L Potassium 4.2 (3.5-5.1) mEq/L Chloride 99 (98-107) mEq/L Carbon Dioxide 30 H (23-29) mEq/L BUN 25 H (8-23) mg/dL Creatinine 1.41 H (0.60-1.20) mg/dL Est GFR ( Amer) 44 L (> 60) Est GFR (Non-Af Amer) 36 L (> 60) BUN/Creatinine Ratio 18 (6-26) Glucose 148 H (70-105) mg/dL Calculated Osmolality 285 (280-300) Lactic Acid (0.5-2.2) mmol/L Calcium 9.5 (8.6-10.3) mg/dL Total Bilirubin 0.4 (0.3-1.0) mg/dL AST 10 L (13-39) Units/L ALT 7 (7-52) Units/L Alkaline Phosphatase 59 (34-104) Units/L Serum Total Protein 6.2 L (6.4-8.9) g/dL Albumin 3.3 L (3.5-5.7) g/dL Globulin 2.9 (2.4-3.5) g/dL Albumin/Globulin Ratio 1.1 (1.1-2.2) Urine Color Yellow (Yellow) Urine Clarity Clear (Clear) Urine pH 5.0 (5.0-8.0) pH Units Ur Specific [place] 1.019 (1.010-1.025) Urine Protein Negative (Neg-Trace) mg/dL Urine Glucose (UA) Normal (Normal) mg/dL Urine Ketones Negative (Negative) mg/dL Urine Blood Negative (Negative) Urine Nitrite Negative (Negative) Urine Bilirubin Negative (Negative) Urine Urobilinogen Normal (Normal) mg/dL Ur Leukocyte Esterase Negative (Negative) Ur Culture Indicated? NO (NO) 08/08/18 08/08/18 Range/Units 16:16 16:31 WBC (4.3-11.1) K/mcL RBC (3.82-4.97) M/mcL Hgb (11.5-15.4) g/dL Hct (35.3-44.9) % MCV (83.0-100.0) fL MCH (28.0-33.3) pg MCHC (31.6-35.5) g/dL RDW (11.5-14.5) % Plt Count (140-400) K/mcL MPV (9.4-12.4) fL Immature Gran % (0-4) % Seg Neutrophils % % Lymphocytes % % Monocytes % % Eosinophils % % Basophils % % Neutrophils # (1.6-8.9) K/mcL Lymphocytes # (0.6-4.6) K/mcL Monocytes # (0.0-1.3) K/mcL Eosinophils # (0.0-0.6) K/mcL Basophils # (0.0-0.2) K/mcL VBG pH 7.36 (7.32-7.42) pH Units VBG pCO2 50 (41-51) mmHg VBG pO2 115 H (25-50) mmHg VBG HCO3 28 H (21-27) mEq/L Sodium (136-145) mEq/L Potassium (3.5-5.1) mEq/L Chloride (98-107) mEq/L Carbon Dioxide (23-29) mEq/L BUN (8-23) mg/dL Creatinine (0.60-1.20) mg/dL Est GFR ( Amer) (> 60) Est GFR (Non-Af Amer) (> 60) BUN/Creatinine Ratio (6-26) Glucose (70-105) mg/dL Calculated Osmolality (280-300) Lactic Acid 0.9 (0.5-2.2) mmol/L Calcium (8.6-10.3) mg/dL Total Bilirubin (0.3-1.0) mg/dL AST (13-39) Units/L ALT (7-52) Units/L Alkaline Phosphatase (34-104) Units/L Serum Total Protein (6.4-8.9) g/dL Albumin (3.5-5.7) g/dL Globulin (2.4-3.5) g/dL Albumin/Globulin Ratio (1.1-2.2) Urine Color (Yellow) Urine Clarity (Clear) Urine pH (5.0-8.0) pH Units Ur Specific [place] (1.010-1.025) Urine Protein (Neg-Trace) mg/dL Urine Glucose (UA) (Normal) mg/dL Urine Ketones (Negative) mg/dL Urine Blood (Negative) Urine Nitrite (Negative) Urine Bilirubin (Negative) Urine Urobilinogen (Normal) mg/dL Ur Leukocyte Esterase (Negative) Ur Culture Indicated? (NO) Attestation Statement - Attestation Attestation: I reviewed the residents documentation and agree with the residents assessment and plan of care. I have personally had face to face time with the patient. (Brief History, Brief Exam, and MDM) I personally supervised and was present for the griffin/critical portions of the following procedures completed by the resident: (add procedures performed here). 73 year old female presentsot the ED with family for new sacral decubitus ulcer formation that has been confitmed to be an abcsess. Surgery with Dr. Corrigan has been consulted and will see with admission to [facility] [place]. VAnc/zosyn ordered for therapy with IVf. NPO after midnight
[2018-08-08] MEDS ORDERED: Ondansetron 4 MG/2 ML VIAL IVP PRN (18:43)
[2018-08-08] MEDS ORDERED: Naloxone 0.4 MG/ML INJ IVP PRN (18:43)
[2018-08-08] MEDS ORDERED: 0.9 % Sodium Chloride 1,000 ML IVC SCH (18:45)
[2018-08-08] MEDS ORDERED: Ipratropium/Albuterol Neb 3 ML IH PRN (18:46)
[2018-08-08] MEDS ORDERED: *HR* Metoprolol 5 MG/5 ML VIAL IVP PRN (18:46)
[2018-08-08] MEDS ORDERED: *HR* Dextrose 50 % in Water (Syg) 50 ML SYRINGE IVP PRN (18:56)
[2018-08-08] MEDS ORDERED: Dextrose Gel 15 GM/37.5 ML TUBE PO PRN ×2 (18:56)
[2018-08-08] MEDS ORDERED: D5% in Water 1,000 ML IVC PRN (18:56)
[2018-08-08] MEDS ORDERED: Insulin LISPRO 300 UNITS/3 ML VIAL SQ SCH (21:00)
--- NOTE | 2018-08-08 21:43 | AcuteCare Surgery Consult Note ---
Date of Encounter: 08/08/18 Time of Encounter: 19:45 Assessment and Plan (1) Abscess of right buttock Current Visit: Yes Status: Acute Discussed diagnosis of right buttock abscess with pt. Discussed recommendation of incision, drainage and debridement in OR. Procedure, risks and benefit of incision and evacuation of abscess I&D&D are discussed. Possible complications include but are not limited to bleeding and infection. Pt understands and wishes to proceed obed. Surgery is scheduled. Continue home meds IV abx (2) CKD (chronic kidney disease) stage 3, GFR 30-59 ml/min Current Visit: No Status: Chronic Hydrate carefully (3) COPD (chronic obstructive pulmonary disease) Current Visit: No Status: Chronic Stable, home meds Qualifiers: COPD type: unspecified COPD Qualified Code(s): J44.9 - Chronic obstructive pulmonary disease, unspecified (4) DM (diabetes mellitus), type 2 Current Visit: No Status: Chronic Primary service to manage Qualifiers: Diabetes mellitus assistant terminal manager insulin use: with assistant terminal manager use Diabetes mellitus complication status: with neurologic complications Diabetes mellitus complication detail: with polyneuropathy Qualified Code(s): E11.42 - Type 2 diabetes mellitus with diabetic polyneuropathy; Z79.4 - terminal gauger (current) use of insulin (5) Hypertension Current Visit: No Status: Chronic Home meds, primary service to manage Qualifiers: Hypertension type: essential hypertension Qualified Code(s): I10 - Essential (primary) hypertension History of Present Illness Consult date: 08/08/18 Reason for consult: other (buttock pain) Requesting physician: Joanne Aragon History of present illness: This 73 y/o female presents complaining of pain in her "seat." She describes bu ttock/sacral pain. She denies problems or pain with BM. She reports this pain has progressively worsened over the last several days. She cannot see it and doesn't know what is there or if it is draining. Daughter reports her mother is sleeping and her condition is much changed from her normal activities. She is sleeping all the time. Pt denies fevers. Past Med Surg Social Fam HX - Past Medical History Medical history: arthritis, CHF, COPD, dementia, diabetes, GERD, hyperlipidemia, hypertension, osteoporosis, renal disease, other Additional medical history: narcolepsy, IBS Psychiatric history: anxiety - Past Surgical History Surgical History: other Additional surgical history: right total shoulder replacement 2009 - Social History Smoking Status: Current every day smoker Smokeless Tobacco Status: No Alcohol use: none Drug use: none - Family History Mother Adopted: No Family Member Ethnicity: Non- Living Status: Hx Family Cardiac Disorders: Yes (heart attack, HTN) Hx Family Respiratory Disorders: Yes Hx Family Cancer: No Hx Family GI Disorders: No Hx Family Endocrine Disorder: Yes (diabetes) Hx Family Neuromuscular Disorders: No Hx Family Neurologic Disorders: No Hx Family HEENT Disorders: No Hx Family Autoimmune Disorders: No Medications and Allergies Citalopram Hydrobromide [Citalopram HBr] 20 mg PO DAILY 06/05/18 [History] Donepezil [Aricept] 5 mg PO DAILY 06/05/18 [History] Ergocalciferol (VITAMIN D2) [Vitamin D2] 50,000 unit PO WE 06/05/18 [History] Lisinopril [Zestril] 5 mg PO DAILY 06/05/18 [History] Metoprolol Tartrate 50 mg PO DAILY 06/05/18 [History] Potassium Chloride [K-Tab ER] 10 meq PO DAILY 06/05/18 [History] Sitagliptin Phosphate [Januvia] 50 mg PO DAILY 06/05/18 [History] OxyCODONE/APAP 10/325 [Percocet 10/325 MG] 1 tab PO Q6H PRN 06/17/18 [History] Furosemide [Lasix] 20 mg PO Q48H 07/11/18 [History] Memantine HCl 5 mg PO DAILY 07/11/18 [History] Allergy/AdvReac Type Severity Reaction Status Date / Time No Known Allergies Allergy Verified 08/08/18 19:05 Review of Systems All systems PM: The remainder of the systems were reviewed and are negative - Constitutional daytime sleepiness, fatigue, lethargy, malaise, no anorexia, no chills, no excessive sweating, no fever(s), no night sweats - EENT Nose, mouth and throat: dry mouth, no dizziness, no dysphagia, no nasal congestion, no nasal discharge, no sinus pain, no sinus pressure, no sore throat - Cardiovascular no chest pain, no diaphoresis, no dyspnea, no edema - Respiratory no cough, no dyspnea, no wheezing - Gastrointestinal no abdominal pain, no constipation, no diarrhea, no nausea, no vomiting - Genitourinary Genitourinary: no dysuria, no flank pain, no urinary frequency - Musculoskeletal no back pain, no joint swelling, no limited range of motion, no neck pain - Integumentary wounds, no dry skin, no pruritus, no rash, no jaundice - Neurological weakness, no confusion, no dizziness, no focal weakness - Psychiatric no anxiety, no depression - Endocrine fatigue - Hematologic/Lymphatic no easy bleeding, no easy bruising General Surgery Exam Initial Vital Signs Temp Pulse Resp BP Pulse Ox 98.7 F 101 20 164/62 100 08/08/18 14:59 08/08/18 14:59 08/08/18 14:59 08/08/18 14:59 08/08/18 14:59 - General physical appearance well developed, well nourished, no distress. negative: jaundice - Eyes PERRL, normal ocular movement. negative: icteric - ENT no congestion, dry mucosa. negative: nasal discharge - Neck no masses, trachea midline, no lymphadectomy, no venous distension - Respiratory normal respiratory effort, clear to auscultation - Cardiovascular Cardiovascular exam: Present: RRR. Absent: murmurs, JVD - Abdomen Abdomen general surgery: Present: bowel sounds present, soft, non tender - Rectum Rectum: Present: other (open wound right buttock with purulent drainage) - Integumentary Integumentary general surgery: Present: warm and dry, other (open wound right buttock with purulent drainage) - Neurologic Present: CN 2-12 grossly intact - Musculoskeletal Present: normal posture - Psychiatric Psychiatric general surgery: Present: A&Ox3, appropriate, other (somnolent but, very easily aroused) Exam Initial Vital Signs Temp Pulse Resp BP Pulse Ox 98.7 F 101 20 164/62 100 08/08/18 14:59 08/08/18 14:59 08/08/18 14:59 08/08/18 14:59 08/08/18 14:59 Results - Labs 08/08/18 16:16 08/08/18 16:16 Abnormal lab results RDW 14.6 % (11.5-14.5) H 08/08/18 16:16 VBG pO2 115 mmHg (25-50) H 08/08/18 16:31 VBG HCO3 28 mEq/L (21-27) H 08/08/18 16:31 Sodium 134 mEq/L (136-145) L 08/08/18 16:16 Carbon Dioxide 30 mEq/L (23-29) H 08/08/18 16:16 BUN 25 mg/dL (8-23) H 08/08/18 16:16 1.41 mg/dL (0.60-1.20) H 08/08/18 16:16 Est GFR ( Amer) 44 (> 60) L 08/08/18 16:16 Est GFR (Non-Af Amer) 36 (> 60) L 08/08/18 16:16 Glucose 148 mg/dL (70-105) H 08/08/18 16:16 POC Glucose 108 mg/dL (70-99) H 08/08/18 20:48 AST 10 Units/L (13-39) L 08/08/18 16:16 6.2 g/dL (6.4-8.9) L 08/08/18 16:16 3.3 g/dL (3.5-5.7) L 08/08/18 16:16 Diabetes panel 08/08/18 Range/Units 16:16 Sodium 134 L (136-145) mEq/L Potassium 4.2 (3.5-5.1) mEq/L Chloride 99 (98-107) mEq/L Carbon Dioxide 30 H (23-29) mEq/L BUN 25 H (8-23) mg/dL Creatinine 1.41 H (0.60-1.20) mg/dL Glucose 148 H (70-105) mg/dL Calcium 9.5 (8.6-10.3) mg/dL AST 10 L (13-39) Units/L ALT 7 (7-52) Units/L Alkaline Phosphatase 59 (34-104) Units/L Albumin 3.3 L (3.5-5.7) g/dL Calcium panel 08/08/18 Range/Units 16:16 Calcium 9.5 (8.6-10.3) mg/dL Albumin 3.3 L (3.5-5.7) g/dL Pituitary panel 08/08/18 Range/Units 16:16 Sodium 134 L (136-145) mEq/L Potassium 4.2 (3.5-5.1) mEq/L Chloride 99 (98-107) mEq/L Carbon Dioxide 30 H (23-29) mEq/L BUN 25 H (8-23) mg/dL Creatinine 1.41 H (0.60-1.20) mg/dL Glucose 148 H (70-105) mg/dL Calcium 9.5 (8.6-10.3) mg/dL Adrenal panel 08/08/18 Range/Units 16:16 Sodium 134 L (136-145) mEq/L Potassium 4.2 (3.5-5.1) mEq/L Chloride 99 (98-107) mEq/L Carbon Dioxide 30 H (23-29) mEq/L BUN 25 H (8-23) mg/dL Creatinine 1.41 H (0.60-1.20) mg/dL Glucose 148 H (70-105) mg/dL Calcium 9.5 (8.6-10.3) mg/dL Total Bilirubin 0.4 (0.3-1.0) mg/dL AST 10 L (13-39) Units/L ALT 7 (7-52) Units/L Alkaline Phosphatase 59 (34-104) Units/L Albumin 3.3 L (3.5-5.7) g/dL All other labs normal. - Imaging CT scan - pelvis: image reviewed (right buttock abscess, left buttock cellulitis) Consult Discharge Plan - Plan Referrals: William Abdul MD [Primary Care Provider] -
[2018-08-09] MEDS: Piperacillin/Tazobactam 3.375 GM in 0.9 % Sodium Chloride Mini Bag 100 ML IVPB SCH ×4 (00:07→23:35)
[2018-08-09] MEDS: *HR* Heparin 5,000 UNIT/ML VIAL SQ SCH ×2 (05:45→16:58)
[2018-08-09 06:53] LABS: Basophils % 0.2 %; Eosinophils # 0.1 K/mcL (0.0-0.6); Eosinophils % 1.8 %; Hematocrit 37.6 % (35.3-44.9); Hemoglobin 11.8 g/dL (11.5-15.4); Immature Granulocytes % 0.3 % (0-4); Lymphocytes % 15.5 %; Mean Corpuscular HGB Conc 31.4 g/dL (31.6-35.5); Mean Corpuscular Hemoglobin 29.2 pg (28.0-33.3); Mean Corpuscular Volume 93.1 fL (83.0-100.0); Mean Platelet Volume 10.8 fL (9.4-12.4); Monocytes # 0.4 K/mcL (0.0-1.3); Monocytes % 6.3 %; Platelet Count 198 K/mcL (140-400); Red Blood Count 4.04 M/mcL (3.82-4.97); Red Cell Distribution Width 14.6 % (11.5-14.5); Segmented Neutrophils % 75.9 %; White Blood Count 6.6 K/mcL (4.3-11.1)
[2018-08-09 07:11] LABS: Calcium 8.9 mg/dL (8.6-10.3); Potassium 4.1 mEq/L (3.5-5.1)
[2018-08-09] MEDS: Insulin LISPRO 300 UNITS/3 ML VIAL SQ SCH ×4 (07:56→23:14)
--- NOTE | 2018-08-09 10:02 | Acute Care Surgery Event Note ---
<UrsulajarrettflaquitoMyra Tanika - Last Filed: 08/09/18 10:01> Date of Encounter: 08/09/18 Time of Encounter: 10:01 Patient to proceed to OR today for incision and drainage of abscess of right buttock <Wilver Rabago - Last Filed: 08/09/18 12:25> Date of Encounter: 08/09/18 The patient will be debrided in the operating room today. I spoke with the patient's morning. She is disoriented as to the month or year. The patient has a combination of stage I stage II and stage III decubitus. She will be taken to the operating room later today. Wilver Rabago MD FACS
[2018-08-09] MEDS ORDERED: *HR* OxyCODONE/APAP 10/325 TABLET PO PRN (10:19)
--- NOTE | 2018-08-09 10:22 | Internal Med Progress Note ---
Hospitalist Progress Note - Encounter Date of Encounter: 08/09/18 Time of Encounter: 10:32 - Subjective Interval History: No acute events. Patient complains of some pain in sacral region. Denies fevers/chills. Patient at baseline confusion when compared to my evaluation and discussed with daughters yesterday. - Exam Vitals: Temp Pulse Resp BP Pulse Ox 98.6 F 82 19 147/65 97 08/09/18 06:42 08/09/18 06:42 08/09/18 06:42 08/09/18 06:42 08/09/18 06:42 Exam: Gen: NAD aaox2, Head: NC, AT ENT: MMM, no lymphadenopathy CVS: RRR Lungs: CTAB, decreased breath sounds limited exam due to body habitus Abd: soft, NT/ND, normal bowel sounds Ext: no edema. Skin: 2x3 cm ulceration on right buttock/sacral region with purulent drainage with erythema and tenderness - Assessment and Plan (1) Abscess of sacrum Current Visit: Yes Status: Acute Assessment and Plan: 1 SIRS criteria met for tachycardia. Otherwise no signs/symptoms of sepsis - Continue Vanc/Zosyn - Follow-up wound cultures - no growth so far - Follow-up blood cultures - no growth so far - MRSA swab pending - NPO at midnight. Pending I&D by Gen Surg (2) Acute on chronic kidney failure Current Visit: No Status: Resolved Assessment and Plan: GFR stage III known history. Creatinine 1.4 on admission, baseline is around 1.2. Not far from baseline. She does have poor PO intake recently. Much better with IV fluids, today is 1.1. Monitor renal function daily while on Vancomycin. (3) Pressure ulcer Current Visit: No Status: Acute Assessment and Plan: See above. (4) Weakness Current Visit: No Status: Acute Assessment and Plan: PT/OT when patient more stable. (5) CKD (chronic kidney disease) stage 3, GFR 30-59 ml/min Current Visit: No Status: Chronic (6) COPD (chronic obstructive pulmonary disease) Current Visit: No Status: Chronic Assessment and Plan: No acute exacerbation. (7) DM (diabetes mellitus), type 2 Current Visit: No Status: Chronic Assessment and Plan: ISS. (8) Dementia Current Visit: No Status: Chronic Assessment and Plan: Resume home medications once med rec done. (9) Hypertension Current Visit: No Status: Chronic (10) Morbid obesity with BMI of 50.0-59.9, adult Current Visit: No Status: Chronic (11) Venous insufficiency of both lower extremities Current Visit: No Status: Chronic (12) DVT prophylaxis Current Visit: No Status: Acute Assessment and Plan: Heparin sq - Time Spent with Patient Total time spent is greater than 50% in coordination of care (as documented) at patient's floor/unit and/or counseling patient: Internal Medicine: Result - Labs CBC & Chem 7: 08/09/18 06:16 08/09/18 06:16 Labs: Short CBC 08/08/18 08/09/18 Range/Units 16:16 06:16 WBC 8.4 6.6 (4.3-11.1) K/mcL Hgb 11.8 11.8 (11.5-15.4) g/dL Hct 36.6 37.6 (35.3-44.9) % Plt Count 202 198 (140-400) K/mcL Neutrophils # 5.6 5.0 (1.6-8.9) K/mcL BMP 08/08/18 08/09/18 16:16 06:16 Sodium 134 L 141 Potassium 4.2 4.1 Chloride 99 104 Carbon Dioxide 30 H 30 H BUN 25 H 16 Creatinine 1.41 H 1.12 Glucose 148 H 126 H Calcium 9.5 8.9 Liver Function 08/08/18 Range/Units 16:16 Total Bilirubin 0.4 (0.3-1.0) mg/dL AST 10 L (13-39) Units/L ALT 7 (7-52) Units/L Alkaline Phosphatase 59 (34-104) Units/L Albumin 3.3 L (3.5-5.7) g/dL Urine 08/08/18 Range/Units 16:06 Urine Color Yellow (Yellow) Urine Clarity Clear (Clear) Urine pH 5.0 (5.0-8.0) pH Units Ur Specific [place] 1.019 (1.010-1.025) Urine Protein Negative (Neg-Trace) mg/dL Urine Glucose (UA) Normal (Normal) mg/dL - Impressions Impressions Pelvis CT 08/08/18 16:30 IMPRESSION: 1. There is a fluid collection along the medial left gluteal fold, concerning for an abscess measuring 4.4 x 1.5 cm (series 5, image 148). 2. Cellulitis along the medial right gluteal fold (series 5, image 97). No abscess in this region. 3. No evidence of osteomyelitis. 4. Right ovarian cyst, unchanged dating back to 10/16/2015, favoring a benign etiology. Annual follow-up is recommended. 5. Atherosclerotic disease. 6. Colonic diverticulosis. D/ / 08/08/2018 17:36:36 Pritesh Salazar MD / shannon Interpreting Provider: Pritesh Salazar MD Consult Discharge Plan - Plan Referrals: William Abdul MD [Primary Care Provider] - (2) Acute on chronic kidney failure Qualifiers: Acute renal failure type: unspecified Chronic kidney disease stage: stage 3 (moderate) Qualified Code(s): N17.9 - Acute kidney failure, unspecified; N18.3 - Chronic kidney disease, stage 3 (moderate) (3) Pressure ulcer Qualifiers: Pressure injury location: buttock Pressure injury stage: stage 2 Laterality: unspecified laterality Qualified Code(s): L89.302 - Pressure ulcer of unspecified buttock, stage 2 (6) COPD (chronic obstructive pulmonary disease) Qualifiers: COPD type: unspecified COPD Qualified Code(s): J44.9 - Chronic obstructive pulmonary disease, unspecified (7) DM (diabetes mellitus), type 2 Qualifiers: Diabetes mellitus terminal operator insulin use: with terminal operator use Diabetes mellitus complication status: with neurologic complications Diabetes mellitus complication detail: with polyneuropathy Qualified Code(s): E11.42 - Type 2 diabetes mellitus with diabetic polyneuropathy; Z79.4 - termite control technician (current) use of insulin (8) Dementia Qualifiers: Dementia type: Alzheimer's disease Alzheimer's disease onset: early-onset Dementia behavioral disturbance: without behavioral disturbance Qualified Code(s): G30.0 - Alzheimer's disease with early onset; F02.80 - Dementia in other diseases classified elsewhere without behavioral disturbance (9) Hypertension Qualifiers: Hypertension type: essential hypertension Qualified Code(s): I10 - Essential (primary) hypertension
--- NOTE | 2018-08-09 17:20 | Anesthesia Evaluation PreOp ---
Date of Encounter: 08/09/18 Time of Encounter: 17:18 - Past History Planned Operation: RIGHT GLUTEAL WOUND DEBRIDEMENT Cardiac History: NH (REMOTE, NO STENTS), CHF, HTN, Hyperlipidemia, Other (NORMAL EF) Pulmonary History: Smoker, COPD, HOMERO Dx (NOT CPAP COMPLIANT) DE ICER FINISHER History: Other (DEMENTIA) Other Medical History: Renal (CKD3), Diabetes Type II, Other (MORBID OBESITY,) Anesthesia History: No Prior Anesthetic Complications, Past Anesthesia Alcohol Use: none Drug use: none Medications and Allergies Citalopram Hydrobromide [Citalopram HBr] 20 mg PO DAILY 06/05/18 [History] Donepezil [Aricept] 5 mg PO DAILY 06/05/18 [History] Ergocalciferol (VITAMIN D2) [Vitamin D2] 50,000 unit PO WE 06/05/18 [History] Lisinopril [Zestril] 5 mg PO DAILY 06/05/18 [History] Metoprolol Tartrate 50 mg PO DAILY 06/05/18 [History] Potassium Chloride [K-Tab ER] 10 meq PO DAILY 06/05/18 [History] Sitagliptin Phosphate [Januvia] 50 mg PO DAILY 06/05/18 [History] OxyCODONE/APAP 10/325 [Percocet 10/325 MG] 1 tab PO Q6H PRN 06/17/18 [History] Furosemide [Lasix] 20 mg PO Q48H 07/11/18 [History] Memantine HCl 5 mg PO DAILY 07/11/18 [History] Allergy/AdvReac Type Severity Reaction Status Date / Time No Known Allergies Allergy Verified 08/08/18 19:05 - Meds/Allergy Pre-op Review Medications Reviewed: Yes Allergies Reviewed: Yes Beta Blockers on Current Med List: Yes Anesthesia Results - Labs 08/09/18 06:16 08/09/18 06:16 Laboratory Tests 08/08/18 08/09/18 16:16 06:16 Est GFR (Non-Af Amer) 48 L Calcium 8.9 Serum Total Protein 6.2 L Albumin 3.3 L Anesthesia Exam Vital Signs/O2 Sat/Glucose, Most Recent Temp Pulse Resp BP Pulse Ox 97.8 F 67 20 116/53 97 08/09/18 15:43 08/09/18 15:43 08/09/18 15:43 08/09/18 15:43 08/09/18 15:43 Blood Glucose* 134 Weight: 127 KG - BMI 51 NPO (# of Hours): >8 - HEENT Mallampati: II Teeth: Edentulous Denture Type: Upper: Complete (WILL REMOVE AFTER INDUCTION) - Cardiac Rhythm: Regular - Pulmonary Breath Sounds: bilateral Clear Respiratory Effort: Symmetrical Anesthesia Assess/Plan ASA Score: 4 Anesthetic Plan: General Monitoring Plan: Standard Monitors Recovery Plan: PACU
[2018-08-09] MEDS ORDERED: *HR* Promethazine 25 MG/ML VIAL IVP PRN ×2 (17:39→19:43)
[2018-08-09] MEDS ORDERED: *HR* HYDROmorphone (PF) 1 MG/ML SYRINGE IVP PRN ×2 (17:39→19:43)
[2018-08-09] MEDS ORDERED: Ondansetron 4 MG/2 ML VIAL IVP ONE ×2 (17:39→19:43)
[2018-08-09] MEDS ORDERED: *HR* OxyCODONE Immed Rel 5 MG TABLET PO PRN ×2 (17:39→19:43)
[2018-08-09] MEDS ORDERED: Ipratropium/Albuterol Neb 3 ML IH PRN ×3 (17:43→19:43)
[2018-08-09] MEDS ORDERED: *HR* FentaNYL (PF) 100 MCG/2 ML VIAL ONE (17:54)
[2018-08-09] MEDS ORDERED: *HR* Propofol 200 MG/20 ML VIAL IVP ONE (17:54)
[2018-08-09] MEDS ORDERED: Lidocaine -MPF 4% 5 ML AMPUL ONE (17:55)
[2018-08-09] MEDS ORDERED: Lidocaine -MPF 2% 2 ML VIAL ONE (17:55)
[2018-08-09] MEDS ORDERED: *HR* Succinylcholine 200 MG/10 ML VIAL IVP ONE (17:55)
[2018-08-09] MEDS ORDERED: Dexamethasone 4 MG/ML VIAL ONE (17:55)
[2018-08-09] MEDS ORDERED: Ondansetron 4 MG/2 ML VIAL ONE (17:55)
[2018-08-09] MEDS ORDERED: EPHEDrine 50 MG/ML VIAL ONE (18:45)
--- NOTE | 2018-08-09 18:52 | Operative Note ---
Date of procedure: 08/09/18 Pre-op diagnosis: (Decubitus ulcer Post-op diagnosis: other (Stage III decubitus ulcer) Procedure: Full-thickness skin debridement less than 20 cm Anesthesia: RACHEAL Surgeon: Wilver Rabago Was there an assistant case manager present: No Estimated blood loss (cc): 10 Specimen: Full-thickness skin debridement Condition: stable Disposition: PACU Procedure in Detail: After informed consent the patient is taking major operating suite placed in the supine position given adequate general anesthetic. Timeout was taken and the patient was identified. The patient was turned into the prone position. Both shoulders were protected. The lateralizing isaias was identified. Stop sinus identified. The right gluteus was prepped and draped in sterile fashion utilizing Betadine solution and standard draping techniques. There is no open wound measuring 3.5 cm x 1.5 cm with 1.5 cm undermining laterally. Depth was about 1 cm. We are unable to fully examine this on the floor due to exquisite pain. I fully examine the area and there was no further tracking. The backside of the undermined skin was all necrotic and had to be removed. I removed an ellipse of skin. The deep subcutaneous tissue is granulated. Electrocautery was used for hemostasis. The resulting ulcer was 4.5 cm x 3 cm x 1 cm. I irrigated with copious amounts of antibiotic containing solution. There was no further tracking. The stage III decubitus occurred in an area of bilateral ischial stage I decubitus with purplish red discoloration of the skin across the dependent area of the ischium bilaterally the wound was packed with iodoform and sterile dressing. Patient tolerated the procedure well and transferred the recovery area in stable condition
[2018-08-09] MEDS ORDERED: *HR* Dextrose 50 % in Water (Syg) 50 ML SYRINGE IVP PRN (19:43)
[2018-08-09] MEDS ORDERED: Naloxone 0.4 MG/ML INJ IVP PRN (19:43)
[2018-08-09] MEDS ORDERED: D5% in Water 1,000 ML IVC PRN (19:43)
[2018-08-09] MEDS ORDERED: *HR* Metoprolol 5 MG/5 ML VIAL IVP PRN (19:43)
[2018-08-09] MEDS ORDERED: Ondansetron 4 MG/2 ML VIAL IVP PRN (19:43)
[2018-08-09] MEDS ORDERED: Dextrose Gel 15 GM/37.5 ML TUBE PO PRN ×2 (19:43)
[2018-08-09] MEDS: *HR* OxyCODONE/APAP 10/325 TABLET PO PRN (20:32)
--- NOTE | 2018-08-09 21:51 | Anesthesia Evaluation Post Op ---
Date of Encounter: 08/09/18 Time of Encounter: 19:00 - Discharge PostOp Status: Transfer Patient to floor (Patient's vital signs have been reviewed. Patient is stable postoperatively and has adequately recovered from anesthesia. Patient is determined to have stable airway patency and respiratory function including respiratory rate and oxygen saturation. Patient has a stable heart rate, blood pressure and adequate hydration. Patients mental status is acceptable. Patients temperature is appropriate. Pain and nausea are adequately controlled.)
[2018-08-10] MEDS: *HR* OxyCODONE/APAP 10/325 TABLET PO PRN ×2 (04:18→10:41)
[2018-08-10] MEDS: *HR* Heparin 5,000 UNIT/ML VIAL SQ SCH ×2 (05:32→17:28)
[2018-08-10 05:38] LABS: Basophils % 0.2 %; Hematocrit 39.8 % (35.3-44.9); Hemoglobin 12.6 g/dL (11.5-15.4); Immature Granulocytes % 0.6 % (0-4); Lymphocytes # 0.5 K/mcL (0.6-4.6); Lymphocytes % 7.7 %; Mean Corpuscular HGB Conc 31.7 g/dL (31.6-35.5); Mean Corpuscular Hemoglobin 30.4 pg (28.0-33.3); Mean Corpuscular Volume 96.1 fL (83.0-100.0); Mean Platelet Volume 10.7 fL (9.4-12.4); Monocytes # 0.1 K/mcL (0.0-1.3); Monocytes % 0.9 %; Neutrophils # 5.9 K/mcL (1.6-8.9); Platelet Count 200 K/mcL (140-400); Red Blood Count 4.14 M/mcL (3.82-4.97); Red Cell Distribution Width 14.6 % (11.5-14.5); Segmented Neutrophils % 90.6 %; White Blood Count 6.5 K/mcL (4.3-11.1)
[2018-08-10 06:00] LABS: Calcium 8.5 mg/dL (8.6-10.3); Potassium 4.5 mEq/L (3.5-5.1)
[2018-08-10] MEDS: Piperacillin/Tazobactam 3.375 GM in 0.9 % Sodium Chloride Mini Bag 100 ML IVPB SCH ×3 (08:08→23:02)
[2018-08-10] MEDS: Insulin LISPRO 300 UNITS/3 ML VIAL SQ SCH ×4 (08:09→20:46)
--- NOTE | 2018-08-10 09:49 | Internal Med Progress Note ---
Hospitalist Progress Note - Encounter Date of Encounter: 08/10/18 Time of Encounter: 09:50 - Subjective Interval History: No acute events. Pt complains of wound soreness post I&D as expected. Last Percocet dose was 6 hrs ago. No fevers/chills, n/v. - Exam Vitals: Temp Pulse Resp BP Pulse Ox 98.4 F 71 17 117/57 94 08/10/18 07:51 08/10/18 07:51 08/10/18 07:51 08/10/18 07:51 08/10/18 07:51 Exam: Gen: NAD aaox2, Head: NC, AT ENT: MMM, no lymphadenopathy CVS: RRR Lungs: CTAB, decreased breath sounds limited exam due to body habitus Abd: soft, NT/ND, normal bowel sounds Ext: no edema. Skin: warm dry, post drainage ulcer on right sacral region - Assessment and Plan (1) Abscess of sacrum Current Visit: Yes Status: Acute Assessment and Plan: 1 SIRS criteria met for tachycardia. Otherwise no signs/symptoms of sepsis S/P I&D yesterday - Follow-up wound cultures from I&D- no growth so far - MRSA swab negative, DC Vanc - Continue Zosyn - PT/OT for placement eval now that patient is more stable will be able to participate. SW consult. (2) Acute on chronic kidney failure Current Visit: No Status: Resolved Assessment and Plan: GFR stage III known history. Creatinine 1.4 on admission, baseline is around 1.2. Not far from baseline. She does have poor PO intake recently. At baseline. DC vanc as nephroprotective strategy now that MRSA screen negative (3) Pressure ulcer Current Visit: No Status: Acute Assessment and Plan: See above. (4) Weakness Current Visit: No Status: Acute Assessment and Plan: PT/OT now that pt more stable for moving. (5) CKD (chronic kidney disease) stage 3, GFR 30-59 ml/min Current Visit: No Status: Chronic (6) COPD (chronic obstructive pulmonary disease) Current Visit: No Status: Chronic Assessment and Plan: No acute exacerbation. (7) DM (diabetes mellitus), type 2 Current Visit: No Status: Chronic Assessment and Plan: ISS. (8) Dementia Current Visit: No Status: Chronic Assessment and Plan: Continue home meds (9) Hypertension Current Visit: No Status: Chronic (10) Morbid obesity with BMI of 50.0-59.9, adult Current Visit: No Status: Chronic (11) Venous insufficiency of both lower extremities Current Visit: No Status: Chronic (12) DVT prophylaxis Current Visit: No Status: Acute Assessment and Plan: Heparin sq - Time Spent with Patient Total time spent is greater than 50% in coordination of care (as documented) at patient's floor/unit and/or counseling patient: Internal Medicine: Result - Labs CBC & Chem 7: 08/10/18 04:58 08/10/18 04:58 Labs: Short CBC 08/10/18 Range/Units 04:58 WBC 6.5 (4.3-11.1) K/mcL Hgb 12.6 (11.5-15.4) g/dL Hct 39.8 (35.3-44.9) % Plt Count 200 (140-400) K/mcL Neutrophils # 5.9 (1.6-8.9) K/mcL BMP 08/10/18 04:58 Sodium 138 Potassium 4.5 Chloride 104 Carbon Dioxide 30 H BUN 15 Creatinine 1.28 H Glucose 310 H Calcium 8.5 L Consult Discharge Plan - Plan Referrals: William Abdul MD [Primary Care Provider] - (2) Acute on chronic kidney failure Qualifiers: Acute renal failure type: unspecified Chronic kidney disease stage: stage 3 (moderate) Qualified Code(s): N17.9 - Acute kidney failure, unspecified; N18.3 - Chronic kidney disease, stage 3 (moderate) (3) Pressure ulcer Qualifiers: Pressure injury location: buttock Pressure injury stage: stage 2 Laterality: unspecified laterality Qualified Code(s): L89.302 - Pressure ulcer of unspecified buttock, stage 2 (6) COPD (chronic obstructive pulmonary disease) Qualifiers: COPD type: unspecified COPD Qualified Code(s): J44.9 - Chronic obstructive pulmonary disease, unspecified (7) DM (diabetes mellitus), type 2 Qualifiers: Diabetes mellitus usp insulin use: with roasterman use Diabetes mellitus complication status: with neurologic complications Diabetes mellitus complication detail: with polyneuropathy Qualified Code(s): E11.42 - Type 2 diabetes mellitus with diabetic polyneuropathy; Z79.4 - residential (current) use of insulin (8) Dementia Qualifiers: Dementia type: Alzheimer's disease Alzheimer's disease onset: early-onset Dementia behavioral disturbance: without behavioral disturbance Qualified Code(s): G30.0 - Alzheimer's disease with early onset; F02.80 - Dementia in other diseases classified elsewhere without behavioral disturbance (9) Hypertension Qualifiers: Hypertension type: essential hypertension Qualified Code(s): I10 - Essential (primary) hypertension
--- NOTE | 2018-08-10 11:23 | AcuteCareSurgery Progress Note ---
<Myra Dickson - Last Filed: 08/10/18 11:31> Date of Encounter: 08/10/18 Time of Encounter: 11:21 - Assessment and Plan (1) Sacral decubitus ulcer, stage III Current Visit: Yes Status: Acute Postop day 1 full skin thickness debridement of stage III sacral ulcer and sacral abscess Pain is moderately controlled Recommend aggressive pressure relief-patient to remain on her sides to allow for wound healing PT/OT to aid in ambulation and pressure relief Discussed avoidance of sitting in a recliner on discharge Wound care-daily dressing changes with calcium alginate covered by gauze and tape Continue IV antibiotics Patient to follow-up at wound care clinic with Dr. Jensen Acute care surgery to sign off, please call or reconsult if you have questions. (2) Abscess of sacrum Current Visit: Yes Status: Acute Management as above (3) Morbid obesity with BMI of 50.0-59.9, adult Current Visit: Yes Status: Chronic Patient presented with stage III sacral decubitus ulcer and sacrum abscess Highly deconditioned, bedridden PT/OT Subjective Narrative: Patient seen and examined at bedside today. She underwent full thickness skin debridement of stage III sacral decubitus ulcer yesterday. She admits to pain around around debridement site. She is having difficulty lying on her sides. She denies nausea, vomiting, fever, chills, chest pain, short of breath, abdominal pain, dysuria, hematuria, diarrhea, constipation, calf pain. Objective Vital Signs - Last 8 Hours Temp Pulse Resp BP Pulse Ox 08/10/18 07:51 98.4 F 71 17 117/57 94 08/10/18 04:02 98.1 F 82 18 146/67 95 Intake and Output 08/09/18 08/10/18 08/10/18 23:59 07:59 15:59 Intake Total 0 / 200 100 / 340 240 / 340 Output Total 1009 450 / 450 Balance -10 / -810 -350 / -110 240 / -110 Intake: IV Fluids 100 / 100 Zosyn 3.375 GM In 0.9 % Sodium 100 / 100 Chloride (Mini-Bag +) 100 ML @ 25 mls/hr IVPB Q8HR [facility] Rx#: [id number] Oral 0 / 0 0 / 240 240 / 240 Output: Urine 0 / 0 Estimated Blood Loss Catheter 450 / 450 Other: Meal Breakfast Percent of Meal Consumed 100% Stool Size Small Stool Consistency loose Stool Color Brown Weight 127.68 kg Blood Glucose* 199 264 Patient Weight 08/10/18 23:59 Weight 127.68 kg - General physical appearance well developed, well nourished, no distress, obese - Eyes PERRL, normal ocular movement - ENT normal mucosa, no congestion - Neck Neck exam: trachea midline, no venous distension - Respiratory normal expansion, normal respiratory effort, clear to auscultation - Cardiovascular Cardiovascular exam: Present: RRR, no murmurs/rubs/gallops. Absent: JVD - Abdomen Abdomen: Present: bowel sounds present, soft, non tender. Absent: distended, guarding, rebound - Incision Incision: Present: clean and dry (Debridement of stage III decubitus sacral ulce r, no drainage, no erythema, no induration) - Integumentary no rash, no abnormal pigmentation - Neurologic CN 2-12 grossly intact, normal coordination, normal sensation - Musculoskeletal normal posture - Psychiatric oriented to time, oriented to person, oriented to place, speech is normal, memor y intact - Labs 08/10/18 04:58 08/10/18 04:58 Diabetes panel 08/10/18 Range/Units 04:58 Sodium 138 (136-145) mEq/L Potassium 4.5 (3.5-5.1) mEq/L Chloride 104 (98-107) mEq/L Carbon Dioxide 30 H (23-29) mEq/L BUN 15 (8-23) mg/dL Creatinine 1.28 H (0.60-1.20) mg/dL Glucose 310 H (70-105) mg/dL Calcium 8.5 L (8.6-10.3) mg/dL Calcium panel 08/10/18 Range/Units 04:58 Calcium 8.5 L (8.6-10.3) mg/dL Pituitary panel 08/10/18 Range/Units 04:58 Sodium 138 (136-145) mEq/L Potassium 4.5 (3.5-5.1) mEq/L Chloride 104 (98-107) mEq/L Carbon Dioxide 30 H (23-29) mEq/L BUN 15 (8-23) mg/dL Creatinine 1.28 H (0.60-1.20) mg/dL Glucose 310 H (70-105) mg/dL Calcium 8.5 L (8.6-10.3) mg/dL Adrenal panel 08/10/18 Range/Units 04:58 Sodium 138 (136-145) mEq/L Potassium 4.5 (3.5-5.1) mEq/L Chloride 104 (98-107) mEq/L Carbon Dioxide 30 H (23-29) mEq/L BUN 15 (8-23) mg/dL Creatinine 1.28 H (0.60-1.20) mg/dL Glucose 310 H (70-105) mg/dL Calcium 8.5 L (8.6-10.3) mg/dL Consult Discharge Plan - Plan Instructions: How to Prevent Pressure Ulcers (GEN), Pressure Ulcer (GEN) Additional Instructions: Wound care- daily dressing changes, use calcium alginate dressing covered by gauze and tape. Continue to offload pressure by lying on your sides. Referrals: Jermain Jensen MD [Non-Partnered Physician] - William Abdul MD [Primary Care Provider] - <Wilver Rabago - Last Filed: 08/10/18 12:26> Date of Encounter: 08/10/18 Objective Vital Signs - Last 8 Hours Temp Pulse Resp BP Pulse Ox 08/10/18 07:51 98.4 F 71 17 117/57 94 Intake and Output 08/09/18 08/10/18 08/10/18 23:59 07:59 15:59 Intake Total 0 / 200 100 / 440 340 / 440 Output Total 10 / 1010 450 / 450 Balance -10 / -810 -350 / -10 340 / -10 Intake: IV Fluids 100 / 200 100 / 200 Zosyn 3.375 GM In 0.9 % Sodium 100 / 200 100 / 200 Chloride (Mini-Bag +) 100 ML @ 25 mls/hr IVPB Q8HR [facility] Rx#: [id number] Oral 0 / 0 0 / 240 240 / 240 Output: Urine 0 / 0 Estimated Blood Loss 10 / 10 Catheter 450 / 450 Other: Meal Breakfast Percent of Meal Consumed 100% Stool Size Small Stool Consistency loose Stool Color Brown Weight 127.68 kg Blood Glucose* 199 264 Patient Weight 08/10/18 23:59 Weight 127.68 kg - Labs 08/10/18 04:58 08/10/18 04:58 Diabetes panel 08/10/18 Range/Units 04:58 Sodium 138 (136-145) mEq/L Potassium 4.5 (3.5-5.1) mEq/L Chloride 104 (98-107) mEq/L Carbon Dioxide 30 H (23-29) mEq/L BUN 15 (8-23) mg/dL Creatinine 1.28 H (0.60-1.20) mg/dL Glucose 310 H (70-105) mg/dL Calcium 8.5 L (8.6-10.3) mg/dL Calcium panel 08/10/18 Range/Units 04:58 Calcium 8.5 L (8.6-10.3) mg/dL Pituitary panel 08/10/18 Range/Units 04:58 Sodium 138 (136-145) mEq/L Potassium 4.5 (3.5-5.1) mEq/L Chloride 104 (98-107) mEq/L Carbon Dioxide 30 H (23-29) mEq/L BUN 15 (8-23) mg/dL Creatinine 1.28 H (0.60-1.20) mg/dL Glucose 310 H (70-105) mg/dL Calcium 8.5 L (8.6-10.3) mg/dL Adrenal panel 08/10/18 Range/Units 04:58 Sodium 138 (136-145) mEq/L Potassium 4.5 (3.5-5.1) mEq/L Chloride 104 (98-107) mEq/L Carbon Dioxide 30 H (23-29) mEq/L BUN 15 (8-23) mg/dL Creatinine 1.28 H (0.60-1.20) mg/dL Glucose 310 H (70-105) mg/dL Calcium 8.5 L (8.6-10.3) mg/dL - Attending Attestation I examined this patient and my medical decision-making was reviewed with the Resident Physician. I agree with the documented findings, disposition and treatment plan as described except to the extent set forth below. The patient is seen and evaluated on morning rounds with the resident. She is not receiving any aggressive pressure-relief. She needs to be either on her right or left side at all times not on her back. Today we can change to calcium alginate once daily secondary dressing of gauze and tape. Follow-up in wound clinic. She has no pain today Wilver Rabago MD FACS
[2018-08-11] MEDS: *HR* Heparin 5,000 UNIT/ML VIAL SQ SCH ×2 (05:59→17:54)
[2018-08-11] MEDS: Insulin LISPRO 300 UNITS/3 ML VIAL SQ SCH ×4 (07:57→20:05)
[2018-08-11 08:18] LABS: Potassium 4.4 mEq/L (3.5-5.1)
[2018-08-11] MEDS: Piperacillin/Tazobactam 3.375 GM in 0.9 % Sodium Chloride Mini Bag 100 ML IVPB SCH (09:00)
[2018-08-11] MEDS: *HR* OxyCODONE/APAP 10/325 TABLET PO PRN ×2 (09:01→20:00)
--- NOTE | 2018-08-11 14:12 | Internal Med Progress Note ---
Hospitalist Progress Note - Encounter Date of Encounter: 08/11/18 Time of Encounter: 14:13 - Subjective Interval History: Nursing reports several episodes of large bowel movements today that are runny and non-formed. No fevers. Stool approaches Maxwell catheter. - Exam Vitals: Temp Pulse Resp BP Pulse Ox 97.6 F 58 18 120/69 96 08/11/18 12:13 08/11/18 12:13 08/11/18 12:13 08/11/18 12:13 08/11/18 12:13 Exam: Gen: NAD aaox2, Head: NC, AT ENT: MMM, no lymphadenopathy CVS: RRR Lungs: CTAB, decreased breath sounds limited exam due to body habitus Abd: soft, NT/ND, normal bowel sounds Ext: no edema. Skin: warm dry, post drainage ulcer on right sacral region - Assessment and Plan (1) Abscess of sacrum Current Visit: Yes Status: Acute Assessment and Plan: 1 SIRS criteria met for tachycardia. Otherwise no signs/symptoms of sepsis S/P I&D - MRSA swab negative, DC Vanc - Wound culture positive for VRE and gram positive cocci - DC Zosyn, start ampicillin, - Follow-up gram positive culture results. ID consult (2) Acute on chronic kidney failure Current Visit: No Status: Resolved Assessment and Plan: GFR stage III known history. Creatinine 1.4 on admission, baseline is around 1.2. Not far from baseline. She does have poor PO intake recently. At baseline. DC vanc as nephroprotective strategy now that MRSA screen negative (3) Pressure ulcer Current Visit: No Status: Acute Assessment and Plan: See above. (4) Weakness Current Visit: No Status: Acute Assessment and Plan: PT/OT now that pt more stable for moving. (5) CKD (chronic kidney disease) stage 3, GFR 30-59 ml/min Current Visit: No Status: Chronic (6) COPD (chronic obstructive pulmonary disease) Current Visit: No Status: Chronic Assessment and Plan: No acute exacerbation. (7) DM (diabetes mellitus), type 2 Current Visit: No Status: Chronic Assessment and Plan: ISS. (8) Dementia Current Visit: No Status: Chronic Assessment and Plan: Continue home meds (9) Hypertension Current Visit: No Status: Chronic (10) Morbid obesity with BMI of 50.0-59.9, adult Current Visit: Yes Status: Chronic (11) Venous insufficiency of both lower extremities Current Visit: No Status: Chronic (12) DVT prophylaxis Current Visit: No Status: Acute Assessment and Plan: Heparin sq - Time Spent with Patient Total time spent is greater than 50% in coordination of care (as documented) at patient's floor/unit and/or counseling patient: Internal Medicine: Result - Labs CBC & Chem 7: 08/10/18 04:58 08/11/18 07:00 Labs: BMP 08/11/18 07:00 Sodium 142 Potassium 4.4 Chloride 107 Carbon Dioxide 31 H BUN 15 Creatinine 1.21 H Glucose 151 H Calcium 9.0 Consult Discharge Plan - Plan Instructions: How to Prevent Pressure Ulcers (GEN), Pressure Ulcer (GEN) Additional Instructions: Wound care- daily dressing changes, use calcium alginate dressing covered by gauze and tape. Continue to offload pressure by lying on your sides. Referrals: Jermain Jensen MD [Non-Partnered Physician] - William Abdul MD [Primary Care Provider] - (2) Acute on chronic kidney failure Qualifiers: Acute renal failure type: unspecified Chronic kidney disease stage: stage 3 (moderate) Qualified Code(s): N17.9 - Acute kidney failure, unspecified; N18.3 - Chronic kidney disease, stage 3 (moderate) (3) Pressure ulcer Qualifiers: Pressure injury location: buttock Pressure injury stage: stage 2 Laterality: unspecified laterality Qualified Code(s): L89.302 - Pressure ulcer of unspecified buttock, stage 2 (6) COPD (chronic obstructive pulmonary disease) Qualifiers: COPD type: unspecified COPD Qualified Code(s): J44.9 - Chronic obstructive pulmonary disease, unspecified (7) DM (diabetes mellitus), type 2 Qualifiers: 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: with marine oil terminal superintendent use Diabetes mellitus complication status: with neurologic complications Diabetes mellitus complication detail: with polyneuropathy Qualified Code(s): E11.42 - Type 2 diabetes mellitus with diabetic polyneuropathy; Z79.4 - terminal computer operator (current) use of insulin (8) Dementia Qualifiers: Dementia type: Alzheimer's disease Alzheimer's disease onset: early-onset [place] behavioral disturbance: without behavioral disturbance Qualified Co de(s): G30.0 - Alzheimer's disease with early onset; F02.80 - Dementia in other diseases classified elsewhere without behavioral disturbance (9) Hypertension Qualifiers: Hypertension type: essential hypertension Qualified Code(s): I10 - Essential (primary) hypertension
[2018-08-11] MEDS: Ampicillin/Sulbactam 3,000 MG in 0.9 % Sodium Chloride Mini Bag 100 ML IVPB SCH ×2 (17:54→23:30)
[2018-08-11 23:47] LABS: Adenovirus F 40/41 PCR Not detected (Not detect); Astrovirus PCR Not detected (Not detect); C.difficile Toxin A/B Gene PCR Not detected (Not detect); Campylobacter by PCR Not detected (Not detect); Cryptosporidium by PCR Not detected (Not detect); Cyclospora cayetanensis PCR Not detected (Not detect); E. coli O157 by PCR Not detected (Not detect); Entamoeba histolytica PCR Not detected (Not detect); Enteroaggregative E.coli(EAEC) Not detected (Not detect); Enteropathogenic E.coli(EPEC) Not detected (Not detect); Enterotoxigenic E.coli (ETEC) Not detected (Not detect); Giardia lamblia PCR Not detected (Not detect); Norovirus GI/GII PCR Not detected (Not detect); Plesiomonas shigelloides PCR Not detected (Not detect); Rotavirus A PCR Not detected (Not detect); Salmonella PCR Not detected (Not detect); Sapovirus PCR Not detected (Not detect); Shig/EnteroinvasiveE coli EIEC Not detected (Not detect); Shigalike tox-prod E coli STEC Not detected (Not detect); Vibrio PCR Not detected (Not detect); Vibrio cholerae PCR Not detected (Not detect); Yersinia enterocolitica PCR Not detected (Not detect)
[2018-08-12] MEDS: *HR* Heparin 5,000 UNIT/ML VIAL SQ SCH ×2 (05:56→17:54)
[2018-08-12] MEDS: Ampicillin/Sulbactam 3,000 MG in 0.9 % Sodium Chloride Mini Bag 100 ML IVPB SCH ×3 (05:57→17:54)
--- NOTE | 2018-08-12 08:03 | Internal Med Progress Note ---
Hospitalist Progress Note - Encounter Date of Encounter: 08/12/18 Time of Encounter: 08:56 - Subjective Interval History: Patient has no complaints. Rectal tube placed because of uncontrolled bowel movements that were covering infection site and Maxwell catheter, readjusted and now better. - Exam Vitals: Temp Pulse Resp BP Pulse Ox 98.1 F 62 16 130/58 98 08/12/18 06:55 08/12/18 06:55 08/12/18 06:55 08/12/18 06:55 08/12/18 06:55 Exam: Gen: NAD aaox1 Rectal tube in place Maxwell in place Head: NC, AT ENT: MMM, no lymphadenopathy CVS: RRR Lungs: CTAB, decreased breath sounds limited exam due to body habitus Abd: soft, NT/ND, normal bowel sounds Ext: no edema. Skin: warm dry, post drainage ulcer on right sacral region - Assessment and Plan (1) Abscess of sacrum Current Visit: Yes Status: Acute Assessment and Plan: 1 SIRS criteria met for tachycardia. Otherwise no signs/symptoms of sepsis S/P I&D - MRSA swab negative, Vanc discontinued. - Wound culture positive for VRE and gram positive cocci - Follow-up gram positive culture results. - ID consult - Unasyn Day 2 (2) Acute on chronic kidney failure Current Visit: No Status: Resolved Assessment and Plan: Creatinine 1.4 on admission, baseline is around 1.2. At baseline. (3) Pressure ulcer Current Visit: No Status: Acute Assessment and Plan: See above. (4) Weakness Current Visit: No Status: Acute Assessment and Plan: PT/OT when able. (5) CKD (chronic kidney disease) stage 3, GFR 30-59 ml/min Current Visit: No Status: Chronic (6) COPD (chronic obstructive pulmonary disease) Current Visit: No Status: Chronic Assessment and Plan: No acute exacerbation. (7) DM (diabetes mellitus), type 2 Current Visit: No Status: Chronic Assessment and Plan: ISS. (8) Dementia Current Visit: No Status: Chronic Assessment and Plan: Continue home meds (9) Hypertension Current Visit: No Status: Chronic (10) Morbid obesity with BMI of 50.0-59.9, adult Current Visit: Yes Status: Chronic (11) Venous insufficiency of both lower extremities Current Visit: No Status: Chronic (12) DVT prophylaxis Current Visit: No Status: Acute Assessment and Plan: Heparin sq - Time Spent with Patient Total time spent is greater than 50% in coordination of care (as documented) at patient's floor/unit and/or counseling patient: Internal Medicine: Result - Labs CBC & Chem 7: 08/10/18 04:58 08/11/18 07:00 Labs: BMP 08/11/18 07:00 Sodium 142 Potassium 4.4 Chloride 107 Carbon Dioxide 31 H BUN 15 Creatinine 1.21 H Glucose 151 H Calcium 9.0 Consult Discharge Plan - Plan Instructions: How to Prevent Pressure Ulcers (GEN), Pressure Ulcer (GEN) Additional Instructions: Wound care- daily dressing changes, use calcium alginate dressing covered by gauze and tape. Continue to offload pressure by lying on your sides. Referrals: Jermain Jensen MD [Non-Partnered Physician] - William Abdul MD [Primary Care Provider] - (2) Acute on chronic kidney failure Qualifiers: Acute renal failure type: unspecified Chronic kidney disease stage: stage 3 (moderate) Qualified Code(s): N17.9 - Acute kidney failure, unspecified; N18.3 - Chronic kidney disease, stage 3 (moderate) (3) Pressure ulcer Qualifiers: Pressure injury location: buttock Pressure injury stage: stage 2 Laterality: unspecified laterality Qualified Code(s): L89.302 - Pressure ulcer of unspecified buttock, stage 2 (6) COPD (chronic obstructive pulmonary disease) Qualifiers: COPD type: unspecified COPD Qualified Code(s): J44.9 - Chronic obstructive pulmonary disease, unspecified (7) DM (diabetes mellitus), type 2 Qualifiers: Diabetes mellitus c software developer insulin use: with fdc use Diabetes mellitus complication status: with neurologic complications Diabetes mellitus com plication detail: with polyneuropathy Qualified Code(s): E11.42 - Type 2 diabetes mellitus with diabetic polyneuropathy; Z79.4 - retirement (current) use of insulin (8) Dementia Qualifiers: Dementia type: Alzheimer's disease Alzheimer's disease onset: early-onset Dementia behavioral disturbance: without behavioral disturbance Qualified Code(s): G30.0 - Alzheimer's disease with early onset; F02.80 - Dementia in other diseases classified elsewhere without behavioral disturbance (9) Hypertension Qualifiers: Hypertension type: essential hypertension Qualified Code(s): I10 - Essential (primary) hypertension
[2018-08-12] MEDS: Insulin LISPRO 300 UNITS/3 ML VIAL SQ SCH ×4 (09:38→20:57)
--- NOTE | 2018-08-12 14:17 | Infectious Disease Consult ---
Infectious Disease-Consult - Encounter Date/Time Date of Encounter: 08/12/18 Time of Encounter: 15:45 - Data of Consult Patient: known to practice within the last 3 years Reason for consult: VRE wound gross Consult date: 08/12/18 Requesting Physician: Diya Peterson MD Primary Care Provider: William Abdul MD - HPI HPI: Ms. Ramsey is a 73-year-old woman who is admitted to [facility] on 08/08/18 for sacral abscess without evidence of sepsis. Infectious disease was consulted today, 08/12/18 for growth of VRE in the wound culture. In short, Ms. Ramsey is a 73-year-old woman with history of COPD, CHF, dimentia, diabetes mellitus who presented to the hospital due to malaise and fatigue for several days prior to admission. The patient is unable to provide a significant amount of her history due to baseline dementia, however, so majority of it is gleaned from prior notes. The patient is apparently highly mobile at home, however she had stopped moving around as much, and she started to have poor appe tite and chills. In addition of this, the patient was also apparently complaining of bilateral buttock pain and her daughter felt that it was important to bring her in. Her daughter also apparently mention that she was having frequent urination at that time. On presentation to the emergency room the patient had a CT of the pelvis which demonstrated a fluid collection along the medial left gluteal fold concerning for abscess measuring 4.4 x 1.5 cm and cellulitis along the medial right gluteal fold. There is no significant evidence for ostium myelitis at that time. The patient did have an acute kidney injury, however there is otherwise no evidence for sepsis as she met no other significant sepsis criteria. The patient was initially started on vancomycin and Zosyn, and she was taken to the operating room for a incision and drainage and washout as well as a full-thickness debridement. The patient was left with a stage III sacral decubital ulcer on 08/10/18. Wound cultures from 08/08/18 did demonstrate staph aureus and vancomycin resistant Enterococcus faecalis. The patient was switched to Unasyn which she has not resistant to from this culture. - ROS Review of Systems: The reliability of this review of systems is questionable at best due to the patient's mental status and memory which is very poor. Constitutional: Denies fevers, chills, weight loss, generalized fatigue Head/Neck: Denies ENNIS, neck stiffness EENT: Denies vision changes/blurriness, rhinorrhea, congestion, sore throat CVS: Denies chest pain, palpitations, NORTH, orthopnea, edema, PND Pulm: Denies SOB, cough, sputum, hemoptysis, wheezing GI: Denies abdominal pain, nausea, vomiting, diarrhea, constipation, melena, hematemasis : Denies dysuria, increased frequency, urgency, hematuria Heme: Denies ease of bleeding or bruising MSK: Denies joint pain, limited ROM Skin: Admits to ulcer on sacrum and pain around it. Neuro: Denies ENNIS, paresthesias, focal deficits, ataxia - Results CBC & Chem 7: 08/10/18 04:58 08/11/18 07:00 - Exam Vitals: Temp Pulse Resp BP Pulse Ox 97.7 F 56 16 149/53 100 08/12/18 11:10 08/12/18 11:10 08/12/18 11:10 08/12/18 11:10 08/12/18 11:10 Exam: Gen: Vitals noted. No acute distress. Morbidly obese. Eyes: anicteric sclerae, moist conjunctivae; no lid-lag; Pupils equal and reactive to light HENT: Atraumatic; oropharynx clear with moist mucous membranes and no mucosal ulcerations; normal hard and soft palate Neck: Trachea midline; supple, no thyromegaly or lymphadenopathy Cardiac: RRR, no murmur, +S1/S2 Pulmonary: CTA bilaterally, no wheezes, rales or rhonchi, equal chest expansion Abdomen: soft, nontender, no guarding. No masses or hepatosplenomegaly MSK: ROM intact, no joint swelling noted Extremities: no BLE edema, nontender calf, no cyanosis or clubbing Skin: Normal temperature, turgor and texture; no rash, ulcers or subcutaneous n odules. Unable to examine patient's sacrum due to patient's size and immobility. Neuro: moves all extremities, no focal deficits. Psych: Appropriate mood and behavior. A&Ox2 Citalopram Hydrobromide [Citalopram HBr] 20 mg PO DAILY 06/05/18 [History] Donepezil [Aricept] 5 mg PO DAILY 06/05/18 [History] Ergocalciferol (VITAMIN D2) [Vitamin D2] 50,000 unit PO WE 06/05/18 [History] Lisinopril [Zestril] 5 mg PO DAILY 06/05/18 [History] Metoprolol Tartrate 50 mg PO DAILY 06/05/18 [History] Potassium Chloride [K-Tab ER] 10 meq PO DAILY 06/05/18 [History] Sitagliptin Phosphate [Januvia] 50 mg PO DAILY 06/05/18 [History] OxyCODONE/APAP 10/325 [Percocet 10/325 MG] 1 tab PO Q6H PRN 06/17/18 [History] Furosemide [Lasix] 20 mg PO Q48H 07/11/18 [History] Memantine HCl 5 mg PO DAILY 07/11/18 [History] Allergy/AdvReac Type Severity Reaction Status Date / Time No Known Allergies Allergy Verified 08/08/18 19:05 - Assessment and Plan (1) Sacral decubitus ulcer, stage III Current Visit: Yes Status: Acute Sacral decubitus ulcer stage III, undetermined whether osteomyelitis is present There was a large abscess formation present on CT which was subsequently I&D debridement debrided by surgery Wound culture now growing staph aureus, sensitivities pending and VRE Enterococcus faecalis The patient has not had evidence of sepsis since arrival Baseline mental status is poor, however apparently did have adequate mobility prior to arrival, does appear to be acute process CT pelvis 08/08/18 gave no evidence of osteomyelitis however acute ostium myelitis can be missed on CT Cultures 08/08/18 wound culture positive for staph aureus and VRE Enterococcus faecalis 08/08/18 blood cultures NGTD x2 Recommendations -Restart vancomycin pending final staph aureus identification and sensitivities, goal trough 10. Likely DC tomorrow -Continue Unasyn 3g q6h -Duration of treatment depends on clinical course -Check ESR and CRP to evaluate possible risk of Osteomyelitis, consider imaging if elevated -Recommend wound care consult -Management per surgery SNOMED Code(s): 223762557, 471938170 (2) Abscess of sacrum Current Visit: Yes Status: Acute Abscess of the sacrum, status post I&D Wound cultures growing VRE enterococcus and staph aureus identification pending Patient currently treated with Unasyn As above, we will add vancomycin, goal trough 10 Duration of therapy pending clinical course SNOMED Code(s): 616131998, 587805912 (3) Acute worsening of stage 3 chronic kidney disease Current Visit: Yes Status: Acute Acute on chronic kidney disease Likely secondary to acute infection Seems to have resolved at this time, we will monitor closely considering re- addition of vancomycin SNOMED Code(s): 415440617, 239916674 (4) Dementia Current Visit: No Status: Chronic Dementia, appears to be at baseline according to family Qualifiers: Dementia type: Alzheimer's disease Alzheimer's disease onset: early-onset Dementia behavioral disturbance: without behavioral disturbance Qualified Code(s): G30.0 - Alzheimer's disease with early onset; F02.80 - Dementia in other diseases classified elsewhere without behavioral disturbance SNOMED Code(s): 99353380 (5) DM (diabetes mellitus), type 2 Current Visit: No Status: Chronic Recommend aggressive management of blood glucose for proper healing Qualifiers: Diabetes mellitus terminal computer operator insulin use: with terminal computer operator use Diabetes mellitus complication status: with neurologic complications Diabetes mellitus complication detail: with polyneuropathy Qualified Code(s): E11.42 - Type 2 diabetes mellitus with diabetic polyneuropathy; Z79.4 - medical terminologist (current) use of insulin SNOMED Code(s): 59674463 (6) Morbid obesity with BMI of 50.0-59.9, adult Current Visit: Yes Status: Chronic SNOMED Code(s): 485677214, 59871817236174 Past Med Surg Social Fam HX - Past Medical History Medical history: arthritis, CHF, COPD, dementia, diabetes, GERD, hyperlipidemia, hypertension, osteoporosis, renal disease, other Additional medical history: narcolepsy, IBS Psychiatric history: anxiety - Past Surgical History Surgical History: other Additional surgical history: right total shoulder replacement 2009 - Social History Smoking Status: Current every day smoker Smokeless Tobacco Status: No Alcohol use: none Drug use: none - Family History Mother Adopted: No Family Member Ethnicity: Non- Living Status: Hx Family Cardiac Disorders: Yes (heart attack, HTN) Hx Family Respiratory Disorders: Yes Hx Family Cancer: No Hx Family GI Disorders: No Hx Family Endocrine Disorder: Yes (diabetes) Hx Family Neuromuscular Disorders: No Hx Family Neurologic Disorders: No Hx Family HEENT Disorders: No Hx Family Autoimmune Disorders: No Consult Discharge Plan - Plan Instructions: How to Prevent Pressure Ulcers (GEN), Pressure Ulcer (GEN) Additional Instructions: Wound care- daily dressing changes, use calcium alginate dressing covered by gauze and tape. Continue to offload pressure by lying on your sides. Referrals: Jermain Jensen MD [Non-Partnered Physician] - William Abdul MD [Primary Care Provider] - - Attending Attestation I examined this patient and my medical decision-making was reviewed with the Resident Physician. I agree with the documented findings, disposition and treatment plan as described except to the extent set forth below. This is an addendum to original report dictated by resident physician. Please refer to resident's note for full detail. Patient is 73-year-old woman with extensive past medical history including COPD, CHF, dementia, diabetes mellitus type 2 who is a poor historian most of the patient was taken from medical record presented to [facility] on 08/08/2018 was sacral abscess and we are consulted because the wound was positive for VRE. Currently patient does not appear toxic comfortable. Wound with good borders and some granulation tissue and no surrounding erythema or fluctuance. It was soiled though. Assessment and plan: 1.Sacral decubitus ulcer stage III 2.Abscess of the sacrum 3.Acute worsening stage III chronic kidney disease 4.Chronic dementia 5.Diabetes mellitus type 2 Recommendations -Restart vancomycin pending final staph aureus identification and sensitivities, goal trough 10. Likely DC tomorrow -Continue Unasyn 3g q6h -Duration of treatment depends on clinical course -Check ESR and CRP to evaluate possible risk of Osteomyelitis, consider imaging if elevated
[2018-08-13] MEDS: Ampicillin/Sulbactam 3,000 MG in 0.9 % Sodium Chloride Mini Bag 100 ML IVPB SCH ×5 (00:25→23:21)
[2018-08-13] MEDS: *HR* Heparin 5,000 UNIT/ML VIAL SQ SCH ×2 (05:32→17:06)
[2018-08-13] MEDS: Insulin LISPRO 300 UNITS/3 ML VIAL SQ SCH ×4 (07:37→20:46)
--- NOTE | 2018-08-13 09:08 | Infectious Disease Progress No ---
ID Progress Note Date of Encounter: 08/13/18 Time of Encounter: 09:45 - Subjective Subjective: The patient is sitting in a chair at examination. She is feeling well today, she says that she would like to go home. Her pain is manageable, and she has no acute complaints. She did not have any issues with fevers overnight. - Objective CBC & Chem 7: 08/10/18 04:58 08/11/18 07:00 - Exam Vitals: Temp Pulse Resp BP Pulse Ox 97.9 F 61 15 152/54 99 08/13/18 07:15 08/13/18 07:15 08/13/18 07:15 08/13/18 07:15 08/13/18 07:15 Exam: Gen: Vitals noted. No acute distress. Morbidly obese. Eyes: anicteric sclerae, moist conjunctivae; no lid-lag; Pupils equal and reactive to light HENT: Atraumatic; oropharynx clear with moist mucous membranes and no mucosal ulcerations; normal hard and soft palate Neck: Trachea midline; supple, no thyromegaly or lymphadenopathy Cardiac: RRR, no murmur, +S1/S2 Pulmonary: CTA bilaterally, no wheezes, rales or rhonchi, equal chest expansion Skin: Normal temperature, turgor and texture; Sacral wound has minimal erythema but appears to be well healing Neuro: moves all extremities, no focal deficits. Psych: Appropriate mood and behavior. A&Ox2 - Assessment and Plan (1) Sacral decubitus ulcer, stage III Current Visit: Yes Status: Acute Sacral decubitus ulcer stage III, undetermined whether osteomyelitis is present There was a large abscess formation present on CT which was subsequently I&D debridement debrided by surgery Wound culture now growing staph aureus, sensitivities pending and VRE Enter ococcus faecalis The patient has not had evidence of sepsis since arrival Baseline mental status is poor, however apparently did have adequate mobility prior to arrival, does appear to be acute process CT pelvis 08/08/18 gave no evidence of osteomyelitis, ESR 43, CRP <5 Cultures 08/08/18 wound culture positive for staph aureus and VRE Enterococcus faecalis 08/08/18 blood cultures NGTD x2 Recommendations -Stop vancomycin -Continue Unasyn 3g q6h. Recommend transition to oral Augmentin BID on discharge for total of 10d course, Stop date 08/18/18 -Recommend wound care consult -Management per surgery SNOMED Code(s): 793869559, 660559044 (2) Abscess of sacrum Current Visit: Yes Status: Acute Abscess of the sacrum, status post I&D Wound cultures growing VRE enterococcus and staph aureus identification pending Patient currently treated with Unasyn, recommend PO augmentin on discharge as above Duration of therapy pending clinical course SNOMED Code(s): 674509856, 704866866 (3) Acute worsening of stage 3 chronic kidney disease Current Visit: Yes Status: Acute Acute on chronic kidney disease Likely secondary to acute infection SNOMED Code(s): 878789013, 603880602 (4) Dementia Current Visit: No Status: Chronic Dementia, appears to be at baseline according to family Qualifiers: Dementia type: Alzheimer's disease Alzheimer's disease onset: early-onset Dementia behavioral disturbance: without behavioral disturbance Qualified Code(s): G30.0 - Alzheimer's disease with early onset; F02.80 - Dementia in other diseases classified elsewhere without behavioral disturbance SNOMED Code(s): 10197359 (5) DM (diabetes mellitus), type 2 Current Visit: No Status: Chronic Recommend aggressive management of blood glucose for proper healing Qualifiers: Diabetes mellitus 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 terminal 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 insulin use: with snf use Diabetes mellitus complication status: with neurologic complications Diabetes mellitus complication detail: with polyneuropathy Qualified Code(s): E11.42 - Type 2 diabetes mellitus with diabetic polyneuropathy; Z79.4 - long-term (current) use of insulin SNOMED Code(s): 06198099 (6) Morbid obesity with BMI of 50.0-59.9, adult Current Visit: Yes Status: Chronic SNOMED Code(s): 282670692, 33802402308934 Consult Discharge Plan - Plan Instructions: How to Prevent Pressure Ulcers (GEN), Pressure Ulcer (GEN) Additional Instructions: Wound care- daily dressing changes, use calcium alginate dressing covered by gauze and tape. Continue to offload pressure by lying on your sides. Referrals: Jermain Jensen MD [Non-Partnered Physician] - William Abdul MD [Primary Care Provider] - - Attending Attestation I examined this patient and my medical decision-making was reviewed with the Re sident Physician. I agree with the documented findings, disposition and treatment plan as described except to the extent set forth below. Assessment and plan: 1.Sacral decubitus ulcer stage III 2.Abscess of the sacrum 3.Acute worsening stage III chronic kidney disease 4.Chronic dementia 5.Diabetes mellitus type 2 Recommendations Wound looks great. I believe the staph species is probably just skin ira. I will treat the VRE that is ampicillin sensitive with Augmentin. Patient needs adequate control. The wound was soiled so we asked the nursing to change it. Duration of treatment 10 days.
[2018-08-13] MEDS ORDERED: Aminoglycoside Consult 1 EACH MC ONE (10:08)
--- NOTE | 2018-08-13 15:28 | Internal Med Progress Note ---
Hospitalist Progress Note - Encounter Date of Encounter: 08/13/18 Time of Encounter: 11:15 - Subjective Interval History: No acute issues. - Exam Vitals: Temp Pulse Resp BP Pulse Ox 98.1 F 62 17 142/66 98 08/13/18 15:07 08/13/18 15:07 08/13/18 15:07 08/13/18 15:07 08/13/18 15:07 Exam: Gen: NAD aaox1 Rectal tube in place Maxwell in place Head: NC, AT ENT: MMM, no lymphadenopathy CVS: RRR Lungs: CTAB, decreased breath sounds limited exam due to body habitus Abd: soft, NT/ND, normal bowel sounds Ext: no edema. Skin: warm dry, post drainage ulcer on right sacral region - Assessment and Plan (1) Abscess of sacrum Current Visit: Yes Status: Acute Assessment and Plan: 1 SIRS criteria met for tachycardia. Otherwise no signs/symptoms of sepsis S/P I&D Wound cultures VRE and Staph aureus but sensitivities are pending. Continue Unasyn/Vanc ID following. (2) Acute on chronic kidney failure Current Visit: No Status: Resolved Assessment and Plan: At baseline. (3) Pressure ulcer Current Visit: No Status: Acute Assessment and Plan: See above. (4) Weakness Current Visit: No Status: Acute Assessment and Plan: PT/OT (5) CKD (chronic kidney disease) stage 3, GFR 30-59 ml/min Current Visit: No Status: Chronic (6) COPD (chronic obstructive pulmonary disease) Current Visit: No Status: Chronic Assessment and Plan: No acute exacerbation. (7) DM (diabetes mellitus), type 2 Current Visit: No Status: Chronic Assessment and Plan: ISS. (8) Dementia Current Visit: No Status: Chronic Assessment and Plan: Continue home meds (9) Hypertension Current Visit: No Status: Chronic (10) Morbid obesity with BMI of 50.0-59.9, adult Current Visit: Yes Status: Chronic (11) Venous insufficiency of both lower extremities Current Visit: No Status: Chronic (12) DVT prophylaxis Current Visit: No Status: Acute Assessment and Plan: Heparin sq - Time Spent with Patient Total time spent is greater than 50% in coordination of care (as documented) at patient's floor/unit and/or counseling patient: Internal Medicine: Result - Labs CBC & Chem 7: 08/10/18 04:58 08/11/18 07:00 Consult Discharge Plan - Plan Instructions: How to Prevent Pressure Ulcers (GEN), Pressure Ulcer (GEN) Additional Instructions: Wound care- daily dressing changes, use calcium alginate dressing covered by gauze and tape. Continue to offload pressure by lying on your sides. Referrals: Jermain Jensen MD [Non-Partnered Physician] - William Abdul MD [Primary Care Provider] - __ (2) Acute on chronic kidney failure Qualifiers: Acute renal failure type: unspecified Chronic kidney disease stage: stage 3 (moderate) Qualified Code(s): N17.9 - Acute kidney failure, unspecified; N18.3 - Chronic kidney disease, stage 3 (moderate) (3) Pressure ulcer Qualifiers: Pressure injury location: buttock Pressure injury stage: stage 2 Laterality: unspecified laterality Qualified Code(s): L89.302 - Pressure ulcer of u nspecified buttock, stage 2 (6) COPD (chronic obstructive pulmonary disease) Qualifiers: COPD type: unspecified COPD Qualified Code(s): J44.9 - Chronic obstructive pulmonary disease, unspecified (7) DM (diabetes mellitus), type 2 Qualifiers: Diabetes mellitus [facility] insulin use: with [facility] use Diabetes mellitus complication status: with neurologic complications Diabetes mellitus complication detail: with polyneuropathy Qualified Code(s): E11.42 - Type 2 diabetes mellitus with diabetic polyneuropathy; Z79.4 - pedigree researcher (current) use of insulin (8) Dementia Qualifiers: Dementia type: Alzheimer's disease Alzheimer's disease onset: early-onset Dementia behavioral disturbance: without behavioral disturbance Qualified Code(s): G30.0 - Alzheimer's disease with early onset; F02.80 - Dementia in other diseases classified elsewhere without behavioral disturbance (9) Hypertension Qualifiers: Hypertension type: essential hypertension Qualified Code(s): I10 - Essential (primary) hypertension
[2018-08-14] MEDS: *HR* OxyCODONE/APAP 10/325 TABLET PO PRN (04:09)
[2018-08-14 05:06] LABS: BUN/Creatinine Ratio 11 (6-26); Blood Urea Nitrogen 12 mg/dL (8-23); Carbon Dioxide 32 mEq/L (23-29); Chloride 104 mEq/L (98-107); Glucose 124 mg/dL (70-105); Osmolality,Calculated 293 (280-300); Sodium 141 mEq/L (136-145); eGFR For African Americans > 60 (> 60); eGFR For Non-African Americans 50 (> 60)
[2018-08-14] MEDS: Ampicillin/Sulbactam 3,000 MG in 0.9 % Sodium Chloride Mini Bag 100 ML IVPB SCH ×3 (05:27→17:37)
[2018-08-14] MEDS: *HR* Heparin 5,000 UNIT/ML VIAL SQ SCH ×2 (05:28→17:37)
[2018-08-14] MEDS: Insulin LISPRO 300 UNITS/3 ML VIAL SQ SCH ×4 (07:45→22:59)
--- NOTE | 2018-08-14 08:35 | Internal Med Progress Note ---
Hospitalist Progress Note - Encounter Date of Encounter: 08/14/18 Time of Encounter: 08:32 - Subjective Interval History: Patient seen and examined this morning with her. No acute overnight events. Denies any chest pain difficulty breathing abdominal pain nausea vomiting and diarrhea. Alert and oriented 1. - Exam Vitals: Temp Pulse Resp BP Pulse Ox 97.8 F 60 16 160/64 99 08/14/18 07:42 08/14/18 07:42 08/14/18 07:42 08/14/18 07:42 08/14/18 07:42 Exam: General: In no acute distress. Respiratory exam: CTAB. Limited exam. could not appreciate rales, rhonchi, wheezes Cardiovascular exam: RRR, +S1, +S2. no murmur, gallop, rubs. GI/Abdominal exam: Non-tender, Non-distended, normal bowel sounds, soft, no peritoneal signs. Extremities exam: no pedal edema, pulses palpable in b/l lower extremities. no calf tenderness Neurological exam: CN II-XII intact, AO X3, no focal deficits. Skin exam: Rt buttock with dressing and healthy wound. - Assessment and Plan (1) Venous insufficiency of both lower extremities Current Visit: No Status: Chronic (2) Weakness Current Visit: No Status: Acute (3) DM (diabetes mellitus), type 2 Current Visit: No Status: Chronic (4) COPD (chronic obstructive pulmonary disease) Current Visit: No Status: Chronic (5) Morbid obesity with BMI of 50.0-59.9, adult Current Visit: Yes Status: Chronic (6) CKD (chronic kidney disease) stage 3, GFR 30-59 ml/min Current Visit: No Status: Chronic (7) Dementia Current Visit: No Status: Chronic (8) Hypertension Current Visit: No Status: Chronic (9) Pressure ulcer Current Visit: No Status: Acute (10) DVT prophylaxis Current Visit: No Status: Acute (11) Abscess of sacrum Current Visit: Yes Status: Acute - Summary of Assessment and Plan Summary of Assessment and Plan: Assessment Acute sacrum abscess Sacral decubitus ulcer stage III Morbid obesity Physical deconditioning Chronic CKD HFpEF, COPD Dementia DM HTN Plan - s/p I&D by surgery on 08/09/18. Now on ampicillin per ID. To finish 10 day course. - Renal function at baseline - PT/OT recommended rehab. Patient wants to go home but is on/off confused and not able to understand and articulate risk of going home. Spoke with MARCELO Cortez who will talk to to consider other SNF options as she felt previously she did not get much help at SNF. - No acute exacerbation. - c/w SSI and accuchecks. - c/w home aricept - c/w home lisinopril and metoprolol for BP. prn hydralazine for elevated sbp>180 - Heparin sq for DVT ppx. Internal Medicine: Result - Labs CBC & Chem 7: 08/10/18 04:58 08/14/18 04:25 Labs: BMP 08/14/18 04:25 Sodium 141 Potassium 4.0 Chloride 104 Carbon Dioxide 32 H BUN 12 Creatinine 1.07 Glucose 124 H Calcium 9.0 Consult Discharge Plan - Plan Instructions: How to Prevent Pressure Ulcers (GEN), Pressure Ulcer (GEN) Additional Instructions: Wound care- daily dressing changes, use calcium alginate dressing covered by gauze and tape. Continue to offload pressure by lying on your sides. Referrals: Jermain Jensen MD [Non-Partnered Physician] - William Abdul MD [Primary Care Provider] - (3) DM (diabetes mellitus), type 2 Qualifiers: Diabetes mellitus intermediate school teacher insulin use: with intermediate school teacher use Diabetes mellitus complication status: with neurologic complications Diabetes mellitus complication detail: with polyneuropathy Qualified Code(s): E11.42 - Type 2 diabetes mellitus with diabetic polyneuropathy; Z79.4 - senior living (current) use of insulin (4) COPD (chronic obstructive pulmonary disease) Qualifiers: COPD type: unspecified COPD Qualified Code(s): J44.9 - Chronic obstructive pulmonary disease, unspecified (7) Dementia Qualifiers: Dementia type: Alzheimer's disease Alzheimer's disease onset: early-onset Dementia behavioral disturbance: without behavioral disturbance Qualified Code(s): G30.0 - Alzheimer's disease with early onset; F02.80 - Dementia in other diseases classified elsewhere without behavioral disturbance (8) Hypertension Qualifiers: Hypertension type: essential hypertension Qualified Code(s): I10 - Essential (primary) hypertension (9) Pressure ulcer Qualifiers: Pressure injury location: buttock Pressure injury stage: stage 2 Laterality: unspecified laterality Qualified Code(s): L89.302 - Pressure ulcer of unspecified buttock, stage 2
--- NOTE | 2018-08-14 15:25 | Infectious Disease Progress No ---
ID Progress Note Date of Encounter: 08/14/18 Time of Encounter: 13:30 - Subjective Subjective: The patient is seen and examined at bedside. Should no acute events overnight. She says that she wants to go home, and she says that her pain is quite manageable at this time. - Objective CBC & Chem 7: 08/10/18 04:58 08/16/18 05:25 - Exam Vitals: Temp Pulse Resp BP Pulse Ox 98.4 F 65 15 174/72 97 08/14/18 10:37 08/14/18 10:37 08/14/18 10:37 08/14/18 14:17 08/14/18 10:37 Exam: Gen: Vitals noted. No acute distress. Morbidly obese. Eyes: anicteric sclerae, moist conjunctivae; no lid-lag; Pupils equal and reactive to light HENT: Atraumatic; oropharynx clear with moist mucous membranes and no mucosal ulcerations; normal hard and soft palate Neck: Trachea midline; supple, no thyromegaly or lymphadenopathy Cardiac: RRR, no murmur, +S1/S2 Pulmonary: CTA bilaterally, no wheezes, rales or rhonchi, equal chest expansion Skin: Normal temperature, turgor and texture; Sacral wound has minimal erythema but appears to be well healing Neuro: moves all extremities, no focal deficits. Psych: Appropriate mood and behavior. A&Ox2 - Assessment and Plan (1) Sacral decubitus ulcer, stage III Current Visit: Yes Status: Acute Sacral decubitus ulcer stage III, undetermined whether osteomyelitis is present There was a large abscess formation present on CT which was subsequently I&D debridement debrided by surgery Wound culture now growing staph aureus, sensitivities pending and VRE Enterococcus faecalis The patient has not had evidence of sepsis since arrival Baseline mental status is poor, however apparently did have adequate mobility prior to arrival, does appear to be acute process CT pelvis 08/08/18 gave no evidence of osteomyelitis, ESR 43, CRP <5 Cultures 08/08/18 wound culture positive for staph aureus and VRE Enterococcus faecalis 08/08/18 blood cultures NGTD x2 Recommendations -Continue Unasyn 3g q6h. Recommend transition to oral Augmentin BID on discharge for total of 10d course, Stop date 08/18/18 -Recommend wound care consult -Management per surgery SNOMED Code(s): 491815290, 141001732 (2) Abscess of sacrum Current Visit: Yes Status: Acute Abscess of the sacrum, status post I&D Wound cultures growing VRE enterococcus and staph aureus identification pending Patient currently treated with Unasyn, recommend PO augmentin on discharge as above Duration of therapy pending clinical course SNOMED Code(s): 617065608, 270495951 (3) Acute worsening of stage 3 chronic kidney disease Current Visit: Yes Status: Acute Acute on chronic kidney disease Likely secondary to acute infection SNOMED Code(s): 725024302, 617396565 (4) Dementia Current Visit: No Status: Chronic Dementia, appears to be at baseline according to family Qualifiers: Dementia type: Alzheimer's disease Alzheimer's disease onset: early-onset Dementia behavioral disturbance: without behavioral disturbance Qualified Code(s): G30.0 - Alzheimer's disease with early onset; F02.80 - Dementia in other diseases classified elsewhere without behavioral disturbance SNOMED Code(s): 78453935 (5) DM (diabetes mellitus), type 2 Current Visit: No Status: Chronic Recommend aggressive management of blood glucose for proper healing Qualifiers: Diabetes mellitus fdc insulin use: with rn long term care use Diabetes mellitus complication status: with neurologic complications Diabetes mellitus complication detail: with polyneuropathy Qualified Code(s): E11.42 - Type 2 diabetes mellitus with diabetic polyneuropathy; Z79.4 - [facility] (current) use of insulin SNOMED Code(s): 14102949 (6) Morbid obesity with BMI of 50.0-59.9, adult Current Visit: Yes Status: Chronic SNOMED Code(s): 194736019, 36252961907456 Consult Discharge Plan - Plan Instructions: How to Prevent Pressure Ulcers (GEN), Pressure Ulcer (GEN) Additional Instructions: Wound care- daily dressing changes, use calcium alginate dressing covered by gauze and tape. Continue to offload pressure by lying on your sides. Referrals: Jermain Jensen MD [Non-Partnered Physician] - William Abdul MD [Primary Care Provider] - - Attending Attestation I examined this patient and my medical decision-making was reviewed with the Resident Physician. I agree with the documented findings, disposition and treatment plan as described except to the extent set forth below. Assessment and plan: 1.Sacral decubitus ulcer stage III 2.Abscess of the sacrum 3.Acute worsening stage III chronic kidney disease 4.Chronic dementia 5.Diabetes mellitus type 2 Recommendations Wound looks great. I believe the staph species is probably just skin ira. I will treat the VRE that is ampicillin sensitive with Augmentin. Patient needs adequate control. The wound was soiled so we asked the nursing to change it. Duration of treatment 10 days.
[2018-08-15] MEDS: Ampicillin/Sulbactam 3,000 MG in 0.9 % Sodium Chloride Mini Bag 100 ML IVPB SCH ×3 (00:08→06:18)
[2018-08-15] MEDS: *HR* Heparin 5,000 UNIT/ML VIAL SQ SCH ×2 (06:03→17:05)
[2018-08-15] MEDS: Insulin LISPRO 300 UNITS/3 ML VIAL SQ SCH ×4 (08:18→21:05)
[2018-08-15 08:32] LABS: BUN/Creatinine Ratio 12 (6-26); Blood Urea Nitrogen 11 mg/dL (8-23); Carbon Dioxide 31 mEq/L (23-29); Chloride 103 mEq/L (98-107); Glucose 156 mg/dL (70-105); Osmolality,Calculated 297 (280-300); Potassium 4.1 mEq/L (3.5-5.1); Sodium 142 mEq/L (136-145); eGFR For African Americans > 60 (> 60); eGFR For Non-African Americans 59 (> 60)
--- NOTE | 2018-08-15 08:38 | Internal Med Progress Note ---
Hospitalist Progress Note - Encounter Date of Encounter: 08/15/18 Time of Encounter: 08:37 - Subjective Interval History: Patient seen and examined this morning with no acute overnight events. Patient slightly more alert this morning but not completely oriented and on and off confused per nursing report. Patient due to from that she wants to go home. - Exam Vitals: Temp Pulse Resp BP Pulse Ox 98.3 F 78 16 161/79 99 08/15/18 06:00 08/15/18 06:00 08/15/18 06:00 08/15/18 06:00 08/15/18 06:00 Exam: General: In no acute distress. Respiratory exam: CTAB. could not appreciate rales, rhonchi, wheezes Cardiovascular exam: RRR, +S1, +S2. no murmur, gallop, rubs. GI/Abdominal exam: Non-tender, Non-distended, normal bowel sounds, soft, no don toneal signs. Extremities exam: no pedal edema, pulses palpable in b/l lower extremities. no calf tenderness Neurological exam: CN II-XII intact, AO X3, no focal deficits. Skin exam: Rt buttock with dressing - Assessment and Plan (1) Venous insufficiency of both lower extremities Current Visit: No Status: Chronic (2) Weakness Current Visit: No Status: Acute (3) DM (diabetes mellitus), type 2 Current Visit: No Status: Chronic (4) COPD (chronic obstructive pulmonary disease) Current Visit: No Status: Chronic (5) Morbid obesity with BMI of 50.0-59.9, adult Current Visit: Yes Status: Chronic (6) CKD (chronic kidney disease) stage 3, GFR 30-59 ml/min Current Visit: No Status: Chronic (7) Dementia Current Visit: No Status: Chronic (8) Hypertension Current Visit: No Status: Chronic (9) Pressure ulcer Current Visit: No Status: Acute (10) DVT prophylaxis Current Visit: No Status: Acute (11) Abscess of sacrum Current Visit: Yes Status: Acute - Summary of Assessment and Plan Summary of Assessment and Plan: Assessment Acute sacrum abscess Sacral decubitus ulcer stage III Morbid obesity Physical deconditioning Chronic CKD 3 HFpEF, COPD Dementia DM HTN Plan - s/p I&D by surgery on 08/09/18. Switched to augmentin given lost IV access. To finish 10 day course. - Renal function at baseline - PT/OT recommended rehab. Patient wants to go home but is on/off confused and not able to understand and articulate risk of going home. Spoke with MARCELO Cortez who will talk to SW and patient to decide on disposition. Recommend discharging to SNF. She is unsafe to go home. If going home will discharge AMA. - Has morbid obesity with elevated bicarb. Will get Bipap evaluation overnight. - No acute exacerbation. - c/w SSI and accuchecks. - c/w home aricept - c/w home lisinopril and metoprolol for BP. prn hydralazine for elevated sbp>180 - Heparin sq for DVT ppx. Internal Medicine: Result - Labs CBC & Chem 7: 08/10/18 04:58 08/15/18 06:19 Labs: BMP 08/15/18 06:19 Sodium 142 Potassium 4.1 Chloride 103 Carbon Dioxide 31 H BUN 11 Creatinine 0.93 Glucose 156 H Calcium 9.0 Consult Discharge Plan - Plan Instructions: How to Prevent Pressure Ulcers (GEN), Pressure Ulcer (GEN) Additional Instructions: Wound care- daily dressing changes, use calcium alginate dressing covered by ga uze and tape. Continue to offload pressure by lying on your sides. Referrals: Jermain Jensen MD [Non-Partnered Physician] - William Abdul MD [Primary Care Provider] - (3) DM (diabetes mellitus), type 2 Qualifiers: Diabetes mellitus fci insulin use: with fci use Diabetes mellitus complication status: with neurologic complications Diabetes mellitus comp lication detail: with polyneuropathy Qualified Code(s): E11.42 - Type 2 diabetes mellitus with diabetic polyneuropathy; Z79.4 - intermediate (current) use of insulin (4) COPD (chronic obstructive pulmonary disease) Qualifiers: COPD type: unspecified COPD Qualified Code(s): J44.9 - Chronic obstructive pulmonary disease, unspecified (7) Dementia Qualifiers: Dementia type: Alzheimer's disease Alzheimer's disease onset: early-onset Dementia behavioral disturbance: without behavioral disturbance Qualified Code( s): G30.0 - Alzheimer's disease with early onset; F02.80 - Dementia in other diseases classified elsewhere without behavioral disturbance (8) Hypertension Qualifiers: Hypertension type: essential hypertension Qualified Code(s): I10 - Essential (primary) hypertension (9) Pressure ulcer Qualifiers: Pressure injury location: buttock Pressure injury stage: stage 2 Laterality: unspecified laterality Qualified Code(s): L89.302 - Pressure ulcer of unspecified buttock, stage 2
--- NOTE | 2018-08-15 12:49 | Infectious Disease Progress No ---
ID Progress Note Date of Encounter: 08/15/18 Time of Encounter: 12:47 - Subjective Subjective: Patient seen and examined. No acute events noted overnight. Patient resting quietly in bed. States she feels okay. She complains of pain at the site of her buttock lesion. Denies fevers, chills, rigors. Denies chest pain, shortness of breath, or cough. Denies nausea, vomiting, diarrhea, constipation. Denies abdominal pain or urinary complaints. States her appetite is okay. Denies oral thrush or skin rashes. - Objective CBC & Chem 7: 08/10/18 04:58 08/15/18 06:19 - Exam Vitals: Temp Pulse Resp BP Pulse Ox 98.3 F 103 16 169/71 94 08/15/18 10:29 08/15/18 10:29 08/15/18 10:29 08/15/18 10:29 08/15/18 10:29 Exam: Head: Atraumatic, normal inspection, normocephalic. Eye: EOMI, PERRLA, no scleral icterus noted. ENT: Mucous membranes moist. No odontogenic infection noted. Neck: Normal inspection, no meningismus. Respiratory: Clear to auscultation. No rales, respiratory distress, rhonchi, or wheezes noted. Cardiovascular: Regular rate and rhythm, S1 and S2 audible. No murmurs, rubs, or gallops. GI: Soft, nondistended, normal bowel sounds. Extremities:No joint swelling, pedal edema, or tenderness noted. Back: Normal inspection. No vertebral tenderness noted. Sacral wound dressing clean, dry, and intact. Neurological: Alert, oriented 3, no focal deficits. Psychiatric: normal affect, normal mood. Skin: Dry, intact, warm. Normal color. No rashes. - Assessment and Plan (1) Abscess of sacrum Current Visit: Yes Status: Acute Noted on CT of the pelvis. Causative organism: VRE and staph aureus (sensitivities pending). Likely secondary to chronic sacral ulcer. Status post I&D 08/09/[address] Rabago. Currently on oral Augmentin. SNOMED Code(s): 094867760, 100550407 (2) Sacral decubitus ulcer, stage III Current Visit: Yes Status: Acute Etiology: Unclear. No osteomyelitis noted on CT scan. ESR mildly elevated at 43 and CRP less than 5. Low index of suspicion for osteomyelitis at this point. SNOMED Code(s): 481952825, 643467014 (3) Acute worsening of stage 3 chronic kidney disease Current Visit: Yes Status: Acute Acute on chronic kidney disease Likely secondary to acute infection. Improved. Continue to trend. Does adjust medications and avoid nephrotoxins as able. SNOMED Code(s): 190738018, 543166733 (4) Dementia Current Visit: No Status: Chronic Dementia, appears to be at baseline according to family. Qualifiers: Dementia type: Alzheimer's disease Alzheimer's disease onset: early-onset Dementia behavioral disturbance: without behavioral disturbance Qualified Code(s): G30.0 - Alzheimer's disease with early onset; F02.80 - Dementia in other diseases classified elsewhere without behavioral disturbance SNOMED Code(s): 85811328 (5) DM (diabetes mellitus), type 2 Current Visit: No Status: Chronic Recommend aggressive management of blood glucose for proper healing. Qualifiers: Diabetes mellitus prison insulin use: with termite control representative use Diabetes mellitus complication status: with neurologic complications Diabetes mellitus complication detail: with polyneuropathy Qualified Code(s): E11.42 - Type 2 diabetes mellitus with diabetic polyneuropathy; Z79.4 - prison (current) use of insulin SNOMED Code(s): 18629015 (6) Morbid obesity with BMI of 50.0-59.9, adult Current Visit: Yes Status: Chronic SNOMED Code(s): 020374184, 80358240678844 - Recommendations Recommendations: Await wound culture final ID and sensitivities. I spoke with microbiology who states the staph aureus isolate was sent out for sensitivities due to concern for possible vancomycin resistance. Continue Augmentin 875 mg by mouth twice a day for now. Duration of treatment depends on the clinical picture. Wound care per the acute care surgery team. Monitor renal function and does just antibiotics. Contact precautions per hospital policy. Consult Discharge Plan - Plan Instructions: How to Prevent Pressure Ulcers (GEN), Pressure Ulcer (GEN) Additional Instructions: Wound care- daily dressing changes, use calcium alginate dressing covered by gauze and tape. Continue to offload pressure by lying on your sides. Referrals: Jermain Jensen MD [Non-Partnered Physician] - William Abdul MD [Primary Care Provider] -
[2018-08-16] MEDS: *HR* Heparin 5,000 UNIT/ML VIAL SQ SCH ×2 (06:05→18:54)
[2018-08-16 06:15] LABS: BUN/Creatinine Ratio 12 (6-26); Blood Urea Nitrogen 11 mg/dL (8-23); Calcium 9.1 mg/dL (8.6-10.3); Carbon Dioxide 35 mEq/L (23-29); Chloride 101 mEq/L (98-107); Glucose 156 mg/dL (70-105); Osmolality,Calculated 299 (280-300); Sodium 143 mEq/L (136-145); eGFR For African Americans > 60 (> 60); eGFR For Non-African Americans 58 (> 60)
[2018-08-16] MEDS: Insulin LISPRO 300 UNITS/3 ML VIAL SQ SCH ×4 (08:43→21:23)
[2018-08-16] MEDS ORDERED: DAPTOMYCIN IVPB SCH (14:00)
[2018-08-16] MEDS ORDERED: SODIUM CHLORIDE 0.9% IVPB SCH (14:00)
[2018-08-16 14:14] LABS: Creatine Kinase < 10 Units/L (30-223)
--- NOTE | 2018-08-16 15:02 | Internal Med Progress Note ---
Hospitalist Progress Note - Encounter Date of Encounter: 08/16/18 Time of Encounter: 11:50 - Subjective Interval History: Patient seen and examined this morning to better. No acute overnight events. Denies new complaints. Complains of some right buttock pain. Denies fevers chills nausea vomiting or diarrhea. - Exam Vitals: Temp Pulse Resp BP Pulse Ox 98.1 F 68 16 159/76 96 08/16/18 09:38 08/16/18 09:38 08/16/18 09:38 08/16/18 09:38 08/16/18 09:38 Exam: General: In no acute distress. Respiratory exam: CTAB. could not appreciate rales, rhonchi, wheezes Cardiovascular exam: RRR, +S1, +S2. no murmur, gallop, rubs. GI/Abdominal exam: Non-tender, Non-distended, normal bowel sounds, soft, no peritoneal signs. Extremities exam: trace pedal edema, pulses palpable in b/l lower extremities. no calf tenderness Neurological exam: CN II-XII intact, AO X3, no focal deficits. Skin exam: Rt buttock with dressing - Assessment and Plan (1) Venous insufficiency of both lower extremities Current Visit: No Status: Chronic (2) Weakness Current Visit: No Status: Acute (3) DM (diabetes mellitus), type 2 Current Visit: No Status: Chronic (4) COPD (chronic obstructive pulmonary disease) Current Visit: No Status: Chronic (5) Morbid obesity with BMI of 50.0-59.9, adult Current Visit: Yes Status: Chronic (6) CKD (chronic kidney disease) stage 3, GFR 30-59 ml/min Current Visit: No Status: Chronic (7) Dementia Current Visit: No Status: Chronic (8) Hypertension Current Visit: No Status: Chronic (9) Pressure ulcer Current Visit: No Status: Acute (10) DVT prophylaxis Current Visit: No Status: Acute (11) Abscess of sacrum Current Visit: Yes Status: Acute - Summary of Assessment and Plan Summary of Assessment and Plan: Assessment Acute sacrum abscess Sacral decubitus ulcer stage III Morbid obesity Physical deconditioning Chronic CKD 3 HFpEF, COPD Dementia DM HTN Plan - s/p I&D by surgery on 08/09/18. Switched to PO augmentin. Per ID staph aureus isolate was sent out for sensitivities due to concern for possible vancomycin resistance. Final sensitivity still pending. Augmentin will be switched to daptomycin till sensitivity are back. Patient is clinically improving on augmentin. If patient decides to leave AMA will give augmentin script as d aptomycin cannot be arranged soon. - Renal function at baseline - PT/OT recommended rehab. Patient wants to go home but is on/off confused and not able to understand and articulate risk of going home on/off. Recommend discharging to SNF. She is unsafe to go home. If going home will discharge AMA. - Has morbid obesity with elevated bicarb. Cancel bipap study. Will need outpatient follow up. - Not in acute exacerbation of COPD. prn bronchodilators - c/w SSI and accuchecks. - c/w home aricept - c/w home lisinopril and metoprolol for BP. prn hydralazine for elevated sbp>180 - Heparin sq for DVT ppx. Internal Medicine: Result - Labs CBC & Chem 7: 08/10/18 04:58 08/16/18 05:25 Labs: BMP 08/16/18 05:25 Sodium 143 Potassium 4.0 Chloride 101 Carbon Dioxide 35 H BUN 11 Creatinine 0.94 Glucose 156 H Calcium 9.1 Consult Discharge Plan - Plan Instructions: How to Prevent Pressure Ulcers (GEN), Pressure Ulcer (GEN) Additional Instructions: Wound care- daily dressing changes, use calcium alginate dressing covered by gauze and tape. Continue to offload pressure by lying on your sides. Referrals: Jermain Jensen MD [Non-Partnered Physician] - William Abdul MD [Primary Care Provider] - _ (3) DM (diabetes mellitus), type 2 Qualifiers: Diabetes mellitus exterminator helper insulin use: with long-term use Diabetes mellitus complication status: with neurologic complications Diabetes mellitus complication detail: with polyneuropathy Qualified Code(s): E11.42 - Type 2 diabetes mellitus with diabetic polyneuropathy; Z79.4 - residential (current) use of insulin (4) COPD (chronic obstructive pulmonary disease) Qualifiers: COPD type: unspecified COPD Qualified Code(s): J44.9 - Chronic obstructive pulmonary disease, unspecified (7) Dementia Qualifiers: Dementia type: Alzheimer's disease Alzheimer's disease onset: early-onset Dementia behavioral disturbance: without behavioral disturbance Qualified Code(s): G30.0 - Alzheimer's disease with early onset; F02.80 - Dementia in other diseases classified elsewhere without behavioral disturbance (8) Hypertension Qualifiers: Hypertension type: essential hypertension Qualified Code(s): I10 - Essential (primary) hypertension (9) Pressure ulcer Qualifiers: Pressure injury location: buttock Pressure injury stage: stage 2 Laterality: unspecified laterality Qualified Code(s): L89.302 - Pressure ulcer of unspecified buttock, stage 2
--- NOTE | 2018-08-16 15:04 | Infectious Disease Progress No ---
ID Progress Note Date of Encounter: 08/16/18 Time of Encounter: 10:00 - Subjective Subjective: The patient is seen and examined at bedside. Should no acute events overnight. She says that she wants to go home. She continues to feel that her pain is manageable at this time. She remains in the hospital awaiting placement. - Objective CBC & Chem 7: 08/10/18 04:58 08/16/18 05:25 - Exam Vitals: Temp Pulse Resp BP Pulse Ox 98.1 F 68 16 159/76 96 08/16/18 09:38 08/16/18 09:38 08/16/18 09:38 08/16/18 09:38 08/16/18 09:38 - Assessment and Plan (1) Sacral decubitus ulcer, stage III Current Visit: Yes Status: Acute Sacral decubitus ulcer stage III, undetermined whether osteomyelitis is present There was a large abscess formation present on CT which was subsequently I&D debridement debrided by surgery Wound culture now growing staph aureus, sensitivities pending and VRE Enterococcus faecalis The patient has not had evidence of sepsis since arrival Baseline mental status is poor, however apparently did have adequate mobility prior to arrival, does appear to be acute process CT pelvis 08/08/18 gave no evidence of osteomyelitis, ESR 43, CRP <5 Cultures 08/08/18 wound culture positive for staph aureus and VRE Enterococcus faecalis 08/08/18 blood cultures NGTD x2 Recommendations -Continue Unasyn 3g q6h. Recommend transition to oral Augmentin BID on discharge for total of 10d course, Stop date 08/18/18 -Recommend wound care consult -Management per surgery ID will sign off at this time. Please call for any further questions. SNOMED Code(s): 814494097, 781292518 (2) Abscess of sacrum Current Visit: Yes Status: Acute Abscess of the sacrum, status post I&D Wound cultures growing VRE enterococcus and staph aureus identification pending Patient currently treated with Unasyn, recommend PO augmentin on discharge as above SNOMED Code(s): 693838248, 271947032 (3) Acute worsening of stage 3 chronic kidney disease Current Visit: Yes Status: Acute Acute on chronic kidney disease Likely secondary to acute infection SNOMED Code(s): 254527639, 053166129 (4) Dementia Current Visit: No Status: Chronic Dementia, appears to be at baseline according to family Qualifiers: Dementia type: Alzheimer's disease Alzheimer's disease onset: early-onset Dementia behavioral disturbance: without behavioral disturbance Qualified Code(s): G30.0 - Alzheimer's disease with early onset; F02.80 - Dementia in other diseases classified elsewhere without behavioral disturbance SNOMED Code(s): 47571149 (5) DM (diabetes mellitus), type 2 Current Visit: No Status: Chronic Recommend aggressive management of blood glucose for proper healing Qualifiers: Diabetes mellitus intermediate designer insulin use: with intermediate designer use Diabetes mellitus complication status: with neurologic complications Diabetes mellitus complication detail: with polyneuropathy Qualified Code(s): E11.42 - Type 2 diabetes mellitus with diabetic polyneuropathy; Z79.4 - correction (current) use of insulin SNOMED Code(s): 86538706 (6) Morbid obesity with BMI of 50.0-59.9, adult Current Visit: Yes Status: Chronic SNOMED Code(s): 219635858, [id number] Consult Discharge Plan - Plan Instructions: How to Prevent Pressure Ulcers (GEN), Pressure Ulcer (GEN) Additional Instructions: Wound care- daily dressing changes, use calcium alginate dressing covered by gauze and tape. Continue to offload pressure by lying on your sides. Referrals: Jermain Jensen MD [Non-Partnered Physician] - William Abdul MD [Primary Care Provider] - - Attending Attestation I examined this patient and my medical decision-making was reviewed with [facility]. I agree with the documented findings, disposition and treatment plan as described except to the extent set forth below. Assessment and plan: 1.Sacral decubitus ulcer stage III 2.Abscess of the sacrum 3.Acute worsening stage III chronic kidney disease 4.Chronic dementia 5.Diabetes mellitus type 2 REcommendations: d/c unasyn get picc line start dapto duration of treatment 2 weeks scripts written follow up with wound care weekly cbc, bun/cr and ck level d/w daughter at bedside
[2018-08-16] MEDS ORDERED: SODIUM CHLORIDE 0.9% IVPB ONE (18:00)
[2018-08-16] MEDS ORDERED: DAPTOMYCIN IVPB ONE (18:00)
[2018-08-16] MEDS: DAPTOMYCIN IVPB SCH (18:55)
[2018-08-16] MEDS: SODIUM CHLORIDE 0.9% IVPB SCH (18:55)
[2018-08-17 04:52] LABS: BUN/Creatinine Ratio 11 (6-26); Blood Urea Nitrogen 10 mg/dL (8-23); Calcium 8.9 mg/dL (8.6-10.3); Carbon Dioxide 35 mEq/L (23-29); Chloride 101 mEq/L (98-107); Glucose 124 mg/dL (70-105); Osmolality,Calculated 294 (280-300); Potassium 3.7 mEq/L (3.5-5.1); Sodium 142 mEq/L (136-145); eGFR For African Americans > 60 (> 60); eGFR For Non-African Americans 59 (> 60)
[2018-08-17] MEDS: *HR* Heparin 5,000 UNIT/ML VIAL SQ SCH ×3 (06:59→21:14)
[2018-08-17] MEDS: Insulin LISPRO 300 UNITS/3 ML VIAL SQ SCH ×4 (08:15→21:10)
--- NOTE | 2018-08-17 10:38 | Internal Med Progress Note ---
Hospitalist Progress Note - Encounter Date of Encounter: 08/17/18 Time of Encounter: 10:36 - Subjective Interval History: Patient seen and examined this morning in the center. No acute overnight events. Patient denies any new complaints. Denies any chest pain shortness of breath abdominal pain nausea vomiting or diarrhea. She is not completely orien marquis to time, but no seizures in hospital. Does not know why she is here. He agreed to stay yesterday to wait for culture and sensitivity. - Exam Vitals: Temp Pulse Resp BP Pulse Ox 97.8 F 69 18 146/74 98 08/17/18 05:46 08/17/18 05:46 08/17/18 05:46 08/17/18 05:46 08/17/18 05:46 Exam: General: In no acute distress. morbid obesity Respiratory exam: CTAB. could not appreciate rales, rhonchi, wheezes Cardiovascular exam: RRR, +S1, +S2. no murmur, gallop, rubs. GI/Abdominal exam: Non-tender, Non-distended, normal bowel sounds, soft, no peritoneal signs. Extremities exam: trace pedal edema, pulses palpable in b/l lower extremities. no calf tenderness Neurological exam: CN II-XII intact, AO X3, no focal deficits. Skin exam: Rt buttock with dressing - Assessment and Plan (1) Venous insufficiency of both lower extremities Current Visit: No Status: Chronic (2) Weakness Current Visit: No Status: Acute (3) DM (diabetes mellitus), type 2 Current Visit: No Status: Chronic (4) COPD (chronic obstructive pulmonary disease) Current Visit: No Status: Chronic (5) Morbid obesity with BMI of 50.0-59.9, adult Current Visit: Yes Status: Chronic (6) CKD (chronic kidney disease) stage 3, GFR 30-59 ml/min Current Visit: No Status: Chronic (7) Dementia Current Visit: No Status: Chronic (8) Hypertension Current Visit: No Status: Chronic (9) Pressure ulcer Current Visit: No Status: Acute (10) DVT prophylaxis Current Visit: No Status: Acute (11) Abscess of sacrum Current Visit: Yes Status: Acute - Summary of Assessment and Plan Summary of Assessment and Plan: Assessment Acute sacrum abscess Sacral decubitus ulcer stage III Morbid obesity Physical deconditioning Chronic CKD 3 HFpEF, COPD Dementia DM HTN Plan - s/p I&D by surgery on 08/09/18. would growing staph and VRE. Per ID staph aureus isolate was sent out for sensitivities due to concern for possible vancomycin resistance. Final sensitivity still pending. Patient now on daptomycin till sensitivity are back. - Renal function at baseline - PT/OT recommended rehab. Patient wants to go home but is on/off confused and not able to understand and articulate risk of going home on/off. Recommend discharging to SNF. She is unsafe to go home if 24 supervision not available. If going home will discharge AMA. - Not in acute exacerbation of COPD. prn bronchodilators - c/w SSI and accuchecks. - c/w home aricept - c/w home lisinopril and metoprolol for BP. prn hydralazine for elevated sbp>180 - Heparin sq for DVT ppx. Internal Medicine: Result - Labs CBC & Chem 7: 08/10/18 04:58 08/17/18 03:55 Labs: BMP 08/16/18 08/17/18 05:25 03:55 Sodium 143 142 Potassium 4.0 3.7 Chloride 101 101 Carbon Dioxide 35 H 35 H BUN 11 10 Creatinine 0.94 0.93 Glucose 156 H 124 H Calcium 9.1 8.9 Consult Discharge Plan - Plan Instructions: How to Prevent Pressure Ulcers (GEN), Pressure Ulcer (GEN) Additional Instructions: Wound care- daily dressing changes, use calcium alginate dressing covered by gauze and tape. Continue to offload pressure by lying on your sides. 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 shearer operator insulin use: with fci use Diabetes mellitus complication status: with neurologic complications Diabetes mellitus complication detail: with polyneuropathy Qualified Code(s): E11.42 - Type 2 diabetes mellitus with diabetic polyneuropathy; Z79.4 - roasterman (current) use of insulin (4) COPD (chronic obstructive pulmonary disease) Qualifiers: COPD type: unspecified COPD Qualified Code(s): J44.9 - Chronic obstructive pulmonary disease, unspecified (7) Dementia Qualifiers: Dementia type: Alzheimer's disease Alzheimer's disease onset: early-onset Dementia behavioral disturbance: without behavioral disturbance Qualified Code(s): G30.0 - Alzheimer's disease with early onset; F02.80 - Dementia in other diseases classified elsewhere without behavioral disturbance (8) Hypertension Qualifiers: Hypertension type: essential hypertension Qualified Code(s): I10 - Essential (primary) hypertension (9) Pressure ulcer Qualifiers: Pressure injury location: buttock Pressure injury stage: stage 2 Laterality: unspecified laterality Qualified Code(s): L89.302 - Pressure ulcer of unspecified buttock, stage 2
[2018-08-17] MEDS ORDERED: SODIUM CHLORIDE 0.9% IVPB ONE (18:00)
[2018-08-17] MEDS ORDERED: DAPTOMYCIN IVPB ONE (18:00)
[2018-08-17] MEDS: DAPTOMYCIN IVPB SCH (18:14)
[2018-08-17] MEDS: SODIUM CHLORIDE 0.9% IVPB SCH (18:14)
[2018-08-18] MEDS: Insulin LISPRO 300 UNITS/3 ML VIAL SQ SCH ×3 (09:20→16:49)
--- NOTE | 2018-08-18 11:38 | Internal Med Progress Note ---
Hospitalist Progress Note - Encounter Date of Encounter: 08/18/18 Time of Encounter: 11:37 - Subjective Interval History: Patient seen and examined this morning at bedside. No acute overnight events. Patient on and off confused with the nurses sometimes refusing oral medications sometimes okay with it. Wants to get antibiotic but absolutely refused to go to rehab. - Exam Vitals: Temp Pulse Resp BP Pulse Ox 98.9 F 63 18 160/65 98 08/18/18 10:58 08/18/18 10:58 08/18/18 10:58 08/18/18 10:58 08/18/18 10:58 Exam: General: In no acute distress. morbid obesity Respiratory exam: CTAB. could not appreciate rales, rhonchi, wheezes Cardiovascular exam: RRR, +S1, +S2. no murmur, gallop, rubs. GI/Abdominal exam: Non-tender, Non-distended, normal bowel sounds, soft, no peritoneal signs. Extremities exam: trace pedal edema, pulses palpable in b/l lower extremities. no calf tenderness Neurological exam: CN II-XII intact, AO X3, no focal deficits. Skin exam: Rt buttock with dressing, wound looks healthy. - Assessment and Plan (1) Venous insufficiency of both lower extremities Current Visit: No Status: Chronic (2) Weakness Current Visit: No Status: Acute (3) DM (diabetes mellitus), type 2 Current Visit: No Status: Chronic (4) COPD (chronic obstructive pulmonary disease) Current Visit: No Status: Chronic (5) Morbid obesity with BMI of 50.0-59.9, adult Current Visit: Yes Status: Chronic (6) CKD (chronic kidney disease) stage 3, GFR 30-59 ml/min Current Visit: No Status: Chronic (7) Dementia Current Visit: No Status: Chronic (8) Hypertension Current Visit: No Status: Chronic (9) Pressure ulcer Current Visit: No Status: Acute (10) DVT prophylaxis Current Visit: No Status: Acute (11) Abscess of sacrum Current Visit: Yes Status: Acute - Summary of Assessment and Plan Summary of Assessment and Plan: Assessment Acute sacrum abscess Sacral decubitus ulcer stage III Morbid obesity Physical deconditioning Chronic CKD 3 HFpEF, COPD Dementia DM HTN Plan - s/p I&D by surgery on 08/09/18. would growing staph and VRE. Final sensitivity reviewed. Patient now on daptomycin per ID and has midline. But would be expensive for her with [facility]. Will discuss with ID about switching to levaquin. - PT/OT recommended rehab. Patient wants to go home but is on/off confused and not able to understand and articulate risk of going home on/off. Recommend discharging to SNF. She is unsafe to go home if 24 supervision not available. If going home will discharge AMA. Will get pyschiatry consult for formal capacity evaluation. - Not in acute exacerbation of COPD. prn bronchodilators - c/w SSI and accuchecks. - c/w home aricept - c/w home lisinopril and metoprolol for BP. prn hydralazine for elevated sbp>180 - Heparin sq for DVT ppx. Internal Medicine: Result - Labs CBC & Chem 7: 08/10/18 04:58 08/17/18 03:55 Consult Discharge Plan - Plan Instructions: How to Prevent Pressure Ulcers (GEN), Pressure Ulcer (GEN) Additional Instructions: Wound care- daily dressing changes, use calcium alginate dressing covered by gauze and tape. Continue to offload pressure by lying on your sides. Referrals: Jermain Jensen MD [Non-Partnered Physician] - William Abdul MD [Primary Care Provider] - (3) DM (diabetes mellitus), type 2 Qualifiers: Diabetes mellitus senior care insulin use: with senior care use Diabetes mellitus complication status: with neurologic complications Diabetes mellitus complication detail: with polyneuropathy Qualified Code(s): E11.42 - Type 2 diabetes mellitus with diabetic polyneuropathy; Z79.4 - terminal supervisor (current) use of insulin (4) COPD (chronic obstructive pulmonary disease) Qualifiers: COPD type: unspecified COPD Qualified Code(s): J44.9 - Chronic obstructive pulmonary disease, unspecified (7) Dementia Qualifiers: Dementia type: Alzheimer's disease Alzheimer's disease onset: early-onset Dementia behavioral disturbance: without behavioral disturbance Qualified Code(s): G30.0 - Alzheimer's disease with early onset; F02.80 - Dementia in other diseases classified elsewhere without behavioral disturbance (8) Hypertension Qualifiers: Hypertension type: essential hypertension Qualified Code(s): I10 - Essential (primary) hypertension (9) Pressure ulcer Qualifiers: Pressure injury location: buttock Pressure injury stage: stage 2 Laterality: unspecified laterality Qualified Code(s): L89.302 - Pressure ulcer of unspecified buttock, stage 2
[2018-08-18] MEDS ORDERED: SODIUM CHLORIDE 0.9% IVPB ONE (18:00)
[2018-08-18] MEDS ORDERED: DAPTOMYCIN IVPB ONE (18:00)
[2018-08-18] MEDS: DAPTOMYCIN IVPB SCH (18:45)
[2018-08-18] MEDS: SODIUM CHLORIDE 0.9% IVPB SCH (18:45)
[2018-08-18] MEDS: *HR* Heparin 5,000 UNIT/ML VIAL SQ SCH (20:20)
[2018-08-19] MEDS: Insulin LISPRO 300 UNITS/3 ML VIAL SQ SCH ×4 (01:45→16:11)
[2018-08-19 05:55] LABS: BUN/Creatinine Ratio 15 (6-26); Blood Urea Nitrogen 14 mg/dL (8-23); Carbon Dioxide 36 mEq/L (23-29); Chloride 100 mEq/L (98-107); Glucose 136 mg/dL (70-105); Osmolality,Calculated 295 (280-300); Potassium 3.6 mEq/L (3.5-5.1); Sodium 141 mEq/L (136-145); eGFR For African Americans > 60 (> 60); eGFR For Non-African Americans > 60 (> 60)
[2018-08-19] MEDS: *HR* Heparin 5,000 UNIT/ML VIAL SQ SCH ×2 (06:17→19:49)
--- NOTE | 2018-08-19 12:13 | Discharge Summary ---
- NOTES TO OUTPATIENT PROVIDER Notes to Outpatient Provider: Patient at risk of further deconditioning and patient lacking decision capacity. Discussed with POCindy wants to take her home which is AGAINST MEDICAL ADVICE given she needs significant rehabilitation. She will finished antibiotic course at home with [facility] Date of Encounter: 08/19/18 Time of Encounter: 12:08 - Discharge Diagnosis (1) Venous insufficiency of both lower extremities Priority: Secondary Status: Chronic (2) Weakness Priority: Primary Status: Acute (3) DM (diabetes mellitus), type 2 Priority: Secondary Status: Chronic Qualifiers: Diabetes mellitus intermediate insulin use: with intermediate use Diabetes mellitus complication status: with neurologic complications Diabetes mellitus complication detail: with polyneuropathy Qualified Code(s): E11.42 - Type 2 diabetes mellitus with diabetic polyneuropathy; Z79.4 - terminal block assembler (current) use of insulin (4) COPD (chronic obstructive pulmonary disease) Priority: Secondary Status: Chronic Qualifiers: COPD type: unspecified COPD Qualified Code(s): J44.9 - Chronic obstructive pulmonary disease, unspecified (5) Morbid obesity with BMI of 50.0-59.9, adult Priority: Secondary Status: Chronic (6) CKD (chronic kidney disease) stage 3, GFR 30-59 ml/min Priority: Secondary Status: Chronic (7) Dementia Priority: Secondary Status: Chronic Qualifiers: Dementia type: Alzheimer's disease Alzheimer's disease onset: early-onset Dementia behavioral disturbance: without behavioral disturbance Qualified Code(s): G30.0 - Alzheimer's disease with early onset; F02.80 - Dementia in other diseases classified elsewhere without behavioral disturbance (8) Hypertension Priority: Secondary Status: Chronic Qualifiers: Hypertension type: essential hypertension Qualified Code(s): I10 - Essential (primary) hypertension (9) Pressure ulcer Priority: Primary Status: Acute Qualifiers: Pressure injury location: buttock Pressure injury stage: stage 2 Laterality: unspecified laterality Qualified Code(s): L89.302 - Pressure ulcer of unspecified buttock, stage 2 (10) DVT prophylaxis Priority: Secondary Status: Acute (11) Abscess of sacrum Priority: Primary Status: Acute Hospital course: Ms. Ramsey is a 73 year old female with past medical history of morbid obesity, CK 80, diastolic CHF, COPD, dementia, diabetes, hypertension came in with fatigue and malaise for 3 days and pain in her buttocks. Vision was found to have abscess of sacrum along with pressure ulcer. Patient was started on broad- spectrum antibiotics and IV fluids. Patient was seen by surgery and underwent full-thickness skin debridement on 08/09/18. Infectious disease consult was obtained given blood cultures grew staph and VRE. Patient was continued on antibiotic per infectious disease. Initially she was switched to Augmentin however staph sensitivities were not reported as there was sent to reference lab for further sensitivity testing. She was started on daptomycin based on sensitivity per ID and would need 2 weeks course. Patient clinically doing better however has significant deconditioning. Patient was seen by PT recommended rehabilitation however patient keep refusing to go to rehabilitation but she was on and off confusion and lacked decision-making capacity which was confirmed by psychiatry. Multiple discussions were made with (TONY Resendiz who wanted the patient take-home. Arrangements were made for patient to get IV antibiotics at home. Patient will be leaving AGAINST MEDICAL ADVICE to home instead of rehabilitation. Discharge discussed with: patient, family, nurse, social work, case management, inbound sales consultant - Time Spent with Patient Total time spent providing and/or coordinating discharge services: Time spent: Greater than 30 minutes (40) - Discharge Medications Prescriptions: Continued Citalopram Hydrobromide [Citalopram HBr] 20 mg PO DAILY Donepezil [Aricept] 5 mg PO DAILY Ergocalciferol (VITAMIN D2) [Vitamin D2] 50,000 unit PO WE Lisinopril [Zestril] 5 mg PO DAILY Metoprolol Tartrate 50 mg PO DAILY Sitagliptin Phosphate [Januvia] 50 mg PO DAILY Potassium Chloride [K-Tab ER] 10 meq PO DAILY OxyCODONE/APAP 10/325 [Percocet 10/325 MG] 1 tab PO Q6H PRN PRN Reason: Pain Furosemide [Lasix] 20 mg PO Q48H Memantine HCl 5 mg PO DAILY Home Medications: Citalopram Hydrobromide [Citalopram HBr] 20 mg PO DAILY 06/05/18 [History] Donepezil [Aricept] 5 mg PO DAILY 06/05/18 [History] Ergocalciferol (VITAMIN D2) [Vitamin D2] 50,000 unit PO WE 06/05/18 [History] Lisinopril [Zestril] 5 mg PO DAILY 06/05/18 [History] Metoprolol Tartrate 50 mg PO DAILY 06/05/18 [History] Potassium Chloride [K-Tab ER] 10 meq PO DAILY 06/05/18 [History] Sitagliptin Phosphate [Januvia] 50 mg PO DAILY 06/05/18 [History] OxyCODONE/APAP 10/325 [Percocet 10/325 MG] 1 tab PO Q6H PRN 06/17/18 [History] Furosemide [Lasix] 20 mg PO Q48H 07/11/18 [History] Memantine HCl 5 mg PO DAILY 07/11/18 [History] Allergies/Adverse Reactions: Allergy/AdvReac Type Severity Reaction Status Date / Time No Known Allergies Allergy Verified 08/08/18 19:05 Date of admission: 08/09/18 18:18 Primary care physician: William Abdul MD Consults: 08/08/18 18:29 Consult to Surgery [CONS] Routine Consulting Provider: Acute Care Surgery Reason for Consult: abscess Call Completed: Yes 08/08/18 22:26 Consult to Nutrition [CONS] Routine Comment: Consulting Provider: NUTRITION Reason for Dietary Consult: MST Score 08/10/18 06:43 Consult to Urologist Physician (W&C) [CONS] Routine Reason For Exam: Reason for SW Consult: dc planning 08/10/18 09:42 Consult to Occupational Therapy [CONS] Routine Comment: Evaluate, develop and implement POC Reason for Consult: Evaluate, develop and implement POC Does patient have active BEDREST order?: No Is patient medically & hemodynamically stable?: Yes Consult to Physical Therapy [CONS] Routine Comment: Evaluate, develop and implement POC Reason for Consult: Disposition planning. Therapy - weakness in bed. Does patient have active BEDREST order?: No Is patient medically & hemodynamically stable?: Yes Consult to Urologist Physician [CONS] Routine Reason for SW Consult: dispo 08/12/18 12:03 Consult to Infectious Diseases [CONS] Routine Consulting Provider: Infectious Disease Kristel Reason for Consult: VRE wound Call Completed: Yes 08/16/18 16:28 Consult to Invasive Line Access Team [CONS] Routine Reason for Consult: home atb Line Type: Midline 08/18/18 12:33 Consult to Psychiatry [CONS] Routine Consulting Provider: Psychiatry Kristel Reason consult: Capacity assessment Discharging clinician: Purav T Rodriges - Constitutional Vitals: Temp Pulse Resp BP Pulse Ox 98.7 F 62 20 159/69 98 08/19/18 10:59 08/19/18 10:59 08/19/18 10:59 08/19/18 10:59 08/19/18 10:59 Exam: General: In no acute distress. morbid obesity Respiratory exam: CTAB. could not appreciate rales, rhonchi, wheezes Cardiovascular exam: RRR, +S1, +S2. no murmur, gallop, rubs. GI/Abdominal exam: Non-tender, Non-distended, normal bowel sounds, soft, no peritoneal signs. Extremities exam: trace pedal edema, pulses palpable in b/l lower extremities. no calf tenderness Neurological exam: CN II-XII intact, AO X2, no focal deficits. confused Skin exam: Rt buttock with dressing, wound looks healthy. - Patient Status Disposition: Left Against Medical Advice Condition: Fair - Discharge Instructions Instructions: How to Prevent Pressure Ulcers (GEN), Pressure Ulcer (GEN) Follow Up With: Jermain Jensen MD [Non-Partnered Physician] - William Abdul MD [Primary Care Provider] - Additional Instructions: Wound care- daily dressing changes, use calcium alginate dressing covered by gauze and tape. Continue to offload pressure by lying on your sides.
--- NOTE | 2018-08-19 13:59 | Consult Note ---
Date of Encounter: 08/19/18 Time of Encounter: 13:53 Assessment & Recommendation (1) Dementia Current visit: No Status: Chronic Assessment & Recommendation: Client does not know what brought her into the hospital, why she is still here, or why a rehab is being recommended. Not oriented to time or circumstance. Taking meds for Dementia and has clear cognitive impairment. Do not think she is capable of caring for herself and do not think she has the capacity to make sound medical decisions at this time. Qualifiers: Dementia type: Alzheimer's disease Alzheimer's disease onset: early-onset Dementia behavioral disturbance: without behavioral disturbance Qualified Code(s): G30.0 - Alzheimer's disease with early onset; F02.80 - Dementia in other diseases classified elsewhere without behavioral disturbance History of Present Illness Requesting Physician: Ruy Rodriges MD Reason for consult: capacity assessment History of present illness: Ms. Ramsey is a 73 year old female who was admitted medically secondary to a sore on her body. She has had a prolonged hospital stay and her primary team is now recommending she be discharged to a rehab facility. Client is declining to go. Psychiatry was called to help with a capacity assessment. On eval today client denies having any mental health history. States her mood is stable and that she is thinking clearly. Aware her providers are recommending a rehab fac ility but states she wants to go home. Client states she lives alone and that she cares for her own health and manages her own medications. However, when asked what brought her into the hospital client denied remembering. When asked what she is being treated for client denied knowing. When asked why she is being referred to a rehab client indicated she had no idea. Client also was not oriented today. She thought the year was 2015. Prescribed medications for Dementia including Aricept and Memantine. CC: Ruy Rodriges MD Past Med Surg Social Fam HX - Past Medical History Medical history: arthritis, CHF, COPD, dementia, diabetes, GERD, hyperlipidemia, hypertension, osteoporosis, renal disease, other - Past Psychiatric History Psychiatric history: Reports: no psych history Family psychiatric history: Unknown Family History of Suicide: Unknown - Past Surgical History Surgical History: other - Social History Smoking Status: Current every day smoker Smokeless Tobacco Status: No Alcohol use: none Drug use: none - Family History Mother Adopted: No Family Member Ethnicity: Non- Living Status: Hx Family Cardiac Disorders: Yes (heart attack, HTN) Hx Family Respiratory Disorders: Yes Hx Family Cancer: No Hx Family GI Disorders: No Hx Family Endocrine Disorder: Yes (diabetes) Hx Family Neuromuscular Disorders: No Hx Family Neurologic Disorders: No Hx Family HEENT Disorders: No Hx Family Autoimmune Disorders: No Medications & Allergies Citalopram Hydrobromide [Citalopram HBr] 20 mg PO DAILY 06/05/18 [History] Donepezil [Aricept] 5 mg PO DAILY 06/05/18 [History] Ergocalciferol (VITAMIN D2) [Vitamin D2] 50,000 unit PO WE 06/05/18 [History] Lisinopril [Zestril] 5 mg PO DAILY 06/05/18 [History] Metoprolol Tartrate 50 mg PO DAILY 06/05/18 [History] Potassium Chloride [K-Tab ER] 10 meq PO DAILY 06/05/18 [History] Sitagliptin Phosphate [Januvia] 50 mg PO DAILY 06/05/18 [History] OxyCODONE/APAP 10/325 [Percocet 10/325 MG] 1 tab PO Q6H PRN 06/17/18 [History] Furosemide [Lasix] 20 mg PO Q48H 07/11/18 [History] Memantine HCl 5 mg PO DAILY 07/11/18 [History] Allergy/AdvReac Type Severity Reaction Status Date / Time No Known Allergies Allergy Verified 08/08/18 19:05 Review of Systems Constitutional: Denies: fever, chills, weakness, weight change Eyes: Denies: eye pain, vision change Ears, Nose, Throat: Denies: ear pain, throat pain, dental pain, hearing loss, congestion Cardiovascular: Denies: chest pain, palpitations, dyspnea on exertion Respiratory: Denies: cough, dyspnea, wheezes Gastrointestinal: Denies: abdominal pain, nausea, vomiting, diarrhea, constipation Genitourinary female: Denies: urgency, dysuria, frequency, abnormal menses, dy spareunia Musculoskeletal: Reports: other Integumentary: Reports: other Neurological: Reports: memory loss Endocrine: Denies: fatigue, heat or cold intolerance Hematologic/Lymphatic: Denies: easy bruising, lymphadenopathy Allergic/Immunologic: Denies: urticaria, itchy eyes Psychiatry Exam - Constitutional Vitals: Temp Pulse Resp BP Pulse Ox 98.7 F 62 20 159/69 98 08/19/18 10:59 08/19/18 10:59 08/19/18 10:59 08/19/18 10:59 08/19/18 10:59 General appearance: age & developmentally appropriate, well-groomed, well- nourished - Musculoskeletal Station: relaxed Strength & Tone: normal for patient - Psychiatric Patient Orientation: Yes Person, No Time, No Place, No Circumstance Level of alertness: Alert Behavior: calm, cooperative Psychomotor activity: Normal Eye Contact: Maintains Eye Contact Mood Description: Euthymic/stable Affect description: congruent with mood, full range Speech Volume: Normal Speech pattern: normal rate, normal rhythm, normal tone, fluent, spontaneous Language & Vocabulary: consistent with education Thought Process: Slowed Thinking Thought Content: No Suicidal ideation, No Homicidal ideation, No Overt delusions Perceptual Disturbances: No Auditory hallucinations, No Visual hallucinations Attention Span Ability: Capable of Focused Attention Memory Description: Immediate Intact, Recent Impaired, Remote Intact Patient Reliability: Not Reliable Historian Fund of knowledge: Yes abstraction ability Intelligence Estimate: Average Judgment: Limited Insight: Minimal Results - Labs Labs: Laboratory Last Values WBC 6.5 K/mcL (4.3-11.1) 08/10/18 04:58 RBC 4.14 M/mcL (3.82-4.97) 08/10/18 04:58 Hgb 12.6 g/dL (11.5-15.4) 08/10/18 04:58 Hct 39.8 % (35.3-44.9) 08/10/18 04:58 MCV 96.1 fL (83.0-100.0) 08/10/18 04:58 MCH 30.4 pg (28.0-33.3) 08/10/18 04:58 MCHC 31.7 g/dL (31.6-35.5) 08/10/18 04:58 RDW 14.6 % (11.5-14.5) H 08/10/18 04:58 Plt Count 200 K/mcL (140-400) 08/10/18 04:58 MPV 10.7 fL (9.4-12.4) 08/10/18 04:58 Immature Gran % 0.6 % (0-4) 08/10/18 04:58 Seg Neutrophils % 90.6 % 08/10/18 04:58 7.7 % 08/10/18 04:58 0.9 % 08/10/18 04:58 0.0 % 08/10/18 04:58 0.2 % 08/10/18 04:58 5.9 K/mcL (1.6-8.9) 08/10/18 04:58 0.5 K/mcL (0.6-4.6) L 08/10/18 04:58 0.1 K/mcL (0.0-1.3) 08/10/18 04:58 0.0 K/mcL (0.0-0.6) 08/10/18 04:58 0.0 K/mcL (0.0-0.2) 08/10/18 04:58 ESR 43 mm/hr (0-15) H 08/13/18 07:07 VBG pH 7.36 pH Units (7.32-7.42) 08/08/18 16:31 VBG pCO2 50 mmHg (41-51) 08/08/18 16:31 VBG pO2 115 mmHg (25-50) H 08/08/18 16:31 VBG HCO3 28 mEq/L (21-27) H 08/08/18 16:31 Sodium 141 mEq/L (136-145) 08/19/18 05:20 Potassium 3.6 mEq/L (3.5-5.1) 08/19/18 05:20 Chloride 100 mEq/L (98-107) 08/19/18 05:20 Carbon Dioxide 36 mEq/L (23-29) H 08/19/18 05:20 BUN 14 mg/dL (8-23) 08/19/18 05:20 0.91 mg/dL (0.60-1.20) 08/19/18 05:20 Est GFR ( Amer) > 60 (> 60) 08/19/18 05:20 Est GFR (Non-Af Amer) > 60 (> 60) 08/19/18 05:20 15 (6-26) 08/19/18 05:20 Glucose 136 mg/dL (70-105) H 08/19/18 05:20 POC Glucose 142 mg/dL (70-99) H 08/19/18 07:08 295 (280-300) 08/19/18 05:20 Lactic Acid 0.9 mmol/L (0.5-2.2) 08/08/18 16:16 Calcium 9.0 mg/dL (8.6-10.3) 08/19/18 05:20 0.4 mg/dL (0.3-1.0) 08/08/18 16:16 AST 10 Units/L (13-39) L 08/08/18 16:16 ALT 7 Units/L (7-52) 08/08/18 16:16 59 Units/L (34-104) 08/08/18 16:16 < 10 Units/L (30-223) L 08/16/18 05:25 < 5 mg/L (Less than 10) 08/13/18 07:07 6.2 g/dL (6.4-8.9) L 08/08/18 16:16 3.3 g/dL (3.5-5.7) L 08/08/18 16:16 2.9 g/dL (2.4-3.5) 08/08/18 16:16 1.1 (1.1-2.2) 08/08/18 16:16 Yellow (Yellow) 08/08/18 16:06 Clear (Clear) 08/08/18 16:06 5.0 pH Units (5.0-8.0) 08/08/18 16:06 Ur Specific [place] 1.019 (1.010-1.025) 08/08/18 16:06 Negative mg/dL (Neg-Trace) 08/08/18 16:06 Normal mg/dL (Normal) 08/08/18 16:06 Negative mg/dL (Negative) 08/08/18 16:06 Negative (Negative) 08/08/18 16:06 Negative (Negative) 08/08/18 16:06 Negative (Negative) 08/08/18 16:06 Normal mg/dL (Normal) 08/08/18 16:06 Ur Leukocyte Esterase Negative (Negative) 08/08/18 16:06 Ur Culture Indicated? NO (NO) 08/08/18 16:06 Negative (Negative) 08/09/18 09:15 Stl C. cayetanensis PCR Not detected (Not detect) 08/11/18 20:00 Stool Rotavirus A PCR Not detected (Not detect) 08/11/18 20:00 Stl Adenov F 40/41 PCR Not detected (Not detect) 08/11/18 20:00 Not detected (Not detect) 08/11/18 20:00 Stool Campylobacter PCR Not detected (Not detect) 08/11/18 20:00 Stl C.diff Tox A&B Gene Not detected (Not detect) 08/11/18 20:00 Stool Cryptosporidium PCR Not detected (Not detect) 08/11/18 20:00 Stl Sh Tox Pr E STEC PCR Not detected (Not detect) 08/11/18 20:00 Stool E coli O157 PCR Not detected (Not detect) 08/11/18 20:00 Stl Enterotoxigenic E PCR Not detected (Not detect) 08/11/18 20:00 Stool EPEC (PCR) Not detected (Not detect) 08/11/18 20:00 Stool EAEC (PCR) Not detected (Not detect) 08/11/18 20:00 Stl E. histolytica PCR Not detected (Not detect) 08/11/18 20:00 Stool Giardia Lamblia PCR Not detected (Not detect) 08/11/18 20:00 Stool Salmonella PCR Not detected (Not detect) 08/11/18 20:00 Not detected (Not detect) 08/11/18 20:00 Stl P. shigelloides PCR Not detected (Not detect) 08/11/18 20:00 Stl Shigella/EIEC PCR Not detected (Not detect) 08/11/18 20:00 St Y.enterocolitica PCR Not detected (Not detect) 08/11/18 20:00 Not detected (Not detect) 08/11/18 20:00 Stl Vibrio cholerae PCR Not detected (Not detect) 08/11/18 20:00 Stl Norovirus GI/GII PCR Not detected (Not detect) 08/11/18 20:00 Stl GI Panel (PCR) Com See below 08/11/18 20:00 Vancomycin Trough 14 mcg/mL (5-10) H 08/10/18 09:27 Consult Discharge Plan - Plan Instructions: How to Prevent Pressure Ulcers (GEN), Pressure Ulcer (GEN) Additional Instructions: Wound care- daily dressing changes, use calcium alginate dressing covered by gauze and tape. Continue to offload pressure by lying on your sides. Referrals: Jermain Jensen MD [Non-Partnered Physician] - William Abdul MD [Primary Care Provider] -
--- NOTE | 2018-08-19 15:10 | Physician Discharge Referral ---
Home Health/Hosp Referral Info Transfer to: Home Health - Diagnosis (1) Venous insufficiency of both lower extremities Status: Chronic (2) Weakness Status: Acute (3) DM (diabetes mellitus), type 2 Status: Chronic (4) COPD (chronic obstructive pulmonary disease) Status: Chronic (5) Morbid obesity with BMI of 50.0-59.9, adult Status: Chronic (6) CKD (chronic kidney disease) stage 3, GFR 30-59 ml/min Status: Chronic (7) Dementia Status: Chronic (8) Hypertension Status: Chronic (9) Pressure ulcer Status: Acute (10) DVT prophylaxis Status: Acute (11) Abscess of sacrum Status: Acute - Respiratory Orders Smoking Cessation: Smoking cessation has been advised. For more information, call the [place] Tobacco Quit Line at 0-367-RMQX-NOW. - Services Needed Following services are medically necessary services: Nursing, Physical Therapy, Occupational Therapy, Home Infusion - Transfer Medications Home Medications: Citalopram Hydrobromide [Citalopram HBr] 20 mg PO DAILY 06/05/18 [History] Donepezil [Aricept] 5 mg PO DAILY 06/05/18 [History] Ergocalciferol (VITAMIN D2) [Vitamin D2] 50,000 unit PO WE 06/05/18 [History] Lisinopril [Zestril] 5 mg PO DAILY 06/05/18 [History] Metoprolol Tartrate 50 mg PO DAILY 06/05/18 [History] Potassium Chloride [K-Tab ER] 10 meq PO DAILY 06/05/18 [History] Sitagliptin Phosphate [Januvia] 50 mg PO DAILY 06/05/18 [History] OxyCODONE/APAP 10/325 [Percocet 10/325 MG] 1 tab PO Q6H PRN 06/17/18 [History] Furosemide [Lasix] 20 mg PO Q48H 07/11/18 [History] Memantine HCl 5 mg PO DAILY 07/11/18 [History] Allergies/Adverse Reactions: Allergy/AdvReac Type Severity Reaction Status Date / Time No Known Allergies Allergy Verified 08/08/18 19:05 Certification: Further, I certify that my clinical findings support that this patient is homebound (i.e. absences from home require considerable and taxing effort and are for medical reasons or [employer] services or infrequently or short duration when for other reasons) because: Homebound Reason: Patient requires assistance of a person or device to safely leave home Attestation: My signature below is to certify that this patient is under my care and that I, or nurse practitioner, or a physician's quality assistant working with me, has a [id number] encounter with this patient.
[2018-08-19] MEDS ORDERED: DAPTOMYCIN IVPB SCH (18:00)
[2018-08-19] MEDS ORDERED: SODIUM CHLORIDE 0.9% IVPB SCH (18:00)
[2018-08-19 18:33] VITALS: BP 156/67
== END 2018-08-19 20:24 | disposition left against medical advice (07) | DRG 602 ==
LOC: EMEROOARM 14:54 → 3NENU 14:54 → SUATTDRO 08-09 18:18
PROVIDERS: ADMIT Internal Medicine Nephrology; ATTEND Internal Medicine

== ENCOUNTER 2018-10-21 17:42 | Inpatient (IN) ==
--- NOTE | 2018-10-21 17:48 | Emergency Department Note ---
Disposition Clinical Impression: Weakness Disposition: Admitted As Inpatient Condition: Fair Time of Disposition: 23:18 General Adult HPI - General Stated complaint: weakness Time Seen by Provider: 10/21/18 17:43 - Related Data Home Medications Medication Instructions Recorded Confirmed Citalopram Hydrobromide 20 mg PO DAILY 06/05/18 08/08/18 [Citalopram HBr] Donepezil [Aricept] 5 mg PO DAILY 06/05/18 08/08/18 Ergocalciferol (VITAMIN D2) 50,000 unit PO WE 06/05/18 08/08/18 [Vitamin D2] Potassium Chloride [K-Tab ER] 10 meq PO DAILY 06/05/18 08/08/18 Sitagliptin Phosphate [Januvia] 50 mg PO DAILY 06/05/18 08/08/18 Previous Rx's Medication Instructions Recorded Gentamicin Oint [Garamycin] 1 appl TP DAILY tube 09/04/18 Memantine [Namenda] 5 mg PO BID tablet 09/04/18 Metoprolol [Lopressor] 25 mg PO BID tablet 09/04/18 Miconazole 2% cream [Shamir 1 appl TP BID tube 09/04/18 Antifungal] OxyCODONE/APAP 10/325 [Percocet 1 tab PO Q6H PRN 3 Days #12 tablet 09/04/18 10/325 MG] Zinc Sulfate 220 mg PO DAILY 30 Days tablet 09/04/18 Allergies Allergy/AdvReac Type Severity Reaction Status Date / Time No Known Allergies Allergy Verified 08/26/18 21:59 Past Medical History - Past Medical History Medical history: Reports: arthritis, CHF, COPD, dementia, diabetes, GERD, hyperlipidemia, hypertension, osteoporosis, renal disease, other Surgical history: Reports: other Psychiatric history: Reports: no psych history [employer] history: Reports: bilateral tubal ligation - Social History Smoking Status: Current every day smoker Smokeless Tobacco Status: No Alcohol use: Reports: none Drug use: Reports: none Course Vital Signs Temperature 98.1 F 10/21/18 17:56 Pulse Rate 58 10/21/18 17:56 Respiratory Rate 14 10/21/18 17:56 Blood Pressure 103/45 10/21/18 17:56 O2 Sat by Pulse Oximetry 95 10/21/18 17:56 Temperature 98.1 F 10/21/18 17:56 Pulse Rate 63 10/21/18 22:45 Respiratory Rate 16 10/21/18 22:45 Blood Pressure 97/69 10/21/18 22:45 O2 Sat by Pulse Oximetry 92 10/21/18 22:45 Oxygen Delivery Oxygen Delivery Room Air Medical Decision Making - Lab Data Result diagrams: 10/21/18 19:03 10/21/18 19:03 Lab Results 10/21/18 10/21/18 10/21/18 Range/Units 18:50 19:03 19:03 WBC 9.8 (4.3-11.1) K/mcL RBC 3.98 (3.82-4.97) M/mcL Hgb 11.9 (11.5-15.4) g/dL Hct 38.4 (35.3-44.9) % MCV 96.5 (83.0-100.0) fL MCH 29.9 (28.0-33.3) pg MCHC 31.0 L (31.6-35.5) g/dL RDW 14.0 (11.5-14.5) % Plt Count 239 (140-400) K/mcL MPV 10.5 (9.4-12.4) fL Immature Gran % 0.5 (0-4) % Seg Neutrophils % 63.3 % Lymphocytes % 26.7 % Monocytes % 7.6 % Eosinophils % 1.7 % Basophils % 0.2 % Neutrophils # 6.2 (1.6-8.9) K/mcL Lymphocytes # 2.6 (0.6-4.6) K/mcL Monocytes # 0.7 (0.0-1.3) K/mcL Eosinophils # 0.2 (0.0-0.6) K/mcL Basophils # 0.0 (0.0-0.2) K/mcL Sodium 132 L (136-145) mEq/L Potassium 5.1 (3.5-5.1) mEq/L Chloride 95 L (98-107) mEq/L Carbon Dioxide 32 H (23-29) mEq/L BUN 33 H (8-23) mg/dL Creatinine 2.01 H (0.60-1.20) mg/dL Est GFR ( Amer) 29 L (> 60) Est GFR (Non-Af Amer) 24 L (> 60) BUN/Creatinine Ratio 16 (6-26) Glucose 201 H (70-105) mg/dL Calculated Osmolality 287 (280-300) Lactic Acid (0.5-2.2) mmol/L Calcium 8.9 (8.6-10.3) mg/dL Total Bilirubin 0.3 (0.3-1.0) mg/dL AST 8 L (13-39) Units/L ALT 5 L (7-52) Units/L Alkaline Phosphatase 66 (34-104) Units/L Troponin I (< 0.04) ng/mL B-Natriuretic Peptide (Less than 100) pg/mL Serum Total Protein 6.0 L (6.4-8.9) g/dL Albumin 3.3 L (3.5-5.7) g/dL Globulin 2.7 (2.4-3.5) g/dL Albumin/Globulin Ratio 1.2 (1.1-2.2) Urine Color Yellow (Yellow) Urine Clarity Cloudy A (Clear) Urine pH 5.0 (5.0-8.0) pH Units Ur Specific [place] 1.023 (1.010-1.025) Urine Protein Trace (Neg-Trace) mg/dL Urine Glucose (UA) Normal (Normal) mg/dL Urine Ketones Negative (Negative) mg/dL Urine Blood Negative (Negative) Urine Nitrite Positive A (Negative) Urine Bilirubin Small H (Negative) Urine Urobilinogen Normal (Normal) mg/dL Ur Leukocyte Esterase Moderate H (Negative) Urine Microscopic RBC 0-3 (0-3) per hpf Urine Microscopic WBC TNTC H (0-3) per hpf Ur Squamous Epith Cells Many H (None-Few) per lpf Urine Bacteria Many H (None-Few) per hpf Hyaline Casts Moderate H (None-Few) per lpf Ur Culture Indicated? YES A (NO) 10/21/18 10/21/18 10/21/18 Range/Units 19:03 19:03 20:33 WBC (4.3-11.1) K/mcL RBC (3.82-4.97) M/mcL Hgb (11.5-15.4) g/dL Hct (35.3-44.9) % MCV (83.0-100.0) fL MCH (28.0-33.3) pg MCHC (31.6-35.5) g/dL RDW (11.5-14.5) % Plt Count (140-400) K/mcL MPV (9.4-12.4) fL Immature Gran % (0-4) % Seg Neutrophils % % Lymphocytes % % Monocytes % % Eosinophils % % Basophils % % Neutrophils # (1.6-8.9) K/mcL Lymphocytes # (0.6-4.6) K/mcL Monocytes # (0.0-1.3) K/mcL Eosinophils # (0.0-0.6) K/mcL Basophils # (0.0-0.2) K/mcL Sodium (136-145) mEq/L Potassium (3.5-5.1) mEq/L Chloride (98-107) mEq/L Carbon Dioxide (23-29) mEq/L BUN (8-23) mg/dL Creatinine (0.60-1.20) mg/dL Est GFR ( Amer) (> 60) Est GFR (Non-Af Amer) (> 60) BUN/Creatinine Ratio (6-26) Glucose (70-105) mg/dL Calculated Osmolality (280-300) Lactic Acid 0.9 (0.5-2.2) mmol/L Calcium (8.6-10.3) mg/dL Total Bilirubin (0.3-1.0) mg/dL AST (13-39) Units/L ALT (7-52) Units/L Alkaline Phosphatase (34-104) Units/L Troponin I < 0.03 (< 0.04) ng/mL B-Natriuretic Peptide 46 (Less than 100) pg/mL Serum Total Protein (6.4-8.9) g/dL Albumin (3.5-5.7) g/dL Globulin (2.4-3.5) g/dL Albumin/Globulin Ratio (1.1-2.2) Urine Color (Yellow) Urine Clarity (Clear) Urine pH (5.0-8.0) pH Units Ur Specific [place] (1.010-1.025) Urine Protein (Neg-Trace) mg/dL Urine Glucose (UA) (Normal) mg/dL Urine Ketones (Negative) mg/dL Urine Blood (Negative) Urine Nitrite (Negative) Urine Bilirubin (Negative) Urine Urobilinogen (Normal) mg/dL Ur Leukocyte Esterase (Negative) Urine Microscopic RBC (0-3) per hpf Urine Microscopic WBC (0-3) per hpf Ur Squamous Epith Cells (None-Few) per lpf Urine Bacteria (None-Few) per hpf Hyaline Casts (None-Few) per lpf Ur Culture Indicated? (NO) Attestation Statement - Attestation Attestation: I reviewed the residents documentation and agree with the residents assessment and plan of care. I have personally had face to face time with the patient. (Brief History, Brief Exam, and MDM) I personally supervised and was present for the griffin/critical portions of the following procedures completed by the resident: (add procedures performed here). [id number] time provided I attest to supervising the resident physician's interpretation of the ECG Patient arrives with generalized weakness, most prominently in her bilateral lower extremities. Additional information obtained from the patient's granddaughter who is at bedside. The patient arrives by EMS. She denies focal unilateral weakness
[2018-10-21 19:04] LABS: Bilirubin,Urine Small (Negative); Blood,Urine Negative (Negative); Clarity,Urine Cloudy (Clear); Color,Urine Yellow (Yellow); Glucose,Urine (UA) Normal (Normal); Ketones,Urine Negative (Negative); Leukocyte Esterase,Urine Moderate (Negative); Nitrite,Urine Positive (Negative); Protein,Urine Trace mg/dL (Neg-Trace); Specific Gravity,Urine 1.023 (1.010-1.025); Urobilinogen,Urine Normal (Normal)
[2018-10-21 19:07] LABS: Bacteria,Urine Many per hpf (None-Few); Hyaline Casts,Urine Moderate per lpf (None-Few); RBC,Urine 0-3 per hpf (0-3); Squamous Epithelial Cell,Urine Many per lpf (None-Few); WBC,Urine TNTC per hpf (0-3)
[2018-10-21] MEDS ORDERED: cefTRIAXone 1,000 MG in 0.9 % Sodium Chloride Mini Bag 100 ML IVPB ONE (19:14)
[2018-10-21 19:21] LABS: Basophils % 0.2 %; Eosinophils # 0.2 K/mcL (0.0-0.6); Eosinophils % 1.7 %; Hematocrit 38.4 % (35.3-44.9); Hemoglobin 11.9 g/dL (11.5-15.4); Immature Granulocytes % 0.5 % (0-4); Lymphocytes # 2.6 K/mcL (0.6-4.6); Lymphocytes % 26.7 %; Mean Corpuscular Hemoglobin 29.9 pg (28.0-33.3); Mean Corpuscular Volume 96.5 fL (83.0-100.0); Mean Platelet Volume 10.5 fL (9.4-12.4); Monocytes # 0.7 K/mcL (0.0-1.3); Monocytes % 7.6 %; Neutrophils # 6.2 K/mcL (1.6-8.9); Platelet Count 239 K/mcL (140-400); Red Blood Count 3.98 M/mcL (3.82-4.97); Segmented Neutrophils % 63.3 %; White Blood Count 9.8 K/mcL (4.3-11.1)
[2018-10-21 19:40] LABS: Albumin 3.3 g/dL (3.5-5.7); Albumin/Globulin Ratio 1.2 (1.1-2.2); Bilirubin,Total 0.3 mg/dL (0.3-1.0); Calcium 8.9 mg/dL (8.6-10.3); Globulin 2.7 g/dL (2.4-3.5); Potassium 5.1 mEq/L (3.5-5.1)
[2018-10-21] MEDS ORDERED: *HR* FentaNYL (PF) 100 MCG/2 ML VIAL IVP ONE (20:06)
[2018-10-21] MEDS ORDERED: 0.9 % Sodium Chloride 1,000 ML IVC ONE (20:06)
--- NOTE | 2018-10-21 21:15 | Emergency Department Note ---
Disposition Clinical Impression: Weakness Disposition: Admitted As Inpatient Condition: Fair Referrals: William Abdul MD [Primary Care Provider] - Forms: ED Satisfaction Letter Time of Disposition: 21:46 General Adult HPI - General Chief complaint: ED Weakness Stated complaint: weakness Time Seen by Provider: 10/21/18 17:43 Source: EMS Limitations: no limitations, physical limitation Nursing Notes Reviewed: Yes Vital Signs Reviewed: Yes - History of Present Illness HPI Narrative: Patient is 73 yo woman who arrived via squad to the ED on 10/21/18 after she became acutely weak at home, slid out of her chair, was unable to bear weight or use her walker. Patient has baseline dementia. Patient denies CP, SOB, headache, head trauma, LOC, fever, chills, N/V/D, abdominal pain, dysuria or inability to eat or drink. She does have back pain. Patient on 2L O2 constantly at home. She is not on AC. She was recently brought home from SNF approximately 3-4 days ago, according to granddaughter. PMH significant for COPD, CHF, DM, CKD stage III, not on dialysis; UTI, decubital ulcer, dementia. Home medications include metoprolol. Pain Scale: 8 - Related Data Home Medications Medication Instructions Recorded Confirmed Citalopram Hydrobromide 20 mg PO DAILY 06/05/18 08/08/18 [Citalopram HBr] Donepezil [Aricept] 5 mg PO DAILY 06/05/18 08/08/18 Ergocalciferol (VITAMIN D2) 50,000 unit PO WE 06/05/18 08/08/18 [Vitamin D2] Potassium Chloride [K-Tab ER] 10 meq PO DAILY 06/05/18 08/08/18 Sitagliptin Phosphate [Januvia] 50 mg PO DAILY 06/05/18 08/08/18 Previous Rx's Medication Instructions Recorded Gentamicin Oint [Garamycin] 1 appl TP DAILY tube 09/04/18 Memantine [Namenda] 5 mg PO BID tablet 09/04/18 Metoprolol [Lopressor] 25 mg PO BID tablet 09/04/18 Miconazole 2% cream [Shamir 1 appl TP BID tube 09/04/18 Antifungal] OxyCODONE/APAP 10/325 [Percocet 1 tab PO Q6H PRN 3 Days #12 tablet 09/04/18 10/325 MG] Zinc Sulfate 220 mg PO DAILY 30 Days tablet 09/04/18 Allergies Allergy/AdvReac Type Severity Reaction Status Date / Time No Known Allergies Allergy Verified 08/26/18 21:59 All systems ED: reviewed and negative except as stated. 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 Pupils equal and reactive. Mucous membranes moist. Cardio: Regular rate and rhythm, no murmur, +2 pitting edema bilaterally, good perfusion to all extremities, no cyanosis Resp: Equal breath sounds bilaterally, no wheeze, no cough GI: Abdomen soft, nondistended, nontender to palpation. No ecchymoses, no rash. : +large area with fluctuance, erythema, edema on right decubitus with no discharge, painful to touch. No suprapubic tenderness or distention MSK: Normal ROM, no joint swelling or erythema Neuro: CNI-XII intact, strength decreased in LE bilaterally w/ patient unable to raise against gravity; sensation WNL Psych: Lethargic, but responsive - General Limitations: no limitations, physical limitation General appearance: alert, in no apparent distress Course Course Narrative: Patient afebrile, HR WNL, mild hypotension (SBP in low 100s, DPB 50s). Workup initiated for sepsis, pneumonia, UTI, electrolyte imbalance, arrhythmia. Patient given IVF, antibiotics and pain medication. - Reevaluation(s) Reevaluation #1: Patient resting comfortably, VS stable. She endorses 5/10 back pain, but is able to sleep well without pain medication and denies need for O2, is comfortable on RA. She is able to breathe comfortably while lying flat. Plan to admit discussed with family, who agreed. Patient has no formal code status. Time: 21:39 Vital Signs Temperature 98.1 F 10/21/18 17:56 Pulse Rate 58 09/02/19 17:56 Respiratory Rate 14 10/21/18 17:56 Blood Pressure 103/45 10/21/18 17:56 O2 Sat by Pulse Oximetry 95 10/21/18 17:56 Temperature 98.1 F 10/21/18 17:56 Pulse Rate 62 10/21/18 21:42 Respiratory Rate 15 10/21/18 21:42 Blood Pressure 93/58 10/21/18 21:42 O2 Sat by Pulse Oximetry 91 10/21/18 21:42 Oxygen Delivery Oxygen Delivery Room Air Medical Decision Making - MDM Narrative Medical decision making narrative: Given UTI, weakness, concern for possible urosepsis or cellulitis extending from sacral decubital ulcer, plan to admit patient. UA +nitrite, +LE. EKG WNL. CBC WNL. BNP WNL. Abnormal labs consistent with CKD. CXR WNL. CT abdomen/pelvis, lumbar spine and right thigh pending. - Medical Records Medical records reviewed: Yes I reviewed the patient's medical records. - Lab Data Lab results reviewed: Yes I reviewed the patient's lab results. Result diagrams: 10/21/18 19:03 10/21/18 19:03 Lab Results 10/21/18 10/21/18 10/21/18 Range/Units 18:50 19:03 19:03 WBC 9.8 (4.3-11.1) K/mcL RBC 3.98 (3.82-4.97) M/mcL Hgb 11.9 (11.5-15.4) g/dL Hct 38.4 (35.3-44.9) % MCV 96.5 (83.0-100.0) fL MCH 29.9 (28.0-33.3) pg MCHC 31.0 L (31.6-35.5) g/dL RDW 14.0 (11.5-14.5) % Plt Count 239 (140-400) K/mcL MPV 10.5 (9.4-12.4) fL Immature Gran % 0.5 (0-4) % Seg Neutrophils % 63.3 % Lymphocytes % 26.7 % Monocytes % 7.6 % Eosinophils % 1.7 % Basophils % 0.2 % Neutrophils # 6.2 (1.6-8.9) K/mcL Lymphocytes # 2.6 (0.6-4.6) K/mcL Monocytes # 0.7 (0.0-1.3) K/mcL Eosinophils # 0.2 (0.0-0.6) K/mcL Basophils # 0.0 (0.0-0.2) K/mcL Sodium 132 L (136-145) mEq/L Potassium 5.1 (3.5-5.1) mEq/L Chloride 95 L (98-107) mEq/L Carbon Dioxide 32 H (23-29) mEq/L BUN 33 H (8-23) mg/dL Creatinine 2.01 H (0.60-1.20) mg/dL Est GFR ( Amer) 29 L (> 60) Est GFR (Non-Af Amer) 24 L (> 60) BUN/Creatinine Ratio 16 (6-26) Glucose 201 H (70-105) mg/dL Calculated Osmolality 287 (280-300) Lactic Acid (0.5-2.2) mmol/L Calcium 8.9 (8.6-10.3) mg/dL Total Bilirubin 0.3 (0.3-1.0) mg/dL AST 8 L (13-39) Units/L ALT 5 L (7-52) Units/L Alkaline Phosphatase 66 (34-104) Units/L Troponin I (< 0.04) ng/mL B-Natriuretic Peptide (Less than 100) pg/mL Serum Total Protein 6.0 L (6.4-8.9) g/dL Albumin 3.3 L (3.5-5.7) g/dL Globulin 2.7 (2.4-3.5) g/dL Albumin/Globulin Ratio 1.2 (1.1-2.2) Urine Color Yellow (Yellow) Urine Clarity Cloudy A (Clear) Urine pH 5.0 (5.0-8.0) pH Units Ur Specific [place] 1.023 (1.010-1.025) Urine Protein Trace (Neg-Trace) mg/dL Urine Glucose (UA) Normal (Normal) mg/dL Urine Ketones Negative (Negative) mg/dL Urine Blood Negative (Negative) Urine Nitrite Positive A (Negative) Urine Bilirubin Small H (Negative) Urine Urobilinogen Normal (Normal) mg/dL Ur Leukocyte Esterase Moderate H (Negative) Urine Microscopic RBC 0-3 (0-3) per hpf Urine Microscopic WBC TNTC H (0-3) per hpf Ur Squamous Epith Cells Many H (None-Few) per lpf Urine Bacteria Many H (None-Few) per hpf Hyaline Casts Moderate H (None-Few) per lpf Ur Culture Indicated? YES A (NO) 10/21/18 10/21/18 10/21/18 Range/Units 19:03 19:03 20:33 WBC (4.3-11.1) K/mcL RBC (3.82-4.97) M/mcL Hgb (11.5-15.4) g/dL Hct (35.3-44.9) % MCV (83.0-100.0) fL MCH (28.0-33.3) pg MCHC (31.6-35.5) g/dL RDW (11.5-14.5) % Plt Count (140-400) K/mcL MPV (9.4-12.4) fL Immature Gran % (0-4) % Seg Neutrophils % % Lymphocytes % % Monocytes % % Eosinophils % % Basophils % % Neutrophils # (1.6-8.9) K/mcL Lymphocytes # (0.6-4.6) K/mcL Monocytes # (0.0-1.3) K/mcL Eosinophils # (0.0-0.6) K/mcL Basophils # (0.0-0.2) K/mcL Sodium (136-145) mEq/L Potassium (3.5-5.1) mEq/L Chloride (98-107) mEq/L Carbon Dioxide (23-29) mEq/L BUN (8-23) mg/dL Creatinine (0.60-1.20) mg/dL Est GFR ( Amer) (> 60) Est GFR (Non-Af Amer) (> 60) BUN/Creatinine Ratio (6-26) Glucose (70-105) mg/dL Calculated Osmolality (280-300) Lactic Acid 0.9 (0.5-2.2) mmol/L Calcium (8.6-10.3) mg/dL Total Bilirubin (0.3-1.0) mg/dL AST (13-39) Units/L ALT (7-52) Units/L Alkaline Phosphatase (34-104) Units/L Troponin I < 0.03 (< 0.04) ng/mL B-Natriuretic Peptide 46 (Less than 100) pg/mL Serum Total Protein (6.4-8.9) g/dL Albumin (3.5-5.7) g/dL Globulin (2.4-3.5) g/dL Albumin/Globulin Ratio (1.1-2.2) Urine Color (Yellow) Urine Clarity (Clear) Urine pH (5.0-8.0) pH Units Ur Specific [place] (1.010-1.025) Urine Protein (Neg-Trace) mg/dL Urine Glucose (UA) (Normal) mg/dL Urine Ketones (Negative) mg/dL Urine Blood (Negative) Urine Nitrite (Negative) Urine Bilirubin (Negative) Urine Urobilinogen (Normal) mg/dL Ur Leukocyte Esterase (Negative) Urine Microscopic RBC (0-3) per hpf Urine Microscopic WBC (0-3) per hpf Ur Squamous Epith Cells (None-Few) per lpf Urine Bacteria (None-Few) per hpf Hyaline Casts (None-Few) per lpf Ur Culture Indicated? (NO) - Radiology Data Radiology results reviewed: Yes I reviewed the patient's radiology results. Chest X-Ray 10/21/18 17:59 IMPRESSION: No acute cardiopulmonary disease. D/ / Judd Ramírez MD / Judd Ramírez MD Interpreting Provider: Judd Ramírez MD Chest X-Ray 10/21/18 17:59 IMPRESSION: No acute cardiopulmonary disease. D/ / Judd aRmírez MD / Judd Ramírez MD Interpreting Provider: Judd Ramírez MD Abdomen/Pelvis CT 10/21/18 20:08 IMPRESSION: Very minor presacral edema, distal sacral segment and coccyx. No abscess or definite evidence for osteomyelitis. Right adnexal cyst 3.2 cm. Correlate pelvic ultrasound imaging if not previously performed. Stable complex splenic cysts. Hepatomegaly. Diverticulosis. D/ / 10/21/2018 21:47:00 Atul Correa MD / maria antonia Interpreting Provider: Atul Correa MD Lumbar Spine CT 10/21/18 20:08 IMPRESSION: Multilevel degenerative change without acute pathology. D/ / Audie Clayton / Audie Clayton Interpreting Provider: Audie Clayton Lower Extremity CT 10/21/18 20:09 IMPRESSION: 1. Subcutaneous edema which becomes more pronounced distally at the level of the ankle. This appears fairly symmetric when compared with the partially imaged contralateral left lower extremity. Findings may reflect venous stasis/lymph edema. Correlate clinically to exclude superimposed cellulitis. No organized drainable fluid collections are identified. No evidence for subcutaneous gas. 2. No radiographic evidence for osteomyelitis. 3. [id number] osteoarthritis of the right hip and moderate to severe tricompartmental osteoarthritis of the right knee. Zrui-fw-tqqamuaj degenerative changes of the hindfoot and midfoot articulations of the right foot. 4. Severe osteopenia. 5. Atherosclerotic disease. D/ / Leroy Hargrove MD / Leroy Hargrove MD Interpreting Provider: Leroy Hargrove MD - EKG Data EKG #1 EKG attestation: Yes I reviewed and interpreted this EKG. EKG shows normal: sinus rhythm Rate: normal Rhythm: NSR [place]/QRS: normal Interpretation: no acute changes, normal EKG (Compared to 08/24/18)
[2018-10-21] MEDS ORDERED: *HR* Dextrose 50 % in Water (Syg) 50 ML SYRINGE IVP PRN (23:44)
[2018-10-21] MEDS ORDERED: Dextrose Gel 15 GM/37.5 ML TUBE PO PRN ×2 (23:44)
[2018-10-21] MEDS ORDERED: 0.9 % Sodium Chloride 1,000 ML IVC SCH (23:45)
--- NOTE | 2018-10-22 00:11 | Internal Med History&Physical ---
Date of Encounter: 10/21/18 Time of Encounter: 23:59 Internal Medicine - H&P: HPI Chief complaint: weakness Admitted From: Home Plans for Post Hospital Care: Home History of present illness: Elysia Ramsey is a 73 year old obese woman with multiple comorbidities documented including dementia, hypertension, diabetes, chronic kidney disease and oxygen-dependent COPD who has developed gluteal pressure ulcers from her hospitalizations and obese non-ambulatory state. She was admitted to [facility] swing bed 2 months ago with weakness and THOMPSON and subsequently transferred to [facility] after it was determined it would not be safe for her to return home as she lived alone and had only minimal progress in her physical prowess. She apparently returned to home only 4 days ago as per the granddaughter and EMS was called today because she was weak at home, slid out of her chair and was unable to use her walker. She was seen hemodynamically stable in the ER. Her CBC was within normal limits and her serum chemistry revealed mild decrease in sodium and chloride with an elevation in creatinine from her baseline. A urine specimen obtained via straight catheter was positive for nitrites, leukocyte esterase and pyuria. She is referred for admission. She denies any complaints to me, stating she has no chest pain, abdominal pain, nausea, vomiting, diarrhea, dysuria or dyspnea. I was unable to meet the granddaughter as she left from the ER. The patient reports living alone at home. Vitals: Reviewed General: Obese white woman lying in bed in NAD Skin: Warm, pale and dry. Maceration and erythema notable in inner upper thighs within the folds of fat and her intergluteal region. HEENT: Dry mucous membranes. Mild conjunctivae pallor. Neck: No lymphadenopathy. No JVD. No carotid bruits. No palpable thyroid. Chest: Diminished thoracic expansion. Normal breath sounds. Clear to ausculta tion. Heart: Normal S1 & S2; rhythmic. No rubs or murmurs. Abdomen: soft and non-tender to palpation. No peritoneal reaction. Extremities: No clubbing, cyanosis. Edematous bilaterally. Neurological: Awake, alert and oriented to person, place but not time. No focal deficits. Psych: Affect appropriate. Assessment/Plan 1. Generalized weakness: Suspect secondary to state of dehydration. She has a non-focal exam and just seems to have her adiposity as a burden compounded by her deconditioned state. She may benefit from rehab evaluation again prior to her discharge and placement at a facility rather than being home alone with limited mobility. 2. Dehydration: Evidenced on clinical exam and the electrolyte imbalances of hyponatremia and hypochloremia is suspected to be hypovolemic in etiology. She received 1L of fluids in the ER. Will administer another liter overnight. Will 3. THOMPSON: Suspect pre-renal from volume depletion. Will recheck after IV hydration. 4. UTI: Will keep her on ceftriaxone 1gr daily empirically pending culture results and may subsequently be discharged on oral medications. 5. Dementia: Seemingly stable. Awaiting reconciliation of home medications. Past Med Surg Social Fam HX - Past Medical History Medical history: arthritis, CHF, COPD, dementia, diabetes, GERD, hyperlipidemia, hypertension, osteoporosis, renal disease, other Additional medical history: narcolepsy, IBS Psychiatric history: no psych history - Past Surgical History Surgical History: other Additional surgical history: right total shoulder replacement 2009 - Social History Smoking Status: Current every day smoker Smokeless Tobacco Status: No Alcohol use: none Drug use: none - Family History Mother Adopted: No Family Member Ethnicity: Non- Living Status: Hx Family Cardiac Disorders: Yes (heart attack, HTN) Hx Family Respiratory Disorders: Yes Hx Family Cancer: No Hx Family GI Disorders: No Hx Family Endocrine Disorder: Yes (diabetes) Hx Family Neuromuscular Disorders: No Hx Family Neurologic Disorders: No Hx Family HEENT Disorders: No Hx Family Autoimmune Disorders: No Internal Medicine - H&P: Meds Citalopram Hydrobromide [Citalopram HBr] 20 mg PO DAILY 06/05/18 [History] Donepezil [Aricept] 5 mg PO DAILY 06/05/18 [History] Ergocalciferol (VITAMIN D2) [Vitamin D2] 50,000 unit PO WE 06/05/18 [History] Potassium Chloride [K-Tab ER] 10 meq PO DAILY 06/05/18 [History] Sitagliptin Phosphate [Januvia] 50 mg PO DAILY 06/05/18 [History] Gentamicin Oint [Garamycin] 1 appl TP DAILY tube 09/04/18 [Rx] Memantine [Namenda] 5 mg PO BID tablet 09/04/18 [Rx] Metoprolol [Lopressor] 25 mg PO BID tablet 09/04/18 [Rx] Miconazole 2% cream [Shamir Antifungal] 1 appl TP BID tube 09/04/18 [Rx] OxyCODONE/APAP 10/325 [Percocet 10/325 MG] 1 tab PO Q6H PRN 3 Days #12 tablet 09/04/18 [Rx] Zinc Sulfate 220 mg PO DAILY 30 Days tablet 09/04/18 [Rx] Allergy/AdvReac Type Severity Reaction Status Date / Time No Known Allergies Allergy Verified 08/26/18 21:59 All Systems PM: A 10-system review of systems was performed and is negative for pertinent findings except as documented above in the HPI. - Constitutional Vitals: Temp Pulse Resp BP Pulse Ox 97.4 F L 67 16 124/73 92 10/21/18 23:34 10/21/18 23:34 10/21/18 22:45 10/21/18 23:34 10/21/18 23:36 Exam: . Internal Med - H&P Results - Labs CBC & Chem 7: 10/21/18 19:03 10/21/18 19:03 Labs: Short CBC 10/21/18 Range/Units 19:03 WBC 9.8 (4.3-11.1) K/mcL Hgb 11.9 (11.5-15.4) g/dL Hct 38.4 (35.3-44.9) % Plt Count 239 (140-400) K/mcL Neutrophils # 6.2 (1.6-8.9) K/mcL BMP 10/21/18 19:03 Sodium 132 L Potassium 5.1 Chloride 95 L Carbon Dioxide 32 H BUN 33 H Creatinine 2.01 H Glucose 201 H Calcium 8.9 Cardiac Enzymes 10/21/18 Range/Units 19:03 Troponin I < 0.03 (< 0.04) ng/mL Liver Function 10/21/18 Range/Units 19:03 Total Bilirubin 0.3 (0.3-1.0) mg/dL AST 8 L (13-39) Units/L ALT 5 L (7-52) Units/L Alkaline Phosphatase 66 (34-104) Units/L Albumin 3.3 L (3.5-5.7) g/dL Urine 10/21/18 Range/Units 18:50 Urine Color Yellow (Yellow) Urine Clarity Cloudy A (Clear) Urine pH 5.0 (5.0-8.0) pH Units Ur Specific [place] 1.023 (1.010-1.025) Urine Protein Trace (Neg-Trace) mg/dL Urine Glucose (UA) Normal (Normal) mg/dL - Impressions ITS Impressions Chest X-Ray 10/21/18 17:59 IMPRESSION: No acute cardiopulmonary disease. D/ / Judd Ramírez MD / Judd Ramírez MD Interpreting Provider: Judd Ramírez MD Abdomen/Pelvis CT 10/21/18 20:08 IMPRESSION: Very minor presacral edema, distal sacral segment and coccyx. No abscess or definite evidence for osteomyelitis. Right adnexal cyst 3.2 cm. Correlate pelvic ultrasound imaging if not previously performed. Stable complex splenic cysts. Hepatomegaly. Diverticulosis. D/ / 10/21/2018 21:47:00 Atul Correa MD / esau Interpreting Provider: Atul Correa MD Lumbar Spine CT 10/21/18 20:08 IMPRESSION: Multilevel degenerative change without acute pathology. D/ / Audie Clayton / Audie Clayton Interpreting Provider: Audie Clayton Lower Extremity CT 10/21/18 20:09 IMPRESSION: 1. Subcutaneous edema which becomes more pronounced distally at the level of the ankle. This appears fairly symmetric when compared with the partially imaged contralateral left lower extremity. Findings may reflect venous stasis/lymph edema. Correlate clinically to exclude superimposed cellulitis. No organized drainable fluid collections are identified. No evidence for subcutaneous gas. 2. No radiographic evidence for osteomyelitis. 3. Usqs-aq-dkmpblys osteoarthritis of the right hip and moderate to severe tricompartmental osteoarthritis of the right knee. Fqjg-[id number]-nzsnmvjh degenerative changes of the hindfoot and midfoot articulations of the right foot. 4. Severe osteopenia. 5. Atherosclerotic disease. D/ / Leroy Hargrove MD / Leroy Hargrove MD Interpreting Provider: Leroy Hargrove MD - Time Spent With Patient Total time spent is greater than 50% in coordination of care (as documented) at patient's floor/unit and/or counseling patient:
[2018-10-22] MEDS: Nystatin POWDER 30 GM BOTTLE TP SCH ×4 (00:46→18:12)
[2018-10-22] MEDS: *HR* Heparin 5,000 UNIT/ML VIAL SQ SCH ×2 (05:56→18:11)
[2018-10-22 06:39] LABS: Calcium 8.7 mg/dL (8.6-10.3); Potassium 4.3 mEq/L (3.5-5.1)
[2018-10-22] MEDS ORDERED: D5% in Water 1,000 ML IVC PRN (07:30)
--- NOTE | 2018-10-22 07:45 | Internal Med Progress Note ---
Hospitalist Progress Note - Encounter Date of Encounter: 10/22/18 Time of Encounter: 07:45 - Subjective Interval History: No acute events overnight - Exam Vitals: Temp Pulse Resp BP Pulse Ox 98.1 F 68 16 97/58 98 10/22/18 04:07 10/22/18 04:07 10/21/18 22:45 10/22/18 04:07 10/22/18 04:07 Exam: General appearance: Present: A&O X 3, no acute distress Head exam: Present: normocephalic Respiratory exam: Present: CTAB. Absent: accessory muscle use, rales, rhonchi, wheezes Cardiovascular exam: Present: RRR, +S1, +S2. Absent: diastolic murmur, gallop, rubs, systolic murmur GI/Abdominal exam: Soft, NT, ND, +BS Extremities exam: Absent: pedal edema Neurological exam: Alert to person and place - Assessment and Plan (1) Weakness Current Visit: Yes Status: Acute Assessment and Plan: Patient reportedly slid out of her chair at home and was unable to use her walker. Recently discharged from rehab. PT/OT consult. Patient will likely need to go back to rehab (2) THOMPSON (acute kidney injury) Current Visit: Yes Status: Acute Assessment and Plan: Will hydrate and monitor creatinine Creatinine improving (3) Urinary tract infection Current Visit: Yes Status: Acute Assessment and Plan: Continue IV ceftriaxone (4) Dehydration Current Visit: Yes Status: Acute Assessment and Plan: Continue IV fluids (5) DVT prophylaxis Current Visit: Yes Status: Acute Assessment and Plan: Heparin sc - Time Spent with Patient Total time spent is greater than 50% in coordination of care (as documented) at patient's floor/unit and/or counseling patient: Internal Medicine: Result - Labs CBC & Chem 7: 10/21/18 19:03 10/22/18 06:02 Labs: Short CBC 10/21/18 Range/Units 19:03 WBC 9.8 (4.3-11.1) K/mcL Hgb 11.9 (11.5-15.4) g/dL Hct 38.4 (35.3-44.9) % Plt Count 239 (140-400) K/mcL Neutrophils # 6.2 (1.6-8.9) K/mcL BMP 10/21/18 10/22/18 19:03 06:02 Sodium 132 L 138 Potassium 5.1 4.3 Chloride 95 L 102 Carbon Dioxide 32 H 32 H BUN 33 H 29 H Creatinine 2.01 H 1.50 H Glucose 201 H 103 Calcium 8.9 8.7 Cardiac Enzymes 10/21/18 Range/Units 19:03 Troponin I < 0.03 (< 0.04) ng/mL Liver Function 10/21/18 Range/Units 19:03 Total Bilirubin 0.3 (0.3-1.0) mg/dL AST 8 L (13-39) Units/L ALT 5 L (7-52) Units/L Alkaline Phosphatase 66 (34-104) Units/L Albumin 3.3 L (3.5-5.7) g/dL Urine 10/21/18 Range/Units 18:50 Urine Color Yellow (Yellow) Urine Clarity Cloudy A (Clear) Urine pH 5.0 (5.0-8.0) pH Units Ur Specific [place] 1.023 (1.010-1.025) Urine Protein Trace (Neg-Trace) mg/dL Urine Glucose (UA) Normal (Normal) mg/dL - Impressions Impressions Chest X-Ray 10/21/18 17:59 IMPRESSION: No acute cardiopulmonary disease. D/ / Judd Ramírez MD / Judd Ramírez MD Interpreting Provider: Judd Ramírez MD Abdomen/Pelvis CT 10/21/18 20:08 IMPRESSION: Very minor presacral edema, distal sacral segment and coccyx. No abscess or definite evidence for osteomyelitis. Right adnexal cyst 3.2 cm. Correlate pelvic ultrasound imaging if not previously performed. Stable complex splenic cysts. Hepatomegaly. Diverticulosis. D/ / 10/21/2018 21:47:00 Atul Correa MD / [email or web address] Interpreting Provider: Atul Correa MD Lumbar Spine CT 10/21/18 20:08 IMPRESSION: Multilevel degenerative change without acute pathology. D/ / Audie Clayton / Audie Clayton Interpreting Provider: Audie Clayton Lower Extremity CT 10/21/18 20:09 IMPRESSION: 1. Subcutaneous edema which becomes more pronounced distally at the level of the ankle. This appears fairly symmetric when compared with the partially imaged contralateral left lower extremity. Findings may reflect venous stasis/lymph edema. Correlate clinically to exclude superimposed cellulitis. No organized drainable fluid collections are identified. No evidence for subcutaneous gas. 2. No radiographic evidence for osteomyelitis. 3. Okai-nb-dhmjhzve osteoarthritis of the right hip and moderate to severe tricompartmental osteoarthritis of the right knee. Fzrq-dj-qhrwdkke degenerative changes of the hindfoot and midfoot articulations of the right foot. 4. Severe osteopenia. 5. Atherosclerotic disease. D/ / Leroy Hargrove MD / Leroy Hargrove MD Interpreting Provider: Leroy Hargrove MD Consult Discharge Plan - Plan Referrals: William Abdul MD [Primary Care Provider] - (3) Urinary tract infection Qualifiers: Qualified Code(s): N39.0 - Urinary tract infection, site not specified
[2018-10-22] MEDS: Insulin LISPRO 300 UNITS/3 ML VIAL SQ SCH ×4 (09:20→20:52)
[2018-10-22] MEDS: cefTRIAXone 1,000 MG in Water for inj. (sterile) 10 ML IVPB SCH (09:56)
[2018-10-22] MEDS: 0.9 % Sodium Chloride 1,000 ML IVC SCH ×2 (10:03→20:57)
--- NOTE | 2018-10-22 13:58 | Electrocardiograph Report ---
[address] [address] Test Date: 2018-10-21 Pat Name: Elysia Ramsey Department: EXAM1 Room: 2A13 Gender: F Chainman: : 1945 Requested By: [id number] Order Number: [id number] Reading MD: Vira Hurtado Measurements Intervals [place] Rate: 58 P: 62 WV: 185 QRS: 20 QRSD: 94 T: 23 QT: 396 QTc: 389 Interpretive Statements Sinus rhythm Electronically Signed On 10-22-2018 13:56:16 EDT by Vira Hurtado
[2018-10-23 00:19] LABS: Acinetobacter baumannii by PCR Not Detected (Not Detect); Candida albicans by PCR Not Detected (Not Detect); Candida glabrata by PCR Not Detected (Not Detect); Candida krusei by PCR Not Detected (Not Detect); Candida parapsilosis by PCR Not Detected (Not Detect); Candida tropicalis by PCR Not Detected (Not Detect); Enterobacter cloacae Cmplx PCR Not Detected (Not Detect); Enterobacteriaceae by PCR Not Detected (Not Detect); Enterococcus by PCR Not Detected (Not Detect); Escherichia coli by PCR Not Detected (Not Detect); Klebsiella oxytoca by PCR Not Detected (Not Detect); Klebsiella pneumoniae by PCR Not Detected (Not Detect); Proteus by PCR Not Detected (Not Detect); Pseudomonas aeruginosa by PCR Not Detected (Not Detect); Serratia marcescens by PCR Not Detected (Not Detect); Staphylococcus aureus by PCR DETECTED (Not Detect); Streptococcus agalactiae(B)PCR Not Detected (Not Detect); Streptococcus by PCR Not Detected (Not Detect); Streptococcus pneumoniae PCR Not Detected (Not Detect); Streptococcus pyogenes (A) PCR Not Detected (Not Detect); blaKPC Carbapenem-Resist Gene Not Detected (Not Detect); mecA Methicillin-Resist Gene DETECTED (Not Detect); vanA/B Vancomycin-Resist Genes Not Detected (Not Detect)
[2018-10-23 04:01] LABS: Basophils % 0.3 %; Eosinophils # 0.1 K/mcL (0.0-0.6); Eosinophils % 1.6 %; Hematocrit 37.6 % (35.3-44.9); Hemoglobin 11.6 g/dL (11.5-15.4); Immature Granulocytes % 0.6 % (0-4); Lymphocytes # 2.3 K/mcL (0.6-4.6); Lymphocytes % 33.3 %; Mean Corpuscular HGB Conc 30.9 g/dL (31.6-35.5); Mean Corpuscular Hemoglobin 30.4 pg (28.0-33.3); Mean Corpuscular Volume 98.4 fL (83.0-100.0); Mean Platelet Volume 10.1 fL (9.4-12.4); Monocytes # 0.5 K/mcL (0.0-1.3); Monocytes % 7.3 %; Platelet Count 211 K/mcL (140-400); Red Blood Count 3.82 M/mcL (3.82-4.97); Red Cell Distribution Width 13.9 % (11.5-14.5); Segmented Neutrophils % 56.9 %
[2018-10-23 04:18] LABS: Calcium 8.7 mg/dL (8.6-10.3); Phosphorous 3.1 mg/dL (2.7-4.5); Potassium 4.4 mEq/L (3.5-5.1)
[2018-10-23] MEDS: *HR* Heparin 5,000 UNIT/ML VIAL SQ SCH ×2 (05:51→17:36)
[2018-10-23] MEDS: Insulin LISPRO 300 UNITS/3 ML VIAL SQ SCH ×4 (07:08→20:45)
[2018-10-23] MEDS ORDERED: Vancomycin 1,750 MG in 0.9 % Sodium Chloride 250 ML IVPB SCH (08:00)
[2018-10-23] MEDS: Nystatin POWDER 30 GM BOTTLE TP SCH ×3 (08:00→20:45)
[2018-10-23] MEDS ORDERED: Ertapenem 1,000 MG in 0.9 % Sodium Chloride Mini Bag 100 ML IVPB SCH (12:07)
[2018-10-23] MEDS: cefTRIAXone 1,000 MG in Water for inj. (sterile) 10 ML IVPB SCH (12:10)
--- NOTE | 2018-10-23 12:50 | Infectious Disease Consult ---
Infectious Disease-Consult - Encounter Date/Time Date of Encounter: 10/23/18 Time of Encounter: 12:47 - Data of Consult Patient: new to practice Reason for consult: ESBL UTI and MRSA bacteremia Consult date: 10/23/18 Requesting Physician: Demetrius Ryan MD Primary Care Provider: William Abdul MD - HPI HPI: Ms. Ramsey is a 73-year-old female with past medical history of dementia, CHF, COPD, diabetes, hyperlipidemia, hypertension, chronic kidney disease, and sacral decubitus ulcer. The patient was admitted to the hospital 10/21/18 for generalized weakness. We are consulted 10/23/18 for further workup and treatment recommendations for MRSA bacteremia and ESBL UTI. Briefly, the patient is a 73-year-old female with past medical history as stated above. The patient presented to the emergency department with complaints of generalized weakness. Apparently, the patient slid out of her chair at home and was too weak to get up. She had previously been in outpatient rehabilitation facility and was discharged home with her family about 4 days prior to admission. Upon arrival, she was afebrile hemodynamically stable. White blood cell count was normal. She did have what appears to be in acute kidney injury. Lactic acid, LFTs, and troponin were normal. Urinalysis was positive for pyuria . Chest x-ray, CT abdomen and pelvis, and L-spine CT scan were normal. Should the lower extremity CT that showed venous stasis versus lymphedema versus cellulitis. Blood cultures were obtained 2 sets. She was started empirically on IV Rocephin and was admitted to the hospital for further evaluation. Since admission, the patient has remained afebrile hemodynamically stable. Her white blood cell count remains normal. Blood cultures apparently the emergency department are +1 out of 2 sets for MRSA. Urine culture obtained the emergency department was positive for Klebsiella oxytoca ESBL. Repeat blood cultures from are pending. TTE has been ordered is pending completion. Currently, the patient is on vancomycin and ertapenem. We have been asked to evaluate and make further recommendations. During my exam today, the patient's dementia precludes her ability to provide me with any information regarding the events leading up to her hospitalization. She does complain of pain in the sacral and buttock regions. She denies any known fevers, chills, rigors. Denies any headache or neck pain. States she does follow short of breath, but denies any chest pain or cough. Denies nausea, vomiting, or abdominal pain. Per nursing, she has had 1 loose stool this morning after she was given Colace. She is currently incontinent of loose brown stool. She has an external catheter that is draining clear yellow urine. Denies back, extremity, or flank pain. States her appetite is good. Denies oral thrush or skin rashes. According to the notes, the patient was at a local rehabilitation facility until about 4 days prior to admission when she was discharged home with family. She does smoke cigarettes, about half a pack of cigarettes per day. Denies alcohol or illicit drug use. Denies chronic infectious diseases. Denies any recent travel outside the [facility]. - ROS Review of Systems: All systems reviewed and no additional remarkable complaints except as stated. - Results CBC & Chem 7: 10/23/18 03:41 10/23/18 03:41 - Exam Vitals: Temp Pulse Resp BP Pulse Ox 99.1 F 61 18 112/67 97 10/23/18 11:34 10/23/18 11:34 10/23/18 11:34 10/23/18 11:34 10/23/18 11:34 Exam: Head: Atraumatic, normal inspection, normocephalic. Eye: EOMI, PERRLA, no scleral icterus noted. ENT: Mucous membranes moist. No odontogenic infection noted. Neck: Normal inspection, no meningismus. Respiratory: Clear to auscultation. No rales, respiratory distress, rhonchi, or wheezes noted. Cardiovascular: Regular rate and rhythm, S1 and S2 audible. No murmurs, rubs, or gallops. GI: Soft, nondistended, normal bowel sounds. Extremities:No joint swelling, pedal edema, or tenderness noted. Back: Normal inspection. No vertebral tenderness noted. Neurological: Alert, oriented 3, no focal deficits. Psychiatric: normal affect, normal mood. Skin: Dry, intact, warm. Normal color. No rashes. Citalopram Hydrobromide [Citalopram HBr] 20 mg PO DAILY 06/05/18 [History] Donepezil [Aricept] 5 mg PO DAILY 06/05/18 [History] Ergocalciferol (VITAMIN D2) [Vitamin D2] 50,000 unit PO [place] 06/05/18 [History] Potassium Chloride [K-Tab ER] 10 meq PO DAILY 06/05/18 [History] Metoprolol [Lopressor] 25 mg PO BID tablet 09/04/18 [Rx] Miconazole 2% cream [Shamir Antifungal] 1 appl TP BID tube 09/04/18 [Rx] Insulin Glargine [Lantus] 62 unit SQ BID 10/22/18 [History] Lisinopril [Zestril] 5 mg PO DAILY 10/22/18 [History] Memantine [Namenda] 5 mg PO DAILY 10/22/18 [History] OxyCODONE/APAP 10/325 [Percocet 10/325 MG] 1 tab PO Q6H PRN 10/22/18 [History] Oxybutynin Chloride [Oxybutynin Chloride ER] 10 mg PO HS 10/22/18 [History] Sitagliptin Phosphate [Januvia] 50 mg PO DAILY 10/22/18 [History] levoFLOXacin [Levaquin] 500 mg PO DAILY 10/22/18 [History] Allergy/AdvReac Type Severity Reaction Status Date / Time No Known Allergies Allergy Verified 08/26/18 21:59 - Assessment and Plan (1) Bacteremia Current Visit: Yes Status: Acute Causative organism: MRSA per PCR. Source: Unclear. Sacral wound vs. other. Per nursing, the patient does have some skin breakdown to her sacral region, but nothing is actually open. She was diagnosed with a gluteal abscess in July (cultures positive for MRSA and VRE), but her CT abdomen and pelvis was negative for abscess this time. No other indwelling hardware that I am aware of and patient is a poor historian due to her dementia and she has no family at the bedside. She did have a CT of the right lower extremity for "thigh cellulitis," but I do not appreciate any cellulitis at this time. Blood cultures drawn 10/21/18 are positive 1/2 for GPC (MRSA per PCR). Repeat blood cultures drawn 10/23/18 are pending x sets. Complicated due to hardware in the shoulder per documentation. No endocarditis stigmata noted on exam. The patient has one minor Modified Montoya's criteria. Currently on IV Vanc. SNOMED Code(s): 8684698 (2) Urinary tract infection Current Visit: Yes Status: Acute Causative organism: K. oxytoca ESBL. Per nursing, patient was having "severe urinary frequency" on admission. No pyelonephritis noted on CT abdomen and pelvis and patient denies CVAT. Currently on Ertapenem. Qualifiers: Urinary tract infection type: acute cystitis Hematuria presence: without hematuria Qualified Code(s): N30.00 - Acute cystitis without hematuria SNOMED Code(s): 90097350 (3) THOMPSON (acute kidney injury) Current Visit: Yes Status: Resolved Likely multifactorial. Improved. Dose-adjust medications and avoid nephrotoxins as able. SNOMED Code(s): 06047174, 72782835 (4) Pressure ulcer Current Visit: No Status: Acute MAD noted to the buttocks and sacral region. CT abdomen and pelvis negative for abscess. Recommendations per the wound care team. Qualifiers: Pressure injury location: unspecified location Pressure injury stage: unspecified pressure injury stage Qualified Code(s): L89.90 - Pressure ulcer of unspecified site, unspecified stage SNOMED Code(s): 588194813 (5) Venous insufficiency of both lower extremities Current Visit: No Status: Chronic SNOMED Code(s): 616063964 (6) DM (diabetes mellitus), type 2 Current Visit: No Status: Chronic Qualifiers: Diabetes mellitus snf insulin use: with snf use Diabetes mellitus complication status: with neurologic complications Diabetes mellitus complication detail: with polyneuropathy Qualified Code(s): E11.42 - Type 2 diabetes mellitus with diabetic polyneuropathy; Z79.4 - skilled nursing (current) use of insulin SNOMED Code(s): 32107469 (7) COPD (chronic obstructive pulmonary disease) Current Visit: No Status: Chronic Qualifiers: COPD type: unspecified COPD Qualified Code(s): J44.9 - Chronic obstructive pulmonary disease, unspecified SNOMED Code(s): 37040978 (8) CKD (chronic kidney disease) stage 3, GFR 30-59 ml/min Current Visit: No Status: Chronic SNOMED Code(s): 150559230 (9) Dementia Current Visit: No Status: Chronic Qualifiers: Dementia type: Alzheimer's disease Alzheimer's disease onset: early-onset Dementia behavioral disturbance: without behavioral disturbance Qualified Code(s): G30.0 - Alzheimer's disease with early onset; F02.80 - Dementia in other diseases classified elsewhere without behavioral disturbance SNOMED Code(s): 60713085 (10) Hypertension Current Visit: No Status: Chronic Qualifiers: Hypertension type: essential hypertension Qualified Code(s): I10 - Ess ential (primary) hypertension SNOMED Code(s): 69857359 (11) Tobacco abuse Current Visit: No Status: Chronic SNOMED Code(s): 553458114 - Recommendations Recommendations: Await final ID and sensitivities on the blood cultures. Await repeat blood cultures. Check rheumatoid factor. Get TTE. May need PRINCESS prior to discharge. Continue Vancomycin IV. Pharmacy to dose. Goal trough ~15. Discontinue Ertapenem. Start fosfomycin 3 grams PO x 1 dose now. Duration of treatment depends on the clinical picture. Monitor renal function and for drug toxicity and dose-adjust antibiotics. Avoid insertion of long-term IV access until repeat blood cultures are negative x 48 hours. surgical services assistant to assist with discharge planning. Past Med Surg Social Fam HX - Past Medical History Attestation: No The following information was validated with the patient. Source: old records reviewed, nursing notes reviewed Medical history: arthritis, CHF, COPD, dementia, diabetes, GERD, hyperlipidemia, hypertension, osteoporosis, renal disease, other Additional medical history: narcolepsy, IBS Psychiatric history: no psych history - Past Surgical History Surgical History: other Additional surgical history: right total shoulder replacement 2009 - Social History Smoking Status: Current every day smoker Smokeless Tobacco Status: No Alcohol use: none Drug use: none Occupational status: retired Current living situation: Home, With Family Activity Level: Uses cane/walker Recent Out of Country Travel Within the Last 8 Weeks: No Exposure or Possible Exposure to Illness During Travel: No - Family History Mother Adopted: No Family Member Ethnicity: Non- Living Status: Hx Family Cardiac Disorders: Yes (heart attack, HTN) Hx Family Respiratory Disorders: Yes Hx Family Cancer: No Hx Family GI Disorders: No Hx Family Endocrine Disorder: Yes (diabetes) Hx Family Neuromuscular Disorders: No Hx Family Neurologic Disorders: No Hx Family HEENT Disorders: No Hx Family Autoimmune Disorders: No Consult Discharge Plan - Plan Referrals: William Abdul MD [Primary Care Provider] - - Attending Attestation I have personally performed a face to face evaluation on this patient. I have reviewed and agree with the care plan. History and Exam by me shows: This is an addendum to original report dictated by Rehana Tomas CNP. These refer to Rehana's note for full detail. Agree with above history of present illness, review of system and physical exam findings. Assessment and plan: 1.Bacteremia with MRSA as per PCR. Cultures are pending. 1/2 cultures positive. No obvious source of infection. 2.Urinary tract infection causative organism Klebsiella oxytoca ESBL 3.Acute kidney injury improved 4.Pressure ulcer 5.Diabetes mellitus type 2 6.Morbid obesity 7.Dementia 8.History of gluteal abscess with VRE and MRSA treated appropriately Recommendations At this point we will wait for the cultures finalize. Patient has no sepsis criteria and no other endocarditis stigmata no obvious source of infection. Patient tells me she has no hardware apparently she has hardware in the right shoulder. As for the urine she has patient is not complaining of anything but she has dementia and is not the best to at giving accurate information history and review of system. We will treat with oral fosfomycin. Duration of treatment with vancomycin depends on the cultures and the clinical picture and the PRINCESS findings Goal vancomycin trough around 15 Monitor kidney function and for any drug interactions
--- NOTE | 2018-10-23 12:51 | Internal Med Progress Note ---
Hospitalist Progress Note - Encounter Date of Encounter: 10/23/18 Time of Encounter: 12:49 - Subjective Interval History: I have seen and evaluated the patient at bedside. Patient AOx1, in no distress. denies chest pain, nausea, vomiting or abdominal pain. - Exam Vitals: Temp Pulse Resp BP Pulse Ox 99.1 F 61 18 112/67 97 10/23/18 11:34 10/23/18 11:34 10/23/18 11:34 10/23/18 11:34 10/23/18 11:34 Exam: Vitals: Reviewed General: Alert and oriented x1. In no distress Skin: Normal color, no rash, no lesions. HEENT: EOM, pupils equal, round and reactive. Cardiovascular: RRR, normal S1 & S2, no rubs, murmurs or gallops. Lungs: CTA b/l, no wheezes or crackles. Abdomen: Obese, soft, non-tender, no rigidity. Extremities: No deformity, no edema or tenderness, no joint swelling or clubbing. Neurological: No focal neurological abnormalities. Rest of the physical exam is non contributory - Assessment and Plan (1) Weakness Current Visit: Yes Status: Acute (2) THOMPSON (acute kidney injury) Current Visit: Yes Status: Resolved (3) DVT prophylaxis Current Visit: Yes Status: Acute (4) Urinary tract infection Current Visit: Yes Status: Acute (5) Dehydration Current Visit: Yes Status: Acute - Summary of Assessment and Plan Summary of Assessment and Plan: 73 year old obese woman with multiple comorbidities documented including dementia, hypertension, diabetes, chronic kidney disease and oxygen-dependent COPD who has developed gluteal pressure ulcers from her hospitalizations and obese non-ambulatory state. Brought to the hospital due to generalized weakness. Assessment: 1. UTI 2. Bacteremia 3. THOMPSON (resolved) 4. Dementia 5. DM 6.VTE prophylaxis 7. HTN 8. COPD. 9. Morbid obese. 10. stage I sacral decubiti ulcer Plan: patient completed a month long of IV antibiotics about a month ago as per daughter due to MRSA on decubiti ulcer/sacral abscess. Blood culture: grew Gram positive cocci (one bottle). MRSA on PCR. - will repeat blood culture - d/c ceftriaxone - started on vancomycin per pharmacy protocol - TTE ordered - Urine culture: Klebsiella oxytoca ESBL. - started on ertapenem 1gm/IV daily - ID consulted for antibiotic management - dc IV fluids, encourage oral intake - continue lispro low dose sliding scale ac, levemir 5 units HS added - will metoproolol 12.5mg/PO BID. - On heparin subcutaneous. Disposition: Patient to remain in the hospital due to bacteremia on broad-spectrum IV antibiotics. - Time Spent with Patient Total time spent is greater than 50% in coordination of care (as documented) at patient's floor/unit and/or counseling patient: Greater than 35 minutes (45) Plan of Care Discussed with: nurse Internal Medicine: Result - Labs CBC & Chem 7: 10/23/18 03:41 10/23/18 03:41 Labs: Short CBC 10/23/18 Range/Units 03:41 WBC 7.0 (4.3-11.1) K/mcL Hgb 11.6 (11.5-15.4) g/dL Hct 37.6 (35.3-44.9) % Plt Count 211 (140-400) K/mcL Neutrophils # 4.0 (1.6-8.9) K/mcL BMP 10/23/18 03:41 Sodium 142 Potassium 4.4 Chloride 107 Carbon Dioxide 30 H BUN 21 Creatinine 1.09 Glucose 127 H Calcium 8.7 - Impressions Impressions Abdomen/Pelvis CT 10/21/18 20:08 IMPRESSION: Very minor presacral edema, distal sacral segment and coccyx. No abscess or definite evidence for osteomyelitis. Right adnexal cyst 3.2 cm. Correlate pelvic ultrasound imaging if not previously performed. Stable complex splenic cysts. Hepatomegaly. Diverticulosis. D/ / 10/21/2018 21:47:00 Atul Correa MD / maria antonia Interpreting Provider: Atul Correa MD Consult Discharge Plan - Plan Referrals: William Abdul MD [Primary Care Provider] - (4) Urinary tract infection Qualifiers: Urinary tract infection type: acute cystitis Hematuria presence: without danielle turia Qualified Code(s): N30.00 - Acute cystitis without hematuria
[2018-10-23] MEDS ORDERED: Perflutren Lipid Microsphere 1.3 ML in 0.9 % Sodium Chloride 8.7 ML IVP ONE (18:59)
[2018-10-23] MEDS: Insulin DETEMIR 100 UNIT/ML X5UNITS SQ SCH (20:48)
[2018-10-23 23:14] LABS: Adenovirus F 40/41 PCR Not detected (Not detect); Astrovirus PCR Not detected (Not detect); C.difficile Toxin A/B Gene PCR Not detected (Not detect); Campylobacter by PCR Not detected (Not detect); Cryptosporidium by PCR Not detected (Not detect); Cyclospora cayetanensis PCR Not detected (Not detect); E. coli O157 by PCR Not detected (Not detect); Entamoeba histolytica PCR Not detected (Not detect); Enteroaggregative E.coli(EAEC) Not detected (Not detect); Enteropathogenic E.coli(EPEC) Not detected (Not detect); Enterotoxigenic E.coli (ETEC) Not detected (Not detect); Giardia lamblia PCR Not detected (Not detect); Norovirus GI/GII PCR Not detected (Not detect); Plesiomonas shigelloides PCR Not detected (Not detect); Rotavirus A PCR Not detected (Not detect); Salmonella PCR Not detected (Not detect); Sapovirus PCR Not detected (Not detect); Shig/EnteroinvasiveE coli EIEC Not detected (Not detect); Shigalike tox-prod E coli STEC Not detected (Not detect); Vibrio PCR Not detected (Not detect); Vibrio cholerae PCR Not detected (Not detect); Yersinia enterocolitica PCR Not detected (Not detect)
[2018-10-24] MEDS: *HR* Heparin 5,000 UNIT/ML VIAL SQ SCH ×2 (05:41→17:51)
[2018-10-24 05:48] LABS: Basophils % 0.3 %; Eosinophils # 0.2 K/mcL (0.0-0.6); Eosinophils % 2.9 %; Hematocrit 38.2 % (35.3-44.9); Hemoglobin 11.7 g/dL (11.5-15.4); Immature Granulocytes % 0.4 % (0-4); Lymphocytes # 2.4 K/mcL (0.6-4.6); Lymphocytes % 30.5 %; Mean Corpuscular HGB Conc 30.6 g/dL (31.6-35.5); Mean Corpuscular Hemoglobin 29.7 pg (28.0-33.3); Mean Platelet Volume 10.7 fL (9.4-12.4); Monocytes # 0.6 K/mcL (0.0-1.3); Monocytes % 7.9 %; Neutrophils # 4.6 K/mcL (1.6-8.9); Platelet Count 230 K/mcL (140-400); Red Blood Count 3.94 M/mcL (3.82-4.97); Red Cell Distribution Width 13.8 % (11.5-14.5); White Blood Count 7.8 K/mcL (4.3-11.1)
[2018-10-24 06:05] LABS: BUN/Creatinine Ratio 17 (6-26); Blood Urea Nitrogen 15 mg/dL (8-23); Calcium 9.2 mg/dL (8.6-10.3); Carbon Dioxide 31 mEq/L (23-29); Chloride 106 mEq/L (98-107); Glucose 132 mg/dL (70-105); Magnesium 1.8 mg/dL (1.6-2.6); Osmolality,Calculated 295 (280-300); Potassium 3.8 mEq/L (3.5-5.1); Sodium 141 mEq/L (136-145); eGFR For African Americans > 60 (> 60); eGFR For Non-African Americans > 60 (> 60)
[2018-10-24 06:18] LABS: Phosphorous 2.9 mg/dL (2.7-4.5)
[2018-10-24] MEDS ORDERED: Fosfomycin Tromethamine 3 GM Packet PO ONE (09:00)
--- NOTE | 2018-10-24 09:24 | Infectious Disease Progress No ---
ID Progress Note Date of Encounter: 10/24/18 Time of Encounter: 08:45 - Subjective Subjective: Patient seen and examined. No acute events noted overnight. Patient states overall she feels okay. Denies fevers, chills, or rigors. Denies chest pain, shortness of breath, or cough. Reports some nausea, but denies vomiting, diarrhea, or constipation. Denies abdominal pain. States urinary frequency is better. Reports chronic back and bilateral leg pain that are at baseline. Complains of pain to the perineal and sacral regions. Denies oral thrush or skin rashes. - Objective CBC & Chem 7: 10/24/18 04:46 10/24/18 04:46 - Exam Vitals: Temp Pulse Resp BP Pulse Ox 98.2 F 75 18 149/69 98 10/24/18 07:41 10/24/18 07:41 10/24/18 07:41 10/24/18 07:41 10/24/18 07:41 Exam: Head: Atraumatic, normal inspection, normocephalic. Eye: EOMI, PERRLA, no scleral icterus noted. No subconjunctival hemorrhage noted. ENT: Mucous membranes moist. No odontogenic infection noted. Neck: Normal inspection, no meningismus. Respiratory: Clear to auscultation. No rales, respiratory distress, rhonchi, or wheezes noted. Cardiovascular: Regular rate and rhythm, S1 and S2 audible. No murmurs, rubs, or gallops. GI: Soft, obese, normal bowel sounds. Tenderness noted to the RLQ and suprapubic region. Extremities: No joint swelling, pedal edema, or tenderness noted. : Raw, macerated skin noted to the groin and perineal and sacral regions. Neurological: Alert, oriented 2, no focal deficits. Psychiatric: normal affect, normal mood. Skin: Dry, intact, warm. Normal color. No rashes. No endocarditis stigmata noted. - Assessment and Plan (1) Bacteremia Current Visit: Yes Status: Acute Causative organism: MRSA per PCR. Source: Unclear. Sacral wound vs. other. The patient does have some skin breakdown to her sacral region, but nothing is actually open. She was diagnosed with a gluteal abscess in July (cultures positive for MRSA and VRE), but her CT abdomen and pelvis was negative for abscess this time.According to the records, she does have hardware in the right shoulder. She states she had surgery, but unsure the exact type of procedure and patient is a poor historian due to her dementia and she has no family at the bedside. She did have a CT of the right lower extremity for "thigh cellulitis," but I do not appreciate any cellulitis at this time. Blood cultures drawn 10/21/18 are positive 1/2 for GPC (MRSA per PCR). Repeat blood cultures drawn 10/23/18 are pending x sets. Complicated due to hardware in the shoulder per documentation. No endocarditis stigmata noted on exam. Rheumatoid factor <10. The patient has one minor Modified Montoya's criteria. Currently on IV Vanc. SNOMED Code(s): 5068083 (2) Urinary tract infection Current Visit: Yes Status: Acute Causative organism: K. oxytoca ESBL. Per nursing, patient was having "severe urinary frequency" on admission. No pyelonephritis noted on CT abdomen and pelvis and patient denies CVAT. Treated with fosfomycin. No further treatment indicated. Qualifiers: Urinary tract infection type: acute cystitis Hematuria presence: without hematuria Qualified Code(s): N30.00 - Acute cystitis without hematuria SNOMED Code(s): 16917546 (3) THOMPSON (acute kidney injury) Current Visit: Yes Status: Resolved Likely multifactorial. Improved. Dose-adjust medications and avoid nephrotoxins as able. SNOMED Code(s): 81867796, 35715625 (4) Pressure ulcer Current Visit: No Status: Acute MAD noted to the buttocks and sacral region. CT abdomen and pelvis negative for abscess. Recommendations per the wound care team. Qualifiers: Pressure injury location: unspecified location Pressure injury stage: unspecified pressure injury stage Qualified Code(s): L89.90 - Pressure ulcer of unspecified site, unspecified stage SNOMED Code(s): 993432660 (5) Venous insufficiency of both lower extremities Current Visit: No Status: Chronic SNOMED Code(s): 152460494 (6) DM (diabetes mellitus), type 2 Current Visit: No Status: Chronic Recommend aggressive glucose monitoring and control to promote healing and prevent re-infection. Management per the primary team. Qualifiers: Diabetes mellitus halfway insulin use: with halfway use Diabetes mellitus complication status: with neurologic complications Diabetes mellitus complication detail: with polyneuropathy Qualified Code(s): E11.42 - Type 2 diabetes mellitus with diabetic polyneuropathy; Z79.4 - senior living (current) use of insulin SNOMED Code(s): 65048011 (7) COPD (chronic obstructive pulmonary disease) Current Visit: No Status: Chronic Qualifiers: COPD type: unspecified COPD Qualified Code(s): J44.9 - Chronic obstructive pulmonary disease, unspecified SNOMED Code(s): 59827594 (8) CKD (chronic kidney disease) stage 3, GFR 30-59 ml/min Current Visit: No Status: Chronic SNOMED Code(s): 577738543 (9) Dementia Current Visit: No Status: Chronic Qualifiers: Dementia type: Alzheimer's disease Alzheimer's disease onset: early-onset Dementia behavioral disturbance: without behavioral disturbance Qualified Code(s): G30.0 - Alzheimer's disease with early onset; F02.80 - Dementia in other diseases classified elsewhere without behavioral disturbance SNOMED Code(s): 77499035 (10) Hypertension Current Visit: No Status: Chronic Qualifiers: Hypertension type: essential hypertension Qualified Code(s): I10 - Essential (primary) hypertension SNOMED Code(s): 48775256 (11) Tobacco abuse Current Visit: No Status: Chronic SNOMED Code(s): 929129432 (12) Diarrhea Current Visit: Yes Status: Acute Started after she was given stool softeners. GI panel negative. Improved. Qualifiers: Diarrhea type: unspecified type Qualified Code(s): R19.7 - Diarrhea, unspecified SNOMED Code(s): 17585212 - Recommendations Recommendations: Await final ID and sensitivities on the blood cultures. Await repeat blood cultures. Get TTE. May need PRINCESS prior to discharge. Continue Vancomycin IV. Pharmacy to dose. Goal trough ~15. Check Vanc trough after 4th dose. Duration of treatment depends on the clinical picture. Monitor renal function and for drug toxicity and dose-adjust antibiotics. Avoid insertion of long-term IV access until repeat blood cultures are negative x 48 hours. patient services manager to assist with discharge planning. Consult Discharge Plan - Plan Referrals: William Abdul MD [Primary Care Provider] -
[2018-10-24] MEDS: Nystatin POWDER 30 GM BOTTLE TP SCH ×3 (09:34→20:49)
[2018-10-24] MEDS: Insulin LISPRO 300 UNITS/3 ML VIAL SQ SCH ×4 (09:35→20:46)
--- NOTE | 2018-10-24 12:39 | Internal Med Progress Note ---
Hospitalist Progress Note - Encounter Date of Encounter: 10/24/18 Time of Encounter: 12:38 - Subjective Interval History: I have seen and evaluated the patient at bedside. patient pleasantly demented. in no distress. denies chest pain, shortness of breath, nausea or vomiting. reported chronic back pain. - Exam Vitals: Temp Pulse Resp BP Pulse Ox 98.3 F 70 18 137/73 90 10/24/18 11:00 10/24/18 11:00 10/24/18 11:00 10/24/18 11:00 10/24/18 11:00 Exam: Vitals: Reviewed General: Alert and oriented x1. In no distress Cardiovascular: RRR, normal S1 & S2, no rubs, murmurs or gallops. Lungs: CTA b/l, no wheezes or crackles. Abdomen: Obese, soft, non-tender, no rigidity. NABS in all 4 quadrants. Extremities: No edema or tenderness, no joint swelling or clubbing. Neurological: No focal neurological abnormalities. Rest of the physical exam is non contributory - Assessment and Plan (1) THOMPSON (acute kidney injury) Current Visit: Yes Status: Resolved (2) Weakness Current Visit: Yes Status: Acute (3) DVT prophylaxis Current Visit: Yes Status: Acute (4) Urinary tract infection Current Visit: Yes Status: Acute (5) Dehydration Current Visit: Yes Status: Acute (6) Bacteremia Current Visit: Yes Status: Acute (7) Pressure ulcer Current Visit: No Status: Chronic Assessment and Plan: erythema and maceration (8) DM (diabetes mellitus), type 2 Current Visit: No Status: Chronic (9) Dementia Current Visit: No Status: Chronic (10) Hypertension Current Visit: No Status: Chronic - Summary of Assessment and Plan Summary of Assessment and Plan: 73 year old obese woman with multiple comorbidities documented including dementia, hypertension, diabetes, chronic kidney disease and oxygen-dependent COPD who has developed gluteal pressure ulcers from her hospitalizations and obese non-ambulatory state. Brought to the hospital due to generalized weakness. Assessment: 1. UTI 2. Bacteremia 3. THOMPSON (resolved) 4. Dementia 5. DM 6.VTE prophylaxis 7. HTN 8. COPD. 9. Morbid obese. 10. stage I sacral decubiti ulcer 11. Mild/chronic HFpEF Plan: unclear source of bacteremia. Blood culture: grew Gram positive cocci (one bottle). MRSA on PCR. Repeat blood culture: no growth to date - TTE: reported as inadequate test to evaluate for endocarditis - PRINCESS.ordered - NPO at midnight - c/w vancomycin per pharmacy protocol - Urine culture: Klebsiella oxytoca ESBL. - Patient received. fosfomycin 3gm/PO x1. - ID recommendations appreciated. - blood sugar is well controlled on lispro low dose sliding scale ac, and levemir 5 units HS - on metoproolol 12.5mg/PO BID. - c/w heparin subcutaneous. - wound care. - daily pt/ot Disposition: Patient to remain in the hospital due to bacteremia on broad-spectrum IV antibiotics. scheduled for PRINCESS. - Time Spent with Patient Total time spent is greater than 50% in coordination of care (as documented) at patient's floor/unit and/or counseling patient: Greater than 35 minutes (45) Plan of Care Discussed with: nurse Internal Medicine: Result - Labs CBC & Chem 7: 10/24/18 04:46 10/24/18 04:46 Labs: Short CBC 10/24/18 Range/Units 04:46 WBC 7.8 (4.3-11.1) K/mcL Hgb 11.7 (11.5-15.4) g/dL Hct 38.2 (35.3-44.9) % Plt Count 230 (140-400) K/mcL Neutrophils # 4.6 (1.6-8.9) K/mcL BMP 10/24/18 04:46 Sodium 141 Potassium 3.8 Chloride 106 Carbon Dioxide 31 H BUN 15 Creatinine 0.90 Glucose 132 H Calcium 9.2 - Impressions Impressions Echocardiogram Limited Views 10/23/18 07:28 Impressions: LVEF 60-65%. Normal LV chamber size and function. Mild concentric left ventricular hypertrophy. Normal right ventricular structure and function. No obvious significant valvular dysfunction. Inadequate image quality to evaluate for endocarditis. Consider PRINCESS if clinically indicated. Left Ventricular Wall Motion: Rest Echo Findings All wall segments showed normal motion. Findings: Study Quality * Technically sub-optimal due to poor echocardiographic windows. ECG Findings * Normal sinus rhythm. Left Ventricle * LVEF 60-65%. * Normal LV chamber size and function. * Mild concentric left ventricular hypertrophy. Right Ventricle * Normal right ventricular structure and function. Left Atrium * Normal left atrial size. Right Atrium * Normal right atrial size. Interatrial Septum * Interatrial septum not well evaluated. Aortic Valve * Aortic valve not well visualized. * Grossly, mildly sclerotic aortic valve leaflets. * No aortic regurgitation. * No aortic stenosis. Mitral Valve * Mild mitral annular calcification. * No mitral stenosis. * No mitral regurgitation. Tricuspid Valve * Tricuspid valve not well visualized. Grossly normal appearance. * No tricuspid regurgitation. Pulmonic Valve * Pulmonic valve is not well visualized. Aorta * Normally sized aortic root. Pericardium * The pericardium appears normal. IVC * Normal IVC dimensions and inspiratory collapse. Pulmonary Artery * Pulmonary artery not well visualized. Consult Discharge Plan - Plan Referrals: William Abdul MD [Primary Care Provider] - (4) Urinary tract infection Qualifiers: Urinary tract infection type: acute cystitis Hematuria presence: without hematuria Qualified Code(s): N30.00 - Acute cystitis without hematuria (7) Pressure ulcer Qualifiers: Pressure injury location: sacral region Pressure injury stage: unspecified pressure injury stage Qualified Code(s): L89.159 - Pressure ulcer of sacral region, unspecified stage (8) DM (diabetes mellitus), type 2 Qualifiers: Diabetes mellitus truck terminal manager insulin use: with truck terminal manager use Diabetes mellitus complication status: with neurologic complications Diabetes mellitus c omplication detail: with polyneuropathy Qualified Code(s): E11.42 - Type 2 diabetes mellitus with diabetic polyneuropathy; 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
[2018-10-24] MEDS: Insulin DETEMIR 100 UNIT/ML X5UNITS SQ SCH (20:48)
[2018-10-25 05:39] LABS: Basophils % 0.3 %; Eosinophils # 0.2 K/mcL (0.0-0.6); Eosinophils % 3.3 %; Hematocrit 37.5 % (35.3-44.9); Hemoglobin 11.6 g/dL (11.5-15.4); Immature Granulocytes % 0.4 % (0-4); Lymphocytes # 2.7 K/mcL (0.6-4.6); Lymphocytes % 38.7 %; Mean Corpuscular HGB Conc 30.9 g/dL (31.6-35.5); Mean Corpuscular Hemoglobin 30.1 pg (28.0-33.3); Mean Corpuscular Volume 97.2 fL (83.0-100.0); Mean Platelet Volume 10.2 fL (9.4-12.4); Monocytes # 0.6 K/mcL (0.0-1.3); Monocytes % 8.7 %; Neutrophils # 3.4 K/mcL (1.6-8.9); Platelet Count 232 K/mcL (140-400); Red Blood Count 3.86 M/mcL (3.82-4.97); Red Cell Distribution Width 13.8 % (11.5-14.5); Segmented Neutrophils % 48.6 %
[2018-10-25] MEDS: Insulin LISPRO 300 UNITS/3 ML VIAL SQ SCH ×2 (05:45→11:37)
[2018-10-25 05:56] LABS: BUN/Creatinine Ratio 14 (6-26); Blood Urea Nitrogen 12 mg/dL (8-23); Carbon Dioxide 32 mEq/L (23-29); Chloride 104 mEq/L (98-107); Glucose 123 mg/dL (70-105); Magnesium 1.7 mg/dL (1.6-2.6); Osmolality,Calculated 291 (280-300); Potassium 4.1 mEq/L (3.5-5.1); Sodium 140 mEq/L (136-145); eGFR For African Americans > 60 (> 60); eGFR For Non-African Americans > 60 (> 60)
[2018-10-25] MEDS: *HR* Heparin 5,000 UNIT/ML VIAL SQ SCH (05:58)
[2018-10-25] MEDS ORDERED: Lidocaine -MPF 1% 5 ML AMPUL INFILT ONE (08:04)
[2018-10-25] MEDS: Nystatin POWDER 30 GM BOTTLE TP SCH (08:07)
--- NOTE | 2018-10-25 09:49 | Infectious Disease Progress No ---
ID Progress Note Date of Encounter: 10/25/18 Time of Encounter: 09:20 - Subjective Subjective: Patient seen and examined. No acute events noted overnight. Patient states overall she feels okay. Denies fevers, chills, or rigors. Denies chest pain or cough. Denies nause, vomiting, diarrhea, or constipation. Denies abdominal pain. States urinary frequency is better. Reports chronic back and bilateral leg pain that are at baseline. Complains of pain to the perineal and sacral regions. Denies oral thrush or skin rashes. NPO for PRINCESS later today. - Objective CBC & Chem 7: 10/25/18 05:09 10/25/18 05:09 - Exam Vitals: Temp Pulse Resp BP Pulse Ox 98.2 F 61 16 116/56 98 10/25/18 06:46 10/25/18 06:46 10/25/18 06:46 10/25/18 06:46 10/25/18 03:42 Exam: Head: Atraumatic, normal inspection, normocephalic. Eye: EOMI, PERRLA, no scleral icterus noted. No subconjunctival hemorrhage noted. ENT: Mucous membranes moist. No odontogenic infection noted. Neck: Normal inspection, no meningismus. Respiratory: Clear to auscultation. No rales, respiratory distress, rhonchi, or wheezes noted. Cardiovascular: Regular rate and rhythm, S1 and S2 audible. No murmurs, rubs, or gallops. GI: Soft, obese, normal bowel sounds. Tenderness noted to the RLQ and suprapubic region. Extremities: No joint swelling, pedal edema, or tenderness noted. : Raw, macerated skin noted to the groin and perineal and sacral regions. Neurological: Alert, oriented 2, no focal deficits. Psychiatric: normal affect, normal mood. Skin: Dry, intact, warm. Normal color. No rashes. No endocarditis stigmata noted. - Assessment and Plan (1) Bacteremia Status: Resolved Causative organism: MRSA per PCR. Source: Unclear. Sacral wound vs. other. The patient does have some skin breakdown to her sacral region, but nothing is actually open. She was diagnosed with a gluteal abscess in July (cultures positive for MRSA and VRE), but her CT abdomen and pelvis was negative for abscess this time.According to the records, she does have hardware in the right shoulder. She states she had surgery, but unsure the exact type of procedure and patient is a poor historian due to her dementia and she has no family at the bedside. She did have a CT of the right lower extremity for "thigh cellulitis," but I do not appreciate any cellulitis at this time. Blood cultures drawn 10/21/18 are positive 1/2 for MRSA. Repeat blood cultures drawn 10/23/18 are NGTD x sets. Complicated due to hardware in the shoulder per documentation. No endocarditis stigmata noted on exam. Rheumatoid factor <10. TTE suboptimal to evaluate for endocarditis. PRINCESS planned for later today. The patient has one minor Modified Montoya's criteria. Currently on IV Vanc. SNOMED Code(s): 9846636 (2) Urinary tract infection Status: Resolved Causative organism: K. oxytoca ESBL. Per nursing, patient was having "severe urinary frequency" on admission. No pyelonephritis noted on CT abdomen and pelvis and patient denies CVAT. Treated with fosfomycin. No further treatment indicated. Qualifiers: Urinary tract infection type: acute cystitis Hematuria presence: without hematuria Qualified Code(s): N30.00 - Acute cystitis without hematuria SNOMED Code(s): 53773815 (3) THOMPSON (acute kidney injury) Status: Resolved Likely multifactorial. Improved. Dose-adjust medications and avoid nephrotoxins as able. SNOMED Code(s): 59619847, 48248425 (4) Pressure ulcer Status: Chronic MAD noted to the buttocks and sacral region. CT abdomen and pelvis negative for abscess. Recommendations per the wound care team. Qualifiers: Pressure injury location: sacral region Pressure injury stage: unspecified pressure injury stage Qualified Code(s): L89.159 - Pressure ulcer of sacral region, unspecified stage SNOMED Code(s): 363870839 (5) Venous insufficiency of both lower extremities Status: Chronic SNOMED Code(s): 084281163 (6) DM (diabetes mellitus), type 2 Status: Chronic Recommend aggressive glucose monitoring and control to promote healing and preve nt re-infection. Management per the primary team. Qualifiers: Diabetes mellitus senior care insulin use: with senior care use Diabetes mellitus complication status: with neurologic complications Diabetes mellitus complication detail: with polyneuropathy Qualified Code(s): E11.42 - Type 2 diabetes mellitus with diabetic polyneuropathy; Z79.4 - senior living (current) use of insulin SNOMED Code(s): 95311976 (7) COPD (chronic obstructive pulmonary disease) Status: Chronic Qualifiers: COPD type: unspecified COPD Qualified Code(s): J44.9 - Chronic obstructive pulmonary disease, unspecified SNOMED Code(s): 89420975 (8) CKD (chronic kidney disease) stage 3, GFR 30-59 ml/min Status: Chronic SNOMED Code(s): 823214971 (9) Dementia Status: Chronic Qualifiers: Dementia type: Alzheimer's disease Alzheimer's disease onset: early-onset Dementia behavioral disturbance: without behavioral disturbance Qualified Code(s): G30.0 - Alzheimer's disease with early onset; F02.80 - Dementia in other diseases classified elsewhere without behavioral disturbance SNOMED Code(s): 42284627 (10) Hypertension Status: Chronic Qualifiers: Hypertension type: essential hypertension Qualified Code(s): I10 - Essential (primary) hypertension SNOMED Code(s): 60600496 (11) Tobacco abuse Status: Chronic SNOMED Code(s): 789928706 (12) Diarrhea Status: Acute Started after she was given stool softeners. GI panel negative. Improved. Qualifiers: Diarrhea type: unspecified type Qualified Code(s): R19.7 - Diarrhea, unspecified SNOMED Code(s): 64752164 - Recommendations Recommendations: Await repeat blood cultures to finalize. Get PRINCESS prior to discharge. Continue Vancomycin IV. Pharmacy to dose. Goal trough ~15. Duration of treatment depends on the clinical picture and PRINCESS results. Monitor renal function and for drug toxicity and dose-adjust antibiotics. pharmacy services representative to assist with discharge planning. Consult VAT for PICC placement prior to discharge. Consult Discharge Plan - Plan Referrals: William Abdul MD [Primary Care Provider] - 10/29/18 9:45 am (Follow up visit scheduled 10/25/18) Prescriptions: Sennosides/Docusate Sodium [Senna Plus] 2 each PO BID 30 Days #60 tablet - Attending Attestation I have personally performed a face to face evaluation on this patient. I have reviewed and agree with the care plan. History and Exam by me shows: Assessment and plan: 1.Bacteremia with MRSA as per PCR. Cultures are pending. 1/2 cultures positive. No obvious source of infection. 2.Urinary tract infection causative organism Klebsiella oxytoca ESBL 3.Acute kidney injury improved 4.Pressure ulcer 5.Diabetes mellitus type 2 6.Morbid obesity 7.Dementia 8.History of gluteal abscess with VRE and MRSA treated appropriately Recommendations: Await repeat blood cultures to finalize. Get PRINCESS prior to discharge. Continue Vancomycin IV. Pharmacy to dose. Goal trough ~15. Duration of treatment depends on the clinical picture and PRINCESS results. Monitor renal function and for drug toxicity and dose-adjust antibiotics. pharmacy services representative to assist with discharge planning. Consult VAT for PICC placement prior to discharge.
--- NOTE | 2018-10-25 09:53 | Discharge Summary ---
Orders not resulted at time of discharge: Pending orders 10/21/18 20:29 Culture,Blood [BC] Stat 10/23/18 08:20 Culture,Blood [BC] Stat Date of Encounter: 10/25/18 Time of Encounter: 09:45 - Discharge Diagnosis (1) THOMPSON (acute kidney injury) Priority: Primary Status: Resolved (2) Weakness Priority: Secondary Status: Acute (3) DVT prophylaxis Priority: Secondary Status: Acute (4) Urinary tract infection Priority: Secondary Status: Resolved Qualifiers: Urinary tract infection type: acute cystitis Hematuria presence: without hematuria Qualified Code(s): N30.00 - Acute cystitis without hematuria (5) Dehydration Priority: Secondary Status: Resolved (6) Bacteremia Priority: Secondary Status: Resolved (7) Pressure ulcer Priority: Secondary Status: Chronic Qualifiers: Pressure injury location: sacral region Pressure injury stage: unspecified pressure injury stage Qualified Code(s): L89.159 - Pressure ulcer of sacral region, unspecified stage (8) DM (diabetes mellitus), type 2 Priority: Secondary Status: Chronic Qualifiers: Diabetes mellitus detention insulin use: with extermination supervisor use Diabetes mellitus complication status: with neurologic complications Diabetes mellitus complication detail: with polyneuropathy Qualified Code(s): E11.42 - Type 2 diabetes mellitus with diabetic polyneuropathy; 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 Ramsey is a 73 year old female with multiple comorbidities documented including dementia, hypertension, diabetes, chronic kidney disease and oxygen- dependent COPD who has developed gluteal pressure ulcers from her hospitalizat ions and obese non-ambulatory. Patient was brought to the hospital due to worsening generalized weakness. Patient was admitted to the hospital due to generalized weakness, dehydration, urinary tract infection, and acute kidney injury. Patient was managed with IV antibiotics, and IV hydration. Urine culture: Grew Klebsiella oxytoca ESBL, ID consulted patient received fosfomycin 3mg/PO x1. Blood cultures: One bottle grew MRSA. Repeated blood cultures: No growth to date for more than 48 hours. PRINCESS done: no vegetation. ID consulted for antibiotics management, recommended 2 weeks of IV vancomycin from first negative blood culture. vanco Goal trough ~15. Monitor renal function and for drug toxicity and dose-adjust antibiotics. Patient is being discharged home IV antibiotics. Hemodynamically stable. - Time Spent with Patient Total time spent providing and/or coordinating discharge services: Time spent: Greater than 30 minutes (35) - Discharge Medications Prescriptions: New Sennosides/Docusate Sodium [Senna Plus] 2 each PO BID 30 Days #60 tablet Continued Citalopram Hydrobromide [Citalopram HBr] 20 mg PO DAILY Donepezil [Aricept] 5 mg PO DAILY Ergocalciferol (VITAMIN D2) [Vitamin D2] 50,000 unit PO [place] Potassium Chloride [K-Tab ER] 10 meq PO DAILY Oxybutynin Chloride [Oxybutynin Chloride ER] 10 mg PO HS OxyCODONE/APAP 10/325 [Percocet 10/325 MG] 1 tab PO Q6H PRN PRN Reason: Pain Memantine [Namenda] 5 mg PO DAILY Lisinopril [Zestril] 5 mg PO DAILY Insulin Glargine [Lantus] 62 unit SQ BID Sitagliptin Phosphate [Januvia] 50 mg PO DAILY Miconazole 2% cream [Shamir Antifungal] 1 appl TP BID tube Metoprolol [Lopressor] 25 mg PO BID tablet Discontinued levoFLOXacin [Levaquin] 500 mg PO DAILY Home Medications: Citalopram Hydrobromide [Citalopram HBr] 20 mg PO DAILY 06/05/18 [History] Donepezil [Aricept] 5 mg PO DAILY 06/05/18 [History] Ergocalciferol (VITAMIN D2) [Vitamin D2] 50,000 unit PO [place] 06/05/18 [History] Potassium Chloride [K-Tab ER] 10 meq PO DAILY 06/05/18 [History] Metoprolol [Lopressor] 25 mg PO BID tablet 09/04/18 [Rx] Miconazole 2% cream [Shamir Antifungal] 1 appl TP BID tube 09/04/18 [Rx] Insulin Glargine [Lantus] 62 unit SQ BID 10/22/18 [History] Lisinopril [Zestril] 5 mg PO DAILY 10/22/18 [History] Memantine [Namenda] 5 mg PO DAILY 10/22/18 [History] OxyCODONE/APAP 10/325 [Percocet 10/325 MG] 1 tab PO Q6H PRN 10/22/18 [History] Oxybutynin Chloride [Oxybutynin Chloride ER] 10 mg PO HS 10/22/18 [History] Sitagliptin Phosphate [Januvia] 50 mg PO DAILY 10/22/18 [History] Sennosides/Docusate Sodium [Senna Plus] 2 each PO BID 30 Days #60 tablet 10/25/18 [Rx] Allergies/Adverse Reactions: Allergy/AdvReac Type Severity Reaction Status Date / Time No Known Allergies Allergy Verified 08/26/18 21:59 Date of admission: 10/22/18 14:21 Primary care physician: William Abdul MD Consults: 10/22/18 05:19 Consult to American History Professor [CONS] Routine Reason for SW Consult: pt lives alone, unable to care for self, multiple falls and DTI to bottom 10/22/18 05:22 Consult to Wound Care [CONS] Routine Reason for Consult: DTI to bottom w/ maceration Call Completed: No 10/22/18 07:31 Consult to Physical Therapy [CONS] Routine Comment: Evaluate, develop and implement POC Reason for Consult: weakness Does patient have active BEDREST order?: No Is patient medically & hemodynamically stable?: Yes Patient assessed for mobility or mobilized this visit?: No 10/22/18 07:32 Consult to Occupational Therapy [CONS] Routine Comment: Evaluate, develop and implement POC Reason for Consult: weakness Does patient have active BEDREST order?: No Is patient medically & hemodynamically stable?: Yes Patient assessed for mobility or mobilized this visit?: No 10/23/18 11:14 Consult to Infectious Diseases [CONS] Routine Consulting Provider: Infectious Disease [place] Reason for Consult: ESBL UTI and MRSA bacteremia Call Completed: No 10/25/18 08:04 Consult to Invasive Line Access Team [CONS] Routine Reason for Consult: Picc Line Insertion Line Type: PICC - Constitutional Vitals: Temp Pulse Resp BP Pulse Ox 98.2 F 61 16 116/56 98 10/25/18 06:46 10/25/18 06:46 10/25/18 06:46 10/25/18 06:46 10/25/18 03:42 Exam: Vitals: Reviewed General: Alert and oriented x1. In no distress Cardiovascular: RRR, normal S1 & S2, no rubs, murmurs or gallops. Lungs: CTA b/l, no wheezes or crackles. Abdomen: Obese, soft, non-tender, no rigidity. NABS in all 4 quadrants. Extremities: No edema Neurological: No focal neurological abnormalities. Rest of the physical exam is non contributory - Patient Status Disposition: Hospice - Home Condition: Fair Functional capacity at discharge: bed bound Overall status at discharge: patient is progressing back to baseline - Discharge Instructions Follow Up With: William Abdul MD [Primary Care Provider] - 10/29/18 9:45 am (Follow up visit scheduled 10/25/18) - Diet and Activity Activity: as per physical therapy Diet: low salt diet
--- NOTE | 2018-10-25 09:58 | Physician Discharge Referral ---
Home Health/Hosp Referral Info Transfer to: Home Health - Diagnosis (1) THOMPSON (acute kidney injury) Priority: Primary Status: Resolved (2) Weakness Priority: Secondary Status: Acute (3) DVT prophylaxis Priority: Secondary Status: Acute (4) Urinary tract infection Priority: Primary Status: Resolved (5) Dehydration Priority: Primary Status: Resolved (6) Bacteremia Priority: Primary Status: Resolved (7) Pressure ulcer Priority: Secondary Status: Chronic (8) DM (diabetes mellitus), type 2 Priority: Secondary Status: Chronic (9) Dementia Priority: Secondary Status: Chronic (10) Hypertension Priority: Secondary Status: Chronic - Respiratory Orders Oxygen / L per min (2-3 litters) Smoking Cessation: Smoking cessation has been advised. For more information, call the [place] Tobacco Quit Line at 7-075-NIIC-NOW. - Diet/Nutrition Diet/Nutrition Orders: Regular - Activity Activity Orders: Chair - Services Needed Following services are medically necessary services: Nursing, Home Health Aide, Physical Therapy, Occupational Therapy - Transfer Medications Prescriptions: Sennosides/Docusate Sodium [Senna Plus] 2 each PO BID 30 Days #60 tablet Home Medications: Citalopram Hydrobromide [Citalopram HBr] 20 mg PO DAILY 06/05/18 [History] Donepezil [Aricept] 5 mg PO DAILY 06/05/18 [History] Ergocalciferol (VITAMIN D2) [Vitamin D2] 50,000 unit PO [place] 06/05/18 [History] Potassium Chloride [K-Tab ER] 10 meq PO DAILY 06/05/18 [History] Metoprolol [Lopressor] 25 mg PO BID tablet 09/04/18 [Rx] Miconazole 2% cream [Shamir Antifungal] 1 appl TP BID tube 09/04/18 [Rx] Insulin Glargine [Lantus] 62 unit SQ BID 10/22/18 [History] Lisinopril [Zestril] 5 mg PO DAILY 10/22/18 [History] Memantine [Namenda] 5 mg PO DAILY 10/22/18 [History] OxyCODONE/APAP 10/325 [Percocet 10/325 MG] 1 tab PO Q6H PRN 10/22/18 [History] Oxybutynin Chloride [Oxybutynin Chloride ER] 10 mg PO HS 10/22/18 [History] Sitagliptin Phosphate [Januvia] 50 mg PO DAILY 10/22/18 [History] Sennosides/Docusate Sodium [Senna Plus] 2 each PO BID 30 Days #60 tablet 10/25/18 [Rx] Allergies/Adverse Reactions: Allergy/AdvReac Type Severity Reaction Status Date / Time No Known Allergies Allergy Verified 08/26/18 21:59 Certification: Further, I certify that my clinical findings support that this patient is homebound (i.e. absences from home require considerable and taxing effort and are for medical reasons or druze services or infrequently or short duration when for other reasons) because: Homebound Reason: Patient requires assistance of a person or device to safely leave home Attestation: My signature below is to certify that this patient is under my care and that I, or nurse practitioner, or a physician's bioinformatics assistant working with me, has a [id number] encounter with this patient.
[2018-10-25] MEDS ORDERED: Lidocaine Viscous Oral Soln 15 ML SOLUTION MM PRN ×2 (10:10→13:22)
[2018-10-25] MEDS ORDERED: *HR* FentaNYL (PF) 100 MCG/2 ML VIAL IVP PRN (10:10)
[2018-10-25] MEDS ORDERED: 0.9 % Sodium Chloride 500 ML IVC ONE ×2 (10:10→13:23)
[2018-10-25] MEDS ORDERED: *HR* Midazolam HCl 5 MG/5 ML VIAL IVP PRN (10:10)
[2018-10-25 13:31] VITALS: BP 142/66
[2018-10-25] MEDS: *HR* FentaNYL (PF) 100 MCG/2 ML VIAL IVP PRN ×2 (13:45→13:50)
[2018-10-25] MEDS: *HR* Midazolam HCl 5 MG/5 ML VIAL IVP PRN ×2 (13:45→13:50)
[2018-10-25] MEDS ORDERED: Aminoglycoside Consult 1 EACH MC ONE (16:23)
== END 2018-10-25 16:24 | disposition hospice, home (50) | DRG 683 ==
LOC: 2ANU 17:42 → EMEROOARM 17:42 → 2ANU 23:19 → SUATTDRO 10-22 14:21
PROVIDERS: ADMIT Internal Medicine; ATTEND Internal Medicine

== ENCOUNTER 2019-06-07 19:32 | Inpatient (IN) ==
[2019-06-07 20:23] LABS: Basophils % 0.2 %; Eosinophils # 0.2 K/mcL (0.0-0.6); Eosinophils % 2.1 %; Hematocrit 38.7 % (35.3-44.9); Hemoglobin 12.4 g/dL (11.5-15.4); Immature Granulocytes % 0.4 % (0-4); Lymphocytes # 2.7 K/mcL (0.6-4.6); Mean Corpuscular Hemoglobin 30.5 pg (28.0-33.3); Mean Corpuscular Volume 95.3 fL (83.0-100.0); Mean Platelet Volume 10.2 fL (9.4-12.4); Monocytes # 0.7 K/mcL (0.0-1.3); Monocytes % 8.2 %; Neutrophils # 4.6 K/mcL (1.6-8.9); Platelet Count 258 K/mcL (140-400); Red Blood Count 4.06 M/mcL (3.82-4.97); Segmented Neutrophils % 56.1 %; White Blood Count 8.3 K/mcL (4.3-11.1)
[2019-06-07 20:41] LABS: Bilirubin,Urine Negative (Negative); Blood,Urine Negative (Negative); Clarity,Urine Clear (Clear); Color,Urine Yellow (Yellow); Glucose,Urine (UA) Normal (Normal); Ketones,Urine Negative (Negative); Leukocyte Esterase,Urine Negative (Negative); Nitrite,Urine Negative (Negative); PH,Urine 5.5 pH Units (5.0-8.0); Protein,Urine Negative (Neg-Trace); Specific Gravity,Urine 1.015 (1.010-1.025); Urobilinogen,Urine Normal (Normal)
[2019-06-07 20:42] LABS: Albumin 3.6 g/dL (3.5-5.7); Albumin/Globulin Ratio 1.2 (1.1-2.2); Bilirubin,Total 0.2 mg/dL (0.3-1.0); Calcium 9.3 mg/dL (8.6-10.3); Globulin 3.1 g/dL (2.4-3.5); Potassium 4.1 mEq/L (3.5-5.1); Total Protein 6.7 g/dL (6.4-8.9)
[2019-06-07] MEDS ORDERED: Naloxone 0.4 MG/ML INJ IVP PRN (20:54)
[2019-06-07] MEDS ORDERED: *HR* Dextrose 50 % in Water (Syg) 50 ML SYRINGE IVP PRN (20:57)
[2019-06-07] MEDS ORDERED: D5% in Water 1,000 ML IVC PRN (20:57)
[2019-06-07] MEDS ORDERED: Dextrose Gel 15 GM/37.5 ML TUBE PO PRN ×2 (20:57)
[2019-06-07] MEDS: *HR* Heparin 5,000 UNIT/ML VIAL SQ SCH (23:46)
[2019-06-08] MEDS ORDERED: *HR* OxyCODONE/APAP 5/325 TABLET PO ONE (03:18)
[2019-06-08 03:50] LABS: Hematocrit 38.6 % (35.3-44.9); Hemoglobin 12.1 g/dL (11.5-15.4); Immature Granulocytes % 0.5 % (0-4); Mean Corpuscular HGB Conc 31.3 g/dL (31.6-35.5); Mean Corpuscular Hemoglobin 29.7 pg (28.0-33.3); Mean Corpuscular Volume 94.8 fL (83.0-100.0); Mean Platelet Volume 10.2 fL (9.4-12.4); Platelet Count 245 K/mcL (140-400); Red Blood Count 4.07 M/mcL (3.82-4.97); Red Cell Distribution Width 13.2 % (11.5-14.5); White Blood Count 8.9 K/mcL (4.3-11.1)
[2019-06-08 03:51] LABS: Basophils % 0.2 %; Eosinophils # 0.2 K/mcL (0.0-0.6); Eosinophils % 2.1 %; Lymphocytes # 3.8 K/mcL (0.6-4.6); Lymphocytes % 42.7 %; Monocytes # 0.8 K/mcL (0.0-1.3); Monocytes % 8.5 %; Neutrophils # 4.1 K/mcL (1.6-8.9)
[2019-06-08 04:11] LABS: Calcium 9.2 mg/dL (8.6-10.3)
[2019-06-08] MEDS: *HR* Heparin 5,000 UNIT/ML VIAL SQ SCH ×3 (06:12→21:58)
[2019-06-08] MEDS: Insulin LISPRO 300 UNITS/3 ML VIAL SQ SCH ×3 (08:13→17:15)
[2019-06-08] MEDS: *HR* OxyCODONE/APAP 10/325 TABLET PO PRN ×3 (11:20→23:14)
[2019-06-08] MEDS ORDERED: *HR* LORazepam 2 MG/ML VIAL IVP ONE (20:05)
[2019-06-08] MEDS: Nystatin POWDER 30 GM BOTTLE TP SCH (20:52)
[2019-06-08] MEDS ORDERED: *HR* LORazepam 0.5 MG TABLET PO PRN (21:00)
[2019-06-09 02:34] LABS: Potassium 4.3 mEq/L (3.5-5.1)
[2019-06-09] MEDS: *HR* Heparin 5,000 UNIT/ML VIAL SQ SCH (06:09)
[2019-06-09] MEDS ORDERED: Ipratropium/Albuterol Neb 3 ML IH PRN (08:29)
[2019-06-09] MEDS ORDERED: *HR* FentaNYL PATCH 50 MCG PATCH TD SCH (08:30)
[2019-06-09] MEDS ORDERED: Insulin DETEMIR 100 UNIT/ML X5UNITS SQ SCH (09:00)
[2019-06-09] MEDS ORDERED: NON-FORMULARY MEDICATION 1 EACH EACH (Insulin Glargine,Hum.Rec.Anlog [Basaglar Kwikpen U-1 SQ SCH (09:00)
[2019-06-09] MEDS: Insulin LISPRO 300 UNITS/3 ML VIAL SQ SCH (09:16)
[2019-06-09] MEDS: Nystatin POWDER 30 GM BOTTLE TP SCH (09:16)
[2019-06-09 10:56] VITALS: BP 85/55
[2019-06-10] MEDS ORDERED: *HR* FentaNYL PATCH 50 MCG PATCH TD SCH (09:00)
== END 2019-06-09 12:14 | disposition home or self-care (01) | DRG 593 ==
LOC: EMEROOARM 19:32 → 3BNU 19:32
PROVIDERS: ADMIT Internal Medicine; ATTEND Internal Medicine

== ENCOUNTER 2019-06-29 08:52 | Observation (INO) ==
[2019-06-29] MEDS ORDERED: *HR* OxyCODONE/APAP 5/325 TABLET PO ONE (10:17)
[2019-06-29 10:28] LABS: Bilirubin,Urine Small (Negative); Blood,Urine Negative (Negative); Clarity,Urine Clear (Clear); Color,Urine Yellow (Yellow); Glucose,Urine (UA) Normal (Normal); Ketones,Urine Negative (Negative); Leukocyte Esterase,Urine Negative (Negative); Nitrite,Urine Negative (Negative); Protein,Urine Trace mg/dL (Neg-Trace); Specific Gravity,Urine > 1.030 (1.010-1.025); Urobilinogen,Urine Normal (Normal)
[2019-06-29 10:49] LABS: Calcium 9.3 mg/dL (8.6-10.3); Potassium 4.1 mEq/L (3.5-5.1)
[2019-06-29 13:35] LABS: Hemoglobin 11.8 g/dL (11.5-15.4); Mean Corpuscular HGB Conc 31.9 g/dL (31.6-35.5); Mean Corpuscular Hemoglobin 30.6 pg (28.0-33.3); Mean Corpuscular Volume 96.1 fL (83.0-100.0); Mean Platelet Volume 9.8 fL (9.4-12.4); Platelet Count 228 K/mcL (140-400); Red Blood Count 3.85 M/mcL (3.82-4.97); Red Cell Distribution Width 12.9 % (11.5-14.5)
[2019-06-29] MEDS ORDERED: Naloxone 0.4 MG/ML INJ IVP PRN (15:58)
[2019-06-29] MEDS ORDERED: 0.9 % Sodium Chloride 500 ML IVC SCH (16:00)
[2019-06-29] MEDS ORDERED: *HR* Dextrose 50 % in Water (Syg) 50 ML SYRINGE IVP PRN (16:02)
[2019-06-29] MEDS ORDERED: Dextrose Gel 15 GM/37.5 ML TUBE PO PRN ×2 (16:02)
[2019-06-29] MEDS ORDERED: D5% in Water 1,000 ML IVC PRN (16:02)
[2019-06-29] MEDS ORDERED: Ipratropium/Albuterol Neb 3 ML IH PRN (16:04)
[2019-06-29] MEDS: Insulin LISPRO 300 UNITS/3 ML VIAL SQ SCH (17:48)
[2019-06-29] MEDS: *HR* Heparin 5,000 UNIT/ML VIAL SQ SCH (17:49)
[2019-06-29] MEDS: *HR* OxyCODONE/APAP 5/325 TABLET PO PRN (20:39)
[2019-06-30] MEDS: Nystatin POWDER 30 GM BOTTLE TP SCH ×3 (01:22→20:53)
[2019-06-30] MEDS: *HR* OxyCODONE/APAP 5/325 TABLET PO PRN ×3 (05:01→16:48)
[2019-06-30] MEDS: *HR* Heparin 5,000 UNIT/ML VIAL SQ SCH (05:03)
[2019-06-30 05:45] LABS: Basophils % 0.2 %; Eosinophils # 0.1 K/mcL (0.0-0.6); Eosinophils % 0.9 %; Hematocrit 35.5 % (35.3-44.9); Hemoglobin 11.1 g/dL (11.5-15.4); Immature Granulocytes % 0.5 % (0-4); Lymphocytes # 2.2 K/mcL (0.6-4.6); Lymphocytes % 27.3 %; Mean Corpuscular HGB Conc 31.3 g/dL (31.6-35.5); Mean Corpuscular Hemoglobin 30.1 pg (28.0-33.3); Mean Corpuscular Volume 96.2 fL (83.0-100.0); Mean Platelet Volume 9.8 fL (9.4-12.4); Monocytes # 0.7 K/mcL (0.0-1.3); Monocytes % 8.8 %; Platelet Count 198 K/mcL (140-400); Red Blood Count 3.69 M/mcL (3.82-4.97); Segmented Neutrophils % 62.3 %; White Blood Count 8.1 K/mcL (4.3-11.1)
[2019-06-30 06:05] LABS: Calcium 8.7 mg/dL (8.6-10.3); Potassium 4.2 mEq/L (3.5-5.1)
[2019-06-30] MEDS: Insulin LISPRO 300 UNITS/3 ML VIAL SQ SCH ×3 (07:16→16:47)
[2019-06-30] MEDS ORDERED: Acetaminophen IV 500 MG/50 ML INFUS..BTL IVPB ONE (09:17)
[2019-06-30] MEDS ORDERED: 0.9 % Sodium Chloride 500 ML IVC SCH (09:30)
[2019-06-30] MEDS ORDERED: *HR* FentaNYL PATCH 50 MCG PATCH TD SCH (13:00)
[2019-07-01] MEDS: *HR* OxyCODONE/APAP 5/325 TABLET PO PRN ×2 (00:20→08:50)
[2019-07-01] MEDS ORDERED: *HR* OxyCODONE Immed Rel 5 MG TABLET PO ONE (03:45)
[2019-07-01] MEDS: Insulin LISPRO 300 UNITS/3 ML VIAL SQ SCH (08:50)
[2019-07-01] MEDS: Nystatin POWDER 30 GM BOTTLE TP SCH (08:50)
[2019-07-01 11:21] LABS: Basophils % 0.2 %; Eosinophils # 0.1 K/mcL (0.0-0.6); Hematocrit 38.5 % (35.3-44.9); Hemoglobin 11.7 g/dL (11.5-15.4); Immature Granulocytes % 0.4 % (0-4); Lymphocytes # 1.7 K/mcL (0.6-4.6); Lymphocytes % 19.9 %; Mean Corpuscular HGB Conc 30.4 g/dL (31.6-35.5); Mean Corpuscular Hemoglobin 29.5 pg (28.0-33.3); Mean Corpuscular Volume 97.2 fL (83.0-100.0); Mean Platelet Volume 9.7 fL (9.4-12.4); Monocytes # 0.8 K/mcL (0.0-1.3); Monocytes % 9.3 %; Neutrophils # 5.8 K/mcL (1.6-8.9); Platelet Count 204 K/mcL (140-400); Red Blood Count 3.96 M/mcL (3.82-4.97); Red Cell Distribution Width 12.7 % (11.5-14.5); Segmented Neutrophils % 69.2 %; White Blood Count 8.4 K/mcL (4.3-11.1)
[2019-07-01 11:51] LABS: Calcium 9.1 mg/dL (8.6-10.3); Potassium 4.4 mEq/L (3.5-5.1)
[2019-07-01 15:30] VITALS: BP 121/72
== END 2019-07-01 17:07 | disposition hospice, home (50) ==
LOC: 3BNU 08:52 → EMEROOARM 08:52 → SUATTDRO 14:24 → 3BNU 14:54
PROVIDERS: ADMIT Family Medicine; ATTEND Nurse Practitioner

== ENCOUNTER 2019-07-01 19:20 | Inpatient (IN) ==
[2019-07-01] MEDS ORDERED: Ipratropium/Albuterol Neb 3 ML IH ONE (19:27)
[2019-07-01 20:07] LABS: Basophils % 0.2 %; Eosinophils % 0.3 %; Hemoglobin 11.9 g/dL (11.5-15.4); Immature Granulocytes % 0.5 % (0-4); Lymphocytes # 1.1 K/mcL (0.6-4.6); Lymphocytes % 11.6 %; Mean Corpuscular HGB Conc 30.5 g/dL (31.6-35.5); Mean Corpuscular Volume 98.2 fL (83.0-100.0); Mean Platelet Volume 9.7 fL (9.4-12.4); Monocytes # 0.8 K/mcL (0.0-1.3); Monocytes % 8.1 %; Neutrophils # 7.8 K/mcL (1.6-8.9); Platelet Count 203 K/mcL (140-400); Red Blood Count 3.97 M/mcL (3.82-4.97); Red Cell Distribution Width 12.6 % (11.5-14.5); Segmented Neutrophils % 79.3 %; White Blood Count 9.8 K/mcL (4.3-11.1)
[2019-07-01 20:25] LABS: Calcium 9.3 mg/dL (8.6-10.3); Potassium 4.1 mEq/L (3.5-5.1)
[2019-07-01] MEDS ORDERED: Naloxone 0.4 MG/ML INJ IVP PRN (22:06)
[2019-07-01] MEDS ORDERED: Ipratropium/Albuterol Neb 3 ML IH PRN (22:10)
[2019-07-01] MEDS: *HR* FentaNYL PATCH 50 MCG PATCH TD SCH (22:42)
[2019-07-01] MEDS ORDERED: D5% in Water 1,000 ML IVC PRN (22:43)
[2019-07-01] MEDS ORDERED: *HR* Dextrose 50 % in Water (Syg) 50 ML SYRINGE IVP PRN (22:43)
[2019-07-01] MEDS ORDERED: Dextrose Gel 15 GM/37.5 ML TUBE PO PRN ×2 (22:43)
[2019-07-01] MEDS: *HR* OxyCODONE/APAP 5/325 TABLET PO PRN (23:41)
[2019-07-02] MEDS: *HR* Heparin 5,000 UNIT/ML VIAL SQ SCH ×3 (05:56→21:29)
[2019-07-02 06:32] LABS: Basophils % 0.1 %; Eosinophils # 0.1 K/mcL (0.0-0.6); Eosinophils % 1.3 %; Hematocrit 34.8 % (35.3-44.9); Hemoglobin 10.9 g/dL (11.5-15.4); Immature Granulocytes % 0.4 % (0-4); Lymphocytes # 1.9 K/mcL (0.6-4.6); Mean Corpuscular HGB Conc 31.3 g/dL (31.6-35.5); Mean Corpuscular Hemoglobin 30.1 pg (28.0-33.3); Mean Corpuscular Volume 96.1 fL (83.0-100.0); Mean Platelet Volume 10.3 fL (9.4-12.4); Monocytes # 0.8 K/mcL (0.0-1.3); Monocytes % 10.2 %; Neutrophils # 5.1 K/mcL (1.6-8.9); Platelet Count 192 K/mcL (140-400); Red Blood Count 3.62 M/mcL (3.82-4.97); Red Cell Distribution Width 12.8 % (11.5-14.5)
[2019-07-02 06:53] LABS: Calcium 9.1 mg/dL (8.6-10.3); Potassium 4.2 mEq/L (3.5-5.1)
[2019-07-02] MEDS: *HR* OxyCODONE/APAP 5/325 TABLET PO PRN (09:39)
[2019-07-02] MEDS: Furosemide 40 MG TABLET PO SCH (09:40)
[2019-07-02] MEDS: Insulin LISPRO 300 UNITS/3 ML VIAL SQ SCH ×4 (09:41→21:26)
[2019-07-02] MEDS: Nystatin POWDER 30 GM BOTTLE TP SCH ×2 (11:30→21:28)
[2019-07-03] MEDS: *HR* OxyCODONE/APAP 5/325 TABLET PO PRN ×2 (01:16→19:53)
[2019-07-03] MEDS: *HR* Heparin 5,000 UNIT/ML VIAL SQ SCH ×3 (05:11→21:19)
[2019-07-03] MEDS: Furosemide 40 MG TABLET PO SCH (10:03)
[2019-07-03] MEDS: Nystatin POWDER 30 GM BOTTLE TP SCH ×2 (10:03→19:53)
[2019-07-03] MEDS: Insulin LISPRO 300 UNITS/3 ML VIAL SQ SCH ×4 (10:03→19:54)
[2019-07-04] MEDS: *HR* OxyCODONE/APAP 5/325 TABLET PO PRN (05:09)
[2019-07-04] MEDS: *HR* Heparin 5,000 UNIT/ML VIAL SQ SCH ×3 (05:09→22:39)
[2019-07-04 05:11] LABS: Hematocrit 38.1 % (35.3-44.9); Hemoglobin 12.3 g/dL (11.5-15.4); Mean Corpuscular HGB Conc 32.3 g/dL (31.6-35.5); Mean Corpuscular Hemoglobin 30.8 pg (28.0-33.3); Mean Corpuscular Volume 95.3 fL (83.0-100.0); Mean Platelet Volume 10.1 fL (9.4-12.4); Platelet Count 225 K/mcL (140-400); Red Cell Distribution Width 12.5 % (11.5-14.5); White Blood Count 7.7 K/mcL (4.3-11.1)
[2019-07-04 05:27] LABS: Calcium 9.4 mg/dL (8.6-10.3); Potassium 3.7 mEq/L (3.5-5.1)
[2019-07-04] MEDS: Insulin LISPRO 300 UNITS/3 ML VIAL SQ SCH ×4 (07:30→22:39)
[2019-07-04] MEDS: Furosemide 40 MG TABLET PO SCH (11:23)
[2019-07-04] MEDS: Nystatin POWDER 30 GM BOTTLE TP SCH (11:24)
[2019-07-04] MEDS ORDERED: haloperidoL 1 MG TABLET PO PRN (13:07)
[2019-07-04] MEDS: *HR* FentaNYL PATCH 50 MCG PATCH TD SCH (22:28)
[2019-07-05] MEDS: *HR* Heparin 5,000 UNIT/ML VIAL SQ SCH ×3 (05:14→20:59)
[2019-07-05] MEDS: Nystatin POWDER 30 GM BOTTLE TP SCH ×3 (05:14→20:59)
[2019-07-05] MEDS: *HR* OxyCODONE/APAP 5/325 TABLET PO PRN (05:29)
[2019-07-05] MEDS: Insulin LISPRO 300 UNITS/3 ML VIAL SQ SCH ×4 (07:41→20:59)
[2019-07-05] MEDS: Furosemide 40 MG TABLET PO SCH (08:43)
[2019-07-06] MEDS: *HR* Heparin 5,000 UNIT/ML VIAL SQ SCH ×3 (05:17→21:31)
[2019-07-06] MEDS: Insulin LISPRO 300 UNITS/3 ML VIAL SQ SCH ×4 (08:19→20:47)
[2019-07-06] MEDS: Furosemide 40 MG TABLET PO SCH (09:53)
[2019-07-06] MEDS: Nystatin POWDER 30 GM BOTTLE TP SCH ×2 (09:53→20:30)
[2019-07-06] MEDS: *HR* OxyCODONE/APAP 5/325 TABLET PO PRN (19:42)
[2019-07-07] MEDS: *HR* Heparin 5,000 UNIT/ML VIAL SQ SCH (05:23)
[2019-07-07 07:09] VITALS: BP 131/74
[2019-07-07] MEDS: Insulin LISPRO 300 UNITS/3 ML VIAL SQ SCH (07:57)
[2019-07-07] MEDS: Furosemide 40 MG TABLET PO SCH (09:13)
[2019-07-07] MEDS: *HR* OxyCODONE/APAP 5/325 TABLET PO PRN (09:17)
[2019-07-07] MEDS: Nystatin POWDER 30 GM BOTTLE TP SCH (09:20)
== END 2019-07-07 10:41 | DRG 560 ==
LOC: EMEROOARM 19:20 → 3BNU 19:20
PROVIDERS: ADMIT Internal Medicine; ATTEND Internal Medicine